=== PATIENT | female | born 1940 | race Caucasian/White ===

== ENCOUNTER 2016-06-22 10:02 | Emergency (ER) | payer OTHER ==
[~2016-06-22] VITALS: Ht 152.4 cm; Wt 51.0 kg
[~2016-06-22 10:02] MED LIST: ASPI81TA28 PO; ISOS-11 PO; LEVO75TA PO; LISI-729 PO; LOVA40TA3 PO; LSX20 PO; METO1TAB66 PO; POTA-331 PO; PRED10TA PO; WARF5TAB7 PO
[2016-06-22 10:19] VITALS: TEMP 37.7; Ht 152.4 cm; Wt 51.0 kg
[2016-06-22] MEDS ORDERED: WARF2.5T8 PO (10:30)
[2016-06-22 10:49] LABS: BASO % 0.6 %; BASO ABS # 0.06 K/uL (0-0.2); COMPLETE YES; HEMATOCRIT 40.7 % (37-47); IG% 0.2 %; LYMPH % 10.4 %; LYMPH ABS # 1.05 K/uL (1.2-3.4); MEAN CELL VOLUME 88.3 fL (80-100); MEAN CORPUSCULAR HEMOGLOBIN 30.6 pg (25-34); MEAN CORPUSCULAR HGB CONC 34.6 g/dl (32-36); MONO % 6.3 %; NEUT % 81.5 %; PLATELET COUNT 256 K/uL (130-400); RED BLOOD COUNT 4.61 M/uL (4.2-5.4); WHITE BLOOD COUNT 10.12 K/uL (4.8-10.8)
[2016-06-22 11:05] LABS: BUN/CREATININE RATIO 11.8 (10-20); CALCIUM 9.4 mg/dl (8.5-10.1); CREATININE 0.79 mg/dl (0.60-1.20); POTASSIUM 4.2 mmol/L (3.5-5.1)
[2016-06-22 11:13] LABS: INR 2.8 (0.9-1.1); PROTHROMBIN TIME (PATIENT) 31.3 SECONDS (9.0-12.0)
[2016-06-22 11:17] LABS: MANUAL MICROSCOPIC REQUIRED? YES; URINE APPEARANCE CLOUDY (CLEAR); URINE BILIRUBIN NEG (NEG); URINE COLOR BROWN; URINE NITRITE POS (NEG); URINE SPECIFIC GRAVITY 1.015 (1.000-1.030); UROBILINOGEN NEG (NEG)
[2016-06-22 11:20] LABS: REVIEW REQ? NO
[2016-06-22 11:24] LABS: URINE RBC >30 /hpf (0-4); URINE WBC >30 /hpf (0-5)
[2016-06-22 11:26] LABS: URINE BACTERIA 3+ (NEG)
[2016-06-22 11:27] LABS: ZZUR CULT IF INDIC CLEAN CATCH YES
--- NOTE | 2016-06-22 12:04 | DIAGNOSTIC IMAGING REPORT ---
ULTRASOUND KIDNEYS AND BLADDER CLINICAL HISTORY: Hematuria. COMPARISON STUDY: No priors. TECHNIQUE: Real-time, grayscale, and color flow sonography of the kidneys and bladder is performed. Images are reviewed in the transverse and longitudinal planes. FINDINGS: Kidneys: The kidneys demonstrate mild cortical atrophy and are normal in echotexture. The right kidney measures 9.8 x 3.9 x 3.7 cm and the left kidney measures 8.9 x 4.7 x 4.5 cm. There is no hydronephrosis. No shadowing renal calculi are identified. There is no sonographic evidence of contour deforming renal mass lesion. No perinephric fluid is identified. Bladder: The bladder is normal in morphology. Intraluminal debris is suspected. Ureteral jets were not seen. IMPRESSION: 1. The kidneys demonstrate minimal cortical atrophy and are without hydronephrosis. 2. The bladder is normal in morphology. Intraluminal debris is suspected. Correlation with urinalysis will be required. Electronically signed by: Anthony Bolanos M.D. 06/22/2016 12:02 PM Dictated Date/Time: 06/22/2016 12:00 PM
[2016-06-22] MEDS ORDERED: CEPHALEXIN MONOHYDRATE 250 MG CAP PO ONE (12:30)
[2016-06-22] MEDS ORDERED: CEPH500C PO (12:56)
[2016-06-22 13:37] VITALS: BP 171/67; PULSE 78; O2SAT 95
--- NOTE | 2016-06-22 16:46 | EMERGENCY ROOM VISIT NOTE ---
History Report prepared by Ab: Yvette Catherine Under the Supervision of: Dr. Markos Hernandez D.O. First contact with patient: 10:12 Chief Complaint: HEMATURIA Stated Complaint: URINATING BLOOD Nursing Triage Summary: PT PRESENTS WITH DAUGHTER PT STATES SHE HAS HAD AN INCREASED URINARY FREQUENCY LAST NIGHT STATES SHE HAS BLOOD IN HER URINE WITH EVERY URINATION PT IS ON COUMADIN FOR A PREVIOUS BLOT CLOT WITH STENT AND A IED History of Present Illness The patient is a 75 year old female who presents to the Emergency Room with complaints of persistent hematuria that started last night. The patient is not passing any clots and she feels like she is able to get all of her urine out. She has never experienced hematuria in the past. The patient denies fever, dizziness, lightheadedness, abdominal pain, and pain or burning with urination along with recent trauma or falls. She is also experiencing rhinorrhea but denies any recent cough. The patient has been on Coumadin for several years as a result of a DVT. The patient has a history of an TX and has a defibrillator in place. Patient is no other complaints at this time. Source of History: patient Onset: last night Quality: other (hematuria) Timing: other (persistent) Associated Symptoms: No abdominal pain, No cough, No fevers, No urinary symptoms (pain or burning with urination) Note: rhinorrhea, no dizziness, no lightheadedness Review of Systems See HPI for pertinent positives & negatives. A total of 10 systems reviewed and were otherwise negative. Past Medical & Surgical Medical Problems: (1) ACUTE CHF, CAD (2) Acute pulmonary edema (3) CHF exacerbation (4) DVT (deep venous thrombosis) (5) Hypoxia (6) Hypoxia Family History FH: heart disease Hypertension Social History Smoking Status: Former Smoker Alcohol Use: none Drug Use: none Housing Status: lives with family Current/Historical Medications Scheduled Aspirin (Aspirin Ec), 81 MG PO DAILY Cephalexin Monohydrate (Keflex), 500 MG PO QID Furosemide (Furosemide), 20 MG PO QAM Isosorbide Mononitrate (Isosorbide Mononitrate ER), 30 MG PO QAM Levothyroxine Sodium (Synthroid), 75 MCG PO DAILY Lisinopril (Zestril), 5 MG PO DAILY Lovastatin (Mevacor), 40 MG PO BID Metoprolol Succinate (Toprol Xl), 50 MG PO DAILY Warfarin Sod (Juntoven), 5 MG PO 5XWK Warfarin Sod (Jantoven), 2.5 MG PO 2XWK Allergies Coded Allergies: Simvastatin (Verified Allergy, Unknown, ., 03/29/15) Physical Exam Vital Signs Date Time Temp Pulse Resp B/P Pulse Ox O2 Delivery O2 Flow Rate FiO2 06/22/16 13:37 78 20 171/67 95 06/22/16 11:37 72 20 137/76 99 Room Air 06/22/16 10:19 37.7 71 16 127/98 97 Room Air Physical Exam GENERAL: alert, sitting up in bed, well appearing, well nourished, no distress, non-toxic EYE EXAM: normal conjunctiva OROPHARYNX: no exudate, no erythema, lips, buccal mucosa, and tongue normal and mucous membranes are moist NECK: supple, no nuchal rigidity, no adenopathy, non-tender LUNGS: Clear to auscultation. Normal chest wall mechanics HEART: no murmurs, S1 normal and S2 normal ABDOMEN: abdomen soft, non-tender, normo-active bowel sounds, no masses, no rebound or guarding. BACK: Back is symmetrical on inspection and there is no deformity, no midline tenderness, no CVA tenderness. SKIN: no rashes and no bruising UPPER EXTREMITIES: upper extremities are grossly normal. LOWER EXTREMITIES: No pitting edema. NEURO EXAM: Normal sensorium, cranial nerves II-XII grossly intact, normal speech, no gross weakness of arms, no gross weakness of legs. Medical Decision & Procedures ER Provider Diagnostic Interpretation: US results have been interpreted by the radiologist and reviewed by me. ULTRASOUND KIDNEYS AND BLADDER IMPRESSION: 1. The kidneys demonstrate minimal cortical atrophy and are without hydronephrosis. 2. The bladder is normal in morphology. Intraluminal debris is suspected. Correlation with urinalysis will be required. Electronically signed by: Anthony Bolanos M.D. 06/22/2016 12:02 PM Dictated Date/Time: 06/22/2016 12:00 PM Laboratory Results 06/22/16 10:44 Red Blood Count 4.61, Mean Corpuscular Volume 88.3, Mean Corpuscular Hemoglobin 30.6, Mean Corpuscular Hemoglobin Concent 34.6, Mean Platelet Volume 10.0, Neutrophils (%) (Auto) 81.5, Lymphocytes (%) (Auto) 10.4, Monocytes (%) (Auto) 6.3, Eosinophils (%) (Auto) 1.0, Basophils (%) (Auto) 0.6, Neutrophils # (Auto) 8.25, Lymphocytes # (Auto) 1.05, Monocytes # (Auto) 0.64, Eosinophils # (Auto) 0.10, Basophils # (Auto) 0.06 06/22/16 10:44 Test 06/22/16 10:20 06/22/16 10:44 Urine Color BROWN Urine Appearance CLOUDY (CLEAR) Urine pH 7.0 (4.5-7.5) Urine Specific [place] 1.015 (1.000-1.030) Urine Protein 2+ (NEG) Urine Glucose (UA) NEG (NEG) Urine Ketones TRACE (NEG) Urine Occult Blood 2+ (NEG) Urine Nitrite POS (NEG) Urine Bilirubin NEG (NEG) Urine Urobilinogen NEG (NEG) Urine Leukocyte Esterase SMALL (NEG) Urine RBC >30 /hpf (0-4) Urine WBC >30 /hpf (0-5) Urine Epithelial Cells 5-10 /lpf (0-5) Urine Bacteria 3+ (NEG) White Blood Count 10.12 K/uL (4.8-10.8) Red Blood Count 4.61 M/uL (4.2-5.4) Hemoglobin 14.1 g/dL (12.0-16.0) Hematocrit 40.7 % (37-47) Mean Corpuscular Volume 88.3 fL (80-100) Mean Corpuscular Hemoglobin 30.6 pg (25-34) Mean Corpuscular Hemoglobin Concent 34.6 g/dl (32-36) Platelet Count 256 K/uL (130-400) Mean Platelet Volume 10.0 fL (7.4-10.4) Neutrophils (%) (Auto) 81.5 % Lymphocytes (%) (Auto) 10.4 % Monocytes (%) (Auto) 6.3 % Eosinophils (%) (Auto) 1.0 % Basophils (%) (Auto) 0.6 % Neutrophils # (Auto) 8.25 K/uL (1.4-6.5) Lymphocytes # (Auto) 1.05 K/uL (1.2-3.4) Monocytes # (Auto) 0.64 K/uL (0.11-0.59) Eosinophils # (Auto) 0.10 K/uL (0-0.5) Basophils # (Auto) 0.06 K/uL (0-0.2) RDW Standard Deviation 41.4 fL (36.4-46.3) RDW Coefficient of Variation 12.8 % (11.5-14.5) Immature Granulocyte % (Auto) 0.2 % Immature Granulocyte # (Auto) 0.02 K/uL (0.00-0.02) Prothrombin Time 31.3 SECONDS (9.0-12.0) Prothromb Time International Ratio 2.8 (0.9-1.1) Anion Gap 10.0 mmol/L (3-11) Est Creatinine Clear Calc Drug Dose 44.2 ml/min Estimated GFR () 84.9 Estimated GFR (Non- 73.2 BUN/Creatinine Ratio 11.8 (10-20) Calcium Level 9.4 mg/dl (8.5-10.1) Total Bilirubin 0.4 mg/dl (0.2-1) Direct Bilirubin 0.1 mg/dl (0-0.2) Aspartate Amino Transf (AST/SGOT) 15 U/L (15-37) Alanine Aminotransferase (ALT/SGPT) 18 U/L (12-78) Alkaline Phosphatase 50 U/L (45-117) Total Protein 7.3 gm/dl (6.4-8.2) Albumin 4.0 gm/dl (3.4-5.0) Lipase 141 U/L (73-393) Laboratory results per my review. Medications Administered Medications (Trade) Dose Ordered Sig/Meme Route Start Time Stop Time Status Last Admin Dose Admin Cephalexin Monohydrate (Keflex Cap) 500 mg NOW ONCE PO 06/22/16 12:30 06/22/16 12:32 DC 06/22/16 12:39 500 MG ED Course ED COURSE: Vital signs were reviewed and showed normal. The patients medical record was reviewed The above diagnostic studies were performed and reviewed. ED treatments and interventions as stated above. 1019: The patient was evaluated in room B6. A complete history and physical examination was performed. 1230: Ordered Keflex Cap 500 mg PO 1231: Upon reevaluation, the patient is doing well. I discussed my findings with the patient and she understands and agrees with the treatment plan. Based on the patients age, coexisting illnesses, exam and lab findings the decision to treat as an outpatient was made. The patient remained stable while under my care. The patient appeared well at the time of discharge. Medical Decision Differential diagnoses includes but is not limited to gastritis, peptic ulcer disease, GERD, gallbladder disease, pancreatitis, small bowel obstruction, acute coronary syndrome, pericarditis, ischemic bowel, irritable bowel disease, irritable bowel syndrome, appendicitis, diverticulitis, malignancy, hernia, urinary tract infection, torsion, /ectopic , perforation, trauma, infectious. Patient is a 75-year-old female who presents the ER for hematuria. This started last night and has been persistent. She does take Coumadin for previous PEs. Labs show no significant leukocytosis or anemia. BMP along with LFTs, bilirubin and lipase were unremarkable. She has no abdominal pain. Vitals are stable. Afebrile. UA has blood along with nitrates, leuks, weights and +3 bacteria. There is only 5-10 epithelial cells. Based on this I did elect to treat her for UTI with Keflex. She has no symptoms to suggest urinary retention. Renal ultrasound was were unremarkable. Patient was updated at bedside. I instructed her not take her Coumadin tonight. Discharged her on Keflex and instructed her to contact her PCP later today to establish further follow-up. She was also given a urologist to follow up with who she will need CT within the week. Discussed with Pt concerning signs and symptoms to watch out for. Pt was instructed to follow up with their PCP and discussed with the patient their option to return to the ED at anytime for persistent or worsening symptoms. The appropriate anticipatory guidance and out-patient management, including indications for return to the emergency department, were explained at length to the patient and understood. Impression Primary Impression: Hematuria Additional Impression: UTI (urinary tract infection) Scribe Attestation The scribe's documentation has been prepared under my direction and personally reviewed by me in its entirety. I confirm that the note above accurately reflects all work, treatment, procedures, and medical decision making performed by me. Departure Information Dispostion Home / Self-Care Prescriptions Cephalexin Monohydrate (Keflex) 500 Mg Cap 500 MG PO QID, #40 CAP Prov: Markos Hernandez, DO 06/22/16 Referrals Brice Swanson M.D. (PCP) Forms HOME CARE DOCUMENTATION FORM, IMPORTANT VISIT INFORMATION, WORK / SCHOOL INSTRUCTIONS Patient Instructions ED Hematuria, My [facility] Additional Instructions Please follow up with your primary care doctor with in the next 24 hours. Any worsening of your symptoms, please return to the ED immediately. This includes fevers greater than 100.4, persistent nausea vomiting, unable to urinate, belly pain, or any other concerning signs or symptoms from your standpoint. Please do not take your Coumadin tonight. Please take antibiotic as prescribed. Please follow up with urology within the week. Problem Qualifiers Additional Impression: UTI (urinary tract infection) Urinary tract infection type: acute cystitis Hematuria presence: with hematuria Qualified Codes: N30.01 - Acute cystitis with hematuria
--- NOTE | 2016-06-24 14:03 | Pharmacy Progress Note ---
ED Pharmacist Culture FollowUp Date of Service: Jun 24, 2016. Patient's urine cx from 06/22 is growing Klebsiella oxytoca resistant to cefazolin. Patient was discharged on Keflex, which will not adequately treat this organism. I contacted the patient to determine what pharmacy she would like a new antibiotic called to, however during this discussion she stated Dr Lowe had placed her on a new antibiotic today. I contacted his office and they state she was placed on Levofloxacin. Levofloxacin should adequately cover the organism in the urine cx. No action required at this time.
== END 2016-06-22 13:38 | disposition home or self-care (01) ==
LOC: C.EDB 10:04
DX: R31.9 Hematuria, unspecified (principal); N39.0 Urinary tract infection, site not specified; I25.10 Atherosclerotic heart disease of native coronary artery without angina pectoris; I50.9 Heart failure, unspecified; Z86.718 Personal history of other venous thrombosis and embolism; Z87.891 Personal history of nicotine dependence; Z79.01 Long term (current) use of anticoagulants; Z79.82 Long term (current) use of aspirin; Z79.899 Other long term (current) drug therapy; Z88.8 Allergy status to other drugs, medicaments and biological substances; Z82.49 Family history of ischemic heart disease and other diseases of the circulatory system

== ENCOUNTER → 2016-08-30 | Outpatient (CLI) | payer OTHER ==
[~2016-08-30] MED LIST changes: +CEPH500C PO; +METO-452 PO; -METO1TAB66 PO; -POTA-331 PO; -PRED10TA PO; +WARF2.5T8 PO
== END | disposition home or self-care (01) ==
LOC: C.LABSPEC 14:35
PROVIDERS: ATTEND Internal Medicine
DX: Z12.11 Encounter for screening for malignant neoplasm of colon (principal)

== ENCOUNTER → 2016-09-09 | Outpatient (CLI) | payer OTHER ==
--- NOTE | 2016-09-09 16:25 | MAMMOGRAPHY REPORT ---
BILATERAL DIGITAL SCREENING MAMMOGRAM WITH CAD: 09/09/2016 CLINICAL HISTORY: Routine screening examination. Patient would not allow compression of her pacemak er on the left MLO view. TECHNIQUE: Bilateral CC and MLO views were obtained. Current study was also evaluated with a Comput er Aided Detection (CAD) system. COMPARISON: Comparison is made to exams dated: 09/07/2015 mammogram, 09/06/2014 mammogram, 04/02/2013 ma mmogram, 03/13/2012 mammogram, 03/05/2011 mammogram, and 10/26/2009 mammogram - [facility]. BREAST COMPOSITION: There are scattered areas of fibroglandular density in both breasts. FINDINGS: The parenchymal pattern is unchanged. There are mild vascular calcifications in the adi sts. No developing mass, architectural distortion or cluster of suspicious microcalcifications is s een. IMPRESSION: ACR BI-RADS CATEGORY 2: BENIGN There is no mammographic evidence of malignancy. A 1 year screening mammogram is recommended. The p atient will receive written notification of the results. Approximately 10% of breast cancers are not detected with mammography. A negative mammographic repor t should not delay biopsy if a clinically suggestive mass is present. Olinda Cid M.D. ay/:09/09/2016 15:12:57 Cloud Engagement Partner: Aubree TADEO)(Lisbeth), [facility] letter sent: Normal 1/2 BI-RADS Code: ACR BI-RADS Category 2: Benign
== END | disposition home or self-care (01) ==
LOC: C.MAMM 14:40
PROVIDERS: ATTEND Internal Medicine
DX: Z12.31 Encounter for screening mammogram for malignant neoplasm of breast (principal)

== ENCOUNTER → 2016-12-30 | Outpatient (CLI) | payer OTHER ==
[~2016-12-30] MED LIST changes: -CEPH500C PO; -METO-452 PO; +METO1TAB66 PO
--- NOTE | 2016-12-30 12:23 | DIAGNOSTIC IMAGING REPORT ---
ART DOP LOWER EXT BILAT CLINICAL HISTORY: 76 years-old Female presenting with BILAT PERIPHERAL ARTERY DISEASE. TECHNIQUE: Real-time grayscale and color and spectral Doppler ultrasound imaging of the bilateral lower extremity arteries was performed. Measurements calculated based on NASCET criteria. COMPARISON: 03/04/2013. FINDINGS: Right: Common femoral artery: Patent. Peak systolic velocity 203 cm/s. Normal waveforms. Superficial femoral artery: Stent in place. Peak systolic velocity 165 cm/s. Normal waveforms Profunda femoris: Patent. Peak systolic velocity 78 cm/s. Normal waveforms. Popliteal artery: Patent. Peak systolic velocity 95 cm/s. Normal waveforms Posterior tibial artery: Patent. Peak systolic velocity 68 cm/s. Normal waveforms Peroneal artery: Patent. Peak systolic velocity 34 cm/s. Normal waveforms Anterior tibial artery: Patent. Peak systolic velocity 83 cm/s. Normal waveforms Dorsalis pedis: Patent. Peak systolic velocity 80 cm/s. Normal waveforms Left: Common femoral artery: Patent. Peak systolic velocity 207 cm/s. Normal waveforms. Superficial femoral artery: Patent along its proximal and mid course. Peak systolic velocity 55 cm/s. Normal waveforms. However, in the distal SFA, focal narrowing with elevated peak systolic velocity of 400 cm/s. Profunda femoris: Patent. Peak systolic velocity 94 cm/s. Normal waveforms. Popliteal artery: Patent. Peak systolic velocity 66 cm/s. Normal waveforms Posterior tibial artery: Patent. Peak systolic velocity 53 cm/s. Normal waveforms Peroneal artery: Patent. Peak systolic velocity 31 cm/s. Normal waveforms Anterior tibial artery: Patent. Peak systolic velocity 40 cm/s. Normal waveforms Dorsalis pedis: Patent. Peak systolic velocity 43 cm/s. Normal waveforms IMPRESSION: 1. 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 Vessels of the lower extremities remain patent. Electronically signed by: Raymond eLrma M.D. 12/30/2016 12:21 PM Dictated Date/Time: 12/30/2016 12:13 PM
== END | disposition home or self-care (01) ==
LOC: C.ULTR 10:32
PROVIDERS: ATTEND Internal Medicine
DX: I73.9 Peripheral vascular disease, unspecified (principal)

== ENCOUNTER → 2017-04-28 | Outpatient (CLI) | payer OTHER ==
[~2017-04-28] MED LIST changes: +METO-452 PO; -METO1TAB66 PO
[2017-04-28 13:08] LABS: BASO % 1.7 %; COMPLETE YES; EOS % 2.1 %; IG% 0.2 %; LYMPH % 19.2 %; LYMPH ABS # 1.12 K/uL (1.2-3.4); MEAN CELL VOLUME 89.9 fL (80-100); MEAN CORPUSCULAR HEMOGLOBIN 30.6 pg (25-34); MEAN CORPUSCULAR HGB CONC 34.1 g/dl (32-36); MEAN PLATELET VOLUME 10.8 fL (7.4-10.4); NEUT % 64.8 %; PLATELET COUNT 268 K/uL (130-400); RED BLOOD COUNT 4.34 M/uL (4.2-5.4); WHITE BLOOD COUNT 5.82 K/uL (4.8-10.8)
[2017-04-28 14:10] LABS: ALT/SGPT 54 U/L (12-78); BLOOD UREA NITROGEN 11 mg/dl (7-18); BUN/CREATININE RATIO 13.8 (10-20); CALCIUM 9.4 mg/dl (8.5-10.1); CARBON DIOXIDE 26 mmol/L (21-32); CHLORIDE 96 mmol/L (98-107); CHOLESTEROL 134 mg/dl (0-200); CREATININE 0.76 mg/dl (0.60-1.20); GLUCOSE 102 mg/dl (70-99); POTASSIUM 4.4 mmol/L (3.5-5.1); SODIUM 128 mmol/L (136-145); TRIGLYCERIDES 108 mg/dl (0-150); VERY LOW DENSITY LIPOPROT CALC 22 mg/dl
[2017-04-28 14:19] LABS: ALB/GLOB RATIO 1.1 (0.9-2); ALKALINE PHOSPHATASE 58 U/L (45-117); AST/SGOT 63 U/L (15-37); CHOLESTEROL/HDL RATIO 2.5; HDL CHOLESTEROL 53 mg/dl; THYROID STIMULATING HORMONE 0.753 uIu/ml (0.300-4.500)
== END | disposition home or self-care (01) ==
LOC: C.LABSPEC 12:30
PROVIDERS: ATTEND Internal Medicine
DX: I25.10 Atherosclerotic heart disease of native coronary artery without angina pectoris (principal); E78.5 Hyperlipidemia, unspecified; E03.9 Hypothyroidism, unspecified; I10 Essential (primary) hypertension

== ENCOUNTER 2017-06-18 19:00 | Emergency (ER) | payer OTHER ==
[~2017-06-18] VITALS: Ht 154.9 cm; Wt 50.0 kg
[2017-06-18 19:03] VITALS: TEMP 36.5; Ht 154.9 cm; Wt 50.0 kg
[2017-06-18] MEDS ORDERED: GELATIN SPONGE 12-7MM EXT STA (19:22)
--- NOTE | 2017-06-18 19:44 | EMERGENCY ROOM VISIT NOTE ---
History First contact with patient: 19:09 Chief Complaint: BLEEDING Stated Complaint: CUT UNI-BPSXPERF-EL BLOOD THINNERS Nursing Triage Summary: Pt reports 1 hour ago she cut her left ankle while shaving. Pt states she "held pressure for awhile" and cannot get it to stop. On Coumadin. History of Present Illness The patient is a 76 year old female who presents to the Emergency Room with complaints of a laceration to her leg. The patient reports that she cut her left ankle while shaving her legs and has had persistent bleeding. She states that she takes Coumadin. Laceration occurred one hour ago. She denies any pain in the area. She denies any numbness or weakness. Review of Systems A complete 10 point review of systems was reviewed with the patient with pertinent positives and negatives as per history of present illness. All else were negative. Past Medical/Surgical History Medical Problems: (1) ACUTE CHF, CAD (2) Acute pulmonary edema (3) CHF exacerbation (4) DVT (deep venous thrombosis) (5) Hypoxia (6) Hypoxia Family History FH: heart disease Hypertension Social History Smoking Status: Former Smoker Alcohol Use: none Drug Use: none Housing Status: lives with family Current/Historical Medications Scheduled Aspirin (Aspirin Ec), 81 MG PO QAM Furosemide (Furosemide), 20 MG PO QAM Isosorbide Mononitrate (Isosorbide Mononitrate ER), 30 MG PO QAM Levothyroxine Sodium (Synthroid), 75 MCG PO QAM Lisinopril (Zestril), 5 MG PO QAM Lovastatin (Mevacor), 80 MG PO 1600 Metoprolol Succinate (Toprol Xl), 50 MG PO QAM Warfarin Sod (Jantoven), 5 MG PO 5XWK Warfarin Sod (Jantoven), 2.5 MG PO 2XWK Physical Exam Vital Signs Date Time Temp Pulse Resp B/P (MAP) Pulse Ox O2 Delivery O2 Flow Rate FiO2 18 19:03 36.5 59 16 135/74 95 Room Air Physical Exam VITALS: Vitals are noted on the nurse's note and reviewed by myself. Vital signs stable. GENERAL: This is a 76-year-old female, in no acute distress, nondiaphoretic, well-developed well-nourished. SKIN: There is a punctate laceration to the anterior left ankle with constant oozing bleeding. MUSCULOSKELETAL: Full range of motion left lower extremity. NEURO: Patient was alert and oriented to person place and time. Medical Decision & Procedures Medical Decision The patient was evaluated as above. Gelfoam and dressing were applied to the wound. Hemostasis was achieved. Patient tolerated the procedure well. Wound care instructions were discussed with the patient. She verbalized understanding and was discharged home in good condition. The patient was independently evaluated by Dr. Felder, ED attending physician, who agreed with my assessment and treatment plan. Medication Reconcilliation Current Medication List: was personally reviewed by me Blood Pressure Screening Patient's blood pressure: Normal blood pressure Impression Primary Impression: Laceration of lower extremity Departure Information Dispostion Home / Self-Care Condition GOOD Referrals Brice Swanson M.D. (PCP) Patient Instructions My [facility] Additional Instructions Leave the GELFOAM and dressing in place for the next 48 hours. Keep the dressing clean and dry until time for removal. To remove the GELFOAM dressing, remove the overlying tape and then soak the wound in warm water until the piece of GELFOAM can be easily removed. Proper wound care is essential for adequate wound healing and infection prevention. You can shower and clean the wound with soap and water. Do not scour over the wound, pat dry with a towel. You can use an antibiotic ointment with a dressing/bandage over the wound for the next 3-4 days. After this time you may leave the wound dry and open to the air. Look for signs of infection of the wound including: increased pain, swelling, foul discharge, streaking, or increased temperature. If any of these are noticed you should return to the Emergency Department for further assessment and treatment. As with any laceration you may have received nerve damage to the surrounding tissues. This damage could be permanent. For pain control, you can use the following [id number] medicines (if >12 yo): - Regular strength (325mg/tab) Tylenol (acetaminophen) 2 tabs every 4-6 hours as needed. Do not exceed 12 tablets in a 24 hour period. Avoid taking more than 4 grams (4000 mg) of Tylenol per day. This includes any other sources of acetaminophen you may take on a regular basis. - Regular strength (200 mg/tab) Advil (ibuprofen) 1-2 tabs every 4-6 hours as needed. Do not exceed a dose of 3200 mg per day. Return to the emergency department if your symptoms worsen despite treatment course outlined above. Problem Qualifiers Primary Impression: Laceration of lower extremity Encounter type: initial encounter Laterality: left Qualified Codes: S81.812A - Laceration without foreign body, left lower leg, initial encounter
--- NOTE | 2017-06-18 19:59 | EMERGENCY ROOM VISIT NOTE ---
ED Visit Note First contact with patient: 19:09 The patient was seen and examined with Carolyne Lisa PA-C. I agree with the history, physical and findings. Please see the note for disposition and details.
[2017-06-18 20:00] VITALS: BP 150/79; PULSE 66; O2SAT 97
== END 2017-06-18 20:02 | disposition home or self-care (01) ==
LOC: C.EDB 19:01 → C.EDD 20:02
DX: S81.812A Laceration without foreign body, left lower leg, initial encounter (principal); W26.8XXA Contact with other sharp object(s), not elsewhere classified, initial encounter; Y92.89 Other specified places as the place of occurrence of the external cause; Z79.01 Long term (current) use of anticoagulants; Z87.891 Personal history of nicotine dependence; I50.9 Heart failure, unspecified; I25.10 Atherosclerotic heart disease of native coronary artery without angina pectoris; Z79.899 Other long term (current) drug therapy; Z86.718 Personal history of other venous thrombosis and embolism

== ENCOUNTER → 2017-06-20 | Day surgery (SDC) | payer OTHER ==
[2017-05-27 15:38] VITALS: BMI 21.0
[~2017-06-20] VITALS: Ht 154.9 cm; Wt 50.0 kg
[2017-06-20] VITALS (7 sets, daily range): BP systolic 104–175; BP diastolic 6–77; PULSE 59–61; TEMP 36.7; O2SAT 92–99; Ht 154.9 cm; Wt 50.0 kg
[~2017-06-20] MED LIST changes: +ATROPINE SULFATE 0.1 MG/ML 5ML SYR IV PRN; +CEFAZOLIN 1000MG IV PUSH 5 ML IV SCH; +EpHEDrine SULFATE INJ 50 MG/ML AMP IV PRN; +FENTANYL CITRATE INJ 50 MCG/1 ML 2 ML VIAL IV PRN; +FENTANYL CITRATE INJ 50 MCG/1 ML 2 ML VIAL ONE; +HEPARIN SOD (PORCINE) 1000 UNIT/ML 10 ML VIAL ONE; +HYDROmorphone INJ 1 MG/ML SYR IV PRN; +IODIXANOL (VISIPAQUE) 270 MG/ML 150ML XX ONE; +LACTATED RINGER'S 1000ML 1,000 ML IV SCH; +LIDOCAINE HCL 1% 20 ML VIAL INJ ONE; +MIDAZOLAM HCL 1 MG/ML 2ML VIAL ONE; +ONDANSETRON INJ 2 MG/ML 2 ML VIAL IV PRN; +OXYCODONE/ACETAMINOPHEN 5-325 TAB PO PRN; +PHENYLEPHRINE 100MCG/ML 5ML SYR IV PRN; +SODIUM CHLORIDE 0.9% 1000ML IV SCH
--- NOTE | 2017-06-20 05:55 | History and Physical ---
History & Physical Date of Service Jun 20, 2017. History & Physical CC: Severe left leg pain with walking HPI: Ms. Solis is a pleasant 76-year-old female who was originally seen by us in 2012 when she had right lower extremity acute limb ischemia. This required a transfer to [place] where she underwent left common iliac angioplasty , right lower extremity angiogram, right SFA balloon angioplasty and stent placement with a 6 x 80 mm stent, and completion angiogram and injection of tPA. She was subsequently found to have a left common femoral artery pseudoaneurysm which was repaired opened here in [place] by Dr. Burch. Since that time, she has lost to followup and comes back today complaining of left lower extremity claudication. She states she can walk approximately 2 blocks before she starts having cramping pain. She denies any rest pain or ulceration. She denies any chest pain, shortness of breath, nausea, vomiting, fever or chills. She denies any new abdominal or back pain. She denies any stroke or TIA-like symptoms including amaurosis, unilateral weakness, slurred facial droop, or slurred speech. REVIEW OF SYSTEMS: Her review of systems is negative except for what is stated above. PAST MEDICAL HISTORY: Her past medical history includes hypertension, atrial fibrillation, hypercholesterolemia, hypothyroidism, hypokalemia and coronary artery disease. PAST SURGICAL HISTORY: Includes the right SFA angioplasty and stenting, left common iliac artery stenting, tonsillectomy 1951, appendectomy in 1975, and defibrillator placement. SOCIAL HISTORY: Previous smoker, quit 25 years ago, nondrinker. No illicit substances. FAMILY HISTORY: Family history is noncontributory. ALLERGIES: ZOCOR. HOME MEDICATIONS: Include Mevacor 80 mg daily, Prinivil 5 mg daily, Imdur 30 mg daily, Synthroid 75 mcg daily, Lasix 20 mg daily, Toprol-XL 50 mg daily, Coumadin 5 mg daily, aspirin 81 mg daily, and potassium 10 mg daily. PHYSICAL EXAMINATION: On physical exam, her heart rate is 60; her blood pressure is 110/68. She is satting 97% on room air. Her weight is 52.3 kilograms. This is a 76-year-old female in no acute distress. Head is normocephalic, atraumatic. Extraocular movements are intact. Neck is supple; trachea is midline. Heart is regular rate and rhythm. She has a defibrillator palpable in the left chest. The incision is well-healed. Her lungs are clear. Her abdomen is soft, nontender, nondistended. She has palpable bilateral radial and she has palpable bilateral femoral pulses. She does have 1+ PT pulses bilaterally. Her feet have good cap refill. Imp: Left superficial femoral artery occlusion Plan: Patient is admitted for arteriography with possible intervention. I have discussed the risks options and benefits of the procedure with the patient. The patient understands the risks options and benefits and agrees to the procedure.
[2017-06-20 06:13] LABS: INR 1.5 (0.9-1.1); PTT PATIENT 29.3 SECONDS (21.0-31.0)
[2017-06-20 06:22] LABS: CREATININE 0.74 mg/dl (0.60-1.20)
--- NOTE | 2017-06-20 09:03 | [facility] Post Operative Brief Note ---
Immediate Operative Summary Operative Date Jun 20, 2017. Pre-Operative Diagnosis Left superficial femoral artery occlusion Post-Operative Diagnosis Left superficial femoral artery stenosis - pre occlusive, bilateral iliac stenosis, and left external iliac stenosis Procedure(s) Performed Left Lower Extremity Angiogram Ultasound Localization of Right Femoral Artery Percutaneous Transluminal Angioplasty Bilateral Common Iliac Percutaneous Transluminal Angioplasty Left External Iliac Percutaneous Transluminal Angioplast/Stent Distal Superficial Femoral Artery and Proximal Popliteal Surgeon Kiersten Public Safety Director Surgeon(s) None Estimated Blood Loss 20 Findings Consistent with Post-Op Diagnosis Specimens None Drains None Anesthesia Type MAC Complication(s) none
--- NOTE | 2017-06-20 09:07 | Discharge Instructions ---
Discharge Instructions Date of Service Jun 20, 2017. Visit Reason for Visit: Left Lower Extremity Claudication Discharge Discharge Diagnosis / Problem: Left superficial femoral arery stenosis with claudication Discharge Goals Goal(s): Therapeutic intervention Activity Recommendations Activity Limitations: per Instructions/Follow-up section Anesthesia . Post Anesthesia Instructions: If you have had General Anesthesia or IV Sedation: * Do not drive today. * Resume driving when surgeon permits. * Do not make important decisions or sign legal documents today. * Call surgeon for: 1. Temperature elevations greater than 101 degrees F. 2. Uncontrollable pain. 3. Excessive bleeding. 4. Persistent nausea and vomiting. 5. Medication intolerance (nausea, vomiting or rash). * For nausea and vomiting use only clear liquids such as: tea, soda, bouillon until nausea subsides, then gradually increase diet as tolerated. * If you have any concerns or questions, call your surgeon's office. If physician is unavailable and it is an emergency, call 911 or go to the nearest emergency room. . Instructions / Follow-Up Instructions / Follow-Up Call [phone] to schedule a follow up appointment if one not already scheduled. SPECIAL CARE INSTRUCTIONS: Medications: * Continue to take your medications as directed. If you have been given a prescription for Plavix, please fill it immediately and take as directed. Incision Care: * Your puncture site may have some bruising and minor swelling for about one week. * You will have a small dressing covering your puncture site. You may remove the dressing after 24 hours and shower. You may let the warm soapy water run over it, but be sure to dry the puncture site well and keep it dry. * DO NOT IMMERSE THE INCISION IN A TUB/POOL/etc. UNTIL HEALED. * Puncture sites should be kept covered with a band-aid until it begins to heal. Restrictions: * Depending on whether you leg or arm was punctured to access the arteries, you will be required to lay flat, hold your arm still, or both, for about 4 hours after the procedure to prevent bleeding. * Limit your activity for the first 48 hours. You may walk and go up and down steps. Avoid excessive bending or movement at the puncture site. Possible Complications: * Excessive Swelling - after blood flow is improved you may notice increased swelling in the lower legs. This is a normal response. This usually depends on the amount of blockages in the leg, how long they have been there prior to your procedure and how much blood flow was restored. Elevating your legs will help to improve this. Please notify our office ([phone] ) if the swelling does not go away after lying in bed overnight. * Infection/Drainage/Bleeding - Drainage or bleeding from the puncture site should be minimal. If you have excessive bleeding or drainage, call our office ([phone]) right away. * Pain - You may experience some mild pain or soreness at your puncture site. If your pain does not improve, please contact our office ([phone]). Call your doctor and seek emergent treatment if you develop: * Temperature above 101 degrees * Any fever or chills * Any redness or purulent drainage from the puncture site * Any new dusky/blue colored toes or feet with coolness or sharp or aching pain. SKIN IRRITATION: * You may experience some redness and/or swelling in the area where radiation was administered. If any skin irritation occurs, please contact your family physician. FOLLOW UP VISIT: Keep any scheduled doctor appointments. Diet Recommendations Recommended Home Diet: resume previous diet Procedures Procedures Performed: Left Lower Extremity Angiogram Ultasound Localization of Right Femoral Artery Percutaneous Transluminal Angioplasty Bilateral Common Iliac Percutaneous Transluminal Angioplasty Left External Iliac Percutaneous Transluminal Angioplast/Stent Distal Superficial Femoral Artery and Proximal Popliteal Pending Studies Studies pending at discharge: no Medical Emergencies . Who to Call and When: Medical Emergencies: If at any time you feel your situation is an emergency, please call 911 immediately. . Non-Emergent Contact Non-Emergency issues call your: Surgeon . . "Provider Documentation" section prepared by Rudy Burch. .
--- NOTE | 2017-06-20 09:32 | [facility] Operative Report ---
Operative Report Operative Date Jun 20, 2017. Pre-Operative Diagnosis Left superficial femoral artery occlusion Post-Operative Diagnosis Left superficial femoral artery stenosis - pre occlusive, bilateral iliac stenosis, and left external iliac stenosis Procedure(s) Performed Left Lower Extremity Angiogram Ultasound Localization of Right Femoral Artery Percutaneous Transluminal Angioplasty Bilateral Common Iliac Percutaneous Transluminal Angioplasty Left External Iliac Percutaneous Transluminal Angioplast/Stent Distal Superficial Femoral Artery and Proximal Popliteal Surgeon Kiersten Hydraulic Press In Operator Surgeon(s) None Estimated Blood Loss 20 Findings Left superficial femoral artery stenosis - pre occlusive, bilateral iliac stenosis, and left external iliac stenosis Specimens None Anesthesia MAC Complication(s) None Disposition Indications This is a 76-year-old female who has severe claudication of her left lower extremity. Ultrasound showed a short occlusion of the distal superficial femoral artery. Arteriography with intervention was recommended. I have discussed the risks options and benefits of the procedure with the patient. The patient understands the risks options and benefits and agrees to the procedure. Description of Procedure The patient was taken to the angiogram suite and placed in the supine position. After the right groin was prepped and draped in a sterile manner local anesthetic was administered. A percutaneous puncture was made of the right common femoral artery using ultrasound guidance. The common femoral artery on ultrasound was patent with fairly good flow. There was a moderate amount of plaque present. Once the common femoral artery was punctured an 035 wire was inserted and a 5 Angolan sheath was inserted over the wire. A rim catheter and an 035 wire was then passed up into the aorta. Hand injection showed moderate stenosis of both common iliac arteries worse on the left side at the origin. There was a tight stenosis at the origin at the origin of the external iliac artery on the left side. Arteriography of the left lower extremity showed the common femoral, profunda femoral, and superficial femoral arteries to be patent down to the distal superficial femoral artery and proximal popliteal where a severe preocclusive stenosis was noted. The mid popliteal distally was widely patent with three-vessel runoff to the foot. We then passed the 035 stiffened wire through the rim catheter. This was passed down through the stenosis of left superficial femoral artery. The 5 Angolan sheath was exchanged to a 7 Angolan destination. The destination could not make it across the bifurcation of the aorta due to the plaque present. At that point the sheath was pulled back down into the external iliac artery on the right side. Using a 7 x 100 balloon the common iliac arteries were dilated on both sides. Good results were noted. The dilator was placed back into the 7 Angolan destination the destination passed easily over to the left side. A quick cross catheter was inserted over the wire. This was used with the 035 wire to pass through the stenotic lesion. Once the quick cross was in the mid popliteal, the wire was removed and injection showed the quick cross to be true lumen in the popliteal artery. The 035 stiffened Glidewire was reinserted and the quick cross was removed. Using a 5 x 100 balloon the stenotic area was balloon. This was done to allow a stent to be placed. The stenotic area did look somewhat improved. Next the a 6 x 100 Viabahn stent was inserted. This was done after the wire was exchanged with the quick cross to an V18 wire. The stent was inserted and was positioned in the distal superficial femoral artery and proximal popliteal. It was deployed without difficulty. The device was removed. A 6 x 100 Purling balloon was inserted and the Viabahn stent was expanded in its entirety. Good results were seen. There is no residual stenosis present. We pulled the 7 Angolan sheath back into the left common iliac artery. The 6 x 100 balloon was then used to dilate the stenosis in the external iliac at its origin. No residual stenosis was noted after this area was dilated. The balloon was then removed. Another injection was done after the 7 Angolan sheath was pulled back into the right external iliac artery. This showed both common iliacs to be patent with moderate plaque but no significant stenosis. Good flow was noted into the femoral arteries on both sides. The sheath and the wire were then pulled. Pressure was applied. Adequate hemostasis was obtained. A pressure dressing was applied. The patient left the angiogram suite in good condition and tolerated the procedure well. I attest to the content of the Intraoperative Record and any orders documented therein. Any exceptions are noted below.
--- NOTE | 2017-06-20 10:11 | Anesthesiology Progress Note ---
Anesthesia Post Op Note Date & Time Jun 20, 2017 at 10:11 Vital Signs Pain Intensity: 0 Vital Signs Past 12 Hours Date Time Temp Pulse Resp B/P (MAP) Pulse Ox O2 Delivery O2 Flow Rate FiO2 06/20/17 09:44 36.7 60 16 142/65 97 Room Air 06/20/17 06:10 36.7 59 18 175/77 (109) 95 Room Air Notes Mental Status: alert / awake / arousable, participated in evaluation Pt Amnestic to Procedure: Yes Nausea / Vomiting: adequately controlled Pain: adequately controlled Airway Patency, RR, SpO2: stable & adequate BP & HR: stable & adequate Hydration State: stable & adequate Anesthetic Complications: no major complications apparent
== END | disposition home or self-care (01) ==
LOC: C.ACU 05:27
PROVIDERS: ATTEND Surgery Vascular Surgery
DX: I70.212 Atherosclerosis of native arteries of extremities with intermittent claudication, left leg (principal); I25.2 Old myocardial infarction; E03.9 Hypothyroidism, unspecified; I48.91 Unspecified atrial fibrillation; E78.00 Pure hypercholesterolemia, unspecified; Z87.891 Personal history of nicotine dependence; I25.10 Atherosclerotic heart disease of native coronary artery without angina pectoris; Z90.89 Acquired absence of other organs; Z79.01 Long term (current) use of anticoagulants; Z79.82 Long term (current) use of aspirin; Z79.899 Other long term (current) drug therapy

== ENCOUNTER → 2017-08-27 | Outpatient (CLI) | payer OTHER ==
[~2017-08-27] MED LIST changes: -ATROPINE SULFATE 0.1 MG/ML 5ML SYR IV PRN; -CEFAZOLIN 1000MG IV PUSH 5 ML IV SCH; -EpHEDrine SULFATE INJ 50 MG/ML AMP IV PRN; -FENTANYL CITRATE INJ 50 MCG/1 ML 2 ML VIAL IV PRN; -FENTANYL CITRATE INJ 50 MCG/1 ML 2 ML VIAL ONE; -HEPARIN SOD (PORCINE) 1000 UNIT/ML 10 ML VIAL ONE; -HYDROmorphone INJ 1 MG/ML SYR IV PRN; -IODIXANOL (VISIPAQUE) 270 MG/ML 150ML XX ONE; -LACTATED RINGER'S 1000ML 1,000 ML IV SCH; -LIDOCAINE HCL 1% 20 ML VIAL INJ ONE; -MIDAZOLAM HCL 1 MG/ML 2ML VIAL ONE; -ONDANSETRON INJ 2 MG/ML 2 ML VIAL IV PRN; -OXYCODONE/ACETAMINOPHEN 5-325 TAB PO PRN; -PHENYLEPHRINE 100MCG/ML 5ML SYR IV PRN; -SODIUM CHLORIDE 0.9% 1000ML IV SCH
[2017-08-27 19:46] LABS: BLOOD UREA NITROGEN 10 mg/dl (7-18); CALCIUM 9.5 mg/dl (8.5-10.1); CARBON DIOXIDE 28 mmol/L (21-32); CREATININE 0.84 mg/dl (0.60-1.20); GLUCOSE 82 mg/dl (70-99); POTASSIUM 3.9 mmol/L (3.5-5.1); SODIUM 130 mmol/L (136-145)
[2017-08-27 19:58] LABS: CHOLESTEROL 156 mg/dl (0-200); LDL CHOLESTEROL (DIRECT) 81 mg/dl
== END | disposition home or self-care (01) ==
LOC: C.LABSPEC 17:41
PROVIDERS: ATTEND Internal Medicine
DX: R73.9 Hyperglycemia, unspecified (principal); E78.5 Hyperlipidemia, unspecified; I25.10 Atherosclerotic heart disease of native coronary artery without angina pectoris; E03.9 Hypothyroidism, unspecified

== ENCOUNTER → 2017-08-29 | Outpatient (CLI) | payer OTHER ==
[2017-09-02 15:47] LABS: FECAL OCCULT BLOOD #1 NEGATIVE (NEGATIVE); FECAL OCCULT BLOOD #2 NEGATIVE (NEGATIVE); FECAL OCCULT BLOOD #3 NEGATIVE (NEGATIVE)
== END | disposition home or self-care (01) ==
LOC: C.LABSPEC 15:01
PROVIDERS: ATTEND Internal Medicine
DX: Z12.11 Encounter for screening for malignant neoplasm of colon (principal)

== ENCOUNTER → 2017-09-18 | Outpatient (CLI) | payer OTHER ==
--- NOTE | 2017-09-18 14:55 | MAMMOGRAPHY REPORT ---
BILATERAL DIGITAL SCREENING MAMMOGRAM TOMOSYNTHESIS WITH CAD: 09/18/2017 CLINICAL HISTORY: Routine screening. Patient has no complaints. TECHNIQUE: Breast tomosynthesis in addition to standard 2D mammography was performed. Current study was also evaluated with a Computer Aided Detection (CAD) system. COMPARISON: Comparison is made to exams dated: 09/09/2016 mammogram, 09/07/2015 mammogram, 09/06/2014 lb mogram, 04/02/2013 mammogram, 03/13/2012 mammogram, and 03/05/2011 mammogram - [facility] nter. BREAST COMPOSITION: There are scattered areas of fibroglandular density in both breasts. FINDINGS: No suspicious masses, calcifications, or areas of architectural distortion are noted in ei ther breast. There has been no significant interval change compared to prior exams. Note that the le ft MLO view is suboptimal due to difficulties with patient positioning due to a defibrillator; note t hat some of the posterior tissues and the pectoralis muscle are excluded on the image. IMPRESSION: ACR BI-RADS CATEGORY 2: BENIGN There is no mammographic evidence of malignancy. A 1 year screening mammogram is recommended. The pa tient will receive written notification of the results. Approximately 10% of breast cancers are not detected with mammography. A negative mammographic report should not delay biopsy if a clinically suggestive mass is present. Abby Renteria M.D. /:09/18/2017 11:56:04 Real Estate Processor: Lauren HAROR, M, [facility] letter sent: Normal 1/2 BI-RADS Code: ACR BI-RADS Category 2: Benign
== END | disposition home or self-care (01) ==
LOC: C.MAMM 11:07
PROVIDERS: ATTEND Internal Medicine
DX: Z12.31 Encounter for screening mammogram for malignant neoplasm of breast (principal)

== ENCOUNTER 2017-10-17 14:53 | Emergency (ER) | payer OTHER ==
[~2017-10-17] VITALS: Ht 154.9 cm; Wt 53.0 kg
[~2017-10-17 14:53] MED LIST changes: -WARF5TAB7 PO
[2017-10-17 14:56] VITALS: Ht 154.9 cm; Wt 53.0 kg
--- NOTE | 2017-10-17 15:14 | EMERGENCY ROOM VISIT NOTE ---
History First contact with patient: 15:00 Chief Complaint: TOE PAIN, INJURY Stated Complaint: CUT ON TOE; ON BLOOD THINNER History of Present Illness The patient is a 76 year old female who presents to the Emergency Room with complaints of a laceration to her left great toe. The patient reports that she was trimming Her toenails when she slipped and accidentally cut part of her skin. This occurred approximately 1 hour ago. She is concerned because she is on Coumadin and typically has difficulty getting bleeding to stop. She states that her most recent INR was 2.5. She denies any pain. Tetanus is up-to-date. Review of Systems A complete 6 point review of systems was reviewed with the patient with pertinent positives and negatives as per history of present illness. All else were negative. Past Medical/Surgical History Medical Problems: (1) ACUTE CHF, CAD (2) Acute pulmonary edema (3) CHF exacerbation (4) DVT (deep venous thrombosis) (5) Hypoxia (6) Hypoxia Family History FH: heart disease Hypertension Social History Smoking Status: Never Smoker Alcohol Use: none Drug Use: none Housing Status: lives with family Current/Historical Medications Scheduled Aspirin (Aspirin Ec), 81 MG PO QAM Furosemide (Lasix), 20 MG PO DAILY Isosorbide Mononitrate Ext Rel (Imdur Ext Rel), 30 MG PO DAILY Levothyroxine Sodium (Synthroid), 75 MCG PO QAM Lisinopril (Zestril), 5 MG PO QAM Lovastatin (Mevacor), 80 MG PO 1600 Metoprolol Succinate (Toprol Xl), 50 MG PO QAM Warfarin Sod (Jantoven), 5 MG PO DAILY Physical Exam Vital Signs Date Time Temp Pulse Resp B/P (MAP) Pulse Ox O2 Delivery O2 Flow Rate FiO2 10/17/17 15:22 36.8 63 16 122/71 93 10/17/17 14:56 36.8 63 16 122/71 93 Room Air Physical Exam VITALS: Vitals are noted on the nurse's note and reviewed by myself. Vital signs stable. GENERAL: This is a 76-year-old female, in no acute distress, nondiaphoretic, well-developed well-nourished. SKIN: There is a 4 mm superficial nonbleeding laceration to the distal aspect of the left great toe, along the medial aspect of the nail. MUSCULOSKELETAL: Full range of motion of the toes. NEURO: Patient was alert and oriented. Distal sensation intact. Medical Decision & Procedures Procedure The laceration was cleansed with sterile saline. 3 layers of Dermabond were applied to the laceration. Hemostasis was achieved. The patient tolerated the procedure well. Medical Decision The patient was evaluated as above. Dermabond was applied to the wound as noted in the procedure section. The patient tolerated the procedure well. Conservative measures were discussed. She verbalized understanding of my assessment and treatment plan and was discharged home in good condition. The patient was independently evaluated by Dr. Hernandez, ED attending physician, who agreed with my assessment and treatment plan. Medication Reconcilliation Current Medication List: was personally reviewed by or Blood Pressure Screening Patient's blood pressure: Normal blood pressure Impression Primary Impression: Superficial laceration of foot Departure Information Dispostion Home / Self-Care Condition GOOD Referrals Brice Swanson M.D. (PCP) Patient Instructions My [facility] Additional Instructions Allow the skin glue to fall off on its own in the next 3-4 days. Do not pick at the glue. Do not apply any ointments or lotions to the glue. You may shower normally. Return for any signs of infection such as redness, swelling, drainage or any other new/concerning symptoms. Problem Qualifiers Primary Impression: Superficial laceration of foot Encounter type: initial encounter Laterality: left Qualified Codes: S91.312A - Laceration without foreign body, left foot, initial encounter
--- NOTE | 2017-10-17 15:16 | EMERGENCY ROOM VISIT NOTE ---
ED Visit Note First contact with patient: 15:00 Staff note: I have reviewed the Patients chart and have discussed this case with my PA. I generally agree with the ED note and findings.
[2017-10-17 15:22] VITALS: BP 122/71; PULSE 63; TEMP 36.8; O2SAT 93
[2017-10-17] MEDS ORDERED: FURO-85 PO (15:28)
[2017-10-17] MEDS ORDERED: ISOS30TA35 PO (15:28)
[2017-10-17] MEDS ORDERED: WARF5TAB7 PO (22:57)
== END 2017-10-17 15:23 | disposition home or self-care (01) ==
LOC: C.EDB 14:54 → C.EDD 15:23
DX: S91.212A Laceration without foreign body of left great toe with damage to nail, initial encounter (principal); W45.8XXA Other foreign body or object entering through skin, initial encounter; Y93.89 Activity, other specified; Z79.01 Long term (current) use of anticoagulants; I25.10 Atherosclerotic heart disease of native coronary artery without angina pectoris; I50.9 Heart failure, unspecified; Z86.718 Personal history of other venous thrombosis and embolism; Z82.49 Family history of ischemic heart disease and other diseases of the circulatory system; Z79.82 Long term (current) use of aspirin; Z79.899 Other long term (current) drug therapy

== ENCOUNTER → 2017-12-26 | Outpatient (CLI) | payer OTHER ==
[~2017-12-26] MED LIST changes: +FURO-85 PO; -ISOS-11 PO; +ISOS30TA35 PO; -LSX20 PO; -WARF2.5T8 PO; +WARF5TAB7 PO
[2017-12-26 18:44] LABS: ALBUMIN 4.3 gm/dl (3.4-5.0); ALKALINE PHOSPHATASE 53 U/L (45-117); ALT/SGPT 21 U/L (12-78); AST/SGOT 24 U/L (15-37); BLOOD UREA NITROGEN 12 mg/dl (7-18); CALCIUM 9.3 mg/dl (8.5-10.1); CARBON DIOXIDE 28 mmol/L (21-32); CHOLESTEROL 160 mg/dl (0-200); GLUCOSE 93 mg/dl (70-99); LDL CHOLESTEROL (DIRECT) 94 mg/dl; POTASSIUM 4.2 mmol/L (3.5-5.1); SODIUM 132 mmol/L (136-145); TOTAL PROTEIN 7.9 gm/dl (6.4-8.2)
[2017-12-27 08:03] LABS: HEMOGLOBIN A1C 6.1 % (4.5-5.6)
== END | disposition home or self-care (01) ==
LOC: C.LABSPEC 17:26
PROVIDERS: ATTEND Internal Medicine
DX: R73.9 Hyperglycemia, unspecified (principal); I25.10 Atherosclerotic heart disease of native coronary artery without angina pectoris; E78.5 Hyperlipidemia, unspecified; E03.9 Hypothyroidism, unspecified; I10 Essential (primary) hypertension

== ENCOUNTER 2020-02-16 21:40 | Inpatient (IN) ==
[2020-02-16 22:14] LABS: Basophils # (auto) 0.06 K/uL (0-0.2); Basophils % (auto) 0.8 %; Eosinophils # (auto) 0.05 K/uL (0-0.5); Eosinophils % (auto) 0.7 %; Hematocrit (blood only) 33.8 % (37-47); Hemoglobin 10.7 g/dL (12.0-16.0); Immature Granulocytes # (auto) 0.02 K/uL (0.00-0.02); Immature Granulocytes % (auto) 0.3 %; Lymphocytes # (auto) 1.18 K/uL (1.2-3.4); Lymphocytes % (auto) 15.6 %; Mean Corpuscular Hemoglobin 25.9 pg (25-34); Mean Corpuscular Hgb Conc 31.7 g/dL (32-36); Mean Corpuscular Volume 81.8 fL (80-100); Mean Platelet Volume 9.2 fL (7.4-10.4); Monocytes # (auto) 0.73 K/uL (0.11-0.59); Monocytes % (auto) 9.6 %; Neutrophils # (auto) 5.53 K/uL (1.4-6.5); Platelet Count 316 K/uL (130-400); RDW Coefficient of Variation 14.9 % (11.5-14.5); RDW Standard Deviation 44.4 fL (36.4-46.3); Red Blood Count 4.13 M/uL (4.2-5.4); White Blood Count 7.57 K/uL (4.8-10.8)
[2020-02-16] MEDS ORDERED: NITROGLYCERIN SL 0.4 MG/TAB TAB SL STA (22:14)
[2020-02-16 22:28] LABS: INR 1.2 (0.9-1.1); Partial Thromboplastin Time 29.1 Seconds (21.0-31.0); Prothrombin Time 12.4 Seconds (9.0-12.0)
[2020-02-16 22:43] LABS: Albumin Level 4.2 gm/dl (3.4-5.0); BUN Creatinine Ratio 11.8 (10-20); Calcium 9.5 mg/dl (8.5-10.1); Creatinine Clr Calc Pharmacy 31.5 ml/min; Est GFR (African American) 59.2; Est GFR (Non-African American) 51.1; Potassium 4.3 mmol/L (3.5-5.1)
[2020-02-16] MEDS ORDERED: NITROGLYCERIN 2% OINTMENT 30GM TUBE EXT ONE (22:49)
[2020-02-16 22:58] LABS: Albumin Globulin Ratio 1.1 (0.9-2); Bilirubin,Total 0.5 mg/dl (0.2-1); Globulin 3.7 gm/dl (2.5-4.0); Total Protein 7.9 gm/dl (6.4-8.2); Troponin I 0.34 ng/ml (0-0.045)
[2020-02-17] MEDS ORDERED: HEPARIN SODIUM/DEXTROSE 25,000 UNITS/500 ML BAG IV SCH (00:15)
[2020-02-17 00:50] LABS: Magnesium 2.5 mg/dl (1.8-2.4); Thyroid Stimulating Hormone 23.1 uIu/ml (0.300-4.500)
--- NOTE | 2020-02-17 00:53 | History & Physical Report ---
Date of Service February 17, 2020 Assessment & Plan (1) Non-STEMI (non-ST elevated myocardial infarction): Non-STEMI/CAD/hypertension/CHF- The patient will be admitted to telemetry for serial cardiac enzymes, serial EKG's, cardiac rhythm monitoring and a 2-D echocardiogram with Dopplers. Troponin is 0.340 upon admission Continue aspirin 81 mg daily, isosorbide mononitrate 30 mg daily, lisinopril 5 mg daily, metoprolol succinate 50 mg daily. Add Nitropaste 1 inch anterior chest wall every 6 hours. Consults interventional cardiology Dr. Ramos Present on Admission?: Yes (2) CHF (congestive heart failure): See above Present on Admission?: Yes (3) [facility] (current) use of anticoagulants: Long-term anticoagulation for DVT- Patient took her last apixaban dosing at 7 PM this evening. Hold apixaban, and start on heparin drip standard dose without bolus at 7:00 AM tomorrow Present on Admission?: Yes (4) DVT (deep venous thrombosis): See above Present on Admission?: Yes (5) CAD (coronary artery disease), [place] coronary artery: See above Present on Admission?: Yes (6) Hyperlipidemia LDL goal <70: Continue lovastatin 80 mg daily Check a fasting lipid panel Present on Admission?: Yes (7) Hypertension: See above Present on Admission?: Yes (8) Hypothyroidism (acquired): Continue levothyroxine sodium 75 mcg daily Present on Admission?: Yes (9) Hyponatremia: Sodium 127 upon admission, with range 127-132. Serum and urine osmolality is pending Follow serially Present on Admission?: Yes History of Present Illness Chief Complaint: The patient presents to the emergency department with acute onset chest pain and nausea that occurred while she was walking across the floor in her apartment. Primary Care Provider: Brice Lowe MD The patient is a 79-year-old female with a past medical history including DVT, CHF, urinary tract infection, hypothyroidism, CAD, hyperlipidemia, and hypertension. She reports that earlier in the day she was walking across the floor in her apartment, and developed acute onset of chest discomfort. Her daughter who is with her, reports that the patient did have 3 to 4 days of fatigue prior to today's discomfort. In emergency department, patient underwent work-up including EKGs which showed atrial pacing, with nonspecific ST-T changes, and an elevated troponin of 0.340. Allergies Allergy/AdvReac Type Severity Reaction Status Date / Time simvastatin Allergy Severe RASH Verified 02/16/20 23:06 Home Medications Home Medications Medication Instructions Recorded Confirmed Type furosemide 20 mg tablet 20 mg PO DAILY tab 01/05/19 02/16/20 History isosorbide mononitrate 30 mg 30 mg PO DAILY #90 tab 01/05/19 02/16/20 History tablet,extended release 24 hr levothyroxine 75 mcg tablet 75 mcg PO DAILY tab 01/05/19 02/16/20 History lovastatin 40 mg tablet 80 mg PO DAILY tab 01/05/19 02/16/20 History nitroglycerin 0.4 mg sublingual 0.4 mg SL Q5M PRN #25 tab 01/05/19 02/16/20 History tablet potassium chloride 10 mEq 10 meq PO DAILY tab 01/05/19 02/16/20 History tablet,extended release apixaban 5 mg tablet 5 mg PO BID #60 tab 09/09/19 02/16/20 Rx aspirin [Aspir-81] 81 mg PO DAILY 02/16/20 02/16/20 History lisinopril 5 mg PO DAILY 02/16/20 02/16/20 History metoprolol succinate 50 mg PO DAILY 02/16/20 02/16/20 History Past Med/Surg History Medical History (Updated 02/17/20 @ 01:05 by Camilo Santacruz MD) CAD (coronary artery disease), [place] coronary artery CHF (congestive heart failure) DVT (deep venous thrombosis) Hyperlipidemia LDL goal <70 Hypertension Hypothyroidism (acquired) Social History Smoking Status: Former smoker Tobacco Type: Cigarettes Preferred Language: Khmer Feels Safe at Home: Yes Review of Systems Review of Systems: The patient currently denies chest pain, palpitations, shortness of breath, dyspnea on exertion, cough, lower extremity swelling, sore throat, fevers, chills, sweats, vomiting, diarrhea , constipation, abdominal pain, pelvic pain, blood in urine or stool, dysuria, urinary frequency or urgency, lightheadedness, dizziness, headache, memory loss, loss of consciousness, rash, abnormal bruising or bleeding, imbalance, focal or generalized weakness, numbness or tingling in arms or legs, generalized arthralgias or myalgias, back or neck pain, or night sweats. The review of systems is otherwise negative other than for that already noted above, and at least 10 systems have been reviewed. Physical Exam Physical Exam: The patient is awake, alert and oriented 3, well developed and well nourished, normocephalic and atraumatic, lying in bed and in no acute distress. HEENT--PERRL, EOMI, mucous membranes and oropharynx normal. Neck--supple. No JVD. No bruits. Thyroid normal, trachea midline, no adenopathy. Heart--normal S1 and S2. No murmurs, rubs or gallops. Lungs--clear bilaterally, no respiratory distress, no accessory muscle use. Abdomen--normal bowel sounds and soft. Nontender. Nondistended. Extremities--no cyanosis or clubbing. No edema. Dermatologic--normal skin turgor, normal color, no abnormal lymph nodes, no ra sh. Neurologic--cranial nerves II through XII grossly intact. Rheumatologic--normal range of motion. Psychiatric--normal affect. Results & Data Results & Data ([facility]) Vital Signs (Past 12 Hours) Vital Signs Temp Pulse Pulse Resp BP BP Pulse Ox 02/16/20 23:41 60 16 170/74 H 95 02/16/20 22:11 95 02/16/20 22:06 60 183/81 H 97 02/16/20 22:02 60 02/16/20 21:49 98.4 F 60 16 170/79 H 99 Laboratory Results Laboratory Results WBC 7.57 K/uL (4.8-10.8) 02/16/20 22:05 RBC 4.13 M/uL (4.2-5.4) L 02/16/20 22:05 Hgb 10.7 g/dL (12.0-16.0) L 02/16/20 22:05 Hct 33.8 % (37-47) L 02/16/20 22:05 MCV 81.8 fL (80-100) 02/16/20 22:05 MCH 25.9 pg (25-34) 02/16/20 22:05 MCHC 31.7 g/dL (32-36) L 02/16/20 22:05 RDW Std Deviation 44.4 fL (36.4-46.3) 02/16/20 22:05 RDW Coeff of Carlos 14.9 % (11.5-14.5) H 02/16/20 22:05 Plt Count 316 K/uL (130-400) 02/16/20 22:05 MPV 9.2 fL (7.4-10.4) 02/16/20 22:05 Immature Gran % (Auto) 0.3 % 02/16/20 22:05 Neut % (Auto) 73.0 % 02/16/20 22:05 Lymph % (Auto) 15.6 % 02/16/20 22:05 [place] % (Auto) 9.6 % 02/16/20 22:05 Eos % (Auto) 0.7 % 02/16/20 22:05 Baso % (Auto) 0.8 % 02/16/20 22:05 Neut # (Auto) 5.53 K/uL (1.4-6.5) 02/16/20 22:05 Lymph # (Auto) 1.18 K/uL (1.2-3.4) L 02/16/20 22:05 [place] # (Auto) 0.73 K/uL (0.11-0.59) H 02/16/20 22:05 Eos # (Auto) 0.05 K/uL (0-0.5) 02/16/20 22:05 Baso # (Auto) 0.06 K/uL (0-0.2) 02/16/20 22:05 Immature Gran # (Auto) 0.02 K/uL (0.00-0.02) 02/16/20 22:05 PT 12.4 Seconds (9.0-12.0) H 02/16/20 22:05 INR 1.2 (0.9-1.1) H 02/16/20 22:05 APTT 29.1 Seconds (21.0-31.0) 02/16/20 22:05 PTT Ratio 1.0 02/16/20 22:05 Sodium 127 mmol/L (136-145) L 02/16/20 22:05 Potassium 4.3 mmol/L (3.5-5.1) 02/16/20 22:05 Chloride 93 mmol/L (98-107) L 02/16/20 22:05 Carbon Dioxide 25 mmol/L (21-32) 02/16/20 22:05 Anion Gap 8.0 (3-11) 02/16/20 22:05 BUN 12 mg/dl (7-18) 02/16/20 22:05 Creatinine 1.04 mg/dl (0.6-1.2) 02/16/20 22:05 Est Cr Clr Drug Dosing 31.5 ml/min 02/16/20 22:05 Est GFR ( Amer) 59.2 02/16/20 22:05 Est GFR (Non-Af Amer) 51.1 02/16/20 22:05 BUN/Creatinine Ratio 11.8 (10-20) 02/16/20 22:05 Glucose 116 mg/dl (70-99) H 02/16/20 22:05 Osmolality 267 mOsm/kg (280-300) L 02/16/20 22:05 Calcium 9.5 mg/dl (8.5-10.1) 02/16/20 22:05 Magnesium 2.5 mg/dl (1.8-2.4) H 02/16/20 22:05 Total Bilirubin 0.5 mg/dl (0.2-1) 02/16/20 22:05 AST 26 U/L (15-37) 02/16/20 22:05 ALT 21 U/L (12-78) 02/16/20 22:05 Alkaline Phosphatase 46 U/L (45-117) 02/16/20 22:05 Troponin I 0.340 ng/ml (0-0.045) H* 02/16/20 22:05 Total Protein 7.9 gm/dl (6.4-8.2) 02/16/20 22:05 Albumin 4.2 gm/dl (3.4-5.0) 02/16/20 22:05 Globulin 3.7 gm/dl (2.5-4.0) 02/16/20 22:05 Albumin/Globulin Ratio 1.1 (0.9-2) 02/16/20 22:05 Lipase 150 U/L (73-393) 02/16/20 22:05 TSH 23.100 uIu/ml (0.300-4.500) H 02/16/20 22:05 Code Status & VTE Plan Code Status Full code VTE Prophylaxis Plan VTE Prophylaxis will be ordered: Yes PG Care Time/CCT Total # of Minutes Spent Total Time Spent with Patient: Total time spent is greater than 50% in coordination of care (as documented) at patient's floor/unit and/or counseling patient: Coding Level of Care Code 54397 Initial Inpt Care Lvl 3 Diagnoses Non-STEMI (non-ST elevated myocardial infarction) I21.4 CHF (congestive heart failure) I50.9 [facility] (current) use of anticoagulants Z79.01 DVT (deep venous thrombosis) I82.409 CAD (coronary artery disease), [place] coronary artery I25.10 Hyperlipidemia LDL goal <70 E78.5 Hypertension I10 Hypothyroidism (acquired) E03.9 Hyponatremia E87.1
[2020-02-17 01:06] LABS: T4 Free Thyroxine 1.19 ng/dl (0.8-1.6)
--- NOTE | 2020-02-17 01:46 | Emergency Department Note ---
ED Visit Note I have personally seen and evaluated the patient with the PA. I agree with the diagnosis and management decisions and have been personally involved in the case. I did review the sequential EKGs with the lateral ST segment changes, although they did remain relatively stable. Patient's troponin is 0.3 and she did take her Eliquis this evening. Upon my evaluation, the patient remained pain-free after transdermal nitroglycerin. I did explain the findings and plan to the patient and her daughter at the bedside. They expressed an understanding and agree. Please see Lucia Ley PA-C's notes for further details of the history, physical and visit. .
--- NOTE | 2020-02-17 01:56 | Emergency Department Note ---
History of Present Illness General Chief Complaint: Chest Pain Stated Complaint: CHEST PAIN, INDIGESTION, Time Seen by Provider: 02/16/20 22:01 History of Present Illness Maximum Pain Intensity: 5 This 79-year-old presents to the ER complaining of chest pain with nausea and vomiting Location: Mid chest Quality: Pressure Severity: Moderate Duration: Today Timing: Started at 6 PM Context: Patient was concerned and came in Modifying factors: better with rest; worse with activity Patient had a heart attack in 2002. Patient denies dyspnea, fevers, diaphoresis, abdominal pain, radiating pain, leg pain or swelling. Home Medications Home Medications Medication Instructions Recorded Confirmed Type furosemide 20 mg tablet 20 mg PO DAILY tab 01/05/19 02/16/20 History isosorbide mononitrate 30 mg 30 mg PO DAILY #90 tab 01/05/19 02/16/20 History tablet,extended release 24 hr levothyroxine 75 mcg tablet 75 mcg PO DAILY tab 01/05/19 02/16/20 History lovastatin 40 mg tablet 80 mg PO DAILY tab 01/05/19 02/16/20 History nitroglycerin 0.4 mg sublingual 0.4 mg SL Q5M PRN #25 tab 01/05/19 02/16/20 History tablet potassium chloride 10 mEq 10 meq PO DAILY tab 01/05/19 02/16/20 History tablet,extended release apixaban 5 mg tablet 5 mg PO BID #60 tab 09/09/19 02/16/20 Rx aspirin [Aspir-81] 81 mg PO DAILY 02/16/20 02/16/20 History lisinopril 5 mg PO DAILY 02/16/20 02/16/20 History metoprolol succinate 50 mg PO DAILY 02/16/20 02/16/20 History Allergies Allergy/AdvReac Type Severity Reaction Status Date / Time simvastatin Allergy Severe RASH Verified 02/16/20 23:06 Past Med/Surg History Medical History CAD (coronary artery disease), [place] coronary artery CHF (congestive heart failure) DVT (deep venous thrombosis) Hyperlipidemia LDL goal <70 Hypertension Hypothyroidism (acquired) Surgical History Stented coronary artery Social History Smoking Status: Former smoker Tobacco Type: Cigarettes Preferred Language: Slovenian Feels Safe at Home: Yes Review of Systems A total of 10 systems reviewed and were otherwise negative Physical Exam Vital Signs Vital Signs - 24 hr 02/16/20 21:49 02/16/20 22:02 02/16/20 22:06 Temperature 36.9 C Temperature Source Oral Pulse Rate 60 60 60 Pulse Rate [Apical] Pulse Rate from SpO2 Sensor 60 Pulse Rhythm Regular Pulse Rhythm [Apical] Pulse Strength Normal Pulse Strength [Apical] Respiratory Rate 16 Respiratory Effort / Characteristics Non-Labored Spontaneous Respiratory Depth Normal Respiratory Pattern Regular Blood Pressure 170/79 H 183/81 H Blood Pressure [Right Arm] Blood Pressure Mean 109 97 Blood Pressure Mean [Right Arm] Blood Pressure Position Lying Pulse Oximetry 99 97 Oxygen Delivery Method Room Air Sepsis Recent Fever Within 48 Hours No Sepsis New/Unexplained Change in Mental Status N/A Sepsis Action Taken by Nursing No Action Required 02/16/20 22:11 02/16/20 23:41 Temperature Temperature Source Pulse Rate Pulse Rate [Apical] 60 Pulse Rate from SpO2 Sensor Pulse Rhythm Pulse Rhythm [Apical] Regular Pulse Strength Pulse Strength [Apical] Normal Respiratory Rate 16 Respiratory Effort / Characteristics Non-Labored Spontaneous Respiratory Depth Normal Respiratory Pattern Regular Blood Pressure Blood Pressure [Right Arm] 170/74 H Blood Pressure Mean Blood Pressure Mean [Right Arm] 106 Blood Pressure Position Pulse Oximetry 95 95 Oxygen Delivery Method Room Air Room Air Sepsis Recent Fever Within 48 Hours Sepsis New/Unexplained Change in Mental Status Sepsis Action Taken by Nursing VITALS: Vitals are noted on the nurse's note and reviewed by myself. Vital sign s stable. GENERAL: Pleasant elderly female, in no acute distress, nondiaphoretic, well- developed well-nourished. SKIN: Capillary reflex less than 2 seconds. HEENT: Normocephalic. PERRLA. EOMI. Nares patent. Mucous membranes moist. Neck is supple without nuchal rigidity. HEART: Regular rate and rhythm LUNGS: Clear to auscultation bilaterally without wheezes, rales or rhonchi. No retractions or accessory muscle use. ABDOMEN: Positive bowel sounds x 4. Normal tympanic percussion. Soft, non tender, without masses or organomegaly. [place] sign negative. No guarding or rebound tenderness. MUSCULOSKELETAL: No gross musculoskeletal defects. NEURO: Patient was alert and oriented to person place and time. No focal neurological deficits. Course Administered Medications Heparin Sodium/Dextrose (Heparin Iv Standard *No* Bolus) 1 ea N/A ONE ONE; Protocol Stop: 02/17/20 06:01 Last Admin: 02/17/20 01:19 Dose: Not Given Documented by: [id number] Heparin Sodium/Dextrose (Heparin Sodium/Dextrose) 25,000 units in 500 mls @ 0.02 mls/hr IV .Q24H ALFONZO; Protocol Stop: 03/18/20 00:14 Last Admin: 02/17/20 01:18 Dose: Not Given Documented by: [id number] Discontinued Medications Nitroglycerin (Nitroglycerin Sl 0.4 Mg/Tab Tab) 0.4 mg SL NOW STA Stop: 02/16/20 22:15 Last Admin: 02/16/20 22:19 Dose: 0.4 mg Documented by: [id number] Nitroglycerin (Nitroglycerin 2% Ointment 30gm Tube) 0.5 inch EXT NOW ONE Stop: 02/16/20 22:50 Last Admin: 02/16/20 23:45 Dose: 0.5 inch Documented by: [id number] Medical Decision Making Medical Records Attestation: I reviewed the patient's medical records. Home Medications Current Medication List: was personally reviewed by me Laboratory Data Attestation: I reviewed the patient's lab results. Result diagrams: 02/16/20 22:05 02/16/20 22:05 Labs: Lab Results 02/16/20 02/16/20 02/16/20 Range/Units 22:05 22:05 22:05 WBC 7.57 (4.8-10.8) K/uL RBC 4.13 L (4.2-5.4) M/uL Hgb 10.7 L (12.0-16.0) g/dL Hct 33.8 L (37-47) % MCV 81.8 (80-100) fL MCH 25.9 (25-34) pg MCHC 31.7 L (32-36) g/dL RDW Std Deviation 44.4 (36.4-46.3) fL RDW Coeff of Carlos 14.9 H (11.5-14.5) % Plt Count 316 (130-400) K/uL MPV 9.2 (7.4-10.4) fL Immature Gran % (Auto) 0.3 % Neut % (Auto) 73.0 % Lymph % (Auto) 15.6 % [place] % (Auto) 9.6 % Eos % (Auto) 0.7 % Baso % (Auto) 0.8 % Neut # (Auto) 5.53 (1.4-6.5) K/uL Lymph # (Auto) 1.18 L (1.2-3.4) K/uL [place] # (Auto) 0.73 H (0.11-0.59) K/uL Eos # (Auto) 0.05 (0-0.5) K/uL Baso # (Auto) 0.06 (0-0.2) K/uL Immature Gran # (Auto) 0.02 (0.00-0.02) K/uL PT 12.4 H (9.0-12.0) Seconds INR 1.2 H (0.9-1.1) APTT 29.1 (21.0-31.0) Seconds PTT Ratio 1.0 Sodium 127 L (136-145) mmol/L Potassium 4.3 (3.5-5.1) mmol/L Chloride 93 L (98-107) mmol/L Carbon Dioxide 25 (21-32) mmol/L Anion Gap 8.0 (3-11) BUN 12 (7-18) mg/dl Creatinine 1.04 (0.6-1.2) mg/dl Est Cr Clr Drug Dosing 31.5 ml/min Est GFR ( Amer) 59.2 Est GFR (Non-Af Amer) 51.1 BUN/Creatinine Ratio 11.8 (10-20) Glucose 116 H (70-99) mg/dl Osmolality (280-300) mOsm/kg Calcium 9.5 (8.5-10.1) mg/dl Magnesium 2.5 H (1.8-2.4) mg/dl Total Bilirubin 0.5 (0.2-1) mg/dl AST 26 (15-37) U/L ALT 21 (12-78) U/L Alkaline Phosphatase 46 (45-117) U/L Troponin I 0.340 H* (0-0.045) ng/ml Total Protein 7.9 (6.4-8.2) gm/dl Albumin 4.2 (3.4-5.0) gm/dl Globulin 3.7 (2.5-4.0) gm/dl Albumin/Globulin Ratio 1.1 (0.9-2) Lipase 150 (73-393) U/L TSH 23.100 H (0.300-4.500) uIu/ml Free T4 1.19 (0.8-1.6) ng/dl 02/16/20 Range/Units 22:05 WBC (4.8-10.8) K/uL RBC (4.2-5.4) M/uL Hgb (12.0-16.0) g/dL Hct (37-47) % MCV (80-100) fL MCH (25-34) pg MCHC (32-36) g/dL RDW Std Deviation (36.4-46.3) fL RDW Coeff of Carlos (11.5-14.5) % Plt Count (130-400) K/uL MPV (7.4-10.4) fL Immature Gran % (Auto) % Neut % (Auto) % Lymph % (Auto) % [place] % (Auto) % Eos % (Auto) % Baso % (Auto) % Neut # (Auto) (1.4-6.5) K/uL Lymph # (Auto) (1.2-3.4) K/uL [place] # (Auto) (0.11-0.59) K/uL Eos # (Auto) (0-0.5) K/uL Baso # (Auto) (0-0.2) K/uL Immature Gran # (Auto) (0.00-0.02) K/uL PT (9.0-12.0) Seconds INR (0.9-1.1) APTT (21.0-31.0) Seconds PTT Ratio Sodium (136-145) mmol/L Potassium (3.5-5.1) mmol/L Chloride (98-107) mmol/L Carbon Dioxide (21-32) mmol/L Anion Gap (3-11) BUN (7-18) mg/dl Creatinine (0.6-1.2) mg/dl Est Cr Clr Drug Dosing ml/min Est GFR ( Amer) Est GFR (Non-Af Amer) BUN/Creatinine Ratio (10-20) Glucose (70-99) mg/dl Osmolality 267 L (280-300) mOsm/kg Calcium (8.5-10.1) mg/dl Magnesium (1.8-2.4) mg/dl Total Bilirubin (0.2-1) mg/dl AST (15-37) U/L ALT (12-78) U/L Alkaline Phosphatase (45-117) U/L Troponin I (0-0.045) ng/ml Total Protein (6.4-8.2) gm/dl Albumin (3.4-5.0) gm/dl Globulin (2.5-4.0) gm/dl Albumin/Globulin Ratio (0.9-2) Lipase (73-393) U/L TSH (0.300-4.500) uIu/ml Free T4 (0.8-1.6) ng/dl Blood Pressure Blood Pressure Findings: Elevated blood pressure Blood Pressure Disposition: Referred to patients primary care provider MDM Narrative Prior records/ancillary studies reviewed. Triage Nursing notes reviewed. Additional history obtained from family. The patient's history was concerning for chest pain. Differential diagnosis: Etiologies such as cardiac ischemia, aortic dissection, pulmonary embolism, pneumonia, pneumothorax, musculoskeletal, infections, pericarditis, myocarditis, esophageal rupture, gastrointestinal, as well as others were entertained. Physical examination: As above. ER treatment provided: An order was placed for continuous cardiac monitoring. The monitor shows a rate of 60-100 with a sinus rhythm. Nitroglycerin and Nitropaste On reassessment the patient felt better. Diagnostic interpretation by me: #1: The electrocardiogram was normal sinus, T wave inversions in lead I, aVL and lead V6, minimal ST elevation in V1 V2, atrial paced, left axis deviation. Rate of 60. EKG compared to prior EKG from last year with slight changes that are new. Impression normal sinus rhythm with a left axis deviation with minimal ST- T wave changes interpreted by myself. EKG ordered for chest pain I think arrhythmia is unlikely. EKG shows normal sinus rhythm with no interval abnormalities such as WPW. There are no findings to suggest Brugada syndrome. Cardiac monitoring in the emergency department reveals no tachycardic or bradycardic dysrhythmia. Hypertrophic cardiomyopathy was considered but there are no clear historical elements pointing toward this. EKG is not suggestive. EKG #2: Ordered for chest pain: Normal sinus, atrial paced, left axis deviation,T wave inversions in lead I, aVL and lead V6, minimal ST elevation in V1 V2, atrial paced, EKG compared to prior EKG from last year with slight changes that are new. Impression normal sinus rhythm with a left axis deviation with minimal ST-T wave changes interpreted by myself. EKG ordered for chest pain I think arrhythmia is unlikely. EKG shows normal sinus rhythm with no interval abnormalities such as WPW. There are no findings to suggest Brugada syndrome. Cardiac monitoring in the emergency department reveals no tachycardic or bradycardic dysrhythmia. Hypertrophic cardiomyopathy was considered but there are no clear historical elements pointing toward this. EKG is not suggestive. EKG #3: Ordered for chest pain Normal sinus, left axis deviation,T wave inversions in lead I, aVL and lead V6, minimal ST elevation in V1 V2, atrial paced, left axis deviation. Rate of 60. EKG compared to prior EKG from last year with slight changes that are new. Impression normal sinus rhythm with a left axis deviation with minimal ST-T wave changes interpreted by myself. EKG ordered for chest pain I think arrhythmia is unlikely. EKG shows normal sinus rhythm with no interval abnormalities such as WPW. There are no findings to suggest Brugada syndrome. Cardiac monitoring in the emergency department reveals no tachycardic or ida ycardic dysrhythmia. Hypertrophic cardiomyopathy was considered but there are no clear historical elements pointing toward this. EKG is not suggestive. The labs revealed elevated troponin. No leukocytosis, hyponatremia Imaging studies: Chest x-ray with emphysematous change with no acute consolidation, pneumothorax or free of my interpretation HEART SCORE: Hx: high/mod/low suspicion: 2 ECG: ST depression/nonspecific changes/normal: 1 Age: Greater than 65/45-64/less than 45: 2 Risk factors: (Hypertension, hyperlipidemia, diabetes, coronary disease, tobacco use, cocaine use): 2 Troponin: Greater than 2 times normal limits/1-2 times normal limits/normal: 1 Total: 8 Consultation: A consultation was placed with the hospitalist, Dr. Duncan. The case was discussed and diagnostics were reviewed. The patient was evaluated in the ER for further treatment. Exam and history seem consistent with NSTEMI. Patient took her Eliquis tonight. I did consult pharmacy and recommends giving heparin 12 hours after her last dose of Eliquis. This will be at 6 AM. Order was placed. Patient was pain- free after nitroglycerin and paste was placed. She was reassessed multiple times. Serial EKGs were ordered. No acute ST elevation was seen. Family and patient agreeable treatment plan of admission. Medicine will evaluate the patient. By the evaluation outlined above emergent etiologies such as aortic dissection, pulmonary embolism, pneumonia, pneumothorax, infections, pericar ditis, myocarditis, gastrointestinal, as well as others were deemed relatively unlikely. The pt informed about the findings as listed above. All questions were answered and pleased with the treatment. The chart was completed utilizing [employer] voice recognition software. Grammatical errors, random word insertions, pronoun errors, and incomplete sentences are an occassional consequence of this system due to software limitations, ambient noise, and hardware issues. Any formal questions or concerns about the content, text, or information contained within the body of this dictation should be directly addressed to the physician habilitation assistant for clarification. Impression & Plan Non-ST elevation SD (NSTEMI) Discharge Plan Visit Data Chief Complaint: Chest Pain Stated Complaint: CHEST PAIN, INDIGESTION, ED Provider: Lou Hale ED Midlevel Provider: Solange Ley Discharge Problem: Non-ST elevation SD (NSTEMI) Patient Disposition: Admitted As Inpatient Condition: Fair Forms Stand Alone Forms: [employer] Prescriptions Prescriptions: No Action Eliquis 5 mg tablet 5 mg PO BID Qty: 60 RF: 11 nitroglycerin 0.4 mg tablet, sublingual 0.4 mg SL Q5M PRN (Reason: chest pain) Qty: 25 RF: 0 isosorbide mononitrate 30 mg tablet extended release 24 hr 30 mg PO DAILY Qty: 90 RF: 0 furosemide 20 mg tablet 20 mg PO DAILY RF: 0 lovastatin 40 mg tablet 80 mg PO DAILY RF: 0 potassium chloride 10 mEq tablet extended release 10 meq PO DAILY RF: 0 levothyroxine 75 mcg tablet 75 mcg PO DAILY RF: 0 aspirin [Aspir-81] 81 mg Tablet,Delayed Release (Dr/Ec) 81 mg PO DAILY RF: 0 metoprolol succinate 50 mg tablet extended release 24 hr 50 mg PO DAILY RF: 0 lisinopril 5 mg tablet 5 mg PO DAILY RF: 0 Referrals Referrals: Brice Lowe MD [Primary Care Provider] -
[2020-02-17] MEDS ORDERED: ACETAMINOPHEN 325 MG TAB PO PRN (02:34)
[2020-02-17] MEDS ORDERED: ONDANSETRON INJ 2 MG/ML 2 ML VIAL IV PRN (02:34)
[2020-02-17] MEDS ORDERED: NITROGLYCERIN SL 0.4 MG/TAB TAB SL PRN ×2 (02:34)
[2020-02-17] MEDS ORDERED: MAGNESIUM HYDROXIDE SUSP 30 ML UDC PO PRN (02:34)
[2020-02-17] MEDS ORDERED: ALUMINUM/MAGNESIUM SUSP 30 ML UDC PO PRN (02:34)
[2020-02-17] MEDS ORDERED: NITROGLYCERIN 2% OINTMENT 30GM TUBE EXT SCH (06:00)
[2020-02-17] MEDS ORDERED: Heparin IV Standard *NO* Bolus ONE (06:00)
[2020-02-17] MEDS: LEVOTHYROXINE SODIUM 75 MCG TABLET PO SCH (06:08)
[2020-02-17] MEDS: HEPARIN SODIUM/DEXTROSE 25,000 UNITS/500 ML BAG IV SCH (06:41)
[2020-02-17] MEDS ORDERED: HEPARIN IV BOLUS 4,000 UNITS in SYRINGE 0 ML IV ONE (07:00)
[2020-02-17 07:24] LABS: Basophils # (auto) 0.05 K/uL (0-0.2); Basophils % (auto) 0.8 %; Eosinophils # (auto) 0.09 K/uL (0-0.5); Eosinophils % (auto) 1.4 %; Hematocrit (blood only) 29.1 % (37-47); Hemoglobin 9.2 g/dL (12.0-16.0); Immature Granulocytes # (auto) 0.03 K/uL (0.00-0.02); Immature Granulocytes % (auto) 0.5 %; Lymphocytes # (auto) 1.49 K/uL (1.2-3.4); Lymphocytes % (auto) 23.5 %; Mean Corpuscular Hemoglobin 25.8 pg (25-34); Mean Corpuscular Hgb Conc 31.6 g/dL (32-36); Mean Corpuscular Volume 81.7 fL (80-100); Mean Platelet Volume 9.3 fL (7.4-10.4); Monocytes # (auto) 0.71 K/uL (0.11-0.59); Monocytes % (auto) 11.2 %; Neutrophils # (auto) 3.97 K/uL (1.4-6.5); Neutrophils % (auto) 62.6 %; Platelet Count 275 K/uL (130-400); RDW Coefficient of Variation 14.8 % (11.5-14.5); RDW Standard Deviation 44.3 fL (36.4-46.3); Red Blood Count 3.56 M/uL (4.2-5.4); White Blood Count 6.34 K/uL (4.8-10.8)
[2020-02-17 07:31] LABS: INR 1.3 (0.9-1.1); Prothrombin Time 13.8 Seconds (9.0-12.0)
--- NOTE | 2020-02-17 07:46 | XRay Report ---
XR chest 1V portable CLINICAL HISTORY: Atypical chest pain COMPARISON STUDY: 03/30/2015 FINDINGS: The heart is enlarged. There is a left subclavian pacer/defibrillator present. There is cy dence for mild interstitial pulmonary edema. Small subpulmonic pleural effusions are suspected. There is no lobar consolidation.[There is an old right clavicular fracture IMPRESSION: Cardiomegaly and interstitial pulmonary edema ACT 112: Negative or not required by law. Electronically signed by: Jesus Talley M.D. 02/17/2020 7:44 AM
[2020-02-17 07:56] LABS: Albumin Level 3.4 gm/dl (3.4-5.0); BUN Creatinine Ratio 13.7 (10-20); Calcium 8.4 mg/dl (8.5-10.1); Est GFR (African American) 81.3; Est GFR (Non-African American) 70.1; Potassium 3.9 mmol/L (3.5-5.1)
[2020-02-17 08:11] LABS: Albumin Globulin Ratio 1.1 (0.9-2); Bilirubin,Total 0.7 mg/dl (0.2-1); Total Protein 6.4 gm/dl (6.4-8.2); Troponin I 0.301 ng/ml (0-0.045)
[2020-02-17] MEDS ORDERED: METOPROLOL SUCC 50MG EXT REL TAB PO SCH (09:00)
[2020-02-17] MEDS ORDERED: lisinopriL 5 MG TAB PO SCH (09:00)
[2020-02-17] MEDS: ISOSORBIDE MONO EXTENDED REL 30 MG TABCR PO SCH (09:12)
[2020-02-17] MEDS: FUROSEMIDE 20 MG TAB PO SCH (09:12)
[2020-02-17] MEDS: ASPIRIN 81 MG ECTAB PO SCH (09:12)
[2020-02-17] MEDS: POTASSIUM CHLORIDE 10 MEQ TABCR PO SCH (09:57)
[2020-02-17] MEDS: LOVASTATIN 20 MG TAB PO SCH (09:57)
--- NOTE | 2020-02-17 10:25 | XCELERA ---
[id number]
[2020-02-17] MEDS ORDERED: METOPROLOL SUCC 50MG EXT REL TAB PO STA (11:27)
[2020-02-17] MEDS ORDERED: lisinopriL 5 MG TAB PO ONE (11:30)
[2020-02-17] MEDS ORDERED: METOPROLOL SUCC 50MG EXT REL TAB PO ONE (11:45)
--- NOTE | 2020-02-17 11:54 | History & Physical Bridge Note ---
Date of Service February 17, 2020 History & Physical Bridge Note I have examined the patient, reviewed the History & Physical and in the interval since the performance of the History & Physical I have noted the following changes of clinical significance: patient doing well, no further chest pain, repeat troponin down slightly to 0.3 appreciate cardiology consult, will manage medically check echo, continue heparin drip, increase Toprol to 100mg updated patient and daughter at bedside, allow her to eat
--- NOTE | 2020-02-17 12:50 | Cardiology Consultation ---
Date of Consultation February 17, 2020 Assessment & Plan (1) Unstable angina: (2) CAD (coronary artery disease), [place] coronary artery: (3) Hyperlipidemia LDL goal <70: (4) Ischemic cardiomyopathy: (5) Prolonged QT syndrome: (6) S/P ICD (internal cardiac defibrillator) procedure: (7) Hypertension: (8) Chronic systolic CHF (congestive heart failure): (9) Elevated troponin: ASSESSMENT/PLAN: 1. Unstable angina/elevated troponin: She did not rule in for myocardial infarction however her symptoms are concerning for ischemic heart disease, especially given her history. Can continue heparin drip for 48 hours and then transition back to her usual anticoagulant. Increase metoprolol to 100 mg daily. Improved blood pressure control. Continue nitrate therapy in the form of isosorbide mononitrate. We discussed conservative therapy with medications versus more aggressive management with cardiac catheterization. She is known to have significant multivessel CAD 24 years ago. With a normal hemoglobin 3 years ago and then worsening anemia now, would have some reservation with PCI until have a better understanding of her anemia trend. There is no urgent indication for cardiac catheterization as she is pain free. After discussion, she prefers medical therapy and her daughter, Alejandra, agrees. 2. CAD: Severe multivessel CAD reported in 1995. Continue aspirin 81 mg daily. Continue beta-ryan. Continue statin therapy. Continue nitrate therapy. She prefers medical therapy at this time. 3. Ischemic cardiomyopathy: ICD in place. She appears euvolemic. Titrate beta-ryan and LENO-inhibitor. 4. Chronic systolic CHF: She appears euvolemic. Continue home dose of diuretic. Low-sodium diet. 5. ICD: Approaching end of life. Follow-up in early March with Dr. Peng as recommended. 6. Hypertension: Blood pressure has been poorly controlled. Titrate LENO- inhibitor and beta-ryan especially in light of documented ischemic heart disease and presenting with angina. 7. Dyslipidemia: She apparently did not tolerate other statins in the past. Continue current statin. 8. Disposition: Cardiology will continue to follow. Plan of care discussed with Dr. Mcnair of the primary hospitalist service. She should have close follow-up with Dr. Peng on discharge. Highly complex medical issues. Thank you for allowing me to participate in the care of your patient. Please call for any other questions or concerns. Sincerely, Benson Bergman M.D. History of Present Illness Reason for Consultation: elevated trop Requesting Physician: Dr. Santacruz Attending Physician: Octavio Mcnair DO History of Present Illness Mr. Solis is a very pleasant 79-year-old female with history significant for multivessel CAD, anterior WA treated with tPA in 1995, ischemic cardiomyopathy, long QT syndrome s/p ICD, systolic CHF, DVT on chronic anticoagulation, hypothyroidism, dyslipidemia, and hypertension. She has significant peripheral arterial disease s/p bilateral SFA stents and follows closely with vascular surgery, Dr. Burch. Her primary broker assistant is Dr. Peng. In 1995, she had anterior STEMI treated with tPA and transferred [facility]. Cardiac catheterization at that time reportedly revealed mid LAD 90%, circumflex 50%, and ostial non dominant RCA 90%. Medical management was recommended according to records. Seen by Dr. Peng on 02/04/2020 and was doing well at that time however her ICD battery was approaching end of life and she is scheduled to be re-evaluated in early March. She denied any angina at the time of her WA in 1995. Yesterday at approximately 6:00 p.m. while walking, she developed chest discomfort described as a substernal chest pressure. It was not radiate. There is no associated diaphoresis but she did note associated nausea and shortness of breath. Pain persisted for 3 hours and despite the pain, she continued to perform her chores. Symptoms worsened with exertion. She came to the emergency department and was given nitroglycerin paste in her symptoms completely resolved. She has remained chest pain free. She was placed on heparin drip as it was noted by the hospitalist service that her initial troponin was elevated at 0.34 which happened to be the peak. She has remained chest pain free. She denies shortness of breath, syncope, near-syncope, palpitations, edema, or bleeding. She has a very active person and does a lot of walking according to her and her family. She does have bilateral lower extremity claudication right worse than left and is followed by Dr. Burch. 3-4 days prior to presentation, she did have more fatigued than usual and dyspnea with exertion. She denies orthopnea, PND, or shortness of breath at rest. Review of systems: As above. Review of systems otherwise negative/unremarkable. Family history: Mother with WA. Father with WA. Daughter, son, and granddaughter all have prolonged QT. Social history: Smoked briefly many years ago. No significant alcohol or drug abuse. She lives alone in [place]. She is a x2. Six children. Her daughter, Alejandra, was present for the conversation via speaker phone. Her niece was present in the hospital room. Allergies Allergy/AdvReac Type Severity Reaction Status Date / Time simvastatin Allergy Severe RASH Verified 02/16/20 23:06 Home Medications Home Medications Medication Instructions Recorded Confirmed Type furosemide 20 mg tablet 20 mg PO DAILY tab 01/05/19 02/16/20 History isosorbide mononitrate 30 mg 30 mg PO DAILY #90 tab 01/05/19 02/16/20 History tablet,extended release 24 hr levothyroxine 75 mcg tablet 75 mcg PO DAILY tab 01/05/19 02/16/20 History lovastatin 40 mg tablet 80 mg PO DAILY tab 01/05/19 02/16/20 History nitroglycerin 0.4 mg sublingual 0.4 mg SL Q5M PRN #25 tab 01/05/19 02/16/20 History tablet potassium chloride 10 mEq 10 meq PO DAILY tab 01/05/19 02/16/20 History tablet,extended release apixaban 5 mg tablet 5 mg PO BID #60 tab 09/09/19 02/16/20 Rx aspirin [Aspir-81] 81 mg PO DAILY 02/16/20 02/16/20 History lisinopril 5 mg PO DAILY 02/16/20 02/16/20 History metoprolol succinate 50 mg PO DAILY 02/16/20 02/16/20 History Patient History Medical History CAD (coronary artery disease), [place] coronary artery Chronic systolic CHF (congestive heart failure) DVT (deep venous thrombosis) Hyperlipidemia LDL goal <70 Hypertension Hypothyroidism (acquired) Ischemic cardiomyopathy Peripheral arterial occlusive disease Prolonged QT syndrome Surgical History S/P ICD (internal cardiac defibrillator) procedure Social History Smoking Status: Former smoker Tobacco Type: Cigarettes Second Hand Exposure: No; Hx Alcohol Use: No Hx Substance Use: No Preferred Language: German Communication Ability: Effective Web Worker Required: No Beliefs That Will Affect Care: None marital status: / Current Living Situation: Alone Current Living Situation Comment: Apartment How many Children do You have: 6 Feels Safe at Home: Yes Physical Exam Physical Exam: Gen.: No acute distress. Alert and oriented. HEENT: Anicteric sclera. Neck: No JVD. Bilateral carotid bruit. Normal carotid upstrokes bilaterally. Cardiac: PMI was nondisplaced. No ventricular heave. Regular. Normal S1-S2. 2/6 systolic murmur. No rubs, or gallops. Pulmonary: Clear to auscultation bilaterally without wheezes, rales, or rhonchi. Abdomen: Soft, nontender, nondistended, with normoactive bowel sounds. Abdominal bruit noted. Extremities: 2+ radial pulses bilaterally. 2+ bilateral femoral pulses. Son ateral femoral bruit, right louder than left. 1+ posterior tibialis pulses bilaterally. No edema or cyanosis. Psychiatric: Affect appears appropriate. Results & Data ([facility]) Vital Signs (Past 12 Hours) Vital Signs Temp Pulse Pulse Resp BP BP BP 02/17/20 11:36 36.6 C 60 16 159/65 H 02/17/20 08:14 36.9 C 60 18 171/66 H 02/17/20 08:00 60 02/17/20 04:27 36.9 C 60 20 144/71 H 02/17/20 02:35 36.6 C 60 18 179/79 H 02/17/20 02:10 65 18 165/88 H Pulse Ox 02/17/20 11:36 92 02/17/20 08:14 93 02/17/20 08:00 02/17/20 04:27 93 02/17/20 02:35 95 02/17/20 02:10 95 Laboratory Results Laboratory Results - last 24 hr 02/16/20 02/16/20 02/16/20 22:05 22:05 22:05 WBC 7.57 RBC 4.13 L Hgb 10.7 L Hct 33.8 L MCV 81.8 MCH 25.9 MCHC 31.7 L RDW Std Deviation 44.4 RDW Coeff of Carlos 14.9 H Plt Count 316 MPV 9.2 Immature Gran % (Auto) 0.3 Neut % (Auto) 73.0 Lymph % (Auto) 15.6 [place] % (Auto) 9.6 Eos % (Auto) 0.7 Baso % (Auto) 0.8 Neut # (Auto) 5.53 Lymph # (Auto) 1.18 L [place] # (Auto) 0.73 H Eos # (Auto) 0.05 Baso # (Auto) 0.06 Immature Gran # (Auto) 0.02 PT 12.4 H INR 1.2 H APTT 29.1 PTT Ratio 1.0 Sodium 127 L Potassium 4.3 Chloride 93 L Carbon Dioxide 25 Anion Gap 8.0 BUN 12 Creatinine 1.04 Est Cr Clr Drug Dosing 31.5 Est GFR ( Amer) 59.2 Est GFR (Non-Af Amer) 51.1 BUN/Creatinine Ratio 11.8 Glucose 116 H Osmolality Calcium 9.5 Magnesium 2.5 H Total Bilirubin 0.5 AST 26 ALT 21 Alkaline Phosphatase 46 Troponin I 0.340 H* Total Protein 7.9 Albumin 4.2 Globulin 3.7 Albumin/Globulin Ratio 1.1 Lipase 150 TSH 23.100 H Free T4 1.19 Urine Osmolality 02/16/20 02/17/20 02/17/20 22:05 07:12 07:12 WBC 6.34 RBC 3.56 L Hgb 9.2 L Hct 29.1 L MCV 81.7 MCH 25.8 MCHC 31.6 L RDW Std Deviation 44.3 RDW Coeff of Carlos 14.8 H Plt Count 275 MPV 9.3 Immature Gran % (Auto) 0.5 Neut % (Auto) 62.6 Lymph % (Auto) 23.5 [place] % (Auto) 11.2 Eos % (Auto) 1.4 Baso % (Auto) 0.8 Neut # (Auto) 3.97 Lymph # (Auto) 1.49 [place] # (Auto) 0.71 H Eos # (Auto) 0.09 Baso # (Auto) 0.05 Immature Gran # (Auto) 0.03 H PT 13.8 H INR 1.3 H APTT PTT Ratio Sodium Potassium Chloride Carbon Dioxide Anion Gap BUN Creatinine Est Cr Clr Drug Dosing Est GFR ( Amer) Est GFR (Non-Af Amer) BUN/Creatinine Ratio Glucose Osmolality 267 L Calcium Magnesium Total Bilirubin AST ALT Alkaline Phosphatase Troponin I Total Protein Albumin Globulin Albumin/Globulin Ratio Lipase TSH Free T4 Urine Osmolality 02/17/20 02/17/20 07:12 07:30 WBC RBC Hgb Hct MCV MCH MCHC RDW Std Deviation RDW Coeff of [place] Plt Count MPV Immature Gran % (Auto) Neut % (Auto) Lymph % (Auto) [place] % (Auto) Eos % (Auto) Baso % (Auto) Neut # (Auto) Lymph # (Auto) [place] # (Auto) Eos # (Auto) Baso # (Auto) Immature Gran # (Auto) PT INR APTT PTT Ratio Sodium 128 L Potassium 3.9 Chloride 96 L Carbon Dioxide 25 Anion Gap 7.0 BUN 11 Creatinine 0.80 Est Cr Clr Drug Dosing 44.0 Est GFR ( Amer) 81.3 Est GFR (Non-Af Amer) 70.1 BUN/Creatinine Ratio 13.7 Glucose 95 Osmolality Calcium 8.4 L Magnesium Total Bilirubin 0.7 AST 20 ALT 17 Alkaline Phosphatase 36 L Troponin I 0.301 H* Total Protein 6.4 Albumin 3.4 Globulin 3.0 Albumin/Globulin Ratio 1.1 Lipase TSH Free T4 Urine Osmolality 431 L Diagnostic Findings Telemetry personally reviewed: Atrial paced. One episode of nonsustained atrial tachycardia. No ventricular arrhythmia. ECGs personally reviewed: ECG 02/16/2020 at 9:51 p.m.: Atrial paced at 60 beats per minute. Left axis deviation. LVH with repolarization abnormality. Prolonged QT. ECG 02/16/2020 at 10:08 p.m.: Atrial paced at 60 beats per minute. Left axis deviation. LVH with repolarization abnormality. Prolonged QT. Echo 02/17/2020: Normal LV size with moderately to severely reduced systolic function. EF 30-35%. Akinesis to dyskinesis of the distal inferoseptum, mid to distal inferior, mid anteroseptum, and apical segments. Moderate LVH. Mildly dilated RV with normal systolic function. Severe biatrial dilation. Mild MR. Moderate to severe TR. RVSP 64. Chest x-ray 02/17/2020: Reviewed: No infiltrate noted on personal review. Prominent vascular markings. Medications Administered Current Inpatient Medications Acetaminophen (Acetaminophen 325 Mg Tab) 650 mg PO Q4H PRN PRN Reason: Pain or Fever Stop: 03/18/20 02:33 Al Hydrox/Mg Hydrox/Simethicone (Aluminum/Magnesium Susp 30 Ml Udc) 15 ml PO Q4H PRN PRN Reason: Dyspepsia Stop: 10/17/20 02:33 Aspirin (Aspirin 81 Mg Ectab) 81 mg PO DAILY ALFONZO Stop: 03/18/20 08:59 Last Admin: 02/17/20 09:12 Dose: 81 mg Documented by: Furosemide (Furosemide 20 Mg Tab) 20 mg PO DAILY ALFONZO Stop: 03/18/20 08:59 Last Admin: 02/17/20 09:12 Dose: 20 mg Documented by: Heparin Sodium/Dextrose (Heparin Sodium/Dextrose) 25,000 units in 500 mls @ 18 mls/hr IV .Q24H [facility]; Protocol Stop: 03/18/20 06:59 Last Titration: 02/17/20 07:22 Dose: 900 units/hr, 18 mls/hr Documented by: Isosorbide Mononitrate (Isosorbide [place] Extended Rel 30 Mg Tabcr) 30 mg PO DAILY [facility] Stop: 03/18/20 08:59 Last Admin: 02/17/20 09:12 Dose: 30 mg Documented by: Levothyroxine Sodium (Levothyroxine Sodium 75 Mcg Tablet) 75 mcg PO DAILYBB [facility] Stop: 03/18/20 06:29 Last Admin: 02/17/20 06:08 Dose: 75 mcg Documented by: Lisinopril (Lisinopril 10 Mg Tab) 10 mg PO QAM [facility] Stop: 03/19/20 08:59 Lovastatin (Lovastatin 20 Mg Tab) 80 mg PO DAILY [facility] Stop: 03/18/20 08:59 Last Admin: 02/17/20 09:57 Dose: 80 mg Documented by: Magnesium Hydroxide (Magnesium Hydroxide Susp 30 Ml Udc) 30 ml PO Q12H PRN PRN Reason: Constipation Stop: 03/18/20 02:33 Metoprolol Succinate (Metoprolol Succ 50mg Ext Rel Tab) 100 mg PO QAM [facility] Stop: 03/19/20 08:59 Ondansetron HCl (Ondansetron Inj 2 Mg/Ml 2 Ml Vial) 4 mg IV Q6H PRN PRN Reason: Nausea Stop: 03/18/20 02:33 Potassium Chloride (Potassium Chloride 10 Meq Tabcr) 10 meq PO DAILY [facility] Stop: 03/18/20 08:59 Last Admin: 02/17/20 09:57 Dose: 10 meq Documented by: PG Care Time/CCT Total # of Minutes Spent Total Time Spent with Patient: Total time spent is greater than 50% in coordination of care (as documented) at patient's floor/unit and/or counseling patient: Coding Level of Care Code 86036 Initial Inpt Care Lvl 3 Diagnoses Unstable angina I20.0 CAD (coronary artery disease), [place] coronary artery I25.10 Hyperlipidemia LDL goal <70 E78.5 Ischemic cardiomyopathy I25.5 Prolonged QT syndrome I45.81 S/P ICD (internal cardiac defibrillator) procedure Z95.810 Hypertension I10 Chronic systolic CHF (congestive heart failure) I50.22 Elevated troponin R79.89
[2020-02-17 13:39] LABS: Partial Thromboplastin Ratio 3.7
[2020-02-17 13:42] LABS: Partial Thromboplastin Time 102.8 Seconds (21.0-31.0)
--- NOTE | 2020-02-17 19:57 | Electrocardiogram Report ---
Test Reason : Blood Pressure : / mmHG Vent. Rate : 060 BPM Atrial Rate : 060 BPM P-R Int : 188 ms QRS Dur : 104 ms QT Int : 508 ms P-R-T Axes : 014 -41 146 degrees QTc Int : 508 ms Atrial-paced rhythm Left axis deviation Left ventricular hypertrophy with repolarization abnormality Prolonged QT Abnormal ECG When compared with ECG of 20-JUN-2017 06:03, T wave inversion no longer evident in Inferior leads Confirmed by Landon Bergman ([id number]) on 02/17/2020 7:57:30 PM Referred By: REFERRED SELF Confirmed By:Landon Bergman
--- NOTE | 2020-02-17 19:58 | Electrocardiogram Report ---
Test Reason : Blood Pressure : / mmHG Vent. Rate : 060 BPM Atrial Rate : 060 BPM P-R Int : 194 ms QRS Dur : 104 ms QT Int : 508 ms P-R-T Axes : -24 -39 143 degrees QTc Int : 508 ms Atrial-paced rhythm Left axis deviation Left ventricular hypertrophy with repolarization abnormality Prolonged QT Abnormal ECG When compared with ECG of 16-FEB-2020 21:51, No significant change was found Confirmed by Landon Bergman ([id number]) on 02/17/2020 7:57:39 PM Referred By: REFERRED SELF Confirmed By:Landon Bergman
[2020-02-17 20:27] LABS: Partial Thromboplastin Ratio 1.9
[2020-02-17 20:33] LABS: Partial Thromboplastin Time 53.2 Seconds (21.0-31.0)
[2020-02-18] MEDS: LEVOTHYROXINE SODIUM 75 MCG TABLET PO SCH (06:08)
[2020-02-18 06:39] LABS: Basophils # (auto) 0.06 K/uL (0-0.2); Basophils % (auto) 1.1 %; Eosinophils # (auto) 0.13 K/uL (0-0.5); Eosinophils % (auto) 2.4 %; Hematocrit (blood only) 31.8 % (37-47); Hemoglobin 10.1 g/dL (12.0-16.0); Immature Granulocytes # (auto) 0.01 K/uL (0.00-0.02); Immature Granulocytes % (auto) 0.2 %; Lymphocytes # (auto) 1.53 K/uL (1.2-3.4); Lymphocytes % (auto) 27.7 %; Mean Corpuscular Hemoglobin 25.8 pg (25-34); Mean Corpuscular Hgb Conc 31.8 g/dL (32-36); Mean Corpuscular Volume 81.1 fL (80-100); Mean Platelet Volume 10.1 fL (7.4-10.4); Monocytes # (auto) 0.75 K/uL (0.11-0.59); Monocytes % (auto) 13.6 %; Neutrophils # (auto) 3.04 K/uL (1.4-6.5); Platelet Count 303 K/uL (130-400); Red Blood Count 3.92 M/uL (4.2-5.4); White Blood Count 5.52 K/uL (4.8-10.8)
[2020-02-18 06:59] LABS: INR 1.1 (0.9-1.1); Prothrombin Time 11.6 Seconds (9.0-12.0)
[2020-02-18 07:03] LABS: Partial Thromboplastin Time 56.1 Seconds (21.0-31.0)
[2020-02-18 07:07] LABS: Albumin Level 3.3 gm/dl (3.4-5.0); BUN Creatinine Ratio 15.6 (10-20); Calcium 8.7 mg/dl (8.5-10.1); Creatinine Clr Calc Pharmacy 34.3 ml/min; Est GFR (African American) 60.6; Est GFR (Non-African American) 52.3; Magnesium 2.2 mg/dl (1.8-2.4); Potassium 3.9 mmol/L (3.5-5.1)
[2020-02-18] MEDS: HEPARIN SODIUM/DEXTROSE 25,000 UNITS/500 ML BAG IV SCH (07:08)
[2020-02-18 07:10] LABS: Albumin Globulin Ratio 1.1 (0.9-2); Bilirubin,Total 0.6 mg/dl (0.2-1); Globulin 3.1 gm/dl (2.5-4.0); Total Protein 6.4 gm/dl (6.4-8.2)
[2020-02-18] MEDS: ASPIRIN 81 MG ECTAB PO SCH (08:25)
[2020-02-18] MEDS: METOPROLOL SUCC 50MG EXT REL TAB PO SCH (08:25)
[2020-02-18] MEDS: ISOSORBIDE MONO EXTENDED REL 30 MG TABCR PO SCH (08:25)
[2020-02-18] MEDS: FUROSEMIDE 20 MG TAB PO SCH (08:25)
[2020-02-18] MEDS: LOVASTATIN 20 MG TAB PO SCH (08:26)
[2020-02-18] MEDS: lisinopriL 10 MG TAB PO SCH (08:26)
[2020-02-18] MEDS: POTASSIUM CHLORIDE 10 MEQ TABCR PO SCH (08:39)
--- NOTE | 2020-02-18 08:44 | Electrocardiogram Report ---
Test Reason : Blood Pressure : / mmHG Vent. Rate : 060 BPM Atrial Rate : 060 BPM P-R Int : 194 ms QRS Dur : 110 ms QT Int : 510 ms P-R-T Axes : 000 -42 169 degrees QTc Int : 510 ms Atrial-paced rhythm Left axis deviation Left ventricular hypertrophy with repolarization abnormality Prolonged QT Abnormal ECG When compared with ECG of 16-FEB-2020 22:08, No significant change was found Confirmed by Pepe Mabry ([id number]) on 02/18/2020 8:44:05 AM Referred By: REFERRED SELF Confirmed By:Pepe Mabry
--- NOTE | 2020-02-18 12:36 | Cardiology Progress Note ---
Date of Service February 18, 2020 Assessment & Plan (1) Unstable angina: Clinically stable with no recurrent angina. Continue medical management with intravenous heparin for 48 hours while optimizing hemodynamics. BP improved with increased metoprolol and increased lisinopril, given stabl e/blunted heart rate response would not titrate metoprolol further but could further increase lisinopril if BP remains elevated. On long-acting nitrates, these could be titrated upward as well if necessary. Continue aspirin/statin long-term. (2) Elevated troponin: (3) Ischemic cardiomyopathy: As above, titrate beta-ryan and LNEO inhibitor to optimize hemodynamics. (4) S/P ICD (internal cardiac defibrillator) procedure: Functioning appropriately. Nonsustained ventricular tachycardia does not need to be specifically addressed, since her beta-blockers are being titrated upward and she has an ICD. (5) Hypertension: As above. Admission and Anticipated Discharge Date Admission Date: February 17, 2020 Subjective 79-year-old woman with known severe multivessel coronary artery disease admitted 02/17/2020 with unstable angina/elevated troponin which is being medically managed (intravenous heparin, optimization of hemodynamics). She had an uneventful night with no further chest discomfort. Blood pressure still mildly hypertensive but improving over earlier values. Pulse consistently in the 60s. Rhythm sinus with 1 nonsustained (7 beat) run of ventricular tachycardia on telemetry overnight. She felt well and had no complaints at the time of my evaluation. Physical Exam Physical Exam: No distress. Sitting comfortably. Afebrile. BP mildly hypertensive. Pulse 68 and regular. Skin: no ecchymoses or generalized lesions. HEENT: unremarkable. Neck: no JVD, carotids with bilateral bruits versus transmitted murmur. Lungs clear. Cardiac: regular rhythm with 2/6 basal systolic ejection murmur rating to the carotids and left sternal border, no diastolic murmur or gallop. Abdomen benign. Extremities: no edema. Neurologic: normal affect and conversation, nonfocal. Results & Data ([facility]) Vital Signs (Past 12 Hours) Vital Signs Temp Pulse Resp BP Pulse Ox 02/18/20 08:34 98.2 F 68 18 141/51 H 98 02/18/20 04:57 98.6 F 60 16 144/73 H 98 Diagnostic Findings ECG today showed electronic atrial pacing, left ventricular hypertrophy with repolarization abnormality, prolonged QT. Compared with ECG from 02/16/2020, no significant change. PG Care Time/CCT Total # of Minutes Spent Total Time Spent with Patient: Total time spent is greater than 50% in coordination of care (as documented) at patient's floor/unit and/or counseling patient: Coding Level of Care Code 55480 Subseq Hosp Care Lvl 3 Diagnoses Unstable angina I20.0 Elevated troponin R79.89 Ischemic cardiomyopathy I25.5 S/P ICD (internal cardiac defibrillator) procedure Z95.810 Hypertension I10
--- NOTE | 2020-02-18 16:08 | Hospitalist Progress Note ---
Date of Service February 18, 2020 Assessment & Plan (1) Unstable angina: Troponin is 0.340 upon admission, down slightly to 0.3 no further chest pain per Dr. 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 sodium up to 130 chronic issue within typical range for her (11) S/P ICD (internal cardiac defibrillator) procedure: (12) Peripheral arterial occlusive disease: aspirin, statin therapy Admission and Anticipated Discharge Date Admission Date: February 17, 2020 Subjective patient feeling well today, no chest pain or pressure at all no fever/chills, no dyspnea, no cough eating well discussed with Dr. Mabry, appreciate his input, plan for d/c tomorrow patient anxious to go home, heparin will be at 48 hours this evening labs today show sodium up to 130, CBC normal, Cr normal Review of Systems Review of Systems: All systems reviewed & are unremarkable except as noted in Subjective Physical Exam Constitutional: WD/WN, vitals as above Eyes: PERRL, conjunctivae normal, anicteric sclerae ENMT: external ear and nose normal, oropharynx normal Neck: trachea midline, no thyromegaly Respiratory: normal respiratory effort, lungs clear to auscultation Cardiovascular: RRR, no murmur, no edema Gastrointestinal (Abdomen): normal bowel sounds, soft, nontender, no hepatosplenomegaly Musculoskeletal: no cyanosis or clubbing, extremities motor strength 5/5 Skin: no rashes, warm and dry Neurologic: patellar DTR's 2+ bilat, sensation intact and PERRL, EOMI, accommodation nl, no face palsy, no dysarthria Psychiatric: A+Ox3, euthymic affect Lymphatic: no cervical or axillary lymphadenopathy Results & Data Results & Data ([facility]) Vital Signs (Past 12 Hours) Vital Signs Temp Pulse Resp BP BP Pulse Ox 02/18/20 15:33 36.8 C 60 18 148/51 H 100 02/18/20 12:27 36.6 C 60 19 119/43 L 93 02/18/20 08:34 36.8 C 68 18 141/51 H 98 02/18/20 04:57 37.0 C 60 16 144/73 H 98 Laboratory Results Laboratory Results - last 24 hr 02/17/20 02/18/20 02/18/20 19:44 06:02 06:02 WBC 5.52 RBC 3.92 L Hgb 10.1 L Hct 31.8 L MCV 81.1 MCH 25.8 MCHC 31.8 L RDW Std Deviation 44.0 RDW Coeff of Carlos 15.0 H Plt Count 303 MPV 10.1 Immature Gran % (Auto) 0.2 Neut % (Auto) 55.0 Lymph % (Auto) 27.7 [place] % (Auto) 13.6 Eos % (Auto) 2.4 Baso % (Auto) 1.1 Neut # (Auto) 3.04 Lymph # (Auto) 1.53 [place] # (Auto) 0.75 H Eos # (Auto) 0.13 Baso # (Auto) 0.06 Immature Gran # (Auto) 0.01 PT 11.6 INR 1.1 APTT 53.2 H* 56.1 H* PTT Ratio 1.9 2.0 Sodium Potassium Chloride Carbon Dioxide Anion Gap BUN Creatinine Est Cr Clr Drug Dosing Est GFR ( Amer) Est GFR (Non-Af Amer) BUN/Creatinine Ratio Glucose Calcium Magnesium Total Bilirubin AST ALT Alkaline Phosphatase Total Protein Albumin Globulin Albumin/Globulin Ratio 02/18/20 06:02 WBC RBC Hgb Hct MCV MCH MCHC RDW Std Deviation RDW Coeff of [place] Plt Count MPV Immature Gran % (Auto) Neut % (Auto) Lymph % (Auto) [place] % (Auto) Eos % (Auto) Baso % (Auto) Neut # (Auto) Lymph # (Auto) [place] # (Auto) Eos # (Auto) Baso # (Auto) Immature Gran # (Auto) PT INR APTT PTT Ratio Sodium 130 L Potassium 3.9 Chloride 98 Carbon Dioxide 26 Anion Gap 6.0 BUN 16 Creatinine 1.02 Est Cr Clr Drug Dosing 34.3 Est GFR ( Amer) 60.6 Est GFR (Non-Af Amer) 52.3 BUN/Creatinine Ratio 15.6 Glucose 108 H Calcium 8.7 Magnesium 2.2 Total Bilirubin 0.6 AST 16 ALT 16 Alkaline Phosphatase 38 L Total Protein 6.4 Albumin 3.3 L Globulin 3.1 Albumin/Globulin Ratio 1.1 Medications Administered Current Inpatient Medications Acetaminophen (Acetaminophen 325 Mg Tab) 650 mg PO Q4H PRN PRN Reason: Pain or Fever Stop: 03/18/20 02:33 Al Hydrox/Mg Hydrox/Simethicone (Aluminum/Magnesium Susp 30 Ml Udc) 15 ml PO Q4H PRN PRN Reason: Dyspepsia Stop: 03/18/20 02:33 Aspirin (Aspirin 81 Mg Ectab) 81 mg PO DAILY [facility] Stop: 03/18/20 08:59 Last Admin: 02/18/20 08:25 Dose: 81 mg Documented by: Furosemide (Furosemide 20 Mg Tab) 20 mg PO DAILY [facility] Stop: 03/18/20 08:59 Last Admin: 02/18/20 08:25 Dose: 20 mg Documented by: Heparin Sodium/Dextrose (Heparin Sodium/Dextrose) 25,000 units in 500 mls @ 16 mls/hr IV .Q24H ALFONZO; Protocol Stop: 03/18/20 06:59 Last Titration: 02/18/20 15:04 Dose: 800 units/hr, 16 mls/hr Documented by: Isosorbide Mononitrate (Isosorbide [place] Extended Rel 30 Mg Tabcr) 30 mg PO DAILY [facility] Stop: 03/18/20 08:59 Last Admin: 02/18/20 08:25 Dose: 30 mg Documented by: Levothyroxine Sodium (Levothyroxine Sodium 75 Mcg Tablet) 75 mcg PO DAILYBB [facility] Stop: 03/18/20 06:29 Last Admin: 02/18/20 06:08 Dose: 75 mcg Documented by: Lisinopril (Lisinopril 10 Mg Tab) 10 mg PO QAM [facility] Stop: 03/19/20 08:59 Last Admin: 02/18/20 08:26 Dose: 10 mg Documented by: Lovastatin (Lovastatin 20 Mg Tab) 80 mg PO DAILY [facility] Stop: 03/18/20 08:59 Last Admin: 02/18/20 08:26 Dose: 80 mg Documented by: Magnesium Hydroxide (Magnesium Hydroxide Susp 30 Ml Udc) 30 ml PO Q12H PRN PRN Reason: Constipation Stop: 03/18/20 02:33 Metoprolol Succinate (Metoprolol Succ 50mg Ext Rel Tab) 100 mg PO QAM [facility] Stop: 03/19/20 08:59 Last Admin: 02/18/20 08:25 Dose: 100 mg Documented by: Ondansetron HCl (Ondansetron Inj 2 Mg/Ml 2 Ml Vial) 4 mg IV Q6H PRN PRN Reason: Nausea Stop: 03/18/20 02:33 Potassium Chloride (Potassium Chloride 10 Meq Tabcr) 10 meq PO DAILY [facility] Stop: 03/18/20 08:59 Last Admin: 02/18/20 08:39 Dose: 10 meq Documented by: PG Care Time/CCT Total # of Minutes Spent Total Time Spent with Patient: Total time spent is greater than 50% in coordination of care (as documented) at patient's floor/unit and/or counseling patient: Coding Level of Care Code 68612 Subseq Hosp Care Lvl 2 Diagnoses Unstable angina I20.0 Ischemic cardiomyopathy I25.5 CHF (congestive heart failure) I50.9 [facility] (current) use of anticoagulants Z79.01 DVT (deep venous thrombosis) I82.409 CAD (coronary artery disease), [place] coronary artery I25.10 Hyperlipidemia LDL goal <70 E78.5 Hypertension I10 Hypothyroidism (acquired) E03.9 Hyponatremia E87.1 S/P ICD (internal cardiac defibrillator) procedure Z95.810 Peripheral arterial occlusive disease I77.9
[2020-02-19] MEDS: LEVOTHYROXINE SODIUM 75 MCG TABLET PO SCH (06:16)
[2020-02-19 06:40] LABS: Basophils # (auto) 0.06 K/uL (0-0.2); Eosinophils # (auto) 0.16 K/uL (0-0.5); Eosinophils % (auto) 2.6 %; Hematocrit (blood only) 28.4 % (37-47); Hemoglobin 9.1 g/dL (12.0-16.0); Immature Granulocytes # (auto) 0.01 K/uL (0.00-0.02); Immature Granulocytes % (auto) 0.2 %; Lymphocytes # (auto) 1.32 K/uL (1.2-3.4); Lymphocytes % (auto) 21.9 %; Mean Corpuscular Volume 81.1 fL (80-100); Mean Platelet Volume 9.8 fL (7.4-10.4); Monocytes # (auto) 0.76 K/uL (0.11-0.59); Monocytes % (auto) 12.6 %; Neutrophils # (auto) 3.73 K/uL (1.4-6.5); Neutrophils % (auto) 61.7 %; Platelet Count 278 K/uL (130-400); RDW Standard Deviation 44.3 fL (36.4-46.3); White Blood Count 6.04 K/uL (4.8-10.8)
[2020-02-19 07:06] LABS: INR 1.1 (0.9-1.1); Partial Thromboplastin Ratio 1.8; Prothrombin Time 11.2 Seconds (9.0-12.0)
[2020-02-19 07:11] LABS: Partial Thromboplastin Time 49.3 Seconds (21.0-31.0)
[2020-02-19 07:16] LABS: Albumin Level 3.1 gm/dl (3.4-5.0); BUN Creatinine Ratio 17.5 (10-20); Calcium 8.5 mg/dl (8.5-10.1); Creatinine Clr Calc Pharmacy 36.8 ml/min; Potassium 4.2 mmol/L (3.5-5.1)
[2020-02-19 07:18] LABS: Albumin Globulin Ratio 0.9 (0.9-2); Bilirubin,Total 0.5 mg/dl (0.2-1); Globulin 3.3 gm/dl (2.5-4.0); Total Protein 6.4 gm/dl (6.4-8.2)
[2020-02-19] MEDS: METOPROLOL SUCC 50MG EXT REL TAB PO SCH (08:22)
[2020-02-19] MEDS: ASPIRIN 81 MG ECTAB PO SCH (08:23)
[2020-02-19] MEDS: ISOSORBIDE MONO EXTENDED REL 30 MG TABCR PO SCH (08:23)
[2020-02-19] MEDS: FUROSEMIDE 20 MG TAB PO SCH (08:23)
[2020-02-19] MEDS: POTASSIUM CHLORIDE 10 MEQ TABCR PO SCH (08:24)
[2020-02-19] MEDS: LOVASTATIN 20 MG TAB PO SCH (08:24)
[2020-02-19] MEDS: lisinopriL 10 MG TAB PO SCH (08:25)
[2020-02-19] MEDS ORDERED: APIXABAN 5 MG TABLET PO SCH (09:00)
[2020-02-19] MEDS: HEPARIN SODIUM/DEXTROSE 25,000 UNITS/500 ML BAG IV SCH (09:43)
[2020-02-19] MEDS ORDERED: POLYETHYLENE (MIRALAX) 17 GM PACK PO ONE (11:25)
--- NOTE | 2020-02-19 13:48 | Discharge Summary ---
Date of Service February 19, 2020 Admission HPI Per Admitting Provider The patient is a 79-year-old female with a past medical history including DVT, CHF, urinary tract infection, hypothyroidism, CAD, hyperlipidemia, and hypertension. She reports that earlier in the day she was walking across the floor in her apartment, and developed acute onset of chest discomfort. Her daughter who is with her, reports that the patient did have 3 to 4 days of fatigue prior to today's discomfort. In emergency department, patient underwent work-up including EKGs which showed atrial pacing, with nonspecific ST-T changes, and an elevated troponin of 0.340. Principal Diagnosis unstable angina Discharge Exam Constitutional WD/WN, vitals as above Respiratory normal respiratory effort, lungs clear to auscultation Cardiovascular RRR, no murmur, no edema Gastrointestinal (Abdomen) normal bowel sounds, soft, nontender, no hepatosplenomegaly Musculoskeletal no cyanosis or clubbing, extremities motor strength 5/5 Skin no rashes, warm and dry Neurologic moves all extremities and awake Psychiatric A+Ox3, euthymic affect Discharge Data Allergies Allergy/AdvReac Type Severity Reaction Status Date / Time simvastatin Allergy Severe RASH Verified 02/16/20 23:06 Consultations 02/17/20 00:09 ED Decision to Admit Stat 02/17/20 02:34 Consult Cardiology Routine Consult Case Management - Discharge Planning Routine Hospital Course (1) Unstable angina: Troponin is 0.340 upon admission, down slightly to 0.3 no further chest pain per Dr. 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 sodium up to 130 and stable chronic issue within typical range for her (11) S/P ICD (internal cardiac defibrillator) procedure: (12) Peripheral arterial occlusive disease: aspirin, statin therapy Total Time Total Time Spent Total Time Spent (In Minutes): greater than 30 minutes Discharge Plan Discharge Items Patient Disposition: Home - Self-Care Reason For Visit: UNSTABLE ANGINA Discharge Diagnosis: Unstable angina, chest pain CAD HTN Ischemic cardiomyopathy Condition on Discharge: Good Activity: Per Instructions section Bathing: No limitations Exercise/Sports: Gradually increase as tolerated Driving/Machine Use: Resume 3 days after discharge Weightbearing: Full weightbearing Non-emergency contact: Primary Care Provider and Life Sciences Director Call non-emergency contact if: you have any medication questions and your symptoms worsen Follow-up/Referrals: Landon Bergman MD [Physician] - (4 weeks) Brice Lowe MD [Primary Care Provider] - (one week) Diet: Heart Healthy Addtl Attending Provider Instructions: Medications: - TOPROL: dose increased to 100mg daily - LISINOPRIL: dose increased to 10mg daily Unstable angina chest pain and pressure prior to admission, troponin hipolito to 0.34 evaluated by cardiology, treated conservatively with heparin drip for 48 hours increased to Toprol 100mg daily, lisinopril 10mg daily, continued on Imdur 30mg daily, Lovastatin 80mg daily, aspirin 81mg daily follow up with PCP in one week and Dr. Bergman in one month Pending Studies at Discharge: No Stand-Alone Forms: [employer] Smoking Cessation Medications and DC Order Prescriptions: New lisinopril 10 mg Tablet 10 mg PO QAM 30 Days Qty: 30 RF: 2 metoprolol succinate 100 mg tablet extended release 24 hr 100 mg PO QAM 30 Days Qty: 30 RF: 3 Continued Eliquis 5 mg tablet 5 mg PO BID Qty: 60 RF: 11 nitroglycerin 0.4 mg tablet, sublingual 0.4 mg SL Q5M PRN (Reason: chest pain) Qty: 25 RF: 0 isosorbide mononitrate 30 mg tablet extended release 24 hr 30 mg PO DAILY Qty: 90 RF: 0 furosemide 20 mg tablet 20 mg PO DAILY RF: 0 lovastatin 40 mg tablet 80 mg PO DAILY RF: 0 potassium chloride 10 mEq tablet extended release 10 meq PO DAILY RF: 0 levothyroxine 75 mcg tablet 75 mcg PO DAILY RF: 0 aspirin [Aspir-81] 81 mg Tablet,Delayed Release (Dr/Ec) 81 mg PO DAILY RF: 0 Discontinued metoprolol succinate 50 mg tablet extended release 24 hr 50 mg PO DAILY RF: 0 lisinopril 5 mg tablet 5 mg PO DAILY RF: 0 Discharge Orders: Discharge Order (Routine); Ordered 02/19/20 Ordered By: Rossana Wilder Admission Data Admit Date/Time: 02/17/20 00:51 Attending Provider: Octavio Mcnair Admit Provider: Camilo Santacruz Primary Care Provider: Brice Lowe Other Providers: Camilo Santacruz ; Jacob Ramos Other Interventions: Discharge Summary Assessment (RN) Last Done: 02/19/20 12:13 Supervising Physician Co-Signing Physician Notes Patient seen within 24 hours of discharge. I agree with the discharge summary by Rossana MARK. I have reviewed the chart including labs, imaging and plans for discharge. Unstable angina: treated with heparin drip for 48 hours continue antiplatelet therapy, Toprol, lisinopril, Imdur, Lasix Cardiomyopathy: euvolemic, continue Lasix and Toprol and lisinopril follow up with PCP and cardiology Coding Level of Care Code D/C Day Management >30 mins Diagnoses Unstable angina I20.0 Ischemic cardiomyopathy I25.5 CHF (congestive heart failure) I50.9 [facility] (current) use of anticoagulants Z79.01 DVT (deep venous thrombosis) I82.409 CAD (coronary artery disease), [place] coronary artery I25.10 Hyperlipidemia LDL goal <70 E78.5 Hypertension I10 Hypothyroidism (acquired) E03.9 Hyponatremia E87.1 S/P ICD (internal cardiac defibrillator) procedure Z95.810 Peripheral arterial occlusive disease I77.9
--- NOTE | 2020-02-19 16:54 | Electrocardiogram Report ---
Test Reason : Blood Pressure : / mmHG Vent. Rate : 060 BPM Atrial Rate : 060 BPM P-R Int : 208 ms QRS Dur : 106 ms QT Int : 516 ms P-R-T Axes : -14 -47 160 degrees QTc Int : 516 ms Atrial-paced rhythm Left anterior fascicular block Left ventricular hypertrophy with repolarization abnormality Prolonged QT Abnormal ECG Confirmed by Romario Gross ([id number]) on 02/19/2020 4:53:48 PM Referred By: REFERRED SELF Confirmed By:Jorge Gross
== END 2020-02-19 15:10 | disposition home or self-care (01) | DRG 303 ==
LOC: ED 21:40 → 2E 02-17 00:51 → SUATTDRO 02-17 00:51 → 2E 02-17 02:10
DX: I25.5 Ischemic cardiomyopathy; Z79.01 Long term (current) use of anticoagulants; I11.0 Hypertensive heart disease with heart failure; E78.5 Hyperlipidemia, unspecified; Z95.810 Presence of automatic (implantable) cardiac defibrillator; I25.110 Atherosclerotic heart disease of native coronary artery with unstable angina pectoris; Z87.891 Personal history of nicotine dependence; E03.9 Hypothyroidism, unspecified; Z79.82 Long term (current) use of aspirin; I47.2 Ventricular tachycardia; I50.22 Chronic systolic (congestive) heart failure; Z79.899 Other long term (current) drug therapy; E87.1 Hypo-osmolality and hyponatremia

== ENCOUNTER 2020-12-12 07:49 | Inpatient (IN) ==
--- NOTE | 2020-12-04 08:29 | PAT Medication Instructions ---
Medication Instructions Date of Service December 04, 2020 Home Medications Medication Instructions Recorded metoprolol succinate 100 mg PO QAM 30 Days #30 tab 02/18/20 apixaban [Eliquis] 2.5 mg PO BID #30 tab 09/02/20 furosemide 20 mg tablet 20 mg PO QAM isosorbide mononitrate 30 mg tablet,extended release 24 hr 30 mg PO QAM levothyroxine 75 mcg tablet 75 mcg PO QAM lovastatin 40 mg tablet 80 mg PO BID nitroglycerin 0.4 mg sublingual tablet 0.4 mg SL Q5M PRN potassium chloride 10 mEq tablet,extended release 10 meq PO QDL metoprolol succinate 100 mg PO QAM apixaban [Eliquis] 2.5 mg PO BID aspirin [Aspir-81] 81 mg PO QAM ferrous gluconate 324 mg PO BID lisinopril [Zestril] 5 mg PO QAM Continue as directed nitroglycerin 0.4 mg sublingual tablet 0.4 mg SL Q5M PRN (if needed) ASK your prescriber and surgeon apixaban [Eliquis] 2.5 mg PO BID aspirin [Aspir-81] 81 mg PO QAM DO NOT take the morning of surgery furosemide 20 mg tablet 20 mg PO QAM potassium chloride 10 mEq tablet,extended release 10 meq PO QDL ferrous gluconate 324 mg PO BID lisinopril [Zestril] 5 mg PO QAM Take morning of surgery With a small sip of water, OTHERWISE NOTHING TO EAT OR DRINK AFTER MIDNIGHT: isosorbide mononitrate 30 mg tablet,extended release 24 hr 30 mg PO QAM levothyroxine 75 mcg tablet 75 mcg PO QAM lovastatin 40 mg tablet 80 mg PO BID metoprolol succinate 100 mg PO QAM Take evening before surgery lovastatin 40 mg tablet 80 mg PO BID ferrous gluconate 324 mg PO BID Other Notes If you have any questions please call us at [phone] or [phone] or [phone] or [phone]
--- NOTE | 2020-12-08 09:55 | Anesthesiology Consultation ---
Date of Service December 08, 2020 Assessment & Plan (1) Encounter for pre-operative examination: - COVID screening: Per assessment on 12/08: Travel screen negative, no known COVID-19 positive contacts or current COVID-19 related symptoms. Patient vaccinated. Surgeon arranging preop COVID testing (being done at 12/08). Awaiting results. - Cardiology office visit (10/27/20): "The patient is stable from cardiovascular standpoint. She demonstrates excellent control of her blood pressure. She has been managing her volume status well. The rate response function on her device was made more sensitive hoping to more aggressively increase pacemaking when she is physically active. This may improve her complaints of exertional dyspnea. Highly complex medical issues were managed and discussed today." - Med instructions: Patient reports that surgeon advised her to hold Eliquis 48 hours prior to surgery and continue ASA perioperatively. - Complex PMHX: Case reviewed with Dr. Harvey and Dr. Miranda. Okay to proceed with given procedure pending evaluation AM DOS. Chart Review Chart Review: Acceptable Risk for Surgery (pending evaluation AM DOS) and Patient seen in Pre Admission Testing Teaching & Discussion Pre-Anesthesia Teaching/Discussion Notes: Instructed NPO after midnight before surgery,except medications with 15 cc of water. Medication instructions prov ided according to the PAT guidelines. History Surgery Operation Date: 12/12/20 09:30 Proposed Procedures p Possible Stent Placement - Rudy Burch MD s Repair of Right Femoral Artery - Rudy Burch MD Height/Weight Height: 5 ft 1 in Weight: 51.2 kg Allergies Allergy/AdvReac Type Severity Reaction Status Date / Time simvastatin Allergy Severe Rash Verified 12/12/20 08:31 Medications Home Medications Medication Instructions Recorded Confirmed Last Taken furosemide 20 mg tablet 20 mg PO QAM tab 01/05/19 12/01/20 12/11/20 isosorbide mononitrate 30 mg 30 mg PO QAM #90 tab 01/05/19 12/01/20 12/11/20 tablet,extended release 24 hr levothyroxine 75 mcg tablet 75 mcg PO QAM tab 01/05/19 12/01/20 12/11/20 lovastatin 40 mg tablet 80 mg PO BID tab 01/05/19 12/01/20 12/11/20 nitroglycerin 0.4 mg sublingual 0.4 mg SL Q5M PRN #25 tab 01/05/19 12/01/20 Un known tablet potassium chloride 10 mEq 10 meq PO QDL tab 01/05/19 12/01/20 12/11/20 tablet,extended release metoprolol succinate 100 mg PO QAM 30 Days #30 tab 02/18/20 12/01/20 12/12/20 08:00 apixaban [Eliquis] 2.5 mg PO BID #30 tab 09/02/20 12/01/20 12/09/20 aspirin [Aspir-81] 81 mg PO QAM 09/02/20 12/01/20 12/11/20 ferrous gluconate 324 mg PO BID 10/31/20 12/01/20 12/11/20 lisinopril [Zestril] 5 mg PO QAM 12/01/20 12/01/20 12/12/20 08:00 Active Medications Generic Name Dose Route Start Last Admin Trade Name Freq PRN Reason Stop Dose Admin Lactated Ringer's 1,000 mls @ 50 mls/hr 12/12/20 06:00 12/12/20 08:30 Lr IV 12/13/20 01:59 50 mls/hr .Q20H ALFONZO Administration Past Medical History Medical History CAD (coronary artery disease), [place] coronary artery Non-obstructive Chronic systolic CHF (congestive heart failure) DVT (deep venous thrombosis) Several years ago (groin region) > then needed stents History of myocardial infarction Several years ago Hyperlipidemia LDL goal <70 Hypertension Hypothyroidism (acquired) ICD (implantable cardioverter-defibrillator) battery depletion Implanted 2012 (ICD generator change 03/2020), [employer], last check 10/27/20 (per [facility] [place] cardiology note) Ischemic cardiomyopathy Peripheral arterial occlusive disease Prolonged QT syndrome Pulmonary hypertension Severe pulmonary hypertension. Estimated RVSP 64 mmHg. Tricuspid regurgitation Moderate to severe TR Exercise / Class Metabolic Activity III < 4 Walking/Shop/Light housework (No CP but occasional SOB with activity) Past Surgical History Surgical History History of tonsillectomy and adenoidectomy Hx of bilateral oophorectomy Hx of left inguinal hernia repair S/P ICD (internal cardiac defibrillator) procedure 2012, ICD generator change 03/2020 Past Anesthesia History No Hx of Anesthesia Complications and No Family Hx of Anesthesia Complications History of PONV No Hx of PONV and No Hx of Motion Sickness Social History Smoking Status: Former smoker Do You Dip or Chew Tobacco: No Smoking End Date: Quit 20 years ago Hx Alcohol Use: No Hx Substance Use: No substance use type: does not use Review of Systems Patient denies chest pain, shortness of breath, fever, chills, cough, wheezing, palpitations. Physical Exam Vital Signs Last Vital Signs Temp 36.7 C 12/12/20 08:00 Pulse 64 12/12/20 08:00 Resp 18 12/12/20 08:00 BP 162/81 H 12/12/20 08:00 Pulse Ox 95 12/12/20 08:00 VITALS BP 153/81 P 63 TEMP 97.9 SP02 94%RA RESP 16 PHYSICAL Full cervical extension range of motion. Full TMJ range of motion. TMD 3.5 finger breaths Mallampati Score 3 Dentition: upper/lower full dentures Lungs: clear throughout to auscultation Cardiac: regular rate and rhythm, III/ systolic murmur with faint carotid radiation vs. bruit Spine: normal Extremities: no edema Lab Results Anesthesia Preop Results Results Anesthesia Widget: WBC 5.07 K/uL (4.8-10.8) 12/08/20 Hgb 12.9 g/dL (12.0-16.0) 12/08/20 Hct 39.5 % (37-47) 12/08/20 Plt 244 K/uL (130-400) 12/08/20 Na 132 mmol/L (136-145) L 12/12/20 K 4.0 mmol/L (3.5-5.1) 12/12/20 Cl 100 mmol/L (98-107) 12/12/20 CO2 25 mmol/L (21-32) 12/12/20 BUN 13 mg/dl (7-18) 12/12/20 Creat 0.92 mg/dl (0.6-1.2) 12/12/20 Glucose Level 92 mg/dl (70-99) 12/08/20 Fasting Glucose 118 mg/dl (70-99) H 12/12/20 PT 11.2 Seconds (9.0-12.0) 12/08/20 PTT 26.1 Seconds (21.0-31.0) 12/08/20 INR 1.1 (0.9-1.1) 12/08/20 SARS-CoV-2, RNA, NAAT NEGATIVE (NEGATIVE) 12/12/20 Blood Type B Positive 12/12/20 Antibody Screen NEGATIVE 12/12/20 Testing Laboratory Results 12/12/20 08:19 Blood Type B Positive 12/12/20 08:19 Antibody Screen NEGATIVE 12/12/20 08:19 Electrocardiogram Date: 02/19/20 Paced rhythm at 60 bpm. LAFB. LVH with repolarization abnormality. Prolonged QT. Chest X-Ray Date: 12/08/20 FINDINGS: PA and lateral chest radiographs are compared to study dated 02/16/2020. A 2-lead cardiac AICD is unchanged in position and partially obscures left mid chest. The heart is enlarged noting atherosclerotic calcification of the thoracic aorta. The pulmonary vasculature is noncongested. Advanced emphyse ma and chronic interstitial thickening is similar to previous. Scarring/atelectasis is noted at the lung bases. There is a small right pleural effusion a nodular opacities suggested in the right midlung. There is no pneumothorax. The skeletal structures are osteopenic. There is chronic posttraumatic deformity of the right clavicle. A compression deformity is noted in the thoracic spine. Degenerative change is noted in the thoracolumbar spine. IMPRESSION: Advanced emphysema. Cardiomegaly and AICD. There is no radiographic evidence of congestive failure. Small right pleural effusion. A nodular density is suggested in the right midlung. This is pathologically indeterminant and correlation with a chest CT is recommended to exclude underlying pulmonary lesion. No infectious process suspected but does note nodular density-pathologically indeterminant. Abnormal CXR findings called into surgeon's office per radiology. Per [place] at surgeon's office, patient's PCP (Dr. Lowe) was made aware of CXR findings and report faxed to them to followup at their discretion. Echocardiogram Date: 02/17/20 EF 30 to 35%. Normal LV size with moderately to severely reduced systolic function. Akinesis to dyskinesis of distal inferior septum, mild to distal inferior, mid anterior septum, and apical segments.Moderate concentric LVH. Mild RVD. Severe biatrial dilation. Mild MR. Severe pulmonary hypertension. Estimated RVSP 64 mmHg. Other Testing ICD check (10/27/20- results in cardiology office visit note from same day): Device Evaluation Procedure performed by: Isaias Peng Device Battery: 3.02 Longevity: 8.8 years A% paced: 97.2 V% paced: 0.2 Impedence(omhs) A: 399 Impedence(omhs) RV: 627 Sensing(mV) A: 2.4 Sensing(mV) RV: 16.3 Threshold(V/mSec) A: 0.50/ 0.4 Threshold(V/mSec) RV: 2.50/ 0.40 Threshold Testing Performed: Yes Setting(V/mSec) A: 1.50/ 0.40 Setting(V/mSec) RV: 4.50/ 0.40 Changes/Comments: No changes CT angio abd/pelvix (10/31/20): Right superior common femoral/inferior external iliac AV fistula. Critical stenosis of the left renal artery with diminished left renal enhancement and decreased left renal size. 90% stenosis of the superior mesenteric artery origin. No evidence of bowel obstruction. No evidence of free air. No acute inflammatory changes. Cardiomegaly, small bilateral pleural effusions, and pulmonary septal edema Carotid artery ultrasound (04/03/10): Diffuse scattered plaque but no evidence of any significant stenoticlesion. 2. Elevated peak systolic velocity of the right external carotid suggestingstenosis.3. Retrograde flow is suggested within the right vertebral. > Done for elevation of carotid bruits
[~2020-12-12 07:49] MED LIST changes: -ASPI81TA28 PO; +CEFAZOLIN 1,000 MG/7.5 ML SYR IV SCH; -FURO-85 PO; -ISOS30TA35 PO; +LACTATED RINGER'S 1,000 ML IV SCH; -LEVO75TA PO; -LISI-729 PO; -LOVA40TA3 PO; -METO-452 PO; -WARF5TAB7 PO
--- NOTE | 2020-12-12 07:50 | History & Physical Report ---
Date of Service December 12, 2020 Assessment & Plan (1) Arteriovenous fistula of femoral vessels: Patient admitted for repair of right femoral artery to femoral vein fistula. I have discussed the risks options and benefits of the procedure with the patient. The patient understands the risks options and benefits and agrees to the procedure. History of Present Illness Chief Complaint: Right groin av fistula Primary Care Provider: Brice Lowe MD Ms. Lafleur is an elderly female who has a history of renal artery stenosis, aortoiliac stenosis, and peripheral arterial disease. She had previously undergone right lower extremity angiography with stenting and thrombolysis with TPA back in 2012. She then underwent aortography with bilateral common iliac artery stenting and RETAIL LEASING AGENT of her left external iliac as well as RETAIL LEASING AGENT of her left SFA in 2018i. 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 She returns today after bilateral lower extremity arterial ultrasounds for her annual follow-up. She denies any symptoms of claudication, rest pain, discoloration of the feet or toes, nonhealing wounds or ulcers of the feet. She states she is able to ambulate as much as she wishes. Additionally she denies any significant changes in her hypertensive medications and states that she is generally under good hypertensive control at home. She follows with her family physician regularly. Her lower extremity arterial ultrasound did indicate a possible right external iliac to the vein AV fistula. She had a CT angio which does reveal an arteriovenous fistula between her right distal iliac and common femoral artery to the external iliac vein. She is asymptomatic from this lesion. The vein appears to be nearly twice is normal size. At this point I recommended repair of the AV fistula. Objective Allergies Allergy/AdvReac Type Severity Reaction Status Date / Time simvastatin Allergy Severe Rash Verified 12/08/20 10:00 Home Medications Medication Instructions Recorded Confirmed Type furosemide 20 mg tablet 20 mg PO QAM tab 01/05/19 12/01/20 History isosorbide mononitrate 30 mg 30 mg PO QAM #90 tab 01/05/19 12/01/20 History tablet,extended release 24 hr levothyroxine 75 mcg tablet 75 mcg PO QAM tab 01/05/19 12/01/20 History lovastatin 40 mg tablet 80 mg PO BID tab 01/05/19 12/01/20 History nitroglycerin 0.4 mg sublingual 0.4 mg SL Q5M PRN #25 tab 01/05/19 12/01/20 History tablet potassium chloride 10 mEq 10 meq PO QDL tab 01/05/19 12/01/20 History tablet,extended release metoprolol succinate 100 mg PO QAM 30 Days #30 tab 02/18/20 12/01/20 Rx apixaban [Eliquis] 2.5 mg PO BID #30 tab 09/02/20 12/01/20 Rx aspirin [Aspir-81] 81 mg PO QAM 09/02/20 12/01/20 History ferrous gluconate 324 mg PO BID 10/31/20 12/01/20 History lisinopril [Zestril] 5 mg PO QAM 12/01/20 12/01/20 History Past Med/Surg History Medical History CAD (coronary artery disease), [place] coronary artery Non-obstructive Chronic systolic CHF (congestive heart failure) DVT (deep venous thrombosis) Several years ago (groin region) > then needed stents History of myocardial infarction Several years ago Hyperlipidemia LDL goal <70 Hypertension Hypothyroidism (acquired) ICD (implantable cardioverter-defibrillator) battery depletion Implanted 2012 (ICD generator change 03/2020), [employer], last check 10/27/20 [place] [facility] [place] Ischemic cardiomyopathy Peripheral arterial occlusive disease Prolonged QT syndrome Pulmonary hypertension Severe pulmonary hypertension. Estimated RVSP 64 mmHg. Tricuspid regurgitation Moderate to severe TR Surgical History History of tonsillectomy and adenoidectomy Hx of bilateral oophorectomy Hx of left inguinal hernia repair S/P ICD (internal cardiac defibrillator) procedure 2012, ICD generator change 03/2020 Social History Smoking Status: Former smoker Tobacco Type: Cigarettes Second Hand Exposure: No; Hx Alcohol Use: No Hx Substance Use: No Preferred Language: Georgian Communication Ability: Effective Portfolio Assistant Required: No Beliefs That Will Affect Care: None marital status: / Current Living Situation: Alone Current Living Situation Comment: Apartment How many Children do You have: 6 Feels Safe at Home: Yes Assistive Devices: Denture - Upper, Denture - Lower and Glasses Review of Systems All systems reviewed & are unremarkable except as noted in HPI & below Physical Exam Physical Exam: Constitutional: In general patient is a healthy-appearing well- nourished well-developed elderly female no distress. She is alert and oriented without any deficits. Her heart is regular, her lungs are clear throughout. Her abdomen is soft and nontender. She does demonstrate abdominal bruits. Her femoral pulses are +2. Lower extremity distal pulses are +2 in the left foot and +2 DP and +1 PT in the right. She has brisk capillary refill and no sign of distal ischemia.
[2020-12-12] MEDS ORDERED: PROPOFOL IV EMULSION 10 MG/ML 20 ML VIAL IV ONE (08:48)
[2020-12-12] MEDS ORDERED: LIDOCAINE 2% 2 ML VIAL/AMP(20MG/ML) INFIL ONE (08:48)
[2020-12-12] MEDS ORDERED: fentaNYL citrate 100 MCG/2 ML VIAL ONE (08:49)
[2020-12-12 08:55] LABS: Creatinine Clr Calc Pharmacy 37.4 ml/min; Est GFR (African American) 68.6 ml/min; Est GFR (Non-African American) 59.2 ml/min
[2020-12-12] MEDS ORDERED: BUPIVACAINE/EPINEPHRINE 0.5% MPF 1:200,000 30 ML VIAL ONE (09:50)
[2020-12-12] MEDS ORDERED: HEPARIN (PORCINE) 1000 UNIT/ML 10 ML (CATH LAB USE ONLY) ONE (09:51)
[2020-12-12] MEDS ORDERED: PAPAVERINE HCL INJ 30 MG/ML 2 ML VIAL ONE (09:51)
[2020-12-12] MEDS ORDERED: THROMBIN 5000 UNITS KIT ONE (09:51)
[2020-12-12] MEDS ORDERED: LIDOCAINE 1% LOCAL 20 ML VIAL ONE (09:51)
[2020-12-12] MEDS ORDERED: GELATIN SPONGE SZ 100 ONE (09:52)
--- NOTE | 2020-12-12 09:55 | XRay Report ---
KUB HISTORY: Acute generalized abdominal pain with nausea and constipation preoperative assessment - con stipation with nausea COMPARISON: CT abdomen and pelvis 10/31/2020 FINDINGS: The bowel gas pattern is nonobstructive. Cardiomegaly with pacer/AICD. Hepatosplenomegaly. Vascular calcifications. Diminutive left renal shadow compatible with renal atrophy. 3 mm calculus of the superior pole right kidney. No ureteral calculi identified. No pneumoperitoneum or pneumatosis. Degenerative changes of the spine, pelvis and hips. Mid lumbar dextroscoliosis. No fracture. IMPRESSION: 1. Right nephrolithiasis. No ureteral calculi identified. 2. Nonobstructive bowel gas pattern. 3. Hepatomegaly and cardiomegaly. ACT 112: Negative or not required by law. The above report was generated using voice recognition software. It may contain grammatical, syntax o r spelling errors. Electronically signed by: Caio Rosenbaum M.D. 12/12/2020 9:53 AM
--- NOTE | 2020-12-12 10:00 | History & Physical Bridge Note ---
Date of Service December 12, 2020 History & Physical Bridge Note I have examined the patient, reviewed the History & Physical and in the interval since the performance of the History & Physical I have noted the following changes of clinical significance: no changes noted
--- NOTE | 2020-12-12 11:16 | Procedure Note ---
Procedure Note Date of Service December 12, 2020 Radial arterial line placed after induction in preparation for AV fistula repair with Dr. Burch. Left wrist prepped with chlorhexidine and draped with sterile towels. 20 G angiocath placed under sterile technique utilizing sterile gloves, surgical hats and masks. Catheter threaded using seldinger technique with return of pulsatile, bright red blood. Site covered with occlusive dressing and taped in place. Waveform consistent with correct arterial placement. After placement, fingers of procedural hand had normal perfusion. Patient tolerated procedure well without complications. Janice Lopez MD, PhD Anesthesiologist Coding
[2020-12-12] MEDS ORDERED: HEPARIN SOD (PORCINE) 1000 UNIT/ML ONE (11:53)
[2020-12-12] MEDS ORDERED: VISIPAQUE IV ONE (11:54)
[2020-12-12] MEDS ORDERED: SURGICEL ABSORB HEMOSTAT 2IN X 14IN TOP ONE (12:02)
--- NOTE | 2020-12-12 12:11 | Post Operative Brief Note ---
Immediate Post Op Note v1 Date of Surgery December 12, 2020 Pre & Post Diagnosis Operation Date: 12/12/20 09:30 Pre-Op Diagnosis: Right Groin AV Fistula external iliac artery Post-Op Diagnosis: Right Groin AV Fistula external iliac artery I identified the patient and participated in the time-out.: Yes Procedure Operation Date: 12/12/20 09:30 Actual Procedures p Repair of av fistula right external iliac artery, stent placement right external iliac artery, right lower extremilty angiogram(Right) - Rudy Burch MD Surgeon Rudy Burch MD Green Hide Inspector MD Clint Zamoraarchalvarado,PAC Estimated Blood Loss 75 Findings Consistent with Post-Op Diagnosis Drains Srinivasan Catheter (16FR) Anesthesia Type General Complications none Disposition Accompanied Patient To Recovery: No Disposition: Recovery Room
--- NOTE | 2020-12-12 12:27 | Operative Report ---
Post Operative Report Pre & Post Diagnosis Operation Date: 12/12/20 09:30 Pre-Op Diagnosis: Right Groin AV Fistula external iliac artery Post-Op Diagnosis: Right Groin AV Fistula external iliac artery I identified the patient and participated in the time-out.: Yes Procedure Operation Date: 12/12/20 09:30 Actual Procedures p Repair of av fistula right external iliac artery, stent placement right external iliac artery, right lower extremilty angiogram(Right) - Rudy Burch MD Surgeon Rudy Burch MD Patient Access MD Jennifer Zamora,PAC Estimated Blood Loss 75 Findings Consistent with Post-Op Diagnosis Specimens None Description of Procedure Patient was taken to the operating room suite and placed in the supine position on the operating room table. General anesthesia was induced without incident. The bilateral groins were prepped and draped in the usual sterile fashion. The patient was identified and a timeout performed. Our initial approach was through a 6 cm right groin cutdown incision, which was carried down to the level of the femoral artery and vein using a combination of sharp dissection and Bovie electrocautery. Once we reached the level of the femoral artery, we exposed it both proximally and distally, in an effort to locate the fistula site. On initial inspection, there was no clearly obvious fistula between the femoral artery and vein. At this point we decided to access the femoral artery using a 7 [place] sheath. Under fluoroscopic guidance, we performed an on table angiogram in order to locate the fistula. A small connection was visualized under fluoroscopy and we deployed a 7 mm x 5 mm Viabahn stent over 0.18 wire. Another image was taken, which revealed that there was still a fistula opening more distal to the stent. This was close the the level of the inguinal ligament. Afterward, we directly visualized the vein overlying the distal external iliac artery, this was dissected out using a right angle clamp, and tied off using a 3-0 silk. During the dissection of the medial aspect, there was a venotomy which resulted from the fistula which required 6-0 Prolene for repair. After we were satisfied with the repair of the venotomy, another angiogram was taken that showed that the fistula had successfully been ligated. A 5-0 Prolene sutures in a U stitch fashion were used to close the puncture site created during our sheath placement, and our sheath was successfully withdrawn with excellent hemostasis. The surgical site was then closed, using a combinat ion of 3-0 Vicryl as well as skin [place]ver. All instrument, sponge, needle counts were correct x2. Dr. Rudy Burch was present and scrubbed for the entirety of the procedure. I attest to the content of the Intraoperative Record and any orders documented therein. Any exceptions are noted below.
[2020-12-12] MEDS ORDERED: ONDANSETRON INJ 2 MG/ML 2 ML VIAL IV PRN (12:59)
[2020-12-12] MEDS ORDERED: fentaNYL citrate 100 MCG/2 ML VIAL IV PRN (12:59)
[2020-12-12] MEDS ORDERED: ATROPINE SULFATE 0.1 MG/ML 10ML SYR IV PRN (12:59)
[2020-12-12] MEDS ORDERED: ePHEDrine sulfate 50 MG/ML AMP IV PRN (12:59)
--- NOTE | 2020-12-12 13:14 | Anesthesiology Progress Note ---
Date of Service December 12, 2020 Anesthesia Post Procedure Vital Signs Vital Signs: Temp Pulse Pulse Resp BP Pulse Ox 12/12/20 13:00 60 14 152/83 H 96 12/12/20 12:50 60 14 157/88 H 96 12/12/20 12:40 60 14 161/86 H 99 12/12/20 12:30 36.4 C L 60 16 163/81 H 98 12/12/20 08:00 36.7 C 64 18 162/81 H 95 Transfer of Care Handoff Completed per policy Notes Mental Status: alert / awake / arousable and participated in evaluation Patient Amnestic to Procedure: Yes Nausea / Vomiting: adequately controlled Pain: adequately controlled Airway Patency, RR, SpO2: stable & adequate BP & HR: stable & adequate Hydration State: stable & adequate Anesthetic Complications: no major complications apparent and Pt Satisfied with anesthetic care
[2020-12-12] MEDS ORDERED: NITROGLYCERIN SL 0.4 MG/TAB TAB SL PRN (14:06)
[2020-12-12] MEDS: LACTATED RINGER'S 1,000 ML IV SCH ×2 (15:23→23:41)
[2020-12-12] MEDS: FERROUS GLUCONATE 324 MG TAB PO SCH (17:43)
[2020-12-12] MEDS: ceFAZolin 1000MG 1,000 MG/7.5 ML SYR IV SCH (17:47)
[2020-12-12] MEDS: APIXABAN 2.5 MG TAB PO SCH (20:48)
[2020-12-13] MEDS: ONDANSETRON INJ 2 MG/ML 2 ML VIAL IV PRN ×2 (01:07→09:26)
[2020-12-13] MEDS: ceFAZolin 1000MG 1,000 MG/7.5 ML SYR IV SCH (01:07)
[2020-12-13] MEDS ORDERED: LEVOTHYROXINE SODIUM 75 MCG TABLET PO SCH (06:30)
[2020-12-13 06:39] LABS: Basophils # (auto) 0.01 K/uL (0-0.2); Basophils % (auto) 0.1 %; Hematocrit (blood only) 40.5 % (37-47); Hemoglobin 12.8 g/dL (12.0-16.0); Immature Granulocytes # (auto) 0.02 K/uL (0.00-0.02); Immature Granulocytes % (auto) 0.2 %; Lymphocytes # (auto) 0.94 K/uL (1.2-3.4); Lymphocytes % (auto) 9.9 %; Mean Corpuscular Hemoglobin 30.2 pg (25-34); Mean Corpuscular Hgb Conc 31.6 g/dL (32-36); Mean Corpuscular Volume 95.5 fL (80-100); Mean Platelet Volume 9.7 fL (7.4-10.4); Monocytes # (auto) 0.85 K/uL (0.11-0.59); Neutrophils # (auto) 7.67 K/uL (1.4-6.5); Neutrophils % (auto) 80.8 %; Platelet Count 257 K/uL (130-400); RDW Coefficient of Variation 14.3 % (11.5-14.5); RDW Standard Deviation 49.8 fL (36.4-46.3); Red Blood Count 4.24 M/uL (4.2-5.4); White Blood Count 9.49 K/uL (4.8-10.8)
[2020-12-13] MEDS: LACTATED RINGER'S 1,000 ML IV SCH (08:38)
[2020-12-13] MEDS ORDERED: METOPROLOL SUCC 50MG EXT REL TAB PO SCH (09:00)
[2020-12-13] MEDS ORDERED: LOVASTATIN 20 MG TAB PO SCH (09:00)
[2020-12-13] MEDS ORDERED: ISOSORBIDE MONO EXTENDED REL 30 MG TABCR PO SCH (09:00)
[2020-12-13] MEDS ORDERED: ASPIRIN 81 MG ECTAB PO SCH (09:00)
[2020-12-13] MEDS ORDERED: lisinopril 5 MG TAB PO SCH (09:00)
[2020-12-13] MEDS ORDERED: FUROSEMIDE 20 MG TAB PO SCH (09:00)
[2020-12-13] MEDS: APIXABAN 2.5 MG TAB PO SCH (09:21)
[2020-12-13] MEDS: FERROUS GLUCONATE 324 MG TAB PO SCH (09:21)
[2020-12-13] MEDS: oxyCODONE/ACETAMINOPHEN 5mg/325mg TAB PO PRN ×2 (09:25→15:31)
[2020-12-13] MEDS ORDERED: POTASSIUM CHLORIDE 10 MEQ TABCR PO SCH (11:30)
[2020-12-13] MEDS ORDERED: POLYETHYLENE (MIRALAX) 17 GM PACK PO PRN (13:28)
[2020-12-13] MEDS ORDERED: DOCUSATE SODIUM 100 MG CAP PO ONE (13:28)
--- NOTE | 2020-12-13 13:45 | Surgery Progress Note ---
Date of Service December 13, 2020 Assessment & Plan (1) Arteriovenous fistula of femoral vessels: Plan: Pt doing well post op from open repair of R femoral AV fistula. D/C home today. Admission and Anticipated Discharge Date Admission Date: December 12, 2020 Subjective 79 yo f POD #1 after undergoing repair of R femoral AV fistula and R external iliac art stenting, seen in f/u today. Pt states overall feeling well, but does c/o some discomfort in R groin when she moves around. States pain medication working well. C/o constipation, last BM at least 3 days prior to procedure yesterday. No abd pain or other complaits. Review of Systems Review of Systems: as per subjective,otherwise negative Physical Exam Physical Exam: Constitutional: In general patient is a healthy-appearing well- nourished well-developed elderly female no distress. She is alert and oriented without any deficits. Her heart is regular, her lungs are clear throughout. Her abdomen is soft and nontender. She does demonstrate abdominal bruits. Her femoral pulses are +2. Lower extremity distal pulses are +2 in the left foot and +2 DP and +1 PT in the right. She has brisk capillary refill and no sign of distal ischemia. R groin incision C/D/I with [place]ver. Moderate local ecchymosis and tenderness. No erythema Results & Data ([facility]) Vital Signs (Past 12 Hours) Vital Signs Temp Pulse Resp BP BP Pulse Ox 12/13/20 13:26 90 12/13/20 11:29 126/71 92 12/13/20 11:27 60 15 86/56 L 78 L 12/13/20 06:51 36.5 C 59 L 16 188/84 H 94 12/13/20 02:30 36.4 C L 60 18 161/81 H 94
--- NOTE | 2020-12-13 13:49 | Discharge Summary ---
Date of Service December 13, 2020 Admission HPI Per Admitting Provider Ms. Lafleur is an elderly female who has a history of renal artery stenosis, aortoiliac stenosis, and peripheral arterial disease. She had previously undergone right lower extremity angiography with stenting and thrombolysis with TPA back in 2012. She then underwent aortography with bilateral common iliac artery stenting and SLOTTER OPERATOR of her left external iliac as well as SLOTTER OPERATOR of her left SFA in 2018i. 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 She returns today after bilateral lower extremity arterial ultrasounds for her annual follow-up. She denies any symptoms of claudication, rest pain, discoloration of the feet or toes, nonhealing wounds or ulcers of the feet. She states she is able to ambulate as much as she wishes. Additionally she denies any significant changes in her hypertensive medications and states that she is generally under good hypertensive control at home. She follows with her family physician regularly. Her lower extremity arterial ultrasound did indicate a possible right external iliac to the vein AV fistula. She had a CT angio which does reveal an arteriovenous fistula between her right distal iliac and common femoral artery to the external iliac vein. She is asymptomatic from this lesion. The vein appears to be nearly twice is normal size. At this point I recommended repair of the AV fistula. Objective Admission Exam Per Admitting Provider Constitutional: In general patient is a healthy-appearing well-nourished well- developed elderly female no distress. She is alert and oriented without any deficits. Her heart is regular, her lungs are clear throughout. Her abdomen is soft and nontender. She does demonstrate abdominal bruits. Her femoral pulses are +2. Lower extremity distal pulses are +2 in the left foot and +2 DP and +1 PT in the right. She has brisk capillary refill and no sign of distal ischemia. Principal Diagnosis 1. s/p open repair of R femoral AV fistula and stenting of R external iliac artery 2. R femoral AV fistula Discharge Exam Constitutional: In general patient is a healthy-appearing well-nourished well- developed elderly female no distress. She is alert and oriented without any deficits. Her heart is regular, her lungs are clear throughout. Her abdomen is soft and nontender. She does demonstrate abdominal bruits. Her femoral pulses are +2. Lower extremity distal pulses are +2 in the left foot and +2 DP and +1 PT in the right. She has brisk capillary refill and no sign of distal ischemia. R groin incision C/D/I with [place]. Moderate local ecchymosis and tenderness. Discharge Data Allergies Allergy/AdvReac Type Severity Reaction Status Date / Time simvastatin Allergy Severe Rash Verified 12/12/20 08:31 Procedures Performed Operation Date: 12/12/20 09:30 Actual Procedures p Repair of av fistula right external iliac artery, stent placement right external iliac artery, right lower extremilty angiogram(Right) - Rudy Burch MD Hospital Course (1) Arteriovenous fistula of femoral vessels: Pt doing well post op day #1. D/C home today. Total Time Total Time Spent Total Time Spent (In Minutes): 0 Discharge Plan Discharge Items Patient Disposition: Home - Self-Care Reason For Visit: Right Groin AV Fistula Discharge Diagnosis: 1. Open repair R femoral AV fistula and stenting of external iliac artery 2. R femoral AV fistula Activity: Per Instructions section Non-emergency contact: Primary Care Provider and Surgeon Call non-emergency contact if: you have any medication questions, your pain is concerning for you, you have a fever, your wound has increased redness and your wound has increased drainage Follow-up/Referrals: Brice Lowe MD [Primary Care Provider] - (Follow up with your PCP within 2 weeks) Rudy Burch MD [Physician] - (Follow up with Dr Burch or Hazel Trotter PA-C, in 2 weeks for staple removal) Diet: Heart Healthy Addtl Attending Provider Instructions: ACTIVITY RECOMMENDATIONS: See Above SPECIAL CARE INSTRUCTIONS: Call your doctor if: * Temperature above 101 degrees * Pain not relieved by pain medicine ordered * There is increased drainage or redness from any incision * You have any unanswered questions or concerns. Pending Studies at Discharge: No Stand-Alone Forms: My [employer], Smoking Cessation Medications and DC Order Prescriptions: New oxycodone-acetaminophen [Percocet] 5-325 mg Tablet 1 - 2 tab PO Q4H PRN (Reason: pain) Qty: 20 RF: 0 docusate sodium [Colace] 100 mg capsule 100 mg PO BID PRN (Reason: constipation) Qty: 60 RF: 0 Continued nitroglycerin 0.4 mg tablet, sublingual 0.4 mg SL Q5M PRN (Reason: chest pain) Qty: 25 RF: 0 isosorbide mononitrate 30 mg tablet extended release 24 hr 30 mg PO QAM Qty: 90 RF: 0 furosemide 20 mg tablet 20 mg PO QAM RF: 0 lovastatin 40 mg tablet 80 mg PO DAILY RF: 0 potassium chloride 10 mEq tablet extended release 10 meq PO QDL RF: 0 levothyroxine 75 mcg tablet 75 mcg PO QAM RF: 0 metoprolol succinate 100 mg tablet extended release 24 hr 100 mg PO QAM 30 Days Qty: 30 RF: 3 aspirin [Aspir-81] 81 mg Tablet,Delayed Release (Dr/Ec) 81 mg PO QAM RF: 0 Eliquis 2.5 mg tablet 2.5 mg PO BID Qty: 30 RF: 0 ferrous gluconate 324 mg (36 mg iron) Tablet 324 mg PO BID RF: 0 lisinopril [Zestril] 5 mg Tablet 5 mg PO QAM RF: 0 Discharge Orders: Discharge Order (Routine); Ordered 12/13/20 Ordered By: Hazel Trotter Admission Data Admit Date/Time: 12/12/20 10:00 Attending Provider: Rudy Burch Admit Provider: Rudy Burch Primary Care Provider: Brice Lowe
== END 2020-12-13 15:58 | disposition home or self-care (01) | DRG 254 ==
LOC: ASU 07:49 → 3N 10:00

== ENCOUNTER 2022-01-21 23:21 | Observation (INO) ==
--- NOTE | 2022-01-21 23:54 | Emergency Department Note ---
History of Present Illness General Chief complaint: Abnormal Labs/Diagnostic Testing Stated complaint: ABNORMAL BLOODWORK Time Seen by Provider: 01/21/22 23:49 History of Present Illness Maximum Pain Intensity: 1 This 81-year-old presents to the ER complaining of left lower leg pain and swelling was sent in by the GP for abnormal labs Location: Left lower leg Quality: Painful and swollen Severity: Moderate Duration: Past few days Timing: Past 2 days Context: Patient was concerned and came in Modifying factors: better with nothing; worse with nothing Patient denies chest pain, dyspnea, fever, chills, numbness, tingling. Patient states she is currently being treated for iron deficiency anemia. She is supposed to get set up for transfusions. This has not occurred yet. Patient denies prior blood transfusions, chest pain, fever, chills, flulike illness. Patient states with exertion she feels short of breath. Home Medications Medication Instructions Recorded Confirmed Type furosemide 20 mg tablet 20 mg PO QAM 01/05/19 01/03/22 History isosorbide mononitrate 30 mg 30 mg PO QAM #90 tabs 01/05/19 01/03/22 History tablet,extended release 24 hr levothyroxine 75 mcg tablet 75 mcg PO QAM 01/05/19 01/03/22 History lovastatin 40 mg tablet 80 mg PO DAILY 01/05/19 01/03/22 History potassium chloride 10 mEq 10 meq PO QDL 01/05/19 01/03/22 History tablet,extended release metoprolol succinate 100 mg 100 mg PO QAM 30 days #30 tabs 02/18/20 01/03/22 Rx tablet,extended release 24 hr aspirin 81 mg tablet,delayed 81 mg PO QAM 09/02/20 01/03/22 History release ferrous gluconate 324 mg (36 mg 324 mg PO BID 10/31/20 01/03/22 History iron) tablet lisinopril 5 mg tablet (Zestril) 5 mg PO QAM 12/01/20 01/03/22 History docusate sodium 100 mg capsule 100 mg PO BID PRN constipation #60 12/13/20 01/03/22 Rx (Colace) caps apixaban 2.5 mg tablet (Eliquis) 2.5 mg PO BID #180 tabs 01/23/21 01/03/22 Rx nitroglycerin 0.4 mg sublingual 0.4 mg sublingual Q5M PRN chest 09/14/21 01/03/22 Rx tablet pain #25 tabs Allergies Allergy/AdvReac Type Severity Reaction Status Date / Time simvastatin Allergy Severe Rash Verified 01/03/22 11:49 Past Med/Surg History Medical History CAD (coronary artery disease), [place] coronary artery Non-obstructive Chronic systolic CHF (congestive heart failure) DVT (deep venous thrombosis) Several years ago (groin region) > then needed stents History of myocardial infarction Several years ago Hyperlipidemia LDL goal <70 Hypertension Hypothyroidism (acquired) ICD (implantable cardioverter-defibrillator) battery depletion Implanted 2012 (ICD generator change 03/2020), [employer], last check 10/27/20 (per [facility] [place]ology note) Ischemic cardiomyopathy Peripheral arterial occlusive disease Prolonged QT syndrome Pulmonary hypertension Severe pulmonary hypertension. Estimated RVSP 64 mmHg. Tricuspid regurgitation Moderate to severe TR Surgical History History of tonsillectomy and adenoidectomy Hx of bilateral oophorectomy Hx of left inguinal hernia repair S/P ICD (internal cardiac defibrillator) procedure 2012, ICD generator change 03/2020 Social History Smoking Status: Former smoker Tobacco Type: Cigarettes Second Hand Exposure: No; Hx Alcohol Use: No Hx Substance Use: No Preferred Language: Lebanese Communication Ability: Effective Insurance Appraiser Required: No Beliefs That Will Affect Care: None marital status: / Current Living Situation: Alone Current Living Situation Comment: Apartment How many Children do You have: 6 Feels Safe at Home: Yes Assistive Devices: Glasses Review of Systems A total of 10 systems reviewed and were otherwise negative Physical Exam Vital Signs Vital Signs - 24 hr 01/21/22 23:27 01/22/22 01:15 Temperature 36.4 C L Temperature Source Temporal Artery Scan Pulse Rate 68 Pulse Rate [Finger] 62 Respiratory Rate 18 20 Respiratory Depth Normal Blood Pressure 114/65 Blood Pressure [Right Arm] 174/81 H Blood Pressure Mean 81 Blood Pressure Mean [Right Arm] 112 Pulse Oximetry 99 99 Oxygen Delivery Method Room Air Room Air Sepsis Recent Fever Within 48 Hours No Sepsis New/Unexplained Change in Mental Status N/A Sepsis Action Taken by Nursing No Action Required VITALS: Vitals are noted on the nurse's note and reviewed by myself. Vital signs stable. GENERAL: Pleasant female, in no acute distress, nondiaphoretic, well-developed well-nourished. SKIN: The skin was without rashes, erythema, edema, or bruising. There is no tenting of the skin. Capillary reflex less than 2 seconds. HEAD: Normocephalic atraumatic. EARS: External auditory canals clear, EYES: Pupils equal round and reactive to light and accommodation. Conjunctivae without injection, sclerae without icterus. Extraocular movements intact. NOSE: Patent, turbinates without inflammation or discharge. MOUTH: Mucous membranes moist. Pharynx without erythema or exudate. Uvula midline. Airway patent. Tongue does not deviate. NECK: Supple without nuchal rigidity. No lymphadenopathy. No thyromegaly. Cervical spine is nontender. No JVD. HEART: Regular rate and rhythm LUNGS: Clear to auscultation bilaterally without wheezes, rales or rhonchi. No retractions or accessory muscle use. ABDOMEN: Positive bowel sounds x 4. Normal tympanic percussion. Soft, nontender, without masses or organomegaly. Templeton sign negative. No guarding or rebound tenderness. No CVA tenderness MUSCULOSKELETAL: No muscle atrophy, erythema, noted. Trace pedal edema to the left ankle. No calf tenderness bilateral. NEURO: Patient was alert and oriented to person place and time. Normal sensation to light and sharp touch. No focal neurological deficits. Course Administered Medications Discontinued Medications Pantoprazole Sodium 80 mg/ (Dextrose) 100 mls @ 400 mls/hr IV ONE STA Stop: 01/22/22 00:34 Last Infusion: 01/22/22 01:51 Dose: 0 mls/hr Documented By: Admin: 01/22/22 01:09 Dose: 400 mls/hr Documented By: HARDY Famotidine (Pepcid 20mg Iv Push) 20 mg in 5 mls @ 2.5 mls/min IV NOW STA Stop: 01/22/22 00:21 Last Admin: 01/22/22 01:09 Dose: 2.5 mls/min Documented By: HARDY Ondansetron HCl (Ondansetron Inj 2 Mg/Ml 2 Ml Vial) 4 mg IV NOW STA Stop: 01/22/22 00:21 Last Admin: 01/22/22 01:02 Dose: Not Given Documented By: HARDY Ondansetron HCl (Ondansetron Inj 2 Mg/Ml 2 Ml Vial) 4 mg IV NOW STA Stop: 01/22/22 01:43 Last Admin: 01/22/22 02:07 Dose: 4 mg Documented By: HARDY Medical Decision Making Medical Records Attestation: I reviewed the patient's medical records. Home Medications Current Medication List: was personally reviewed by me Laboratory Data Attestation: I reviewed the patient's lab results. Result diagrams: 01/21/22 23:45 01/21/22 23:45 Lab Results 01/21/22 01/21/22 01/21/22 Range/Units 23:45 23:45 23:45 WBC 5.96 (4.8-10.8) K/ul RBC 3.79 L (3.93-5.22) M/uL Hgb 7.4 L (12.0-16.0) g/dl Hct 25.4 L (34.1-44.9) % MCV 67.0 L (80.0-100.0) fL MCH 19.5 L (25.0-34.0) pg MCHC 29.1 L (32.0-36.0) g/dL RDW Std Deviation 45.4 (36.4-46.3) fL RDW Coeff of Carlos 19.2 H (11.5-14.5) % Plt Count 341 (130-400) K/uL MPV 9.7 (9.4-12.3) fL Immature Gran % (Auto) 0.5 % Neut % (Auto) 68.8 % Lymph % (Auto) 16.8 % [place] % (Auto) 11.1 % Eos % (Auto) 1.0 % Baso % (Auto) 1.8 % Neut # (Auto) 4.10 (1.4-6.5) K/uL Lymph # (Auto) 1.00 L (1.2-3.4) K/uL [place] # (Auto) 0.66 (0.24-0.82) K/uL Eos # (Auto) 0.06 (0-0.50) K/uL Baso # (Auto) 0.11 (0-0.2) K/uL Immature Gran # (Auto) 0.03 H (0.00-0.02) K/uL Absolute Nucleated RBC 0.02 H (0-0) K/uL Nucleated RBC % (auto) 0.3 % Polychromasia 1+ Hypochromasia Present Microcytosis Present Tear Drop Cells 1+ Acanthocytes (Spur) 1+ Schistocytes 1+ PT 13.4 H (9.0-12.0) Seconds INR 1.3 H (0.9-1.1) APTT 20.5 L (21.0-31.0) Seconds PTT Ratio 0.7 Sodium 130 L (136-145) mmol/L Potassium 4.0 (3.5-5.1) mmol/L Chloride 97 L (98-107) mmol/L Carbon Dioxide 27 (21-32) mmol/L Anion Gap 6 (3-11) BUN 15 (6-23) mg/dl Creatinine 1.04 (0.6-1.2) mg/dl Est Cr Clr Drug Dosing 32.0 ml/min Est GFR ( Amer) 58.4 ml/min Est GFR (Non-Af Amer) 50.3 ml/min BUN/Creatinine Ratio 14.4 (10-20) Glucose 114 H (70-99(Fasting)) mg/dl Calcium 9.4 (8.5-10.1) mg/dl Magnesium 2.0 (1.7-2.4) mg/dl Total Bilirubin 0.7 (0.2-1.0) mg/dl AST 24 (13-39) U/L ALT 9 (7-52) U/L Alkaline Phosphatase 33 L (34-104) U/L Total Protein 7.0 (6.0-8.3) gm/dl Albumin 4.3 (3.4-5.0) gm/dl Globulin 2.7 (2.5-4.0) gm/dl Albumin/Globulin Ratio 1.6 (0.9-2) SARS-CoV-2, RNA, NAAT (NEGATIVE) Blood Type Antibody Screen 01/22/22 01/22/22 Range/Units 00:57 01:48 WBC (4.8-10.8) K/ul RBC (3.93-5.22) M/uL Hgb (12.0-16.0) g/dl Hct (34.1-44.9) % MCV (80.0-100.0) fL MCH (25.0-34.0) pg MCHC (32.0-36.0) g/dL RDW Std Deviation (36.4-46.3) fL RDW Coeff of Carlos (11.5-14.5) % Plt Count (130-400) K/uL MPV (9.4-12.3) fL Immature Gran % (Auto) % Neut % (Auto) % Lymph % (Auto) % [place] % (Auto) % Eos % (Auto) % Baso % (Auto) % Neut # (Auto) (1.4-6.5) K/uL Lymph # (Auto) (1.2-3.4) K/uL [place] # (Auto) (0.24-0.82) K/uL Eos # (Auto) (0-0.50) K/uL Baso # (Auto) (0-0.2) K/uL Immature Gran # (Auto) (0.00-0.02) K/uL Absolute Nucleated RBC (0-0) K/uL Nucleated RBC % (auto) % Polychromasia Hypochromasia Microcytosis Tear Drop Cells Acanthocytes (Spur) Schistocytes PT (9.0-12.0) Seconds INR (0.9-1.1) APTT (21.0-31.0) Seconds PTT Ratio Sodium (136-145) mmol/L Potassium (3.5-5.1) mmol/L Chloride (98-107) mmol/L Carbon Dioxide (21-32) mmol/L Anion Gap (3-11) BUN (6-23) mg/dl Creatinine (0.6-1.2) mg/dl Est Cr Clr Drug Dosing ml/min Est GFR ( Amer) ml/min Est GFR (Non-Af Amer) ml/min BUN/Creatinine Ratio (10-20) Glucose (70-99(Fasting)) mg/dl Calcium (8.5-10.1) mg/dl Magnesium (1.7-2.4) mg/dl Total Bilirubin (0.2-1.0) mg/dl AST (13-39) U/L ALT (7-52) U/L Alkaline Phosphatase (34-104) U/L Total Protein (6.0-8.3) gm/dl Albumin (3.4-5.0) gm/dl Globulin (2.5-4.0) gm/dl Albumin/Globulin Ratio (0.9-2) SARS-CoV-2, RNA, NAAT NEGATIVE (NEGATIVE) Blood Type B Positive Antibody Screen NEGATIVE Prescription Drug Monitoring [place] Drug Monitoring Program reviewed and no issues identified MDM Narrative Prior records/ancillary studies reviewed and summarized above. Nursing notes reviewed. Additional history obtained from family. The patient's history was concerning for fatigue and left lower ankle swelling with positive D-dimer and worsening anemia. Differential diagnosis: Etiologies such as metabolic, infection, hypo/hyperglycemia, electrolyte abnormalities, cardiac sources, intracerebral event, toxicologic, neurologic, as well as others were entertained. Physical examination: As above. ER treatment provided: IV Lock An order was placed for continuous cardiac monitoring. The monitor shows a rate of 60-100 with a sinus rhythm. Patient was consented to blood if needed On reassessment the patient felt better. Diagnostics interpretation by me: ECG: ordered for fatigue EKG: Normal sinus, left axis, incomplete left bundle, rate of 62. EKG compared to prior EKG with no acute changes noted. Impression normal sinus rhythm with a left axis deviation incomplete left bundle interpreted by myself The labs revealed symptomatic anemia -type and screen ordered and sent B+ blood type Imaging studies: Preliminary Findings Only See Final Report For Complete Findings US VENOUS LEFT LOWER EXTREMITY: No evidence of DVT in the left lower extremity. 3.2 x 1.5 x 2.6 cm Roach cyst in the left popliteal fossa. Radiologist: Edward Roque MD Consultation: A consultation was placed with the hospitalist. The case was discussed and diagnostics were reviewed. The patient was evaluated in the ER for further treatment. Exam and history seem consistent with symptomatic anemia. Medicine was consulted. She will be evaluated for admission. By the evaluation outlined above emergent etiologies such as infection, arina ctrolyte abnormalities, cardiac sources, intracerebral event, toxologic, neurologic, abnormalities blood glucose, metabolic, as well as others were deemed relatively unlikely. The pt informed about the findings as listed above. All questions were answered and pleased with the treatment. The chart was completed utilizing [employer] voice recognition software. Grammatical errors, random word insertions, pronoun errors, and incomplete sentences are an occassional consequence of this system due to software limitations, ambient noise, and hardware issues. Any formal questions or conc erns about the content, text, or information contained within the body of this dictation should be directly addressed to the physician butcher assistant for clarification. Impression & Plan Symptomatic anemia Discharge Plan Visit Data Chief Complaint: Abnormal Labs/Diagnostic Testing Stated Complaint: ABNORMAL BLOODWORK ED Provider: William Vaughn ED Midlevel Provider: Solange Ley Discharge Problem: Symptomatic anemia Patient Disposition: Admitted As Inpatient Condition: Fair Forms Stand Alone Forms: [facility] Prescriptions Prescriptions: No Action Eliquis 2.5 mg tablet 2.5 mg PO BID Qty: 180 3RF isosorbide mononitrate 30 mg tablet extended release 24 hr 30 mg PO QAM Qty: 90 furosemide 20 mg tablet 20 mg PO QAM lovastatin 40 mg tablet 80 mg PO DAILY potassium chloride 10 mEq tablet extended release 10 meq PO QDL levothyroxine 75 mcg tablet 75 mcg PO QAM nitroglycerin 0.4 mg tablet, sublingual 0.4 mg SL Q5M PRN (Reason: chest pain) Qty: 25 0RF metoprolol succinate 100 mg tablet extended release 24 hr 100 mg PO QAM 30 Days Qty: 30 3RF aspirin 81 mg Tablet,Delayed Release (Dr/Ec) 81 mg PO QAM ferrous gluconate 324 mg (36 mg iron) Tablet 324 mg PO BID lisinopril [Zestril] 5 mg Tablet 5 mg PO QAM docusate sodium [Colace] 100 mg capsule 100 mg PO BID PRN (Reason: constipation) Qty: 60 0RF Referrals Referrals: Brice Lowe MD [Staff Physician] -
[2022-01-21 23:55] LABS: Basophils # (auto) 0.11 K/uL (0-0.2); Basophils % (auto) 1.8 %; Eosinophils # (auto) 0.06 K/uL (0-0.50); Hematocrit (blood only) 25.4 % (34.1-44.9); Hemoglobin 7.4 g/dl (12.0-16.0); Immature Granulocytes # (auto) 0.03 K/uL (0.00-0.02); Immature Granulocytes % (auto) 0.5 %; Lymphocytes % (auto) 16.8 %; Mean Corpuscular Hemoglobin 19.5 pg (25.0-34.0); Mean Corpuscular Hgb Conc 29.1 g/dL (32.0-36.0); Monocytes # (auto) 0.66 K/uL (0.24-0.82); Monocytes % (auto) 11.1 %; Neutrophils % (auto) 68.8 %; Nucleated RBC # (auto) 0.02 K/uL (0-0); Nucleated RBC % (auto) 0.3 %; RDW Coefficient of Variation 19.2 % (11.5-14.5); RDW Standard Deviation 45.4 fL (36.4-46.3); Red Blood Count 3.79 M/uL (3.93-5.22); White Blood Count 5.96 K/ul (4.8-10.8)
[2022-01-22 00:15] LABS: Albumin Globulin Ratio 1.6 (0.9-2); Albumin Level 4.3 gm/dl (3.4-5.0); BUN Creatinine Ratio 14.4 (10-20); Bilirubin,Total 0.7 mg/dl (0.2-1.0); Calcium 9.4 mg/dl (8.5-10.1); Est GFR (African American) 58.4 ml/min; Est GFR (Non-African American) 50.3 ml/min; Globulin 2.7 gm/dl (2.5-4.0)
[2022-01-22 00:18] LABS: INR 1.3 (0.9-1.1); Partial Thromboplastin Ratio 0.7; Partial Thromboplastin Time 20.5 Seconds (21.0-31.0); Prothrombin Time 13.4 Seconds (9.0-12.0)
[2022-01-22] MEDS ORDERED: ONDANSETRON INJ 2 MG/ML 2 ML VIAL IV STA ×2 (00:20→01:42)
[2022-01-22] MEDS ORDERED: FAMOTIDINE 20MG IV PUSH 20 MG/5 ML SYR IV STA (00:20)
[2022-01-22] MEDS ORDERED: PANTOprazole 80 MG in DEXTROSE 5% 100 ML IV STA (00:20)
[2022-01-22 00:38] LABS: Acanthocytes 1+; Hypochromasia Present; Mean Platelet Volume 9.7 fL (9.4-12.3); Microcytosis Present; Platelet Count 341 K/uL (130-400); Polychromasia 1+; Schistocytes 1+; Tear Drop Cells 1+
--- NOTE | 2022-01-22 01:28 | History & Physical Report ---
Date of Service January 22, 2022 Assessment & Plan (1) Symptomatic anemia: Plan: 81yo female with a history of HFrEF, CAD (s/p ICD placement, ?stent placement), HTN, HLD, iron-deficiency anemia, and hypothyroidism presents with a three-week history of LLE swelling and pain, worsening over the past few days. Anemia, JENKINS, weakness Patient with microcytic anemia on admission labs (Hgb 7.4, MCV 67) suspected secondary to iron deficiency Of note, donald says she is in the process of arranging venofer transfusions for iron-deficiency anemia No signs of active bleeding FOBT ordered, will make patient NPO pending FOBT results given she may need an EGD/colonoscopy if FOBT is positive Given Hgb<8 and recently-worsened JENKINS, will transfuse 1u pRBC Transfusion consent complete, transfusion ordered Ordered lasix 10mg IV (x1) to be administered with pRBC transfusion Trend CBC PT/OT ordered for weakness Recommend outpatient follow-up for consideration of colonoscopy +/- EGD LLE swelling, pain D-dimer on outpatient labs 1570 LE duplex showing a left Roach's cyst without evidence of clot; low suspicion for DVT based on these results PT/OT, warm compresses ordered Chronic hyponatremia Sodium on admission 130 which appears to be around patient's baseline based on prior labs No treatment indicated at this time Trend electrolytes daily HFrEF No sign of fluid overload on exam - no crackles, only trace LE swelling SpO2 adequate on room air Lasix 10mg IV (x1) administered with pRBC transfusion Continue to monitor Prolonged QTc Patient noted with history of QTc prolongation QTc only minimally elevated on admission EKG Continue telemetry monitoring, no additional intervention indicated HTN BP elevated on admissino (170s/80s) without symptoms of hypertensive emergency Home meds on hold pending FOBT results Continue to monitor, can use spot doses of IV antihypertensives if indicated (SBP persistently over 180, DBP>110) Elevated INR: suspected secondary to home eliquis use; trend daily PT/INR HLD: home regimen held while NPO, resume when appropriate Hypothyroidism: home regimen held while NPO, resume when appropriate FEN: NPO pending FOBT results, IVF held as patient is about to receive 1u pRBC Code status: full code DVT ppx: SCDs Held home meds: all while NPO PT/OT: ordered Case management: consulted Dispo: med/telemetry (2) Lower extremity pain, left: (3) Roach's cyst: (4) CAD (coronary artery disease), [place] coronary artery: (5) CHF (congestive heart failure): (6) Hypertension: (7) Hyperlipidemia LDL goal <70: (8) Hypothyroidism (acquired): (9) correction (current) use of anticoagulants: (10) Peripheral arterial occlusive disease: (11) Prolonged QT syndrome: (12) S/P ICD (internal cardiac defibrillator) procedure: History of Present Illness Primary Care Provider: Isaias Jolly MD 81yo female with a history of HFrEF, CAD (s/p ICD placement, ?stent placement), HTN, HLD, iron-deficiency anemia, and hypothyroidism presents after being referred by her PCP. Patient was seen earlier today for a three-week history of history of lower left leg pain and swelling, with a two-day history of worsening. Outpatient labs showed a d-dimer of 1570. Patient also notes a one- year history of dyspnea with exertion, which has been slightly worsening over the past month. Of note, patient says she is in the process of arranging transfusions for her iron-deficiency anemia. Patient denies fever, headache, vision changes, CP, palpitations, abdominal pain, vomiting, dysuria, hematochezia, melena, back pain, lightheadedness, dizziness, numbness, tingling, or other symptoms. Denies recent illness and recent travel. Patient denies a history of DVT (this is noted on patient's chart - will hold off on removing it from her problem list until this can be confirmed). Upon arrival, vitals were notable for elevated BP (170s/80s). No tachycardia or tachypnea, patient afebrile, spO2 adequate on room air. Initial labs were notable for microcytic anemia (7.4, MCV 67), hyponatremia (130), and elevated INR (1.3). No leukocytosis or leukopenia, platelets wnl, creatinine not elevated, LFTs wnl. In the ED, patient received pantoprazole 80mg IV (x1), famotidine 20mg IV (x1), and zofran. Type/screen performed and pending. Blood transfusion consent completed. Surrogate decision-maker in case of an emergency: daughter Alejandra Sigala (cell: [phone]) Allergies Allergy/AdvReac Type Severity Reaction Status Date / Time simvastatin Allergy Severe Rash Verified 01/03/22 11:49 Home Medications Medication Instructions Recorded Confirmed Type isosorbide mononitrate 30 mg 30 mg PO QAM #90 tabs 01/05/19 01/22/22 History tablet,extended release 24 hr levothyroxine 75 mcg tablet 75 mcg PO QAM 01/05/19 01/22/22 History lovastatin 40 mg tablet 80 mg PO DAILY 01/05/19 01/22/22 History potassium chloride 10 mEq 10 meq PO QDL 01/05/19 01/22/22 History tablet,extended release metoprolol succinate 100 mg 100 mg PO QAM 30 days #30 tabs 02/18/20 01/03/22 Rx tablet,extended release 24 hr apixaban 2.5 mg tablet (Eliquis) 2.5 mg PO BID #180 tabs 01/23/21 01/22/22 Rx nitroglycerin 0.4 mg sublingual 0.4 mg sublingual Q5M PRN chest 09/14/21 01/22/22 Rx tablet pain #25 tabs furosemide 40 mg tablet (Lasix) 40 mg PO DAILY #30 tabs 01/22/22 Rx lisinopril 10 mg tablet 10 mg PO DAILY 01/22/22 01/22/22 History pantoprazole 40 mg tablet,delayed 40 mg PO DAILY #30 tabs 01/22/22 01/22/22 Rx release sodium sul 1.479 gram-potas ch See Rx Instructions PO .COMPLEX 01/23/22 Rx 0.188 gram-magnes sul 0.225 gram #24 tabs tablet (Sutab) Past Med/Surg History Medical History CAD (coronary artery disease), [place] coronary artery Non-obstructive Chronic systolic CHF (congestive heart failure) DVT (deep venous thrombosis) Several years ago (groin region) > then needed stents History of myocardial infarction Several years ago Hyperlipidemia LDL goal <70 Hypertension Hypothyroidism (acquired) ICD (implantable cardioverter-defibrillator) battery depletion Implanted 2012 (ICD generator change 03/2020), [employer], last check 10/27/20 (per [facility] [place]) Ischemic cardiomyopathy Peripheral arterial occlusive disease Prolonged QT syndrome Pulmonary hypertension Severe pulmonary hypertension. Estimated RVSP 64 mmHg. Tricuspid regurgitation Moderate to severe TR Surgical History History of tonsillectomy and adenoidectomy Hx of bilateral oophorectomy Hx of left inguinal hernia repair S/P ICD (internal cardiac defibrillator) procedure 2012, ICD generator change 03/2020 Social History Smoking Status: Former smoker Tobacco Type: Cigarettes Second Hand Exposure: Yes; Hx Alcohol Use: No Hx Substance Use: No Preferred Language: Nepali Communication Ability: Effective Ticket Broker Required: No Beliefs That Will Affect Care: None marital status: / Current Living Situation: Alone Current Living Situation Comment: Apartment How many Children do You have: 6 Feels Safe at Home: Yes Assistive Devices: Denture - Upper, Denture - Lower and Glasses Physical Exam Physical Exam: Constitutional: well-appearing, no acute distress HEENT: NCAT, mild conjunctival pallor CV: heart sounds distant, extremities well-perfused, trace LE edema Resp: CTABL, no wheezes/rales/rhonchi appreciated, no increased work of breathin g GI: soft, nondistended, nontender, BS normoactive MSK: no gross deformities appreciated Skin: warm, dry, no rash appreciated Neuro: alert, oriented, no focal neurologic deficit appreciated, strength 5/5 in upper and lower extremities bilaterally Results & Data Results & Data ([facility]) Vital Signs (Past 12 Hours) Vital Signs Temp Pulse Pulse Resp BP BP Pulse Ox 01/22/22 01:15 62 20 174/81 H 99 01/21/22 23:27 36.4 C L 68 18 114/65 99 O2 Del Method 01/22/22 01:15 Room Air 01/21/22 23:27 Room Air Supervising Physician Co-Signing Physician Notes Patient seen and examined, chart reviewed, case discussed with Dr. Feliciano and I agree with the assessment and plan as above. Resident Activity Tracking Resident Involvement: Resident Care Provided and Nurse Transplant Coverage Note Care Provided: Adult Hospital Medicine
[2022-01-22] MEDS ORDERED: SODIUM CHLORIDE 0.9% 250 ML IV PRN (03:18)
[2022-01-22] MEDS ORDERED: FUROSEMIDE 40 MG/4 ML VIAL IV ONE ×2 (03:18→09:39)
[2022-01-22] MEDS ORDERED: MELATONIN 3 MG TAB PO PRN (03:18)
[2022-01-22 05:47] LABS: Basophils % (auto) 1.7 %; Eosinophils # (auto) 0.05 K/uL (0-0.50); Eosinophils % (auto) 0.9 %; Immature Granulocytes # (auto) 0.02 K/uL (0.00-0.02); Immature Granulocytes % (auto) 0.3 %; Lymphocytes # (auto) 1.07 K/uL (1.2-3.4); Lymphocytes % (auto) 18.5 %; Mean Corpuscular Hemoglobin 19.7 pg (25.0-34.0); Mean Corpuscular Hgb Conc 29.2 g/dL (32.0-36.0); Mean Corpuscular Volume 67.4 fL (80.0-100.0); Monocytes # (auto) 0.61 K/uL (0.24-0.82); Monocytes % (auto) 10.6 %; Neutrophils # (auto) 3.92 K/uL (1.4-6.5); RDW Standard Deviation 45.9 fL (36.4-46.3); Red Blood Count 3.56 M/uL (3.93-5.22); White Blood Count 5.77 K/ul (4.8-10.8)
[2022-01-22 05:58] LABS: INR 1.3 (0.9-1.1)
[2022-01-22 06:09] LABS: Acanthocytes 2+; Hypochromasia Present; Mean Platelet Volume 10.1 fL (9.4-12.3); Platelet Count 281 K/uL (130-400); Polychromasia 2+; Schistocytes 1+; Tear Drop Cells 1+
[2022-01-22 06:18] LABS: Chol HDL Ratio 3.2 (0-5); Magnesium 1.9 mg/dl (1.7-2.4); Phosphorus 3.2 mg/dl (2.5-4.9)
[2022-01-22 06:57] LABS: Estimated Average Glucose 137 mg/dl; Hemoglobin A1C 6.4 % (4.5-5.6)
--- NOTE | 2022-01-22 07:06 | Ultrasound Report ---
ULTRASOUND LEFT LOWER EXTREMITY VENOUS CLINICAL HISTORY: Left leg swelling. COMPARISON STUDY: No priors. TECHNIQUE: Real-time, grayscale, and color Doppler sonography of the deep veins of the left lower ext remity was performed from the inguinal crease to the calf. Compression and augmentation were utilized . FINDINGS: There is no sonographic evidence of deep venous thrombosis identified in the left lower ext remity. The common femoral, superficial femoral, and popliteal veins are patent and normally compress ible. The greater saphenous vein and the profunda femoris vein at the junction with the common femora l vein are clear. The visualized calf veins are patent. A popliteal cyst measures 3.2 x 1.5 x 2.6 cm IMPRESSION: 1. There is no sonographic evidence of deep venous thrombosis identified in the left lower extremity. 2. Popliteal cyst. ACT 112: Negative or not required by law. Electronically signed by: Anthony Bolanos M.D. 01/22/2022 7:05 AM
[2022-01-22] MEDS ORDERED: ISOSORBIDE MONO EXTENDED REL 30 MG TABCR PO SCH (09:00)
[2022-01-22] MEDS ORDERED: PANTOprazole 40 MG in SYRINGE 0 ML IV SCH (09:00)
[2022-01-22] MEDS ORDERED: METOPROLOL SUCC 50MG EXT REL TAB PO SCH (09:00)
[2022-01-22 09:03] LABS: Iron 14 mcg/dl (35-150); Total Iron Binding Cap Calc 492 mcg/dl (250-450); Transferrin (FE) Percent Satur 3 % (15-50); Unsaturated Iron Binding Cap 478 mcg/dl (155-355)
--- NOTE | 2022-01-22 09:35 | Electrocardiogram Report ---
Test Reason : Blood Pressure : / mmHG Vent. Rate : 062 BPM Atrial Rate : 062 BPM P-R Int : 208 ms QRS Dur : 110 ms QT Int : 532 ms P-R-T Axes : 000 -42 154 degrees QTc Int : 539 ms Poor data quality, interpretation may be adversely affected Atrial-paced rhythm Left axis deviation Voltage criteria for left ventricular hypertrophy with QRS widening and repolarization abnormality Abnormal ECG When compared with ECG of 19-FEB-2020 06:42, No significant change was found Confirmed by Pepe Mabry ([id number]) on 01/22/2022 9:35:07 AM Referred By: Isaias Jolly Confirmed By:Pepe Mabry
[2022-01-22 12:20] LABS: Hematocrit (blood only) 28.2 % (34.1-44.9); Hemoglobin 8.3 g/dl (12.0-16.0)
--- NOTE | 2022-01-22 13:34 | Hospitalist Progress Note ---
Date of Service January 22, 2022 Assessment & Plan Admission and Anticipated Discharge Date Admission Date: January 22, 2022 Subjective December 25, Hgb 8.1. Results & Data Results & Data ([facility]) Vital Signs (Past 12 Hours) Vital Signs Temp Pulse Pulse Resp BP BP Pulse Ox 01/22/22 11:17 63 16 152/74 H 95 01/22/22 09:02 37.0 C 60 18 172/92 H 94 01/22/22 08:02 36.8 C 61 16 136/46 L 94 01/22/22 07:02 36.6 C 62 16 137/56 L 94 01/22/22 06:02 37.1 C 60 18 131/60 92 01/22/22 05:32 37.1 C 60 18 131/60 91 01/22/22 05:32 61 18 97/75 L 94 01/22/22 05:17 37.2 C 60 18 125/51 L 96 01/22/22 05:01 37.2 C 60 18 146/62 H 98 01/22/22 04:36 01/22/22 04:25 70 16 129/30 L 96 01/22/22 03:32 72 16 145/87 H 99 O2 Del Method 01/22/22 11:17 Room Air 01/22/22 09:02 01/22/22 08:02 01/22/22 07:02 01/22/22 06:02 01/22/22 05:32 01/22/22 05:32 01/22/22 05:17 01/22/22 05:01 01/22/22 04:36 Room Air 01/22/22 04:25 Room Air 01/22/22 03:32 PG Care Time/CCT Total # of Minutes Spent Total Time Spent with Patient: Total time spent is greater than 50% in coordination of care (as documented) at patient's floor/unit and/or counseling patient: Coding
[2022-01-22] MEDS ORDERED: IRON SUCROSE 300 MG in SODIUM CHLORIDE 0.9% 250 ML IV ONE (13:42)
[2022-01-22] MEDS ORDERED: OPTIRAY 300 500mL IV ONE (15:20)
--- NOTE | 2022-01-22 15:40 | CT Scan Report ---
CT OF THE ABDOMEN AND PELVIS WITH CONTRAST CLINICAL HISTORY: right abdominal pain, iron def. anemia COMPARISON STUDY: CTA of the abdomen and pelvis October 31, 2020. KUB December 12, 2020. TECHNIQUE: Following IV administration of 93 mL of Optiray, axial images of the abdomen and pelvis we re obtained from the lung bases to the proximal femurs. Images were reviewed in the axial, sagittal, and coronal planes. IV contrast was administered without complication. Automated exposure control wa s utilized for the study. A dose lowering technique was utilized adhering to the principles of ALARA . CT DOSE: 266.46 mGy.cm FINDINGS: Pacer leads are partially imaged. There is extensive coronary artery calcification. Old lef t ventricular apical infarct with outpouching of the apex is similar to prior exam. Small right and t race left pleural effusions are noted. Interlobular septal thickening is noted within the lower lungs . IVC and hepatic veins are distended. No pneumatosis, free air or portal venous gas is present. Small amount of abdominal and pelvic ascite s is noted. Moderate gallbladder wall thickening with pericholecystic fluid is noted. Gallbladder is not distended. Marked left renal atrophy is unchanged. Right kidney is unremarkable. Spleen, adrenal glands and pancreas are unremarkable. No biliary or pancreatic ductal dilatation is present. Liver is enlarged. There is mild nodularity of the liver surface. No evidence for a bowel obstruction. Coloni c diverticulosis is noted without evidence for acute diverticulitis. The appendix is not visualized. There is no lymphadenopathy. No fluid collection to suggest an abscess. Extensive aortoiliac atherosc lerotic plaque is noted. Severe left renal artery stenosis is unchanged. 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 Right external iliac artery stent is patent. No acu te fracture or suspicious lesion within the visualized skeletal structures. IMPRESSION: 1. Gallbladder wall thickening with pericholecystic fluid. These findings may be related to right hea rt dysfunction. Acute cholecystitis is within the differential but considered less likely. If right u pper quadrant pain, ultrasound could be obtained. 2. Hepatomegaly. Nodularity of the liver surface raises the possibility of cirrhosis. Small amount of abdominal and pelvic ascites. Overall, findings likely related to right heart dysfunction. 3. Small right and trace left pleural effusions with mild interstitial edema. 4. No bowel obstruction. No bowel wall thickening. Colonic diverticulosis without evidence for acute diverticulitis. ACT 112: Negative or not required by law. Electronically signed by: Sukhwinder Navarrete M.D. 01/22/2022 3:39 PM
--- NOTE | 2022-01-22 17:25 | XRay Report ---
XR chest 1V portable CLINICAL HISTORY: Pulmonary edema. COMPARISON STUDY: Chest radiograph December 08, 2020. FINDINGS: There is no pneumothorax. Trace bilateral pleural effusions are present. Cardiomegaly is no jasper. Dual lead left subclavian pacer/AICD is in place. No consolidation to suggest pneumonia. There i s mild interstitial thickening. IMPRESSION: Cardiomegaly with mild interstitial pulmonary edema and trace bilateral pleural effusion s. ACT 112: Negative or not required by law. Electronically signed by: Sukhwinder Navarrete M.D. 01/22/2022 5:24 PM
--- NOTE | 2022-01-22 17:33 | Discharge Summary ---
Date of Service January 22, 2022 Admission HPI Per Admitting Provider 81yo female with a history of HFrEF, CAD (s/p ICD placement, ?stent placement), HTN, HLD, iron-deficiency anemia, and hypothyroidism presents after being referred by her PCP. Patient was seen earlier today for a three-week history of history of lower left leg pain and swelling, with a two-day history of worsening. Outpatient labs showed a d-dimer of 1570. Patient also notes a one- year history of dyspnea with exertion, which has been slightly worsening over the past month. Of note, patient says she is in the process of arranging transfusions for her iron-deficiency anemia. Patient denies fever, headache, vision changes, CP, palpitations, abdominal pain, vomiting, dysuria, hematochezia, melena, back pain, lightheadedness, dizziness, numbness, tingling, or other symptoms. Denies recent illness and recent travel. Patient denies a history of DVT (this is noted on patient's chart - will hold off on removing it from her problem list until this can be confirmed). Upon arrival, vitals were notable for elevated BP (170s/80s). No tachycardia or tachypnea, patient afebrile, spO2 adequate on room air. Initial labs were notable for microcytic anemia (7.4, MCV 67), hyponatremia (130), and elevated INR (1.3). No leukocytosis or leukopenia, platelets wnl, creatinine not elevated, LFTs wnl. In the ED, patient received pantoprazole 80mg IV (x1), famotidine 20mg IV (x1), and zofran. Type/screen performed and pending. Blood transfusion consent completed. Surrogate decision-maker in case of an emergency: daughter Alejandra Sigala (cell: [phone]) Principal Diagnosis Anemia Left leg swelling secondary to spider bite and right heart failure Discharge Exam Constitutional + frail appearing Eyes + anicteric sclerae; normal pupil size ENMT external ear and nose normal, oropharynx normal Neck trachea midline, no thyromegaly Respiratory normal respiratory effort; no respiratory distress Auscultation: + crackles (bibasal); no diminished lung sounds and no wheezes Cardiovascular Rate/Rhythm: regular rate and regular rhythm Extremities: normal capillary refill and + pedal edema (Left 2+ > right 1+ lower extremity pitting edema); no calf tenderness Gastrointestinal (Abdomen) normal bowel sounds, soft, nontender, no hepatosplenomegaly Musculoskeletal no cyanosis or clubbing, extremities motor strength 5/5 Skin no rashes, warm and dry Psychiatric A+Ox3, euthymic affect Discharge Data Allergies Allergy/AdvReac Type Severity Reaction Status Date / Time simvastatin Allergy Severe Rash Verified 01/03/22 11:49 Consultations 01/22/22 00:12 ED Decision to Admit Stat 01/22/22 16:57 [facility] [place], [place] CHF Program Referral Routine Ordered Studies 01/21/22 23:36 US venous doppler LE LT Urgent IMPRESSION: 1. There is no sonographic evidence of deep venous thrombosis identified in the left lower extremity. 2. Popliteal cyst. 01/22/22 14:37 CT Abd and Pelvis [CT abd pelvis IV con only] Urgent IMPRESSION: 1. Gallbladder wall thickening with pericholecystic fluid. These findings may be related to right heart dysfunction. Acute cholecystitis is within the differential but considered less likely. If right upper quadrant pain, ultrasound could be obtained. 2. Hepatomegaly. Nodularity of the liver surface raises the possibility of cirrhosis. Small amount of abdominal and pelvic ascites. Overall, findings likely related to right heart dysfunction. 3. Small right and trace left pleural effusions with mild interstitial edema. 4. No bowel obstruction. No bowel wall thickening. Colonic diverticulosis without evidence for acute diverticulitis. Hospital Course (1) Acute pulmonary edema: Julia Solis is an 81 year old female observed at [facility] on January 22, 2022 with initial complaint of left leg swelling but incidentally noted to be anemic with hemoglobin 7.8. Her hemoglobin dropped to 7.0 and she was transfused 1 unit of packed red blood cells. She was asymptomatic from this. Hemoglobin 8.3 after blood transfusion. Transferrin saturation 3% consistent with iron deficiency anemia (taken prior to blood transfusion). She received 300mg Venofer to help with the iron deficiency. On review of previous notes and discussion with her daughter this anemia does not appear to be new and her hemoglobin was 8.1 in November on outside labs. Therefore do not suspect she is having a fast bleed and recommend further work-up is done as an outpatient with colonoscopy +/- EGD. Recommend follow-up with her primary care physician to arrange repeat hemoglobin in approximately 2 to 3 days and to arrange further outpatient work-up. Okay to continue your Eliquis but would recommend holding aspirin in case of a possible gastric ulcer. She should start on pantoprazole 40 mg p.o. daily given that a gastric ulcer has not been ruled out. Reassuringly her CT and CEA blood test are negative for malignancy. She acutely does not require further iron transfusions as she had 1 unit of blood which contains approximately 200 mg of iron and 300 mg in her iron transfusion. Recommended discontinuing her iron tablets as this is likely ca using her constipation and arrange ongoing iron transfusions with her PCP in the future. Due to right abdominal pain and iron deficiency anemia she underwent a CT scan of your abdomen pelvis. Reassuringly this did not show a malignancy and her CEA blood test was also normal. However it did show concerns for right heart failure and liver cirrhosis. CXR showed mild interstitial pulmonary edema suggesting some left sided failure too. Recommended increasing her Lasix to 40 mg daily and following up with the heart failure clinic (Nidhi Tavera, details above). CT was concerning for possible liver cirrhosis and recommend discussion with her PCP on possible further workup of this. No DVT was seen on left leg evaluation and suspect this is secondary to your recent spider bite in the setting of right sided heart failure. The spider bite does not appear infected. Her overall hypervolemia is also making this worse and should respond to increased dose of Lasix as above. (2) CHF (congestive heart failure): (3) Acute blood loss anemia: (4) Iron deficiency anemia: Total Time Total Time Spent Total Time Spent (In Minutes): 55 Discharge Plan Discharge Items Patient Disposition: Home - Self-Care Reason For Visit: SYMPTOMATIC ANEMIA, LLE PAIN / SWELLING Discharge Diagnosis: Anemia Left leg swelling secondary to spider bite and right heart failure Condition on Discharge: Fair Activity: Resume your previous activity Non-emergency contact: Primary Care Provider Call non-emergency contact if: you have any medication questions and your symptoms worsen Follow-up/Referrals: Rox Tavera PA-C [Physician Associate Web Developer] - (Within 1 week of discharge) Isaias Jolly MD [Primary Care Provider] - Diet: Low Sodium (2gm) Addtl Attending Provider Instructions: You were observed in [facility] on January 22, 2022 with initial complaint of left leg swelling but incidentally noted to be anemic with hemoglobin 7.8. Her hemoglobin dropped to 7.0 and you were transfused 1 unit of packed red blood cells. Hemoglobin 8.3 after blood transfusion. Transferrin saturation 3% consistent with iron deficiency anemia. On review of previous notes and discussion with your daughter the anemia does not appear to be new and your hemoglobin was 8.1 in November. Therefore do not suspect you are having a fast bleed and recommend further work-up is done as an outpatient with colonoscopy +/- EGD. Please follow-up with your primary care physician to arrange repeat hemoglobin in approximately 2 to 3 days and to arrange further outpatient work- up. Okay to continue your Eliquis but would recommend holding aspirin to avoid worsening of anemia. We have started you on pantoprazole 40 mg p.o. daily in case this is caused by a stomach ulcer. You acutely do not need further iron transfusions as you have 1 unit of blood which contains approximately 200 mg of iron and 300 mg in your iron transfusion. Recommend discontinuing iron tablets as this is likely causing your constipation and arrange ongoing iron transfusions with your PCP in the future. Due to right abdominal pain and iron deficiency anemia you underwent a CT scan of your abdomen pelvis. This did not show a cause of your iron deficiency anemia however did show concerning changes for right heart failure. Recommend increasing your Lasix to 40 mg daily and following up with the heart failure clinic (Nidhi Tavera, details above). No DVT was seen on left leg evaluation and suspect this is secondary to your recent spider bite. This does not appear to be infected. Your overall increased fluid status is also making this worse and should respond to increased dose of Lasix as above. Pending Studies at Discharge: No Stand-Alone Forms: My [facility], Smoking Cessation Medications and DC Order Prescriptions: New furosemide [Lasix] 40 mg tablet 40 mg PO DAILY Qty: 30 0RF pantoprazole 40 mg tablet,delayed release (DR/EC) 40 mg PO DAILY Qty: 30 0RF Continued Eliquis 2.5 mg tablet 2.5 mg PO BID Qty: 180 3RF isosorbide mononitrate 30 mg tablet extended release 24 hr 30 mg PO QAM Qty: 90 lovastatin 40 mg tablet 80 mg PO DAILY potassium chloride 10 mEq tablet extended release 10 meq PO QDL levothyroxine 75 mcg tablet 75 mcg PO QAM nitroglycerin 0.4 mg tablet, sublingual 0.4 mg SL Q5M PRN (Reason: chest pain) Qty: 25 0RF metoprolol succinate 100 mg tablet extended release 24 hr 100 mg PO QAM 30 Days Qty: 30 3RF lisinopril 10 mg tablet 10 mg PO DAILY Discontinued furosemide 20 mg tablet 20 mg PO QAM aspirin 81 mg Tablet,Delayed Release (Dr/Ec) 81 mg PO QAM ferrous gluconate 324 mg (36 mg iron) Tablet 324 mg PO BID No Action Sutab 1.479-0.188- 0.225 gram tablet See Rx Instructions PO .COMPLEX Qty: 24 0RF Rx Instructions: TAKE DIRECTED PER SPLIT DOSE INSTRUCTIONS BIN: [id number] PCN: [id number] GROUP: [id number] Discharge Orders: Discharge Order (Routine); Ordered 01/22/22 Ordered By: Dwight Hackett Admission Data Admit Date/Time: 01/22/22 02:25 Attending Provider: Dwight Hackett Admit Provider: Bi Feliciano Primary Care Provider: Isaias Jolly Other Providers: Bita Roque ; Rox Tavera Other Interventions: Discharge Summary Assessment (RN) Last Done: 01/22/22 19:03 Coding Level of Care Code OBSERV/HOSP SAME DATE LVL 3 Diagnoses Acute pulmonary edema J81.0 CHF (congestive heart failure) I50.9 Acute blood loss anemia D62 Iron deficiency anemia D50.9
--- NOTE | 2022-01-24 02:08 | Billing Data ---
Date of Service January 22, 2022 Coding Level of Care Code INT OBSERVATION CARE 70M LVL 3
== END 2022-01-22 19:30 | disposition home or self-care (01) ==
LOC: ED 23:21 → EDINP 23:21 → SUATTDRO 01-22 02:25 → EDINP 01-22 03:41

== ENCOUNTER 2022-07-05 12:51 | Inpatient (IN) ==
--- NOTE | 2022-07-05 13:06 | Emergency Department Note ---
Impression & Plan Acute hyponatremia, UTI (urinary tract infection), Anemia, Weakness, Volume overload ED Provider Note NAME: NEIL BEAR AGE: 81 SEX: F : 1940 ARRIVES VIA: Ambulance INFORMANT: Patient, ED PROVIDER(S): Bi Felder MD CHIEF COMPLAINT: Weakness, lethargy, hyponatremia MEDICAL DECISION MAKING: Patient presented due to concern for weakness and fatigue and concern for low sodium. The patient did have blood work completed. The patient also did complain of abdominal pains CT of the head was ordered given her prior history of ICH. The patient's blood work did show hyponatremia with a potassium of 122. Urine and serum electrolytes as well as awesome's were ordered. The patient has normal white count. Hemoglobin is 7.8 which has been this low in this past. Patient did have rectal exam performed which was heme-negative no bright red blood per rectum or dark tarry stool. The patient does have mild elevation in troponin at 90. The patient never complained of any chest pains or shortness of breath. Procalcitonin is not elevated. The patient's VBG does not show any acidosis. Patient did receive empiric antibiotics as a precaution. Patient did receive an IV dose of cefepime. Flu COVID and RSV negative. Chest x-ray does show pleural effusions. CT of the abdomen and pelvis shows moderate right and small left pleural effusions with body wall edema and small amount of ascites. G-tube appears in good position bladder wall thickening is noted. CT of the head shows no significant change or acute intracranial abnormality. Given the patient's medical comorbidities weight gain and volume overload and hyponatremia I did speak with the on-call hospitalist Dr. Washburn and the patient was a dmitted to the medicine service. Prior /Outside records reviewed: Did review the patient's hospital progress note from July 01 which showed the patient was having hyponatremia. Patient did have Citrobacter was started on 2 g of IV Rocephin. Patient does have illness myopathy spent time at [facility] 54 days at [facility] with trach. 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 Patient does have chronic heart failure with reduced ejection fraction EF 35%. Differential diagnosis: Infection, dehydration, metabolic abnormality, hypo/hyperglycemia, electrolyte disturbance, anemia, hypoxia, cardiac sources, intracerebral event, toxicologic, neurologic, as well as other pathologies. Diagnostics, as interpreted by me: ECG: A paced rhythm, rate of 60 normal FL and QRS, left axis deviation nonspecific ST and T wave abnormality. Pacemaker has replaced sinus rhythm from comparison EKG March 30, 2022. Cardiac monitoring: An order was placed for continuous cardiac monitoring. The monitor shows a rate of 78 with Regular rhythm. Patient was placed on pulse oximetry Medical decision rules: none Imaging studies: See below HPI: 81 yo female patient who was sent here from [facility] due to abnormal labs which EMS reported was a low sodium of 122. The patient was also sent in for increasing lethargy. The patient responded to verbal stimuli and complained of pain all over. She is oriented to place and person. It was difficult to have a conversation with the patient due to increased lethargy. Per EMS report, the patient wears 1.5 liters of O2 at home. She just finished a course of Rocephin for UTI. The patients complains of urinary problems but was unable to specify what they are. Per EMS the [facility] staff said she had a 12 lb weight gain over the last several weeks. PAST MEDICAL HISTORY: See Below PAST SURGICAL HISTORY: See Below SOCIAL HISTORY: See Below HOME MEDICATIONS: See Below ALLERGIES: See Below VITALS: See Below PHYSICAL EXAMINATION: GENERAL: NAD, wearing a mask, non-toxic.Wearing glasses, nasal cannula in place. EYE EXAM: Normal conjunctiva. PERRL, no anisocoria and EOM's grossly intact w/o pain. NECK: Supple, no nuchal rigidity, no adenopathy, non-tender. No signs of meningismus. FROM of the neck with good chin to chest and neck extension. No stridor. Incision/wound noted to the anterior neck without any obvious drainage, appears as though there may be a stitch in place. LUNGS: Decreased breath sounds bilateral bases.Normal chest wall mechanics. HEART: NSR, no MRG. ABDOMEN: Abdomen soft, Mild diffuse abdominal discomfort with G-tube in left abdomen without any surrounding erythema fluctuance or drainage. normo-active bowel sounds, no masses, no rebound or guarding. BACK: No CVA TTP. SKIN: No rashes and no bruising. UPPER EXTREMITIES: Upper extremities are grossly normal. LOWER EXTREMITIES: Grossly normal, no edema. NEURO EXAM: A&O x3, cranial nerves II-XII grossly intact, normal speech, moves all 4 extremities. Past Med/Surg History Medical History CAD (coronary artery disease), soboba coronary artery Non-obstructive Chronic systolic CHF (congestive heart failure) DVT (deep venous thrombosis) Several years ago (groin region) > then needed stents History of myocardial infarction Several years ago Hyperlipidemia LDL goal <70 Hypertension Hypothyroidism (acquired) ICD (implantable cardioverter-defibrillator) battery depletion Implanted 2012 (ICD generator change 03/2020), [id number], last check 10/27/20 (per [facility] cardiology note) Ischemic cardiomyopathy Peripheral arterial occlusive disease Prolonged QT syndrome Pulmonary hypertension Severe pulmonary hypertension. Estimated RVSP 64 mmHg. Tricuspid regurgitation Moderate to severe TR Surgical History History of tonsillectomy and adenoidectomy Hx of bilateral oophorectomy Hx of left inguinal hernia repair S/P ICD (internal cardiac defibrillator) procedure 2012, ICD generator change 03/2020 Social History Smoking Status: Unknown if ever smoked Tobacco Type: Cigarettes Second Hand Exposure: Yes; Hx Alcohol Use: No Hx Substance Use: No Preferred Language: Turkmen Communication Ability: Effective Health Services Information Specialist Required: No Beliefs That Will Affect Care: None marital status: / Current Living Situation: Rehab Current Living Situation Comment: Apartment How many Children do You have: 6 Feels Safe at Home: Yes Safety Concerns: Feels Safe At This Time Assistive Devices: Denture - Upper, Denture - Lower and Glasses Allergies Allergies Allergy/AdvReac Type Severity Reaction Status Date / Time simvastatin Allergy Severe Rash Verified 07/05/22 14:57 [id number]-[id number] Reductase Allergy Severe Rash Verified 07/05/22 14:57 Inhibitor Home Meds Home Medications Medication Instructions Recorded Confirmed acetaminophen 325 mg tablet 650 mg PO Q4H PRN FEVER/PAIN 07/05/22 07/05/22 (Tylenol) bisacodyl 10 mg rectal suppository 10 mg FL DAILY PRN Constipation 07/05/22 07/05/22 ceftriaxone 2 gram intravenous 2 g IV Q24H 07/05/22 07/05/22 solution docusate sodium 100 mg capsule 100 mg PO DAILY 07/05/22 07/05/22 levothyroxine 88 mcg tablet 88 mcg PO DAILYBB 07/05/22 07/05/22 lidocaine 5 % topical patch 1 patch topical DAILY 07/05/22 07/05/22 loratadine 10 mg tablet (Claritin) 10 mg PO DAILY 07/05/22 07/05/22 magnesium hydroxide 400 mg/5 mL 30 ml PO DAILY PRN Constipation 07/05/22 07/05/22 oral suspension (Milk of Magnesia) omeprazole 20 mg capsule,delayed 20 mg PO DAILY 07/05/22 07/05/22 release polyethylene glycol 3350 17 17 g PO DAILY 07/05/22 07/05/22 gram/dose oral powder (Miralax) polyethylene glycol 3350 17 17 g PO QDL PRN Constipation 07/05/22 07/05/22 gram/dose oral powder (Miralax) sennosides 8.6 mg tablet (senna) 8.6 mg PO DAILY 07/05/22 07/05/22 sennosides 8.6 mg-docusate sodium 1 tab-cap PO QDL PRN Constipation 07/05/22 07/05/22 50 mg tablet (Senokot-S) sodium chloride 0.9 % (flush) 5 ml IV Q8H 07/05/22 07/05/22 trospium 20 mg tablet 20 mg PO Q48H 07/05/22 07/05/22 Previous Rx's Medication Instructions Recorded apixaban 2.5 mg tablet (Eliquis) 2.5 mg PO BID #180 tabs 01/23/21 Results & Data (ED) Vital Signs Vital Signs - 24 hr 07/05/22 13:04 07/05/22 13:04 07/05/22 14:05 Temperature 37.6 C H Temperature Source Oral Pulse Rate 105 H Respiratory Rate 18 Blood Pressure 162/86 H Blood Pressure Mean 111 Pulse Oximetry 91 91 Oxygen Delivery Method Nasal Cannula Nasal Cannula Room Air Oxygen Flow Rate 1.5 1.5 Sepsis Recent Fever Within 48 Hours No Sepsis New/Unexplained Change in Mental Status No Sepsis Action Taken by Nursing No Action Required Home Medications Current Medication List: was personally reviewed by me Laboratory Data Attestation: I reviewed the patient's lab results. 07/05/22 13:32 07/05/22 13:32 Lab Results 07/05/22 07/05/22 07/05/22 Range/Units 13:32 13:32 13:32 WBC 9.98 (4.8-10.8) K/ul RBC 3.33 L (4.20-5.40) M/uL Hgb 7.8 L (12.0-16.0) g/dl Hct 25.2 L (37.0-47.0) % MCV 75.7 L (80.0-100.0) fL MCH 23.4 L (25.0-34.0) pg MCHC 31.0 L (32.0-36.0) g/dL RDW Std Deviation 48.7 H (36.4-46.3) fL RDW Coeff of Carlos 17.8 H (11.5-14.5) % Plt Count 418 H (130-400) K/uL MPV 10.0 (9.4-12.4) fL Immature Gran % (Auto) 1.2 % Neut % (Auto) 80.8 % Lymph % (Auto) 8.2 % Houghton % (Auto) 9.4 % Eos % (Auto) 0.1 % Baso % (Auto) 0.3 % Neut # (Auto) 8.06 H (1.40-6.50) K/uL Lymph # (Auto) 0.82 L (1.2-3.4) K/uL Houghton # (Auto) 0.94 H (0.11-0.59) K/uL Eos # (Auto) 0.01 (0-0.50) K/uL Baso # (Auto) 0.03 (0-0.2) K/uL Immature Gran # (Auto) 0.12 (0.01-0.20) K/uL Absolute Nucleated RBC 0.24 H (0-0.12) K/uL Nucleated RBC % (auto) 2.4 % Polychromasia 1+ Hypochromasia Present Anisocytosis Present Microcytosis Present VBG pH (7.36-7.41) VBG pCO2 (38-50) mmHg VBG pO2 mmHg VBG HCO3 mmol/L VBG O2 Saturation % VBG Base Excess mEq/L Sodium 122 L (136-145) mmol/L Potassium 5.0 (3.5-5.1) mmol/L Chloride 88 L (98-107) mmol/L Carbon Dioxide 29 (21-32) mmol/L Anion Gap 5 (3-11) BUN 26 H (6-23) mg/dl Creatinine 0.62 (0.6-1.2) mg/dl Est Cr Clr Drug Dosing 60.1 ml/min Est GFR ( Amer) 98.0 ml/min Est GFR (Non-Af Amer) 84.6 ml/min BUN/Creatinine Ratio 41.9 H (10-20) Glucose 111 H (70-99(Fasting)) mg/dl Osmolality (280-300) mOsm/kg Lactate 1.7 (0.4-2.0) mmol/L Calcium 9.4 (8.5-10.1) mg/dl Magnesium 2.2 (1.7-2.4) mg/dl Total Bilirubin 0.7 (0.2-1.0) mg/dl Direct Bilirubin 0.3 H (0-0.2) mg/dl AST 84 H (13-39) U/L ALT 104 H (7-52) U/L Alkaline Phosphatase 93 (34-104) U/L Troponin I High Sens 90.7 H* (0-14) pg/ml Total Protein 6.6 (6.0-8.3) gm/dl Albumin 3.7 (3.4-5.0) gm/dl Procalcitonin (0-0.5) ng/ml Nasal Screen MRSA (PCR) (Negative) SARS-CoV-2 (PCR) (Negative) Influenza Type A (PCR) (Neg) Influenza Type B (PCR) (Neg) RSV (RT-PCR) (Neg) 07/05/22 07/05/22 07/05/22 Range/Units 13:32 13:32 14:26 WBC (4.8-10.8) K/ul RBC (4.20-5.40) M/uL Hgb (12.0-16.0) g/dl Hct (37.0-47.0) % MCV (80.0-100.0) fL MCH (25.0-34.0) pg MCHC (32.0-36.0) g/dL RDW Std Deviation (36.4-46.3) fL RDW Coeff of Carlos (11.5-14.5) % Plt Count (130-400) K/uL MPV (9.4-12.4) fL Immature Gran % (Auto) % Neut % (Auto) % Lymph % (Auto) % Houghton % (Auto) % Eos % (Auto) % Baso % (Auto) % Neut # (Auto) (1.40-6.50) K/uL Lymph # (Auto) (1.2-3.4) K/uL Houghton # (Auto) (0.11-0.59) K/uL Eos # (Auto) (0-0.50) K/uL Baso # (Auto) (0-0.2) K/uL Immature Gran # (Auto) (0.01-0.20) K/uL Absolute Nucleated RBC (0-0.12) K/uL Nucleated RBC % (auto) % Polychromasia Hypochromasia Anisocytosis Microcytosis VBG pH (7.36-7.41) VBG pCO2 (38-50) mmHg VBG pO2 mmHg VBG HCO3 mmol/L VBG O2 Saturation % VBG Base Excess mEq/L Sodium (136-145) mmol/L Potassium (3.5-5.1) mmol/L Chloride (98-107) mmol/L Carbon Dioxide (21-32) mmol/L Anion Gap (3-11) BUN (6-23) mg/dl Creatinine (0.6-1.2) mg/dl Est Cr Clr Drug Dosing ml/min Est GFR ( Amer) ml/min Est GFR (Non-Af Amer) ml/min BUN/Creatinine Ratio (10-20) Glucose (70-99(Fasting)) mg/dl Osmolality 260 L (280-300) mOsm/kg Lactate (0.4-2.0) mmol/L Calcium (8.5-10.1) mg/dl Magnesium (1.7-2.4) mg/dl Total Bilirubin (0.2-1.0) mg/dl Direct Bilirubin (0-0.2) mg/dl AST (13-39) U/L ALT (7-52) U/L Alkaline Phosphatase (34-104) U/L Troponin I High Sens (0-14) pg/ml Total Protein (6.0-8.3) gm/dl Albumin (3.4-5.0) gm/dl Procalcitonin 0.05 (0-0.5) ng/ml Nasal Screen MRSA (PCR) (Negative) SARS-CoV-2 (PCR) NEGATIVE (Negative) Influenza Type A (PCR) Negative (Neg) Influenza Type B (PCR) Negative (Neg) RSV (RT-PCR) Negative (Neg) 07/05/22 07/05/22 Range/Units 14:26 14:33 WBC (4.8-10.8) K/ul RBC (4.20-5.40) M/uL Hgb (12.0-16.0) g/dl Hct (37.0-47.0) % MCV (80.0-100.0) fL MCH (25.0-34.0) pg MCHC (32.0-36.0) g/dL RDW Std Deviation (36.4-46.3) fL RDW Coeff of Carlos (11.5-14.5) % Plt Count (130-400) K/uL MPV (9.4-12.4) fL Immature Gran % (Auto) % Neut % (Auto) % Lymph % (Auto) % Houghton % (Auto) % Eos % (Auto) % Baso % (Auto) % Neut # (Auto) (1.40-6.50) K/uL Lymph # (Auto) (1.2-3.4) K/uL Houghton # (Auto) (0.11-0.59) K/uL Eos # (Auto) (0-0.50) K/uL Baso # (Auto) (0-0.2) K/uL Immature Gran # (Auto) (0.01-0.20) K/uL Absolute Nucleated RBC (0-0.12) K/uL Nucleated RBC % (auto) % Polychromasia Hypochromasia Anisocytosis Microcytosis VBG pH 7.38 (7.36-7.41) VBG pCO2 45 (38-50) mmHg VBG pO2 25 mmHg VBG HCO3 27 mmol/L VBG O2 Saturation < 60.0 % VBG Base Excess 1.0 mEq/L Sodium (136-145) mmol/L Potassium (3.5-5.1) mmol/L Chloride (98-107) mmol/L Carbon Dioxide (21-32) mmol/L Anion Gap (3-11) BUN (6-23) mg/dl Creatinine (0.6-1.2) mg/dl Est Cr Clr Drug Dosing ml/min Est GFR ( Amer) ml/min Est GFR (Non-Af Amer) ml/min BUN/Creatinine Ratio (10-20) Glucose (70-99(Fasting)) mg/dl Osmolality (280-300) mOsm/kg Lactate (0.4-2.0) mmol/L Calcium (8.5-10.1) mg/dl Magnesium (1.7-2.4) mg/dl Total Bilirubin (0.2-1.0) mg/dl Direct Bilirubin (0-0.2) mg/dl AST (13-39) U/L ALT (7-52) U/L Alkaline Phosphatase (34-104) U/L Troponin I High Sens (0-14) pg/ml Total Protein (6.0-8.3) gm/dl Albumin (3.4-5.0) gm/dl Procalcitonin (0-0.5) ng/ml Nasal Screen MRSA (PCR) Negative (Negative) SARS-CoV-2 (PCR) (Negative) Influenza Type A (PCR) (Neg) Influenza Type B (PCR) (Neg) RSV (RT-PCR) (Neg) Administered Medications Apixaban (Apixaban 2.5 Mg Tab) 2.5 mg PO BID [facility] Stop: 08/04/22 20:59 Last Admin: 07/05/22 21:12 Dose: 2.5 mg Documented By: JONATHAN Cefepime HCl 2,000 mg/ Syringe 20 mls @ 5 mls/min IV Q8H [facility]; Protocol Stop: 07/07/22 22:59 Last Admin: 07/06/22 05:57 Dose: 5 mls/min Documented By: Admin: 07/06/22 01:03 Dose: 5 mls/min Documented By: JONATHAN Levothyroxine Sodium (Levothyroxine Sodium 88 Mcg Tablet) 88 mcg PO DAILYBB [facility] Stop: 08/05/22 06:29 Last Admin: 07/06/22 05:45 Dose: 88 mcg Documented By: JONATHAN Discontinued Medications Furosemide (Furosemide 40 Mg/4 Ml Vial) 40 mg IV ONE ONE Stop: 07/05/22 14:46 Last Admin: 07/05/22 16:48 Dose: 40 mg Documented By: MARKELL Cefepime HCl (Maxipime) 2,000 mg in 20 mls @ 5 mls/min IV NOW STA; Protocol Stop: 07/05/22 13:25 Last Admin: 07/05/22 14:43 Dose: 5 mls/min Documented By: ANDREA Acetaminophen (Ofirmev) 1,000 mg in 100 mls @ 400 mls/hr IV NOW STA Stop: 07/05/22 13:50 Last Infusion: 07/05/22 17:19 Dose: 0 mls/hr Documented By: Admin: 07/05/22 14:24 Dose: 400 mls/hr Documented By: JPG Imaging Data Radiologist's Impression: Chest X-Ray 07/05/22 13:23 XR chest 1V portable HISTORY: Sepsis COMPARISON: Chest 03/30/2022. FINDINGS: No pneumothorax. The cardiac silhouette remains enlarged. Is left- sided pacemaker/defibrillator. The small to moderate right and small left pleural effusions persist. There is mild asymmetric pulmonary edema which has slightly improved. Patchy bibasilar densities persist. IMPRESSION: 1. Cardiomegaly with improvement in the mild asymmetric pulmonary edema. 2. Bilateral pleural effusions and bibasilar densities persist. ACT 112: Negative or not required by law. Electronically signed by: Prasanth Kemp M.D. 07/05/2022 2:[address] 07/05/22 13:[address] DOSE: HISTORY: lethargy; h/o ICH s/p coiling L vert aneurysm TECHNIQUE: Multiaxial CT images of the head were performed without the use of intravenous contrast. Automated exposure control was utilized for this study. A dose lowering technique was utilized adhering to the principles of ALARA. Comparison: Head CT 07/04/2022. Findings: The paranasal sinuses are clear. Trace mastoid effusions remain unchanged. Metallic artifact from the embolization coils anterior to the medulla. The calvarium and skull base are intact. There is motion artifact. Atrophy and microvascular ischemic changes are again noted. There is no mass, hematoma, midline shift, acute infarct. Impression: No significant change compared to the prior study. No acute intracranial abnormality. ACT 112: Negative or not required by law. Electronically signed by: Prasanth Kemp M.D. 07/05/2022 2:04 PM Chest X-Ray 07/05/22 13:23 XR chest 1V portable HISTORY: Sepsis COMPARISON: Chest 03/30/2022. FINDINGS: No pneumothorax. The cardiac silhouette remains enlarged. Is left- sided pacemaker/defibrillator. The small to moderate right and small left pleural effusions persist. There is mild asymmetric pulmonary edema which has slightly improved. Patchy bibasilar densities persist. IMPRESSION: 1. Cardiomegaly with improvement in the mild asymmetric pulmonary edema. 2. Bilateral pleural effusions and bibasilar densities persist. ACT 112: Negative or not required by law. Electronically signed by: Prasanth Kemp M.D. 07/05/2022 2:07 PM Abdomen/Pelvis CT 07/05/22 13:[address] WITHOUT CONTRAST CT DOSE: 2304.53 mGy.cm HISTORY: Generalized abdominal pain., G tube in place TECHNIQUE: Multiaxial CT images of the abdomen and pelvis were performed without contrast. A dose lowering technique was utilized adhering to the principles of ALARA. COMPARISON STUDY: Abdomen and pelvis CT 01/22/2022. FINDINGS: Moderate right and small left pleural effusions have progressed in the interval. There is consolidation within the left lower lobe posteriorly and near complete consolidation of the right lower lobe. This favors compressive atelectasis from the pleural effusions. A pneumonia could also have a similar appearance. The heart remains enlarged. Pacemaker wires are noted. Stable small density within the right posterior basal pleural space. No pneumoperitoneum. No pneumatosis. No acute fractures identified. Moderate body wall edema has progressed. The gastrostomy tube appears in good position. Mild motion artifact. Small amount of ascites persists. Gallbladder wall thickening has improved/resolved. Stable partially calcified hypodensity within the left hepatic lobe adjacent to the falciform ligament. The liver remains mildly enlarged. Normal spleen. Mild thickening of the adrenal glands, unchanged. This is likely chronic. The unenhanced pancreas is unremarkable. There is a punctate stone within the right kidney. Left renal atrophy again noted. No hydronephrosis. Mild bladder wall thickening, unchanged. Prior hysterectomy. Suboptimal evaluation for bowel pathology due to the lack of intravenous and oral contrast. However, there is no definite bowel wall thickening or obstruction. Moderate fecal retention. Colonic diverticulosis. No evidence for acute diverticulitis. Suspect mild periportal edema. Calcified normal caliber abdominal aorta. No retroperitoneal lymphadenopathy. A right external iliac artery stent is again noted. IMPRESSION: 1. Increase in size in the moderate right and small left pleural effusions with associated lower lobe consolidation. This favors compressive atelectasis from the pleural effusions. A pneumonia could also have a similar appearance. 2. Interval progression of the moderate body wall edema. 3. Small amount of ascites, unchanged. 4. No definite bowel wall thickening or obstruction. 5. Moderate fecal retention. 6. The gastrostomy tube appears in good position. 7. Bladder wall thickening which may be chronic. Recommend correlation with urinalysis. 8. Interval improvement/resolution of the gallbladder wall thickening. 9. Additional findings as described above. ACT 112: Negative or not required by law. Electronically signed by: Prasanth Kemp M.D. 07/05/2022 2:[address] 07/05/22 13:[address] DOSE: HISTORY: lethargy; h/o ICH s/p coiling L vert aneurysm TECHNIQUE: Multiaxial CT images of the head were performed without the use of intravenous contrast. Automated exposure control was utilized for this study. A dose lowering technique was utilized adhering to the principles of ALARA. Comparison: Head CT 07/04/2022. Findings: The paranasal sinuses are clear. Trace mastoid effusions remain unchanged. Metallic artifact from the embolization coils anterior to the medulla. The calvarium and skull base are intact. There is motion artifact. Atrophy and microvascular ischemic changes are again noted. There is no mass, hematoma, midline shift, acute infarct. Impression: No significant change compared to the prior study. No acute intracranial abnormality. ACT 112: Negative or not required by law. Electronically signed by: Prasanth Kemp M.D. 07/05/2022 2:04 PM Discharge Plan Visit Data Chief Complaint: Abnormal Labs/Diagnostic Testing ED Provider: Bi Felder Discharge Problem: Acute hyponatremia, UTI (urinary tract infection), Anemia, Weakness, Volume overload Patient Disposition: Admitted As Inpatient Discharge Instructions Interventions: ED Discharge Assessment Last Done: 07/05/22 16:41
[2022-07-05] MEDS ORDERED: CEFEPIME 2,000 MG/20 ML VIAL IV STA (13:22)
[2022-07-05] MEDS ORDERED: ACETAMINOPHEN 1,000 MG/100 ML VIAL IV STA (13:36)
[2022-07-05 13:52] LABS: Basophils # (auto) 0.03 K/uL (0-0.2); Basophils % (auto) 0.3 %; Eosinophils # (auto) 0.01 K/uL (0-0.50); Eosinophils % (auto) 0.1 %; Hematocrit (blood only) 25.2 % (37.0-47.0); Hemoglobin 7.8 g/dl (12.0-16.0); Immature Granulocytes # (auto) 0.12 K/uL (0.01-0.20); Immature Granulocytes % (auto) 1.2 %; Lymphocytes # (auto) 0.82 K/uL (1.2-3.4); Lymphocytes % (auto) 8.2 %; Mean Corpuscular Hemoglobin 23.4 pg (25.0-34.0); Mean Corpuscular Volume 75.7 fL (80.0-100.0); Monocytes # (auto) 0.94 K/uL (0.11-0.59); Monocytes % (auto) 9.4 %; Neutrophils # (auto) 8.06 K/uL (1.40-6.50); Neutrophils % (auto) 80.8 %; Nucleated RBC # (auto) 0.24 K/uL (0-0.12); Nucleated RBC % (auto) 2.4 %; Platelet Count 418 K/uL (130-400); RDW Coefficient of Variation 17.8 % (11.5-14.5); RDW Standard Deviation 48.7 fL (36.4-46.3); Red Blood Count 3.33 M/uL (4.20-5.40); White Blood Count 9.98 K/ul (4.8-10.8)
--- NOTE | 2022-07-05 14:06 | CT Scan Report ---
HEAD CT NONCONTRAST CT DOSE: HISTORY: lethargy; h/o ICH s/p coiling L vert aneurysm TECHNIQUE: Multiaxial CT images of the head were performed without the use of intravenous contrast. A utomated exposure control was utilized for this study. A dose lowering technique was utilized adheri ng to the principles of ALARA. Comparison: Head CT 07/04/2022. Findings: The paranasal sinuses are clear. Trace mastoid effusions remain unchanged. Metallic artifac t from the embolization coils anterior to the medulla. The calvarium and skull base are intact. There is motion artifact. Atrophy and microvascular ischemic changes are again noted. There is no mass, he matoma, midline shift, acute infarct. Impression: No significant change compared to the prior study. No acute intracranial abnormality. ACT 112: Negative or not required by law. Electronically signed by: Prasanth Kemp M.D. 07/05/2022 2:04 PM
--- NOTE | 2022-07-05 14:08 | XRay Report ---
XR chest 1V portable HISTORY: Sepsis COMPARISON: Chest 03/30/2022. FINDINGS: No pneumothorax. The cardiac silhouette remains enlarged. Is left-sided pacemaker/defibrill ator. The small to moderate right and small left pleural effusions persist. There is mild asymmetric pulmonary edema which has slightly improved. Patchy bibasilar densities persist. IMPRESSION: 1. Cardiomegaly with improvement in the mild asymmetric pulmonary edema. 2. Bilateral pleural effusions and bibasilar densities persist. ACT 112: Negative or not required by law. Electronically signed by: Prasanth Kemp M.D. 07/05/2022 2:07 PM
[2022-07-05 14:19] LABS: Albumin Level 3.7 gm/dl (3.4-5.0); BUN Creatinine Ratio 41.9 (10-20); Bilirubin Direct 0.3 mg/dl (0-0.2); Bilirubin,Total 0.7 mg/dl (0.2-1.0); Calcium 9.4 mg/dl (8.5-10.1); Creatinine Clr Calc Pharmacy 60.1 ml/min; Est GFR (Non-African American) 84.6 ml/min; Magnesium 2.2 mg/dl (1.7-2.4); Total Protein 6.6 gm/dl (6.0-8.3)
[2022-07-05 14:20] LABS: Anisocytosis Present; Hypochromasia Present; Microcytosis Present; Polychromasia 1+
[2022-07-05 14:26] LABS: Troponin I High Sensitivity 90.7 pg/ml (0-14)
--- NOTE | 2022-07-05 14:31 | CT Scan Report ---
ABDOMEN AND PELVIS CT WITHOUT CONTRAST CT DOSE: 2304.53 mGy.cm HISTORY: Generalized abdominal pain., G tube in place TECHNIQUE: Multiaxial CT images of the abdomen and pelvis were performed without contrast. A dose lo wering technique was utilized adhering to the principles of ALARA. COMPARISON STUDY: Abdomen and pelvis CT 01/22/2022. FINDINGS: Moderate right and small left pleural effusions have progressed in the interval. There is c onsolidation within the left lower lobe posteriorly and near complete consolidation of the right lowe r lobe. This favors compressive atelectasis from the pleural effusions. A pneumonia could also have a similar appearance. The heart remains enlarged. Pacemaker wires are noted. Stable small density with in the right posterior basal pleural space. No pneumoperitoneum. No pneumatosis. No acute fractures i dentified. Moderate body wall edema has progressed. The gastrostomy tube appears in good position. Mi ld motion artifact. Small amount of ascites persists. Gallbladder wall thickening has improved/resolv ed. Stable partially calcified hypodensity within the left hepatic lobe adjacent to the falciform lig ament. The liver remains mildly enlarged. Normal spleen. Mild thickening of the adrenal glands, uncha nged. This is likely chronic. The unenhanced pancreas is unremarkable. There is a punctate stone with in the right kidney. Left renal atrophy again noted. No hydronephrosis. Mild bladder wall thickening, unchanged. Prior hysterectomy. Suboptimal evaluation for bowel pathology due to the lack of intraven ous and oral contrast. However, there is no definite bowel wall thickening or obstruction. Moderate f ecal retention. Colonic diverticulosis. No evidence for acute diverticulitis. Suspect mild periportal edema. Calcified normal caliber abdominal aorta. No retroperitoneal lymphadenopathy. A right externa l iliac artery stent is again noted. IMPRESSION: 1. Increase in size in the moderate right and small left pleural effusions with associated lower lobe consolidation. This favors compressive atelectasis from the pleural effusions. A pneumonia could als o have a similar appearance. 2. Interval progression of the moderate body wall edema. 3. Small amount of ascites, unchanged. 4. No definite bowel wall thickening or obstruction. 5. Moderate fecal retention. 6. The gastrostomy tube appears in good position. 7. Bladder wall thickening which may be chronic. Recommend correlation with urinalysis. 8. Interval improvement/resolution of the gallbladder wall thickening. 9. Additional findings as described above. ACT 112: Negative or not required by law. Electronically signed by: Prasanth Kemp M.D. 07/05/2022 2:30 PM
[2022-07-05 14:45] LABS: HCO3 VBG 27 mmol/L; Oxygen Saturation VBG < 60.0 %; PCO2 VBG 45 mmHg (38-50); PO2 VBG 25 mmHg; pH VBG 7.38 (7.36-7.41)
[2022-07-05] MEDS ORDERED: FUROSEMIDE 40 MG/4 ML VIAL IV ONE (14:45)
--- NOTE | 2022-07-05 15:06 | History & Physical Report ---
Date of Service July 05, 2022 Assessment & Plan (1) CHF (congestive heart failure): Plan: Hyponatremia Chronic, now 122 on admission. Previously 124 07/01/2022 Suspect delusional with 14 pound weight gain, acute CHF exacerbation. DDx includes renal failure with history of atrophic left kidney and ALFA, although had not had preceding malignant hypertension and creatinine is normal. Also includes SIADH, urine studies pending We will treat with diuresis, BMP every 4 hours, goal 8M EQ change per 24 hours. Somnolent but easily arousable, and a greater than 120, will defer hypertonic saline at time of admission - CT-H: No significant change compared to the prior study. No acute intracranial abnormality. The paranasal sinuses are clear. Trace mastoid effusions remain unchanged. Metallic artifact from the embolization coils anterior to the medulla. The calvarium and skull base are intact. There is motion artifact. Atrophy and microvascular ischemic changes are again noted. There is no mass, hematoma, midline shift, acute infarct. Serum osmolality low, urine sodium/osmolality pending Acute congestive heart failure Patient with 14 pounds of weight gain EF 35% 04/02/2022. Patient at that time on metoprolol 12.5 mg twice daily, lisinopril daily, Lasix 40 mg twice daily with follow the heart failure program Given past extreme fluid sensitivity, concern for ST changes on EKG, mildly elevated troponin, and possibility for worsening 2/2 continued worsening EF stat echo was obtained. This was reviewed at bedside with cardiology, her EF appears around 30% similar to slightly worse than prior but not suggestive of a new TX as a cause of her symptoms. We will continue treatment as fluid overload, vena cava has not collapsible and RA is dilated consistent with volume overload On ER assessment patient is clinically volume overloaded with small right and left pleural effusions, mild asymmetric pulmonary edema slightly improved from prior and patchy bibasilar densities Acute hyponatremia? Dilutional with CHF versus SIADH - CT-A/P: 1. Increase in size in the moderate right and small left pleural effusions with associated lower lobe consolidation. This favors compressive atelectasis from the pleural effusions. A pneumonia could also have a similar appearance. 2. Interval progression of the moderate body wall edema. 3. Small amount of ascites, unchanged. 4. No definite bowel wall thickening or obstruction. 5. Moderate fecal retention.6. The gastrostomy tube appears in good position.7. Bladder wall thickening which may be chronic. Recommend correlation with urinalysis.8. Interval improvement/resolution of the gallbladder wall thickening. CXR: 1. Cardiomegaly with improvement in the mild asymmetric pulmonary edema. 2. Bilateral pleural effusions and bibasilar densities persist. Acute on chronic anemia ? Dilutional in the setting of CHF overload Patient does have atrophic kidney and ALFA of 50% at last check of right kidney, although creatinine is normal and no CKD We will continue apixaban for DVT prophylaxis this time, trend hemoglobin with diuresis, and follow clinically for signs of bleeding. If hemoglobin downtrends or pain develops, hold apixaban. Patient denies epigastric pain, GI bleed, melena Acute hypoxic respiratory failure Suspect 2/2 acute on chronic CHF, patient borderline febrile prior to admission with bibasilar densities and CT showing lower lobe consolidation suspicious for compressive atelectasis and pleural effusions differential includes pneumonia. Will order Pro-David, continue antibiotics x24 hours and discontinue if improving with treatment for CHF and infectious work-up negative History of ICD placement Patient with history of long QT syndrome, sudden cardiac arrest, and a prior EF of 35% Patient has had an ICD in place which she is followed by [facility] as an outpatient Stray of subarachnoid hemorrhage, hypoxic respiratory failure requiring tracheostomy Patient with subarachnoid hemorrhage 2/2 aneurysm rupture and coil embolization of left vertebral aneurysm completed 03/31/2022. Complicated course including hydrocephalus which improved with EVD. Patient completed a course of Keppra, nimodidine x21 days, and was cared for at an LTAC before being transferred to [facility] for strengthening after she clinically improved and was able to be decannulated 06/15/2022. 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 Patient subsequently has again declined over the last week History of unprovoked DVT Continued on apixaban 2.5 mg twice daily Hypothyroidism: Synthroid DVT prophylaxis: On apixaban Diet: Fluid restrict, low-salt CODE STATUS: DNR/DNI. Goals of care were discussed with patient and family at bedside, patient was somnolent and participated intermittently with conversation. Patient has reported that she felt very tired and has not wanted further aggressive interventions should they be needed. Family expresses concern that her recent course at LTAC involving tracheostomy, prolonged recovery, and significant weakness with PEG tube required was more than the patient wanted even at that point in hindsight, patient assents to this. Discussed that her current presentation is likely from acute on chronic fluid overload and additional confusion/weakness can be worsened with hyponatremia. There is and that this is generally reversible/treatable, although her long-term prognosis is poor given her severely reduced EF. Failure stenosis, and would like to continue medical treatments, but no if she were to significantly worsen or invasive procedures were to be required again for her care then they would want to have a family discussion at that time and would potentially consider more comfort oriented goals. They are interested in meeting with palliative services in the future, case management consulted to help facilitate this. (2) Iron deficiency anemia: (3) CAD (coronary artery disease), [place] coronary artery: (4) Hypertension: (5) Chronic systolic CHF (congestive heart failure): (6) S/P ICD (internal cardiac defibrillator) procedure: (7) Symptomatic anemia: History of Present Illness Primary Care Provider: Isaias Jolly MD Per Family: IMproving up until ~ week ago Tx 3 days UTI last week Sleeping, tired, nausea, poor PO intake. No nausea No bleeding No chest pain, no chest pressure, no SoB Had not had oxygen until yesterday Was treated for high K with 1.5L NSS fluid +cough, no production. Reports was very thirsty and was drinking water last week. ~5 months ago was with iron deficiency. Hx anemia, no active bleeding during hospitalization from GI, did have bleeding from aneurysm as noted. No melena. Has not had GI followup/scope. No leg swelling TX at age 55. ICD placed at [facility]. Per family was placed due to low qt. Not sure about EF, was low during 03/2022-05/2022 events. "heart has never been normal". Massive TX at age 55, 2x stents. Taken off aspirin, switched to apixaban. Medical History: Reviewed Medications: Reviewed Surgical History: Reviewed Allergies: Reviewed Social History: Past hx tobacco use, quit age 55. Code Status: DNR/DNi, confirmed w pt and family Per Independent Records Review: Recently seen at [facility] after being transferred from [facility] on 03/30/22 for subarachnoid hemorrhage. Initially presented with nausea/vomiting/seizure. At [facility] was treated 03/31/2022 with coil embolization of 14 x 10 x 11 mm aneurysm which had ruptured at the basilar junction During her [facility] admission she clinically declined lethargy and right-sided weakness with left-sided involuntary flexion, CT showed increased hydrocephalus which was subsequently drained. Patient was treated with nimodipine for vasospasm. Waxing waning delirium subsequently. Patient underwent tracheostomy 04/15/2022, she was transferred to [facility] on 04/18/2022. EF 04/02/2022 35% with large LAD infarct grade 2 diastolic dysfunction. She remained at [place] for 54 days and had a PEG tube placed 05/03/2022. She was gradually weaned from oxygen, tracheostomy was decannulated 06/05/2022. Repeat CThead 05/13/2022 stable. Keppra was discontinued. Demoted pain was continued for 21 days then discontinued. Patient had blood cultures which were positive for Pseudomonas, completed a course of cefepime on 04/24/2022. On [facility] evaluation patient is diet was level 5 minced and moist, mildly thick liquids, and able to take pills. Receiving tube feeds at night On encompass intake creatinine 0.7, sodium 131, potassium 4.3, WBC stable, hemoglobin 10.2. Oriented to person and year only on intake assessment. Presented to [facility] with a sodium of 122, increasing lethargy, diffuse pain, and concerns of confusion. Per EMS report patient has had 12 pounds of weight gain in the preceding few weeks. Was recently treated for UTI with Rocephin. WBC: normal Hgb: 7.8 on admit, last 11.4 03/30/22 CT-H: No significant change compared to the prior study. No acute intracranial abnormality. The paranasal sinuses are clear. Trace mastoid effusions remain unchanged. Metallic artifact from the embolization coils anterior to the medulla. The calvarium and skull base are intact. There is motion artifact. Atrophy and microvascular ischemic changes are again noted. There is no mass, hematoma, midline shift, acute infarct. CT-A/P: 1. Increase in size in the moderate right and small left pleural effusions with associated lower lobe consolidation. This favors compressive atelectasis from the pleural effusions. A pneumonia could also have a similar appearance. 2. Interval progression of the moderate body wall edema. 3. Small amount of ascites, unchanged. 4. No definite bowel wall thickening or obs truction. 5. Moderate fecal retention.6. The gastrostomy tube appears in good position.7. Bladder wall thickening which may be chronic. Recommend correlation with urinalysis.8. Interval improvement/resolution of the gallbladder wall thickening. CXR: 1. Cardiomegaly with improvement in the mild asymmetric pulmonary edema. 2. Bilateral pleural effusions and bibasilar densities persist. Allergies Allergy/AdvReac Type Severity Reaction Status Date / Time simvastatin Allergy Severe Rash Verified 07/05/22 14:57 Ohsdleg-RRE-AfT Reductase Allergy Severe Rash Verified 07/05/22 14:57 Inhibitor Home Medications Medication Instructions Recorded Confirmed Type apixaban 2.5 mg tablet (Eliquis) 2.5 mg PO BID #180 tabs 01/23/21 03/30/22 Rx acetaminophen 325 mg tablet 650 mg PO Q4H PRN FEVER/PAIN 07/05/22 07/05/22 History (Tylenol) bisacodyl 10 mg rectal suppository 10 mg FL DAILY PRN Constipation 07/05/22 07/05/22 History ceftriaxone 2 gram intravenous 2 g IV Q24H 07/05/22 07/05/22 History solution docusate sodium 100 mg capsule 100 mg PO DAILY 07/05/22 07/05/22 History levothyroxine 88 mcg tablet 88 mcg PO DAILYBB 07/05/22 07/05/22 History lidocaine 5 % topical patch 1 patch topical DAILY 07/05/22 07/05/22 History loratadine 10 mg tablet (Claritin) 10 mg PO DAILY 07/05/22 07/05/22 History magnesium hydroxide 400 mg/5 mL 30 ml PO DAILY PRN Constipation 07/05/22 07/05/22 History oral suspension (Milk of Magnesia) omeprazole 20 mg capsule,delayed 20 mg PO DAILY 07/05/22 07/05/22 History release polyethylene glycol 3350 17 17 g PO DAILY 07/05/22 07/05/22 History gram/dose oral powder (Miralax) polyethylene glycol 3350 17 17 g PO QDL PRN Constipation 07/05/22 07/05/22 History gram/dose oral powder (Miralax) sennosides 8.6 mg tablet (senna) 8.6 mg PO DAILY 07/05/22 07/05/22 History sennosides 8.6 mg-docusate sodium 1 tab-cap PO QDL PRN Constipation 07/05/22 07/05/22 History 50 mg tablet (Senokot-S) sodium chloride 0.9 % (flush) 5 ml IV Q8H 07/05/22 07/05/22 History trospium 20 mg tablet 20 mg PO Q48H 07/05/22 07/05/22 History Past Med/Surg History Medical History CAD (coronary artery disease), [place] coronary artery Non-obstructive Chronic systolic CHF (congestive heart failure) DVT (deep venous thrombosis) Several years ago (groin region) > then needed stents History of myocardial infarction Several years ago Hyperlipidemia LDL goal <70 Hypertension Hypothyroidism (acquired) ICD (implantable cardioverter-defibrillator) battery depletion Implanted 2012 (ICD generator change 03/2020), [employer], last check 10/27/20 (per [facility] cardiology note) Ischemic cardiomyopathy Peripheral arterial occlusive disease Prolonged QT syndrome Pulmonary hypertension Severe pulmonary hypertension. Estimated RVSP 64 mmHg. 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 Oriented to name/year but not to place. HEENT: Atraumatic, normocephalic. Pulm: Bibasilar crackles, diminished in the bases. No wheezing. Cardiac: RRR, JVD about 2 cm above the clavicle with HJR is present Abdominal: Nontender, nondistended, soft. BS present. Extremities: Warm, dry. No lower extremity pitting edema is present. Strength testing limited by patient engagement, does endorse that she can feel soft touch in the hands and feet bilaterally. Results & Data Results & Data ([facility]) Vital Signs (Past 12 Hours) Vital Signs Temp Pulse Resp BP Pulse Ox O2 Del Method O2 Flow Rate 07/05/22 14:05 Room Air 07/05/22 13:04 91 Nasal Cannula 1.5 07/05/22 13:04 37.6 C H 105 H 18 162/86 H 91 Nasal Cannula 1.5 PG Care Time/CCT Total # of Minutes Spent Total Time Spent with Patient: Total time spent is greater than 50% in coordination of care (as documented) at patient's floor/unit and/or counseling patient: Coding Level of Care Code 61430 INT INP/OBS CARE 3/75MIN Diagnoses CHF (congestive heart failure) I50.9 Iron deficiency anemia D50.9 CAD (coronary artery disease), [place] coronary artery I25.10 Hypertension I10 Chronic systolic CHF (congestive heart failure) I50.22 S/P ICD (internal cardiac defibrillator) procedure Z95.810 Symptomatic anemia D64.9
[2022-07-05 15:26] LABS: Influenza A virus by PCR Negative (Neg); Influenza B virus by PCR Negative (Neg); RSV by PCR Negative (Neg); SARS CoV2 RNA(COVID-19) Ceph NEGATIVE (Negative)
--- NOTE | 2022-07-05 16:16 | XCELERA ---
[id number]
--- NOTE | 2022-07-05 16:21 | Electrocardiogram Report ---
Test Reason : Blood Pressure : / mmHG Vent. Rate : 060 BPM Atrial Rate : 060 BPM P-R Int : 186 ms QRS Dur : 096 ms QT Int : 488 ms P-R-T Axes : 000 -40 262 degrees QTc Int : 488 ms Poor data quality, interpretation may be adversely affected Atrial-paced rhythm Left axis deviation Moderate voltage criteria for LVH, may be normal variant Nonspecific ST and T wave abnormality Prolonged QT Abnormal ECG When compared with ECG of 30-MAR-2022 14:06, Electronic atrial pacemaker has replaced Sinus rhythm Vent. rate has decreased BY [address] now depressed in Inferior leads T wave inversion now evident in Inferior leads Confirmed by Isaias Peng ([id number]) on 07/05/2022 4:20:55 PM Referred By: [facility] Confirmed By:Isaias Peng
[2022-07-05 20:08] LABS: Appearance Urine Clear (Clear); Bilirubin Urine Negative (Negative); Blood Urine Negative (Negative); Color Urine Yellow; Glucose Urine UA Negative (Negative); Ketones Urine Negative (Negative); Leukocyte Esterase Urine Negative (Negative); Nitrite Urine Negative (Negative); Protein Urine Negative (Negative); Specific Gravity Urine 1.011 (1.000-1.030); Urobilinogen Urine Negative (Negative); pH Urine 6.5 (4.5-7.5)
[2022-07-05 20:18] LABS: BUN Creatinine Ratio 40.7 (10-20); Calcium 8.9 mg/dl (8.5-10.1); Creatinine Clr Calc Pharmacy 56.4 ml/min; Est GFR (African American) 99.6 ml/min; Potassium 4.1 mmol/L (3.5-5.1)
[2022-07-05 20:30] LABS: Troponin I High Sensitivity 105.4 pg/ml (0-14)
[2022-07-05 20:48] LABS: Urine Potassium 40.5 mmol/L
[2022-07-05] MEDS: APIXABAN 2.5 MG TAB PO SCH (21:12)
[2022-07-06 00:37] LABS: BUN Creatinine Ratio 37.5 (10-20); Calcium 9.1 mg/dl (8.5-10.1); Est GFR (Non-African American) 83.7 ml/min; Potassium 4.1 mmol/L (3.5-5.1)
[2022-07-06] MEDS: CEFEPIME 2,000 MG in SYRINGE 0 ML IV SCH ×3 (01:03→14:49)
[2022-07-06 02:04] LABS: BUN Creatinine Ratio 35.8 (10-20); Calcium 8.7 mg/dl (8.5-10.1); Creatinine Clr Calc Pharmacy 49.7 ml/min; Est GFR (African American) 95.5 ml/min; Est GFR (Non-African American) 82.4 ml/min; Potassium 3.9 mmol/L (3.5-5.1)
[2022-07-06] MEDS: LEVOTHYROXINE SODIUM 88 MCG TABLET PO SCH (05:45)
[2022-07-06 07:07] LABS: Troponin I High Sensitivity 96.8 pg/ml (0-14)
[2022-07-06 07:17] LABS: Calcium 9.3 mg/dl (8.5-10.1)
[2022-07-06 07:22] LABS: BUN Creatinine Ratio 35.3 (10-20); Est GFR (African American) 95.1 ml/min
--- NOTE | 2022-07-06 08:09 | Hospitalist Progress Note ---
Date of Service July 06, 2022 Assessment & Plan (1) CHF (congestive heart failure): Plan: Hyponatremia, acute on cohronic uncontrolled severe risk -hypervolemic hyponatremia increased risk complicated by history of atrophic left kidney and ALFA more likely SIADH, with reduced osmolalities given diuretics in ER ordered hypertonic saline x 100ml and repeat Acute congestive heart failure, HFrEF worrisome with hyponatremia and volume overload Outpatient meds include metoprolol 12.5 mg twice daily, lisinopril daily, Lasix 40 mg twice daily with follow the heart failure program stat echo was obtained. admitting physicain reviewed at bedside with cardionusrat rivas, her EF appears around 30% similar to slightly worse than prior but not suggestive of a new LA given persistent hyponatremia and appearing euvolemic will hold lasix at this time as we are fluid restricting Acute on chronic anemia dilutional vs anemia or chronic disease We will continue apixaban for DVT prophylaxis this time check iron tibc b12 folate Acute hypoxic respiratory failure acute with significant risk secondary to acute HFrEf and pleural effusions, improved now down to 2 L nc History of ICD placement chronic Patient with history of long QT syndrome, sudden cardiac arrest, and a prior EF of 35% Patient has had an ICD in place which she is [facility] by [facility] as an outpatient chronic history of subarachnoid hemorrhage, hypoxic respiratory failure requiring tracheostomy Patient with subarachnoid hemorrhage 2/2 aneurysm rupture and coil embolization of left vertebral aneurysm completed 03/31/2022. Complicated course including hydrocephalus which improved with EVD. Patient completed a course of Keppra, nimodidine x21 days, and was cared for at an LTAC before being transferred to [facility] for strengthening after she clinically improved and was able to have tracheostomy decannulated 06/15/2022. 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 Patient subsequently has again declined over the last week History of unprovoked DVT Continued on apixaban 2.5 mg twice daily Hypothyroidism: Synthroid DVT prophylaxis: On apixaban Diet: Fluid restrict, low-salt CODE STATUS: DNR/DNI. Goals of care were discussed with patient and family at bedside, patient was somnolent and participated intermittently with conversation. Patient has reported that she felt very tired and has not wanted further aggressive interventions should they be needed. Family expresses concern that her recent course at LTAC involving tracheostomy, prolonged recovery, and significant weakness with PEG tube required was more than the patient wanted even at that point in hindsight, patient assents to this. Discussed that her current presentation is likely from acute on chronic fluid overload and additional confusion/weakness can be worsened with hyponatremia. Although the patient has potentially reversible conditions at this time the patient's recent medical journey has been more strenuous than than anticipated and if the patient were decline the family requested a family discussion at that time and would potentially consider more comfort oriented goals. They are interested in meeting with palliative services in the future, case management consulted to help facilitate this. (2) Iron deficiency anemia: (3) CAD (coronary artery disease), [place] coronary artery: (4) Hypertension: (5) Chronic systolic CHF (congestive heart failure): (6) S/P ICD (internal cardiac defibrillator) procedure: (7) Symptomatic anemia: Admission and Anticipated Discharge Date Admission Date: July 05, 2022 Subjective pt is responds to voice but does not open eyes easily falls asleep Physical Exam Physical Exam: pt is in no distress but is not responding very well, she has clear lungs but limited, cardiac is regular with no murmurs Results & Data Results & Data ([facility]) Vital Signs (Past 12 Hours) Vital Signs Temp Pulse Pulse Resp BP Pulse Ox O2 Del Method 07/06/22 07:12 97.5 F L 66 17 133/79 97 Nasal Cannula 07/06/22 03:00 97.5 F L 58 L 18 132/84 98 Nasal Cannula 07/05/22 23:00 97.7 F 60 16 132/72 92 Nasal Cannula 07/05/22 22:57 61 O2 Flow Rate 07/06/22 07:12 2.5 07/06/22 03:00 2 07/05/22 23:00 1.5 07/05/22 22:57 Diagnostic Findings reviewed cbc reviewed chemistry reviewed troponin ordered urine culture PG Care Time/CCT Total # of Minutes Spent Total Time Spent with Patient: Total time spent is greater than 50% in coordination of care (as documented) at patient's floor/unit and/or counseling patient: Coding Level of Care Code 20196 SUB INP/OBS CARE 3/50MIN Diagnoses CHF (congestive heart failure) I50.9 Iron deficiency anemia D50.9 CAD (coronary artery disease), [place] coronary artery I25.10 Hypertension I10 Chronic systolic CHF (congestive heart failure) I50.22 S/P ICD (internal cardiac defibrillator) procedure Z95.810 Symptomatic anemia D64.9
[2022-07-06] MEDS: APIXABAN 2.5 MG TAB PO SCH ×2 (08:42→21:45)
[2022-07-06] MEDS ORDERED: FUROSEMIDE 40 MG/4 ML VIAL IV SCH (09:00)
[2022-07-06 09:17] LABS: Albumin Globulin Ratio 1.2 (0.9-2); Albumin Level 3.3 gm/dl (3.4-5.0); BUN Creatinine Ratio 36.8 (10-20); Bilirubin,Total 0.7 mg/dl (0.2-1.0); Calcium 9.2 mg/dl (8.5-10.1); Est GFR (African American) 95.1 ml/min; Globulin 2.7 gm/dl (2.5-4.0); Potassium 3.7 mmol/L (3.5-5.1)
[2022-07-06] MEDS: PANTOprazole 40 MG in SYRINGE 0 ML IV SCH (10:20)
[2022-07-06] MEDS ORDERED: STAT IV STA (15:41)
[2022-07-06] MEDS ORDERED: SODIUM CHLORIDE 3 % 100 ML IV ONE (15:41)
[2022-07-06 22:36] LABS: BUN Creatinine Ratio 32.8 (10-20); Creatinine Clr Calc Pharmacy 57.4 ml/min; Est GFR (African American) 100.2 ml/min; Est GFR (Non-African American) 86.4 ml/min; Potassium 3.9 mmol/L (3.5-5.1)
[2022-07-06] MEDS ORDERED: MELATONIN 3 MG TAB PO ONE (22:58)
[2022-07-06] MEDS: MELATONIN 3 MG TAB PO PRN (22:59)
[2022-07-07] MEDS: CEFEPIME 2,000 MG in SYRINGE 0 ML IV SCH ×2 (02:04→15:46)
[2022-07-07] MEDS: LEVOTHYROXINE SODIUM 88 MCG TABLET PO SCH (05:37)
[2022-07-07] MEDS ORDERED: ACETAMINOPHEN 325 MG TAB ONE (05:59)
[2022-07-07] MEDS: ACETAMINOPHEN 325 MG TAB PO PRN ×2 (06:01→12:28)
[2022-07-07 06:51] LABS: BUN Creatinine Ratio 32.8 (10-20); Calcium 9.3 mg/dl (8.5-10.1); Est GFR (Non-African American) 83.7 ml/min; Potassium 3.9 mmol/L (3.5-5.1)
[2022-07-07] MEDS: APIXABAN 2.5 MG TAB PO SCH ×2 (08:09→19:34)
[2022-07-07] MEDS: PANTOprazole 40 MG in SYRINGE 0 ML IV SCH (10:33)
[2022-07-07] MEDS ORDERED: STAT IV STA (12:12)
--- NOTE | 2022-07-07 12:24 | Hospitalist Progress Note ---
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, with reduced osmolalities additional hypertonic saline ordered 07/07/22 Acute congestive heart failure, HFrEF worrisome with hyponatremia and volume overload, initially treated with lasix, now volume overload is resolved Outpatient meds include metoprolol 12.5 mg twice daily, lisinopril daily hold lasix at this time as we are fluid restricting Acute on chronic anemia, moderate risk but stable iron deficiency anemia plus anemia or chronic disease We will continue apixaban for DVT prophylaxis this time no concern for blood loss anemia low iron tibc will give doses of venofer 07/07/22 Acute hypoxic respiratory failure acute now resolved secondary to acute HFrEf and pleural effusions, improved now down to 2 L nc History of ICD placement chronic Patient with history of long QT syndrome, sudden cardiac arrest, and a prior EF of 35% Patient has had an ICD in place which she is followed by [facility] as an outpatient chronic history of subarachnoid hemorrhage, hypoxic respiratory failure requiring tracheostomy, stable Patient with subarachnoid hemorrhage 2/2 aneurysm rupture and coil embolization of left vertebral aneurysm completed 03/31/2022. Complicated course including hydrocephalus which improved with EVD. Patient completed a course of Keppra, nimodidine x21 days, and was cared for at an LTAC before being transferred to [facility] for strengthening after she clinically improved and was able to have tracheostomy decannulated 06/15/2022. 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 Patient subsequently has again declined over the last week History of unprovoked DVT, chronic and stable Continued on apixaban 2.5 mg twice daily Hypothyroidism: Synthroid DVT prophylaxis: On apixaban Diet: Fluid restrict, low-salt CODE STATUS: DNR/DNI. Goals of care were discussed with patient and family at bedside, patient was somnolent and participated intermittently with conversation. Patient has reported that she felt very tired and has not wanted further aggressive interventions should they be needed. Family expresses concern that her recent course at LTAC involving tracheostomy, prolonged recovery, and significant weakness with PEG tube required was more than the patient wanted even at that point in hindsight, patient assents to this. Discussed that her current presentation is likely from acute on chronic fluid overload and additional confusion/weakness can be worsened with hyponatremia. Although the patient has potentially reversible conditions at this time the patient's recent medical journey has been more strenuous than than anticipated and if the patient were decline the family requested a family discussion at that time and would potentially consider more comfort oriented goals. They are interested in meeting with palliative services in the future, case management consulted to help facilitate this. (2) Iron deficiency anemia: (3) CAD (coronary artery disease), [place] coronary artery: (4) Hypertension: (5) Chronic systolic CHF (congestive heart failure): (6) S/P ICD (internal cardiac defibrillator) procedure: (7) Symptomatic anemia: Admission and Anticipated Discharge Date Admission Date: July 05, 2022 Subjective pt is awake and able to speak, not oriented, states she is in pain all over no other focal issues does not seem to be clinically in heart failure Physical Exam Physical Exam: Patient is awake she is oriented to person only she thinks she is in [place] she complains of pain all over mostly musculoskeletal in her back she denies being short of breath or having chest discomfort Results & Data Results & Data ([facility]) Vital Signs (Past 12 Hours) Vital Signs Temp Pulse Pulse Resp BP Pulse Ox O2 Del Method 07/07/22 11:49 98.1 F 62 16 163/74 H 94 Nasal Cannula 07/07/22 10:26 63 07/07/22 08:00 Nasal Cannula 07/07/22 07:21 97.5 F L 60 18 146/76 H 98 Room Air 07/07/22 03:28 98.2 F 60 18 127/74 92 Nasal Cannula O2 Flow Rate 07/07/22 11:49 2 07/07/22 10:26 07/07/22 08:00 1 07/07/22 07:21 2 07/07/22 03:28 Laboratory Results Reviewed chemistry Markedly iron deficient PG Care Time/CCT Total # of Minutes Spent Total Time Spent with Patient: Total time spent is greater than 50% in coordination of care (as documented) at patient's floor/unit and/or counseling patient: Coding Level of Care Code 08610 SUB INP/OBS CARE 50MIN Diagnoses CHF (congestive heart failure) I50.9 Iron deficiency anemia D50.9 CAD (coronary artery disease), [place] coronary artery I25.10 Hypertension I10 Chronic systolic CHF (congestive heart failure) I50.22 S/P ICD (internal cardiac defibrillator) procedure Z95.810 Symptomatic anemia D64.9
[2022-07-07] MEDS ORDERED: traMADol HCL 50 MG TABLET PO PRN (12:26)
[2022-07-07] MEDS ORDERED: SODIUM CHLORIDE 3 % 100 ML IV ONE (12:30)
[2022-07-07] MEDS: IRON SUCROSE 200 MG in 0.9 % SODIUM CHLORIDE 100 ML IV SCH (13:39)
[2022-07-07 16:40] LABS: C Reactive Protein 1.98 mg/dl (0-0.5); Prealbumin 9.2 mg/dl (20-40)
--- NOTE | 2022-07-07 20:12 | XRay Report ---
KUB CLINICAL HISTORY: Assess gastrostomy tube placement. FINDINGS: 2 AP portable portable, supine abdominal radiographs are correlated with abdominal CT dated 07/05/2022. A gastrostomy tube projects over the left midabdomen. No bowel obstruction is seen. No cy dence of intraperitoneal free air is seen on these supine images. Moderate fecal retention is noted t hroughout the colon. 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 Ph leboliths are seen in the pelvis. There is advanced atherosclerotic calcification of the abdominal ao rta. A stent is noted in the right iliac artery. The skeletal structures are osteopenic and appear in tact. There is moderate lumbosacral spondylosis. Cardiomegaly and AICD leads are seen in lower chest. There are bilateral pleural effusions with associated consolidation. IMPRESSION: 1. The gastrostomy tube projects over the left mid abdomen. 2. There is no radiographic evidence of bowel obstruction. 3. Layering pleural effusions and bibasilar consolidation. Electronically signed by: Anthony Bolanos M.D. 07/07/2022 8:09 PM
[2022-07-07] MEDS: FIBERSOURCE HN 1.2 CAL 1000 ML BAG GT SCH (23:38)
[2022-07-07] MEDS: MELATONIN 3 MG TAB PO PRN (23:45)
[2022-07-08] MEDS: LEVOTHYROXINE SODIUM 88 MCG TABLET PO SCH (05:50)
[2022-07-08] MEDS: [UNRECOGNIZED DRUG - REMARK] SCH (05:51)
[2022-07-08] MEDS: APIXABAN 2.5 MG TAB PO SCH ×2 (09:08→19:30)
[2022-07-08] MEDS: IRON SUCROSE 200 MG in 0.9 % SODIUM CHLORIDE 100 ML IV SCH (09:08)
[2022-07-08] MEDS: PANTOprazole 40 MG in SYRINGE 0 ML IV SCH (09:08)
[2022-07-08 10:03] LABS: BUN Creatinine Ratio 33.8 (10-20); Calcium 9.5 mg/dl (8.5-10.1); Creatinine Clr Calc Pharmacy 51.2 ml/min; Est GFR (African American) 96.5 ml/min; Est GFR (Non-African American) 83.3 ml/min; Potassium 4.1 mmol/L (3.5-5.1)
--- NOTE | 2022-07-08 10:52 | Nephrology Consultation ---
Date of Consultation July 08, 2022 Assessment & Plan (1) Hyponatremia: * Acute on chronic hyponatremia. Serum sodium has been 128 mmol/L dating back to 2017 in EMR * Current hospitalization reveals acute on chronic hypoosmolar hyponatremia * Clinical evidence of CHF w/ low LVEF, pulmonary HTN, tricuspid regurgitation, bilateral pleural effusions w/ compressive atelectasis and abdominal ascites on physical exam * Elevated Uosm suggestive of appropriate ADH effect related to impaired renal perfusion * Management should focus on volume unloading, afterload reduction and improving cardiac function * Will provide low dose Furosemide * Avoid LENO inhibitor due to solitary functioning kidney and underlying vascular disease * Will provide low dose Hydralazine for afterload reduction * Could consider Dobutamine therapy to improve LVEF, however this would only be a temporizing measure * Hyponatremia in the setting of CHF portends a poor prognosis. Consider consultation w/ Palliative Care * Monitor PRP, UO History of Present Illness Reason for Consultation: Hyponatremia Attending Physician: Xu Newell MD History of Present Illness Ms. Abdul is an 81 year old white female who is seen at the request of Dr. Newell for evaluation of hyponatremia. The patient is somnolent and unable to provide information for her history. Medical history is obtained from the EMR and is summarized as follows: Ms. Abdul has chronic hyponatremia w/ serum sodium 128 mmol/L dating back to at least 2016. Her medical history is significant for CHF and she has an AICD in place. Echocardiogram this hospitalization revealed LVEF 25 - 30%. Ms. Abdul's medical history is also significant for arterial HTN, severe pulmonary HTN, moderate to severe TR, ASCVD s/p stent x2, PAD and hypothyroidism. In 03/23 Ms. Abdul suffered a subarachnoid hemorrhage requiring transfer to [facility] for coil emboilzation of a cerebral aneurysm. Her hospitalization was prolonged and required tracheostomy and PEG tube placement. Ms. Abdul was transferred to [facility] 06/11/22 for physical therapy. Intake note indicates that patient was weak with waxing/waning mental status. Her serum sodium was 131 mmol/L. On 07/05/22 Ms. Abdul was transported to [facility] for evaluation of FTT and hyponatremia. Serum sodium was 122 at the time of admission and this has improved to 128 mmol/L following 3% NaCl therapy. Evaluation has revealed atrophic, nonfunctional L kidney, abdominal ascites, bilateral pleural effusions w/ compressive atalect asis of both lower lobes. Echocardiogram confirmed LVEF 25 - 30%. Uosm 351. Allergies Allergy/AdvReac Type Severity Reaction Status Date / Time simvastatin Allergy Severe Rash Verified 07/05/22 14:57 Docemoe-WEB-SvA Reductase Allergy Severe Rash Verified 07/05/22 14:57 Inhibitor Home Medications Medication Instructions Recorded Confirmed Type apixaban 2.5 mg tablet (Eliquis) 2.5 mg PO BID #180 tabs 01/23/21 07/05/22 Rx acetaminophen 325 mg tablet 650 mg PO Q4H PRN FEVER/PAIN 07/05/22 07/05/22 History (Tylenol) bisacodyl 10 mg rectal suppository 10 mg CA DAILY PRN Constipation 07/05/22 07/05/22 History ceftriaxone 2 gram intravenous 2 g IV Q24H 07/05/22 07/05/22 History solution docusate sodium 100 mg capsule 100 mg PO DAILY 07/05/22 07/05/22 History levothyroxine 88 mcg tablet 88 mcg PO DAILYBB 07/05/22 07/05/22 History lidocaine 5 % topical patch 1 patch topical DAILY 07/05/22 07/05/22 History loratadine 10 mg tablet (Claritin) 10 mg PO DAILY 07/05/22 07/05/22 History magnesium hydroxide 400 mg/5 mL 30 ml PO DAILY PRN Constipation 07/05/22 07/05/22 History oral suspension (Milk of Magnesia) omeprazole 20 mg capsule,delayed 20 mg PO DAILY 07/05/22 07/05/22 History release polyethylene glycol 3350 17 17 g PO DAILY 07/05/22 07/05/22 History gram/dose oral powder (Miralax) polyethylene glycol 3350 17 17 g PO QDL PRN Constipation 07/05/22 07/05/22 History gram/dose oral powder (Miralax) sennosides 8.6 mg tablet (senna) 8.6 mg PO DAILY 07/05/22 07/05/22 History sennosides 8.6 mg-docusate sodium 1 tab-cap PO QDL PRN Constipation 07/05/22 07/05/22 History 50 mg tablet (Senokot-S) sodium chloride 0.9 % (flush) 5 ml IV Q8H 07/05/22 07/05/22 History trospium 20 mg tablet 20 mg PO Q48H 07/05/22 07/05/22 History Patient History Medical History CAD (coronary artery disease), [place] coronary artery Non-obstructive Chronic systolic CHF (congestive heart failure) DVT (deep venous thrombosis) Several years ago (groin region) > then needed stents History of myocardial infarction Several years ago Hyperlipidemia LDL goal <70 Hypertension Hypothyroidism (acquired) ICD (implantable cardioverter-defibrillator) battery depletion Implanted 2012 (ICD generator change 03/2020), [employer], last check 10/27/20 (per [facility] cardiology note) Ischemic cardiomyopathy Peripheral arterial occlusive disease Prolonged QT syndrome Pulmonary hypertension Severe pulmonary hypertension. Estimated RVSP 64 mmHg. 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 Beliefs That Will Affect Care: None marital status: / Current Living Situation: Rehab Current Living Situation Comment: Apartment How many Children do You have: 6 Feels Safe at Home: Yes Safety Concerns: Feels Safe At This Time Assistive Devices: Walker and Wheelchair Review of Systems Review of Systems: Unobtainable due to reduced consciousness Physical Exam Constitutional: + frail appearing; not in distress Eyes: PERRL ENMT: external ear and nose normal, oropharynx normal Neck: trachea midline, no thyromegaly Respiratory: normal respiratory effort, lungs clear to auscultation Cardiovascular: Rate/Rhythm: + bradycardic Vessels: + JVD Extremities: no edema Gastrointestinal (Abdomen): Inspection/Auscultation: + hypoactive bowel sounds Skin: + turgor decreased Neurologic: + obtunded Results & Data ([facility]) Vital Signs (Past 12 Hours) Vital Signs Temp Pulse Resp BP Pulse Ox O2 Del Method O2 Flow Rate 07/08/22 08:00 Nasal Cannula 2 07/08/22 08:16 36.8 C 60 18 149/80 H 93 Nasal Cannula 2.0 07/08/22 04:00 36.8 C 61 16 162/80 H 98 Nasal Cannula 1.5 07/07/22 23:55 Nasal Cannula 3 07/07/22 23:10 37.1 C 60 16 138/75 92 Nasal Cannula 3 Laboratory Results Laboratory Tests 04/28/17 06/20/17 08/27/18 10:45 05:52 11:45 Sodium 128 L 127 L 131 L Potassium Chloride Carbon Dioxide BUN Creatinine Osmolality Urine Osmolality Urine Sodium 02/16/20 09/02/20 03/30/22 22:05 20:35 13:51 Sodium 127 L 128 L 129 L Potassium Chloride Carbon Dioxide BUN Creatinine Osmolality Urine Osmolality Urine Sodium 07/05/22 07/05/22 07/05/22 13:32 19:45 19:45 Sodium Potassium Chloride Carbon Dioxide BUN Creatinine Osmolality 260 L Urine Osmolality 351 L Urine Sodium 70 07/08/22 06:54 Sodium 127 L Potassium 4.1 Chloride 93 L Carbon Dioxide 26 BUN 22 Creatinine 0.65 Osmolality Urine Osmolality Urine Sodium PG Care Time/CCT Total # of Minutes Spent Total Time Spent with Patient: Total time spent is greater than 50% in coordination of care (as documented) at patient's floor/unit and/or counseling patient: Coding Level of Care Code OFFICE CONSULT LVL 5, 55 MIN Diagnoses Hyponatremia E87.1
[2022-07-08] MEDS: hydrALAZINE 10 MG TAB PO SCH ×2 (11:37→19:30)
[2022-07-08] MEDS: FUROSEMIDE INJ 20 MG/2 ML VIAL IV SCH ×2 (11:37→16:25)
--- NOTE | 2022-07-08 15:19 | Hospitalist Progress Note ---
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, with reduced osmolalities nephrology recommends against restarting ACEs or ARB's of this patient Acute congestive heart failure now stabilized, HFrEF worrisome with hyponatremia and volume overload, initially treated with lasix, now volume overload is resolved Outpatient meds include metoprolol 12.5 mg twice daily, hydralazine for afterload reduction reaching her dry weight Lasix restarted at low-dose 07/08/22 Acute on chronic anemia, moderate risk but stable iron deficiency anemia plus anemia or chronic disease We will continue apixaban for DVT prophylaxis this time no concern for blood loss anemia low iron tibc will give doses of venofer 07/07/22 Acute hypoxic respiratory failure acute now resolved secondary to acute HFrEf and pleural effusions, improved now down to 2 L nc History of ICD placement chronic Patient with history of long QT syndrome, sudden cardiac arrest, and a prior EF of 35% Patient has had an ICD in place which she is followed by [facility] as an outpatient chronic history of subarachnoid hemorrhage, hypoxic respiratory failure requiring tracheostomy, stable Patient with subarachnoid hemorrhage 2/2 aneurysm rupture and coil embolization of left vertebral aneurysm completed 03/31/2022. Complicated course including hydrocephalus which improved with EVD. Patient completed a course of Keppra, nimodidine x21 days, and was cared for at an LTAC before being transferred to [facility] for strengthening after she clinically improved and was able to have tracheostomy decannulated 06/15/2022. Dysphagia, required tube feels- chronic moderate risk with aspiration risk Nocturnal tube feeds, started on 07/07/2022. Minced and moist diet with thickened fluids [employer] on admission to [facility] By 07/01/2022 assessment patient had had significant advancement and swallowing ability, were discussing potential removal of PEG tube but this had not yet been done. Tube feeds augment oral intake as she has had waxing and waning alertness History of unprovoked DVT, chronic and stable Continued on apixaban 2.5 mg twice daily Hypothyroidism: Synthroid DVT prophylaxis: On apixaban Diet: Fluid restrict, low-salt CODE STATUS: DNR/DNI. Goals of care were discussed with the patient's daughter Alejandra. Once again they confirmed the fact that they were on expecting how serious and difficult her post stroke course would have been and if she continu es to decline they may wish to once again strongly consider palliative care. However at this point she has had some episodes of improvement there supportive of full care at this time to see how she does. (2) Iron deficiency anemia: (3) CAD (coronary artery disease), [place] coronary artery: (4) Hypertension: (5) Chronic systolic CHF (congestive heart failure): (6) S/P ICD (internal cardiac defibrillator) procedure: (7) Symptomatic anemia: Admission and Anticipated Discharge Date Admission Date: July 05, 2022 Subjective pt is awake and able to speak, not oriented, states she is in pain all over no other focal issues patient has reached her dry weight sodium is improving Physical Exam Physical Exam: Patient is awake she is oriented to person she waxes and wanes throughout the morning complaining of additional pain appears to be in no significant distress tolerated nocturnal feedings last evening 07/08/2022 Results & Data Results & Data ([facility]) Vital Signs (Past 12 Hours) Vital Signs Temp Pulse Resp BP Pulse Ox O2 Del Method O2 Flow Rate 07/08/22 12:22 98.4 F 61 17 155/76 H 100 Nasal Cannula 1.5 07/08/22 08:00 Nasal Cannula 2 07/08/22 08:16 98.2 F 60 18 149/80 H 93 Nasal Cannula 2.0 07/08/22 04:00 98.2 F 61 16 162/80 H 98 Nasal Cannula 1.5 Laboratory Results Reviewed chemistry profile sodium improving Check CBC on 07/09 to survey iron deficiency anemia PG Care Time/CCT Total # of Minutes Spent Total Time Spent with Patient: Total time spent is greater than 50% in coordination of care (as documented) at patient's floor/unit and/or counseling patient: Coding Level of Care Code 91266 SUB INP/OBS CARE 3/50MIN Diagnoses CHF (congestive heart failure) I50.9 Iron deficiency anemia D50.9 CAD (coronary artery disease), [place] coronary artery I25.10 Hypertension I10 Chronic systolic CHF (congestive heart failure) I50.22 S/P ICD (internal cardiac defibrillator) procedure Z95.810 Symptomatic anemia D64.9
[2022-07-08] MEDS: FIBERSOURCE HN 1.2 CAL 1000 ML BAG GT SCH (23:17)
[2022-07-09] MEDS: LEVOTHYROXINE SODIUM 88 MCG TABLET PO SCH (05:05)
[2022-07-09 07:01] LABS: Hematocrit (blood only) 24.4 % (37.0-47.0); Hemoglobin 7.5 g/dl (12.0-16.0); Mean Corpuscular Hemoglobin 23.2 pg (25.0-34.0); Mean Corpuscular Hgb Conc 30.7 g/dL (32.0-36.0); Mean Corpuscular Volume 75.5 fL (80.0-100.0); Mean Platelet Volume 9.5 fL (9.4-12.4); Nucleated RBC # (auto) 0.18 K/uL (0-0.12); Nucleated RBC % (auto) 2.4 %; Platelet Count 407 K/uL (130-400); RDW Coefficient of Variation 18.2 % (11.5-14.5); RDW Standard Deviation 48.8 fL (36.4-46.3); Red Blood Count 3.23 M/uL (4.20-5.40); White Blood Count 7.59 K/ul (4.8-10.8)
[2022-07-09] MEDS: [UNRECOGNIZED DRUG - REMARK] SCH (07:07)
[2022-07-09] MEDS: hydrALAZINE 10 MG TAB PO SCH ×2 (07:35→20:30)
[2022-07-09] MEDS: FUROSEMIDE INJ 20 MG/2 ML VIAL IV SCH ×2 (07:35→17:49)
[2022-07-09] MEDS: APIXABAN 2.5 MG TAB PO SCH ×2 (07:35→20:30)
[2022-07-09] MEDS: IRON SUCROSE 200 MG in 0.9 % SODIUM CHLORIDE 100 ML IV SCH (07:35)
[2022-07-09 08:23] LABS: BUN Creatinine Ratio 31.6 (10-20); Calcium 9.5 mg/dl (8.5-10.1); Creatinine Clr Calc Pharmacy 58.4 ml/min; Est GFR (African American) 100.8 ml/min; Est GFR (Non-African American) 86.9 ml/min
--- NOTE | 2022-07-09 08:52 | Nephrology Progress Note ---
Date of Service July 09, 2022 Assessment & Plan (1) Hyponatremia: Plan: * Serum sodium is mildly improved following loop diuretic and vasodilator therapy * Acute on chronic hyponatremia. Serum sodium has been 128 mmol/L dating back to 2017 in EMR * Current hospitalization reveals acute on chronic hypoosmolar hyponatremia * Clinical evidence of CHF w/ low LVEF, pulmonary HTN, tricuspid regurgitation, bilateral pleural effusions w/ compressive atelectasis and abdominal ascites on physical exam * Elevated Uosm suggestive of appropriate ADH effect related to impaired renal perfusion * Management should focus on volume unloading, afterload reduction and improving cardiac function * Continue Furosemide 20 mg IV BID * Avoid LENO inhibitor due to solitary functioning kidney and underlying vascular disease * Will provide low dose Hydralazine for afterload reduction * BP remains mildly elevated. Will add Spironolactone 25 mg po daily * Could consider Dobutamine therapy to improve LVEF, however this would only be a temporizing measure * Hyponatremia in the setting of CHF portends a poor prognosis. Consider consultation w/ Palliative Care * Monitor PRP, UO Admission and Anticipated Discharge Date Admission Date: July 05, 2022 Subjective Ms. Abdul was evaluated in her hospital room this morning. She was awake but moaning from discomfort. Review of Systems Review of Systems: Unobtainable due to reduced consciousness Physical Exam Constitutional: + frail appearing Eyes: PERRL ENMT: external ear and nose normal, oropharynx normal Neck: trachea midline, no thyromegaly Respiratory: normal respiratory effort, lungs clear to auscultation Cardiovascular: Rate/Rhythm: + bradycardic Vessels: + JVD Extremities: no edema Gastrointestinal (Abdomen): Inspection/Auscultation: + hypoactive bowel sounds Skin: + turgor decreased Neurologic: + obtunded Results & Data ([facility]) Vital Signs (Past 12 Hours) Vital Signs Temp Pulse Pulse Resp BP Pulse Ox O2 Del Method 07/09/22 07:00 36.6 C 71 16 158/66 H 97 Nasal Cannula 07/09/22 03:00 36.5 C 68 18 164/70 H 95 Nasal Cannula 07/08/22 23:45 69 07/08/22 23:00 36.4 C L 76 16 153/64 H 92 Nasal Cannula 07/08/22 21:08 Nasal Cannula O2 Flow Rate 07/09/22 07:00 2 02/07/23 03:00 2 07/08/22 23:45 07/08/22 23:00 1 07/08/22 21:08 3 Laboratory Results Laboratory Tests 07/07/22 07/09/22 07/09/22 06:02 06:31 06:31 WBC 7.59 Hgb 7.5 L Hct 24.4 L Plt Count 407 H Sodium 131 L Potassium 3.0 L D Chloride 92 L Carbon Dioxide 34 H BUN 18 Creatinine 0.57 L Glucose 126 H Transferrin % Sat 4 L Diagnostic Findings 07/05/22 CXR: No pneumothorax. The cardiac silhouette remains enlarged. Is left- sided pacemaker/defibrillator. The small to moderate right and small left pleural effusions persist. There is mild asymmetric pulmonary edema which has slightly improved. Patchy bibasilar densities persist. 07/05/22 Echocardiogram: LVEF 25 - 30%, moderate TR PG Care Time/CCT Total # of Minutes Spent Total Time Spent with Patient: Total time spent is greater than 50% in coordination of care (as documented) at patient's floor/unit and/or counseling patient: Coding Level of Care Code 83828 SUB INP/OBS CARE 3/50MIN Diagnoses Hyponatremia E87.1
[2022-07-09] MEDS: ACETAMINOPHEN 325 MG TAB PO PRN (08:59)
[2022-07-09] MEDS: SPIRONOLACTONE 25 MG TAB PO SCH (10:48)
[2022-07-09] MEDS: PANTOprazole 40 MG in SYRINGE 0 ML IV SCH (10:49)
[2022-07-09] MEDS: POTASSIUM CHLORIDE / WTR 10 MEQ/100 ML PLCT IV SCH ×5 (11:18→23:35)
--- NOTE | 2022-07-09 14:24 | Hospitalist Progress Note ---
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, with reduced osmolalities nephrology recommends against restarting ACEs or ARB's of this patient Acute congestive heart failure now stabilized, HFrEF worrisome with hyponatremia and volume overload, initially treated with lasix, now volume overload is resolved Outpatient meds include metoprolol 12.5 mg twice daily, hydralazine for afterload reduction reaching her dry weight Lasix restarted at low-dose continues good improvement of sodium Acute on chronic anemia, moderate risk but stable iron deficiency anemia plus anemia or chronic disease We will continue apixaban for DVT prophylaxis this time no concern for blood loss anemia low iron tibc will give doses of venofer 07/07/22 with low blood count may opt to transfuse but concerns for volume with EF of 20 to 25% Acute hypoxic respiratory failure acute now resolved secondary to acute HFrEf and pleural effusions, improved now down to 2 L nc History of ICD placement chronic Patient with history of long QT syndrome, sudden cardiac arrest, and a prior EF of 35% Patient has had an ICD in place which she is followed by [facility] as an outpatient chronic history of subarachnoid hemorrhage, hypoxic respiratory failure requiring tracheostomy, stable Patient with subarachnoid hemorrhage 2/2 aneurysm rupture and coil embolization of left vertebral aneurysm completed 03/31/2022. Complicated course including hydrocephalus which improved with EVD. Patient completed a course of Keppra, nimodidine x21 days, and was cared for at an LTAC before being transferred to [facility] for strengthening after she clinically improved and was able to have tracheostomy decannulated 06/15/2022. Dysphagia, required tube feels- chronic moderate risk with aspiration risk with low potassium concern for refeeding syndrome Nocturnal tube feeds, started on 07/07/2022. Augment potassium both parenterally orally with additional magnesium and surveillance of phosphorus Minced and moist diet with thickened fluids [employer] on admission to [facility] By 07/01/2022 assessment patient had had significant advancement and swallowing ability, were discussing potential removal of PEG tube but this had not yet been done. Tube feeds augment oral intake as she has had waxing and waning alertness History of unprovoked DVT, chronic and stable Continued on apixaban 2.5 mg twice daily Hypothyroidism: Synthroid DVT prophylaxis: On apixaban Diet: Fluid restrict, low-salt CODE STATUS: DNR/DNI. Goals of care were discussed with the patient's daughter Alejandra. Once again they confirmed the fact that they were on expecting how serious and difficult her post stroke course would have been and if she continues to decline they may wish to once again strongly consider palliative care. However at this point she has had some episodes of improvement there supportive of full care at this time to see how she does. (2) Iron deficiency anemia: (3) CAD (coronary artery disease), [place] coronary artery: (4) Hypertension: (5) Chronic systolic CHF (congestive heart failure): (6) S/P ICD (internal cardiac defibrillator) procedure: (7) Symptomatic anemia: Admission and Anticipated Discharge Date Admission Date: July 05, 2022 Subjective Patient was awake and oriented x2 she was being examined by physical therapy. Patient complains of some musculoskeletal discomfort. Physical Exam Physical Exam: Awake and alert oriented x2 Cardiac exam is regular with a systolic murmur lungs are clear Extremities are without edema Results & Data Results & Data ([facility]) Vital Signs (Past 12 Hours) Vital Signs Temp Pulse Resp BP Pulse Ox O2 Del Method O2 Flow Rate 07/09/22 11:00 98.1 F 83 18 159/65 H 98 Nasal Cannula 1 07/09/22 10:20 Nasal Cannula 3 07/09/22 07:00 97.9 F 71 16 158/66 H 97 Nasal Cannula 2 07/09/22 03:00 97.7 F 68 18 164/70 H 95 Nasal Cannula 2 Laboratory Results Reviewed CBC with anemia Reviewed PRP with hypokalemia Added phosphorus to evaluate for refeeding syndrome Magnesium to morning labs on 07/10 PG Care Time/CCT Total # of Minutes Spent Total Time Spent with Patient: Total time spent is greater than 50% in coordination of care (as documented) at patient's floor/unit and/or counseling patient: Coding Level of Care Code 28164 SUB INP/OBS CARE 3/50MIN Diagnoses CHF (congestive heart failure) I50.9 Iron deficiency anemia D50.9 CAD (coronary artery disease), [place] coronary artery I25.10 Hypertension I10 Chronic systolic CHF (congestive heart failure) I50.22 S/P ICD (internal cardiac defibrillator) procedure Z95.810 Symptomatic anemia D64.9
[2022-07-09 14:56] LABS: Phosphorus 1.9 mg/dl (2.5-4.9)
--- NOTE | 2022-07-09 14:57 | Hospitalist Progress Note ---
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, with reduced osmolalities nephrology recommends against restarting ACEs or ARB's of this patient Acute congestive heart failure now stabilized, HFrEF worrisome with hyponatremia and volume overload, initially treated with lasix, now volume overload is resolved Outpatient meds include metoprolol 12.5 mg twice daily, hydralazine for afterload reduction reaching her dry weight Lasix restarted at low-dose continues good improvement of sodium Acute on chronic anemia, moderate risk but stable iron deficiency anemia plus anemia or chronic disease We will continue apixaban for DVT prophylaxis this time no concern for blood loss anemia low iron tibc will give doses of venofer 07/07/22 with low blood count may opt to transfuse but concerns for volume with EF of 20 to 25% Acute hypoxic respiratory failure acute now resolved secondary to acute HFrEf and pleural effusions, improved now down to 2 L nc History of ICD placement chronic Patient with history of long QT syndrome, sudden cardiac arrest, and a prior EF of 35% Patient has had an ICD in place which she is followed by [facility] as an outpatient chronic history of subarachnoid hemorrhage, hypoxic respiratory failure req uiring tracheostomy, stable Patient with subarachnoid hemorrhage 2/2 aneurysm rupture and coil embolization of left vertebral aneurysm completed 03/31/2022. Complicated course including hydrocephalus which improved with EVD. Patient completed a course of Keppra, nimodidine x21 days, and was cared for at an LTAC before being transferred to [facility] for strengthening after she clinically improved and was able to have tracheostomy decannulated 06/15/2022. Dysphagia, required tube feels- chronic moderate risk with aspiration risk with low potassium concern for refeeding syndrome Nocturnal tube feeds, started on 07/07/2022. Augment potassium both parenterally orally with additional magnesium and surveillance of phosphorus Minced and moist diet with thickened fluids [employer] on admission to [facility] By 07/01/2022 assessment patient had had significant advancement and swallowing ability, were discussing potential removal of PEG tube but this had not yet been done. Tube feeds augment oral intake as she has had waxing and waning alertness History of unprovoked DVT, chronic and stable Continued on apixaban 2.5 mg twice daily Hypothyroidism: Synthroid DVT prophylaxis: On apixaban Diet: Fluid restrict, low-salt CODE STATUS: DNR/DNI. Goals of care were discussed with the patient's daughter Alejandra. Once again they confirmed the fact that they were on expecting how serious and difficult her post stroke course would have been and if she continues to decline they may wish to once again strongly consider palliative care. However at this point she has had some episodes of improvement there supportive of full care at this time to see how she does. (2) Iron deficiency anemia: (3) CAD (coronary artery disease), [place] coronary artery: (4) Hypertension: (5) Chronic systolic CHF (congestive heart failure): (6) S/P ICD (internal cardiac defibrillator) procedure: (7) Symptomatic anemia: Admission and Anticipated Discharge Date Admission Date: July 05, 2022 Results & Data Results & Data ([facility]) Vital Signs (Past 12 Hours) Vital Signs Temp Pulse Resp BP Pulse Ox O2 Del Method O2 Flow Rate 07/09/22 11:00 98.1 F 83 18 159/65 H 98 Nasal Cannula 1 07/09/22 10:20 Nasal Cannula 3 07/09/22 07:00 97.9 F 71 16 158/66 H 97 Nasal Cannula 2 07/09/22 03:00 97.7 F 68 18 164/70 H 95 Nasal Cannula 2 PG Care Time/CCT Total # of Minutes Spent Total Time Spent with Patient: Total time spent is greater than 50% in coordination of care (as documented) at patient's floor/unit and/or counseling patient: Coding Level of Care Code None Diagnoses CHF (congestive heart failure) I50.9 Iron deficiency anemia D50.9 CAD (coronary artery disease), [place] coronary artery I25.10 Hypertension I10 Chronic systolic CHF (congestive heart failure) I50.22 S/P ICD (internal cardiac defibrillator) procedure Z95.810 Symptomatic anemia D64.9
[2022-07-09] MEDS: FIBERSOURCE HN 1.2 CAL 1000 ML BAG GT SCH (18:49)
[2022-07-09] MEDS ORDERED: MAGNESIUM SULFATE / D5W 1 GM/100 ML BAG IV ONE (20:26)
[2022-07-09] MEDS ORDERED: cefTRIAXone SODIUM 2,000 MG in DEXTROSE 5% 50 ML IV SCH (20:26)
[2022-07-09] MEDS ORDERED: SODIUM CHLORIDE 0.9% 250 ML IV PRN (20:26)
[2022-07-09] MEDS: POTASSIUM CHLORIDE CRTAB 20 MEQ TABCR PO SCH (21:16)
[2022-07-10] MEDS: LEVOTHYROXINE SODIUM 88 MCG TABLET PO SCH (05:47)
[2022-07-10 06:44] LABS: Albumin Globulin Ratio 1.1 (0.9-2); Albumin Level 3.5 gm/dl (3.4-5.0); BUN Creatinine Ratio 34.8 (10-20); Bilirubin,Total 0.5 mg/dl (0.2-1.0); Calcium 9.3 mg/dl (8.5-10.1); Creatinine Clr Calc Pharmacy 72.4 ml/min; Est GFR (African American) 108.1 ml/min; Est GFR (Non-African American) 93.3 ml/min; Globulin 3.1 gm/dl (2.5-4.0); Magnesium 2.1 mg/dl (1.7-2.4); Potassium 3.7 mmol/L (3.5-5.1); Total Protein 6.6 gm/dl (6.0-8.3)
[2022-07-10] MEDS ORDERED: DAPTOmycin 200 MG in SYRINGE 0 ML IV SCH (07:30)
[2022-07-10] MEDS: [UNRECOGNIZED DRUG - REMARK] SCH (07:32)
[2022-07-10] MEDS: IRON SUCROSE 200 MG in 0.9 % SODIUM CHLORIDE 100 ML IV SCH (07:59)
[2022-07-10] MEDS: hydrALAZINE 10 MG TAB PO SCH ×2 (07:59→20:17)
[2022-07-10] MEDS: APIXABAN 2.5 MG TAB PO SCH ×2 (07:59→20:18)
[2022-07-10] MEDS: SPIRONOLACTONE 25 MG TAB PO SCH ×2 (07:59→20:17)
[2022-07-10] MEDS: POLYETHYLENE (MIRALAX) 17 GM PACK PO SCH (08:00)
[2022-07-10] MEDS: SENNA 8.6 MG TAB PO SCH (08:00)
[2022-07-10] MEDS: POTASSIUM CHLORIDE CRTAB 20 MEQ TABCR PO SCH (08:00)
--- NOTE | 2022-07-10 08:33 | Nephrology Progress Note ---
Date of Service July 10, 2022 Assessment & Plan (1) Hyponatremia: Plan: * Serum sodium is mildly improved following loop diuretic and vasodilator therapy * Acute on chronic hyponatremia. Serum sodium has been 128 mmol/L dating back to 2017 in EMR * Current hospitalization reveals acute on chronic hypoosmolar hyponatremia * Clinical evidence of CHF w/ low LVEF, pulmonary HTN, tricuspid regurgitation, bilateral pleural effusions w/ compressive atelectasis and abdominal ascites on physical exam * Elevated Uosm suggestive of appropriate ADH effect related to impaired renal perfusion * Management should focus on volume unloading, afterload reduction and improving cardiac function * Patient diuresed 1900 cc yesterday. Will change from IV Furosemide to Bumex 0.5 mg po/G-tube daily * Start NaCl 2 g po/G-tube daily * Increase Spironolactone to 25 mg po BID * Continue low dose Hydralazine for afterload reduction * Avoid LENO inhibitor due to solitary functioning kidney and underlying vascular disease * Could consider Dobutamine therapy to improve LVEF, however this would only be a temporizing measure * Hyponatremia in the setting of CHF portends a poor prognosis. Consider consultation w/ Palliative Care * Monitor PRP, UO Admission and Anticipated Discharge Date Admission Date: July 05, 2022 Subjective Ms. Abdul was evaluated in her hospital room this morning. She was awake and sitting up in bed. Ms. Abdul would speak her name but was not oriented to place or month. She would not follow commands Review of Systems Review of Systems: Unobtainable due to reduced consciousness Physical Exam Constitutional: + frail appearing; not in distress Eyes: PERRL ENMT: external ear and nose normal, oropharynx normal Neck: trachea midline, no thyromegaly Respiratory: normal respiratory effort, lungs clear to auscultation Cardiovascular: Rate/Rhythm: + bradycardic Vessels: + JVD Extremities: no edema Gastrointestinal (Abdomen): Inspection/Auscultation: + hypoactive bowel sounds Skin: + turgor decreased Neurologic: awake Results & Data ([facility]) Vital Signs (Past 12 Hours) Vital Signs Temp Pulse Resp BP Pulse Ox O2 Del Method O2 Flow Rate 07/10/22 07:43 36.4 C L 64 16 168/85 H 96 Nasal Cannula 2 07/09/22 22:42 36.3 C L 60 20 152/73 H 95 Room Air Laboratory Results Laboratory Tests 07/09/22 07/09/22 07/09/22 06:31 09:11 20:43 WBC 7.59 Hgb 8.0 L Hct 24.4 L Plt Count 407 H Sodium Potassium Chloride Carbon Dioxide BUN Creatinine Glucose Urine Osmolality 379 L 07/10/22 06:04 WBC Hgb Hct Plt Count Sodium 127 L Potassium 3.7 D Chloride 91 L Carbon Dioxide 32 BUN 16 Creatinine 0.46 L Glucose 134 H Urine Osmolality PG Care Time/CCT Total # of Minutes Spent Total Time Spent with Patient: Total time spent is greater than 50% in coordination of care (as documented) at patient's floor/unit and/or counseling patient: Coding Level of Care Code 35143 SUB INP/OBS CARE 3/50MIN Diagnoses Hyponatremia E87.1
[2022-07-10] MEDS ORDERED: FUROSEMIDE INJ 20 MG/2 ML VIAL IV SCH (09:00)
[2022-07-10] MEDS: SODIUM CHLORIDE 1 GM TABLET PO SCH (10:14)
[2022-07-10] MEDS: LANSOPRAZOLE 30 MG SOLTAB PO SCH (12:32)
--- NOTE | 2022-07-10 15:11 | Hospitalist Progress Note ---
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, with reduced osmolalities nephrology recommends against restarting ACEs or ARB's of this patient Acute congestive heart failure now stabilized, HFrEF worrisome with hyponatremia and volume overload, initially treated with lasix, now volume overload is resolved Outpatient meds include metoprolol 12.5 mg twice daily, hydralazine for afterload reduction reaching her dry weight Lasix restarted at low-dose Acute on chronic anemia, moderate risk but stable iron deficiency anemia plus anemia or chronic disease We will continue apixaban for DVT prophylaxis following anemia - Blood consent signed by daughter and myself 07/10/22 low iron tibc will give doses of venofer 07/07/22 with low blood count may opt to transfuse but concerns for volume with EF of 20 to 25% Acute hypoxic respiratory failure acute now resolved secondary to acute HFrEf and pleural effusions, improved now down to 2 L nc History of ICD placement chronic Patient with history of long QT syndrome, sudden cardiac arrest, and a prior EF of 35% Patient has had an ICD in place which she is followed by [facility] as an outpatient chronic history of subarachnoid hemorrhage, hypoxic respiratory failure requiring tracheostomy, stable Patient with subarachnoid hemorrhage 2/2 aneurysm rupture and coil embolization of left vertebral aneurysm completed 03/31/2022. Complicated course including hydrocephalus which improved with EVD. Patient completed a course of Keppra, nimodidine x21 days, and was cared for at an LTAC before being transferred to [facility] for strengthening after she clinically improved and was able to have tracheostomy decannulated 06/15/2022. Dysphagia, required tube feels- chronic moderate risk with aspiration risk Nocturnal tube feeds, started on 07/07/2022. 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 Tube feeds augment oral intake as she has had waxing and waning alertness History of unprovoked DVT, chronic and stable Continued on apixaban 2.5 mg twice daily Hypothyroidism: Synthroid DVT prophylaxis: On apixaban Diet: Fluid restrict, low-salt CODE STATUS: DNR/DNI. Goals of care were discussed with the patient's daughter Alejandra. Once again they confirmed the fact that they were not expecting how serious and difficult her post stroke course would have been and if she continues to decline they may wish to once again strongly consider palliative care. However at this point she has had some episodes of improvement there supportive of full care at this time to see how she does. (2) Iron deficiency anemia: (3) CAD (coronary artery disease), [place] coronary artery: (4) Hypertension: (5) Chronic systolic CHF (congestive heart failure): (6) S/P ICD (internal cardiac defibrillator) procedure: (7) Symptomatic anemia: Admission and Anticipated Discharge Date Admission Date: July 05, 2022 Subjective pt is more lethargic today, daughter is at the bedside and updated pt seems to wax and wain but did discover uti now with starting antibiotics Physical Exam Physical Exam: Awake and alert oriented x2, falls asleep easily Cardiac exam is regular with a systolic murmur lungs are clear Extremities are without edema Results & Data Results & Data ([facility]) Vital Signs (Past 12 Hours) Vital Signs Temp Pulse Resp BP Pulse Ox O2 Del Method O2 Flow Rate 07/10/22 11:05 97.9 F 62 18 160/71 H 97 Nasal Cannula 2 07/10/22 08:00 Nasal Cannula 2 07/10/22 07:43 97.5 F L 64 16 168/85 H 96 Nasal Cannula 2 PG Care Time/CCT Total # of Minutes Spent Total Time Spent with Patient: Total time spent is greater than 50% in coordination of care (as documented) at patient's floor/unit and/or counseling patient: Coding Level of Care Code 83156 SUB INP/OBS CARE 3/50MIN Diagnoses CHF (congestive heart failure) I50.9 Iron deficiency anemia D50.9 CAD (coronary artery disease), [place] coronary artery I25.10 Hypertension I10 Chronic systolic CHF (congestive heart failure) I50.22 S/P ICD (internal cardiac defibrillator) procedure Z95.810 Symptomatic anemia D64.9
[2022-07-10] MEDS: FIBERSOURCE HN 1.2 CAL 1000 ML BAG GT SCH (20:12)
[2022-07-11] MEDS: LEVOTHYROXINE SODIUM 88 MCG TABLET PO SCH (06:44)
[2022-07-11] MEDS: BUMETANIDE 1 MG TAB PO SCH ×2 (06:44→08:29)
[2022-07-11] MEDS: DAPTOmycin 300 MG in SYRINGE 0 ML IV SCH (07:30)
[2022-07-11] MEDS: [UNRECOGNIZED DRUG - REMARK] SCH (07:37)
[2022-07-11] MEDS: SENNA 8.6 MG TAB PO SCH (08:32)
[2022-07-11] MEDS: SPIRONOLACTONE 25 MG TAB PO SCH ×2 (08:33→21:22)
[2022-07-11] MEDS: APIXABAN 2.5 MG TAB PO SCH ×2 (08:34→21:21)
[2022-07-11] MEDS: hydrALAZINE 10 MG TAB PO SCH ×2 (08:34→21:21)
[2022-07-11] MEDS: POLYETHYLENE (MIRALAX) 17 GM PACK PO SCH (08:35)
[2022-07-11] MEDS: SODIUM CHLORIDE 1 GM TABLET PO SCH (08:35)
[2022-07-11] MEDS ORDERED: POTASSIUM CHLORIDE CRTAB 20 MEQ TABCR PO SCH (09:00)
--- NOTE | 2022-07-11 10:53 | Nephrology Progress Note ---
Date of Service July 11, 2022 Assessment & Plan (1) Hyponatremia: Plan: * Acute on chronic hyponatremia. Serum sodium has been 128 mmol/L dating back to 2017 in EMR * Current hospitalization reveals acute on chronic hypoosmolar hyponatremia * Clinical evidence of CHF w/ low LVEF, pulmonary HTN, tricuspid regurgitation, bilateral pleural effusions w/ compressive atelectasis and abdominal ascites on physical exam * Elevated Uosm suggestive of appropriate ADH effect related to impaired renal perfusion * Management should focus on volume unloading, afterload reduction and improving cardiac function * Continue Bumex 0.5 mg daily * Continue NaCl 2 g po/G-tube daily * Continue Spironolactone 25 mg po BID * Continue low dose Hydralazine for afterload reduction * Avoid LENO inhibitor due to solitary functioning kidney and underlying vascular disease * 5 am labs are not yet resulted. I have asked the community health nurse staff to call phlebotomy and have these drawn Admission and Anticipated Discharge Date Admission Date: July 05, 2022 Subjective Ms. Abdul was evaluated in her hospital room this morning. She was awake and sitting up in bed. She was oriented to self only. She voiced no medical concerns Review of Systems Review of Systems: Unobtainable due to cognitive status Physical Exam Constitutional: + frail appearing; not in distress Eyes: PERRL ENMT: external ear and nose normal, oropharynx normal Neck: trachea midline, no thyromegaly Respiratory: normal respiratory effort, lungs clear to auscultation Cardiovascular: Rate/Rhythm: + bradycardic Vessels: + JVD Extremities: no edema Gastrointestinal (Abdomen): Inspection/Auscultation: + hypoactive bowel sounds Skin: + turgor decreased Neurologic: awake Results & Data ([facility]) Vital Signs (Past 12 Hours) Vital Signs Temp Pulse Pulse Resp BP Pulse Ox O2 Del Method 07/11/22 07:22 36.3 C L 67 16 165/77 H 94 Nasal Cannula 07/10/22 22:58 36.7 C 67 18 158/80 H 96 Nasal Cannula O2 Flow Rate 07/11/22 07:22 2 07/10/22 22:58 2 Laboratory Results 4 am labs not yet resulted PG Care Time/CCT Total # of Minutes Spent Total Time Spent with Patient: Total time spent is greater than 50% in coordination of care (as documented) at patient's floor/unit and/or counseling patient: Coding Level of Care Code 11029 SUB INP/OBS CARE MIN Diagnoses Hyponatremia E87.1
[2022-07-11 11:17] LABS: Hematocrit (blood only) 28.6 % (37.0-47.0); Hemoglobin 8.4 g/dl (12.0-16.0); Mean Corpuscular Hemoglobin 23.1 pg (25.0-34.0); Mean Corpuscular Hgb Conc 29.4 g/dL (32.0-36.0); Mean Corpuscular Volume 78.8 fL (80.0-100.0); Mean Platelet Volume 9.9 fL (9.4-12.4); Nucleated RBC # (auto) 0.15 K/uL (0-0.12); Nucleated RBC % (auto) 1.6 %; Platelet Count 436 K/uL (130-400); RDW Coefficient of Variation 19.9 % (11.5-14.5); RDW Standard Deviation 52.7 fL (36.4-46.3); Red Blood Count 3.63 M/uL (4.20-5.40); White Blood Count 9.48 K/ul (4.8-10.8)
[2022-07-11 11:23] LABS: Calcium 9.4 mg/dl (8.5-10.1); Creatinine Clr Calc Pharmacy 72.4 ml/min; Est GFR (African American) 108.1 ml/min; Est GFR (Non-African American) 93.3 ml/min; Potassium 3.7 mmol/L (3.5-5.1)
[2022-07-11] MEDS: LANSOPRAZOLE 30 MG SOLTAB PO SCH (11:48)
--- NOTE | 2022-07-11 20:31 | Hospitalist Progress Note ---
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, with reduced osmolalities nephrology recommends against restarting ACEs or ARB's of this patient Acute congestive heart failure now stabilized, HFrEF worrisome with hyponatremia and volume overload, initially treated with lasix, now volume overload is resolved Outpatient meds include metoprolol 12.5 mg twice daily, hydralazine for afterload reduction reaching her dry weight Lasix restarted at low-dose Acute on chronic anemia, moderate risk but stable iron deficiency anemia plus anemia or chronic disease We will continue apixaban for DVT prophylaxis following anemia - Blood consent signed by daughter and myself 07/10/22 low iron tibc will give doses of venofer 07/07/22 with low blood count may opt to transfuse but concerns for volume with EF of 20 to 25% Acute hypoxic respiratory failure acute now resolved secondary to acute HFrEf and pleural effusions, improved now down to 2 L nc History of ICD placement chronic Patient with history of long QT syndrome, sudden cardiac arrest, and a prior EF of 35% Patient has had an ICD in place which she is followed by [facility] as an outpatient chronic history of subarachnoid hemorrhage, hypoxic respiratory failure requiring tracheostomy, stable Patient with subarachnoid hemorrhage 2/2 aneurysm rupture and coil embolization of left vertebral aneurysm completed 03/31/2022. Complicated course including hydrocephalus which improved with EVD. Patient completed a course of Keppra, nimodidine x21 days, and was cared for at an LTAC before being transferred to [facility] for strengthening after she clinically improved and was able to have tracheostomy decannulated 06/15/2022. Dysphagia, required tube feels- chronic moderate risk with aspiration risk Nocturnal tube feeds, started on 07/07/2022. 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 Tube feeds augment oral intake as she has had waxing and waning alertness History of unprovoked DVT, chronic and stable Continued on apixaban 2.5 mg twice daily Hypothyroidism: Synthroid DVT prophylaxis: On apixaban Diet: Fluid restrict, low-salt CODE STATUS: DNR/DNI. (2) Iron deficiency anemia: (3) CAD (coronary artery disease), [place] coronary artery: (4) Hypertension: (5) Chronic systolic CHF (congestive heart failure): (6) S/P ICD (internal cardiac defibrillator) procedure: (7) Symptomatic anemia: Admission and Anticipated Discharge Date Admission Date: July 05, 2022 Subjective Patient reports no new symptoms. Review of Systems Review of Systems: All systems reviewed & are unremarkable except as noted in HPI & below Physical Exam Physical Exam: Awake and alert oriented x2, falls asleep easily Cardiac exam is regular with a systolic murmur lungs are clear Extremities are without edema Results & Data Results & Data ([facility]) Vital Signs (Past 12 Hours) Vital Signs Temp Pulse Resp BP Pulse Ox Pulse Ox O2 Del Method 07/11/22 17:00 96 07/11/22 15:26 36.8 C 68 16 169/78 H 95 Room Air 07/11/22 14:00 95 07/11/22 12:56 Nasal Cannula O2 Del Method O2 Flow Rate O2 Flow Rate 07/11/22 17:00 Nasal Cannula 2 07/11/22 15:26 07/11/22 14:00 Nasal Cannula 2 07/11/22 12:56 2 PG Care Time/CCT Total # of Minutes Spent Total Time Spent with Patient: Total time spent is greater than 50% in coordination of care (as documented) at patient's floor/unit and/or counseling patient: Coding Level of Care Code 96485 SUB INP/OBS CARE 2/35MIN Diagnoses CHF (congestive heart failure) I50.9 Iron deficiency anemia D50.9 CAD (coronary artery disease), [place] coronary artery I25.10 Hypertension I10 Chronic systolic CHF (congestive heart failure) I50.22 S/P ICD (internal cardiac defibrillator) procedure Z95.810 Symptomatic anemia D64.9
[2022-07-11] MEDS: FIBERSOURCE HN 1.2 CAL 1000 ML BAG GT SCH (21:32)
[2022-07-11] MEDS: MELATONIN 3 MG TAB PO PRN (21:33)
[2022-07-11] MEDS: ACETAMINOPHEN 325 MG TAB PO PRN (21:33)
[2022-07-12] MEDS: LEVOTHYROXINE SODIUM 88 MCG TABLET PO SCH (06:13)
[2022-07-12] MEDS: DAPTOmycin 300 MG in SYRINGE 0 ML IV SCH (06:14)
[2022-07-12] MEDS: [UNRECOGNIZED DRUG - REMARK] SCH (06:56)
--- NOTE | 2022-07-12 09:20 | Nephrology Progress Note ---
Date of Service July 12, 2022 Assessment & Plan (1) Hyponatremia: Plan: * Acute on chronic hyponatremia. Serum sodium has been 128 mmol/L dating back to 2017 in EMR * Current hospitalization reveals acute on chronic hypoosmolar hyponatremia * Clinical evidence of CHF w/ low LVEF, pulmonary HTN, tricuspid regurgitation, bilateral pleural effusions w/ compressive atelectasis and abdominal ascites on physical exam * Elevated Uosm suggestive of appropriate ADH effect related to impaired renal perfusion * Management should focus on volume unloading, afterload reduction and improving cardiac function * 07/12/22 CXR shows interval worsening of CHF. Patient is net -1900 cc since admission * Increase Bumex to 0.5 mg po BID * Continue NaCl 2 g po/G-tube daily * Continue Spironolactone 25 mg po BID * Increase Hydralazine to 25 mg po BID for afterload reduction * Avoid LENO inhibitor due to solitary functioning kidney and underlying vascular disease * Monitor PRP, UO * Hyponatremia in the setting of CHF portends a poor prognosis. Could consider dobutamine therapy but this would only be a temporizing measure. Consider consultation w/ palliative care Admission and Anticipated Discharge Date Admission Date: July 05, 2022 Subjective Ms. Abdul was evaluated in her hospital room this morning. She was awake and sitting up in bed. She was oriented to self only. She voiced no medical concerns Review of Systems Review of Systems: Unobtainable due to cognitive status Physical Exam Constitutional: + frail appearing; not in distress Eyes: PERRL ENMT: external ear and nose normal, oropharynx normal Neck: trachea midline, no thyromegaly Respiratory: normal respiratory effort, lungs clear to auscultation Cardiovascular: Rate/Rhythm: + bradycardic Vessels: + JVD Extremities: no edema Gastrointestinal (Abdomen): Inspection/Auscultation: + hypoactive bowel sounds Skin: + turgor decreased Neurologic: awake and + obtunded Results & Data ([facility]) Vital Signs (Past 12 Hours) Vital Signs Temp Pulse Pulse Resp BP Pulse Ox O2 Del Method 07/12/22 07:28 35.6 C L 65 17 150/90 H 98 Nasal Cannula 07/12/22 07:03 36.4 C L 64 18 161/79 H 98 Nasal Cannula 07/11/22 21:41 72 96 Nasal Cannula 07/11/22 21:37 Nasal Cannula 07/11/22 21:37 36.6 C 75 16 174/72 H 84 L Room Air O2 Flow Rate 07/12/22 07:28 2 07/12/22 07:03 2 07/11/22 21:41 2 07/11/22 21:37 2 07/11/22 21:37 Laboratory Results Laboratory Tests 07/11/22 09:48 Sodium 129 L Potassium 3.7 Chloride 92 L Carbon Dioxide 32 BUN 17 Creatinine 0.46 L Glucose 148 H Diagnostic Findings 07/12/22 CXR: There are low lung volumes. No pneumothorax. The heart remains moderately enlarged. Interval progression of the pulmonary edema and moderate b ilateral pleural effusions. Bibasilar densities have also progressed. The left- sided dual-chamber pacemaker. Old right clavicle fracture again noted. PG Care Time/CCT Total # of Minutes Spent Total Time Spent with Patient: Total time spent is greater than 50% in coordination of care (as documented) at patient's floor/unit and/or counseling patient: Coding Level of Care Code 30175 SUB INP/OBS CARE 3/50MIN Diagnoses Hyponatremia E87.1
[2022-07-12 09:41] LABS: Hematocrit (blood only) 28.4 % (37.0-47.0); Hemoglobin 8.5 g/dl (12.0-16.0); Mean Corpuscular Hemoglobin 23.2 pg (25.0-34.0); Mean Corpuscular Hgb Conc 29.9 g/dL (32.0-36.0); Mean Corpuscular Volume 77.6 fL (80.0-100.0); Mean Platelet Volume 9.6 fL (9.4-12.4); Nucleated RBC # (auto) 0.07 K/uL (0-0.12); Nucleated RBC % (auto) 0.9 %; Platelet Count 410 K/uL (130-400); RDW Coefficient of Variation 20.7 % (11.5-14.5); RDW Standard Deviation 51.1 fL (36.4-46.3); Red Blood Count 3.66 M/uL (4.20-5.40); White Blood Count 7.46 K/ul (4.8-10.8)
[2022-07-12] MEDS: BUMETANIDE 1 MG TAB PO SCH ×2 (09:42→17:33)
[2022-07-12] MEDS: SPIRONOLACTONE 25 MG TAB PO SCH ×2 (09:42→20:03)
[2022-07-12] MEDS: SENNA 8.6 MG TAB PO SCH (09:42)
[2022-07-12] MEDS: APIXABAN 2.5 MG TAB PO SCH ×2 (09:42→20:03)
[2022-07-12] MEDS: SODIUM CHLORIDE 1 GM TABLET PO SCH (09:42)
[2022-07-12] MEDS: hydrALAZINE 10 MG TAB PO SCH (09:42)
--- NOTE | 2022-07-12 09:44 | XRay Report ---
XR chest 1V portable HISTORY: Congestive heart failure. Shortness of breath. COMPARISON: Chest 07/05/2022. FINDINGS: There are low lung volumes. No pneumothorax. The heart remains moderately enlarged. Interva l progression of the pulmonary edema and moderate bilateral pleural effusions. Bibasilar densities seymour ve also progressed. The left-sided dual-chamber pacemaker. Old right clavicle fracture again noted. IMPRESSION: Interval progression of the moderate pulmonary edema, bilateral pleural effusions, and bibasilar dens ities. ACT 112: Negative or not required by law. Electronically signed by: Prasanth Kemp M.D. 07/12/2022 9:43 AM
[2022-07-12] MEDS: POLYETHYLENE (MIRALAX) 17 GM PACK PO SCH (09:48)
[2022-07-12 09:50] LABS: BUN Creatinine Ratio 43.2 (10-20); Calcium 9.5 mg/dl (8.5-10.1); Creatinine Clr Calc Pharmacy 75.7 ml/min; Est GFR (African American) 109.7 ml/min; Est GFR (Non-African American) 94.7 ml/min; Magnesium 2.1 mg/dl (1.7-2.4); Phosphorus 2.9 mg/dl (2.5-4.9); Potassium 3.9 mmol/L (3.5-5.1)
[2022-07-12] MEDS: LANSOPRAZOLE 30 MG SOLTAB PO SCH (11:58)
[2022-07-12] MEDS: FIBERSOURCE HN 1.2 CAL 1000 ML BAG GT SCH (18:44)
[2022-07-12] MEDS: hydrALAZINE HCL 25 MG TAB PO SCH (20:03)
[2022-07-12] MEDS: MELATONIN 3 MG TAB PO PRN (21:30)
--- NOTE | 2022-07-12 21:52 | Hospitalist Progress Note ---
Date of Service July 12, 2022 Assessment & Plan (1) CHF (congestive heart failure): Plan: acute encephalopathy, seroius risk , secondary to low sodium and uti poa, inital culture with >100,000 gram positive cocci, starting VRE changed to daptomycin, contact isolation Given her lethargy, likely due to tramadol. will hold this medicine on 07/12 and monitor her mental status. 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, with reduced osmolalities nephrology recommends against restarting ACEs or ARB's of this patient Acute congestive heart failure now stabilized, HFrEF worrisome with hyponatremia and volume overload, initially treated with lasix, now volume overload is resolved Outpatient meds include metoprolol 12.5 mg twice daily, hydralazine for afterload reduction reaching her dry weight Lasix restarted at low-dose Acute on chronic anemia, moderate risk but stable iron deficiency anemia plus anemia or chronic disease We will continue apixaban for DVT prophylaxis following anemia - Blood consent signed by daughter and myself 07/10/22 low iron tibc will give doses of venofer 07/07/22 with low blood count may opt to transfuse but concerns for volume with EF of 20 to 25% Acute hypoxic respiratory failure acute now resolved secondary to acute HFrEf and pleural effusions, improved now down to 2 L nc History of ICD placement chronic Patient with history of long QT syndrome, sudden cardiac arrest, and a prior EF of 35% Patient has had an ICD in place which she is followed by [facility] as an outpatient chronic history of subarachnoid hemorrhage, hypoxic respiratory failure requiring tracheostomy, stable Patient with subarachnoid hemorrhage 2/2 aneurysm rupture and coil embolization of left vertebral aneurysm completed 03/31/2022. Complicated course including hydrocephalus which improved with EVD. Patient completed a course of Keppra, nimodidine x21 days, and was cared for at an LTAC before being transferred to [facility] for strengthening after she clinically improved and was able to have tracheostomy decannulated 06/15/2022. Dysphagia, required tube feels- chronic moderate risk with aspiration risk Nocturnal tube feeds, started on 07/07/2022. 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 Tube feeds augment oral intake as she has had waxing and waning alertness History of unprovoked DVT, chronic and stable Continued on apixaban 2.5 mg twice daily Hypothyroidism: Synthroid DVT prophylaxis: On apixaban Diet: Fluid restrict, low-salt CODE STATUS: DNR/DNI. (2) Iron deficiency anemia: (3) CAD (coronary artery disease), [place] coronary artery: (4) Hypertension: (5) Chronic systolic CHF (congestive heart failure): (6) S/P ICD (internal cardiac defibrillator) procedure: (7) Symptomatic anemia: Admission and Anticipated Discharge Date Admission Date: July 05, 2022 Subjective Patient is lethargic. She was a max assist as per nursing to sit ealier in the day. Review of Systems Review of Systems: All systems reviewed & are unremarkable except as noted in HPI & below Physical Exam Physical Exam: Awake and alert oriented x2, falls asleep easily Cardiac exam is regular with a systolic murmur lungs are clear Extremities are without edema Results & Data Results & Data ([facility]) Vital Signs (Past 12 Hours) Vital Signs Temp Pulse Pulse Resp BP Pulse Ox Pulse Ox 07/12/22 21:03 37.3 C 60 16 125/63 98 07/12/22 17:00 94 07/12/22 15:04 36.3 C L 62 18 160/76 H 98 07/12/22 14:00 93 07/12/22 11:42 35.8 C L 69 16 169/80 H 96 07/12/22 10:53 O2 Del Method O2 Del Method O2 Flow Rate O2 Flow Rate 07/12/22 21:03 Nasal Cannula 1.5 07/12/22 17:00 Nasal Cannula 2 07/12/22 15:04 Nasal Cannula 2 07/12/22 14:00 Nasal Cannula 2 07/12/22 11:42 Nasal Cannula 2 07/12/22 10:53 Nasal Cannula 2 PG Care Time/CCT Total # of Minutes Spent Total Time Spent with Patient: Total time spent is greater than 50% in coordination of care (as documented) at patient's floor/unit and/or counseling patient: Coding Level of Care Code 46062 SUB INP/OBS CARE 2MIN Diagnoses CHF (congestive heart failure) I50.9 Iron deficiency anemia D50.9 CAD (coronary artery disease), [place] coronary artery I25.10 Hypertension I10 Chronic systolic CHF (congestive heart failure) I50.22 S/P ICD (internal cardiac defibrillator) procedure Z95.810 Symptomatic anemia D64.9
[2022-07-13] MEDS: DAPTOmycin 300 MG in SYRINGE 0 ML IV SCH (06:00)
[2022-07-13] MEDS: POLYETHYLENE (MIRALAX) 17 GM PACK PO SCH ×2 (06:00→18:45)
[2022-07-13] MEDS: LEVOTHYROXINE SODIUM 88 MCG TABLET PO SCH (06:00)
[2022-07-13] MEDS: [UNRECOGNIZED DRUG - REMARK] SCH (06:25)
[2022-07-13] MEDS: hydrALAZINE HCL 25 MG TAB PO SCH ×2 (08:08→20:29)
[2022-07-13] MEDS: BUMETANIDE 1 MG TAB PO SCH ×2 (08:09→16:29)
[2022-07-13] MEDS: SPIRONOLACTONE 25 MG TAB PO SCH ×2 (08:09→20:29)
[2022-07-13] MEDS: SENNA 8.6 MG TAB PO SCH (08:09)
[2022-07-13] MEDS: APIXABAN 2.5 MG TAB PO SCH ×2 (08:10→20:29)
[2022-07-13] MEDS: SODIUM CHLORIDE 1 GM TABLET PO SCH (08:10)
[2022-07-13 09:35] LABS: Hematocrit (blood only) 30.8 % (37.0-47.0); Hemoglobin 9.1 g/dl (12.0-16.0); Mean Corpuscular Hemoglobin 23.5 pg (25.0-34.0); Mean Corpuscular Hgb Conc 29.5 g/dL (32.0-36.0); Mean Corpuscular Volume 79.4 fL (80.0-100.0); Mean Platelet Volume 9.5 fL (9.4-12.4); Nucleated RBC # (auto) 0.04 K/uL (0-0.12); Nucleated RBC % (auto) 0.4 %; Platelet Count 412 K/uL (130-400); RDW Coefficient of Variation 22.2 % (11.5-14.5); RDW Standard Deviation 54.2 fL (36.4-46.3); Red Blood Count 3.88 M/uL (4.20-5.40); White Blood Count 10.19 K/ul (4.8-10.8)
[2022-07-13 09:47] LABS: BUN Creatinine Ratio 37.7 (10-20); Calcium 9.9 mg/dl (8.5-10.1); Creatinine Clr Calc Pharmacy 62.8 ml/min; Est GFR (African American) 103.2 ml/min; Potassium 3.8 mmol/L (3.5-5.1)
--- NOTE | 2022-07-13 12:42 | Nephrology Progress Note ---
Date of Service July 13, 2022 Assessment & Plan (1) Acute hyponatremia: (2) Weakness: (3) Volume overload: (4) Hypertension: Plan 81 year old female admitted to hospital on 07/05/2022 with acute hyponatremia and failure to thrive. Serum sodium was 122 on admission with history of chronic hyponatremia w/ serum sodium 128 mmol/L dating back to at least 2016. has history of CHF, status post AICD, EF 25-30%, HTN, severe pulmonary HTN, moderate to severe TR, ASCVD s/p stent x2, PAD. h/o subarachnoid hemorrhage in March 2022 requiring transfer to [facility] for coil embolization of a cerebral aneurysm, hospitalization was prolonged and required tracheostomy and PEG tube placement and transferred to [facility] 06/11/22 for physical therapy.Imaging showed atrophic, nonfunctional L kidney, abdominal ascites, bilateral pleural effusions w/ compressive atelectasis of both lower lobes. On admission she received 3% NaCl improvement in serum sodium to 128. she has been on Bumex 0.5 mg twice a day and spironolactone 25 twice a day and sodium improved to 131 this morning. -- Continue on current dose of Bumex, monitor sodium while inpatient. Sodium currently at her baseline at least since 2016 Will sign off. Admission and Anticipated Discharge Date Admission Date: July 05, 2022 Subjective Julia was seen and evaluated this morning. She was complaining of pain in her right shoulder. sodium improved to 131, other electrolyte acceptable. Blood pressure, volume status acceptable. Review of Systems Review of Systems: Detailed review of system was otherwise unremarkable. Physical Exam Constitutional: WD/WN, vitals as above no acute distress Respiratory: no respiratory distress Auscultation: + diminished lung sounds; no wheezes Cardiovascular: RRR, no murmur, no edema Skin: no rashes Neurologic: no focal motor deficits Psychiatric: Orientation: alert and oriented x 3 Results & Data ([facility]) Vital Signs (Past 12 Hours) Vital Signs Temp Pulse Resp BP Pulse Ox O2 Del Method O2 Flow Rate 07/13/22 09:42 74 18 144/74 H 07/13/22 07:40 36.7 C 72 18 190/88 H 92 Nasal Cannula 2 07/13/22 02:06 96 Nasal Cannula 2 PG Care Time/CCT Total # of Minutes Spent Total Time Spent with Patient: Total time spent is greater than 50% in coordination of care (as documented) at patient's floor/unit and/or counseling patient: Coding Level of Care Code 22389 SUB INP/OBS CARE 235MIN Diagnoses Acute hyponatremia E87.1 Weakness R53.1 Volume overload E87.70 Hypertension I10
[2022-07-13] MEDS: LANSOPRAZOLE 30 MG SOLTAB PO SCH (12:46)
[2022-07-13] MEDS: ACETAMINOPHEN 325 MG TAB PO SCH (16:30)
[2022-07-13] MEDS: FIBERSOURCE HN 1.2 CAL 1000 ML BAG GT SCH (18:45)
--- NOTE | 2022-07-13 19:10 | XRay Report ---
KUB CLINICAL HISTORY: Abdominal distention. COMPARISON STUDY: CT of the abdomen and pelvis July 05, 2022 and KUB July 07, 2022. FINDINGS: Gastrostomy tube projects over the mid abdomen. Pacer leads are partially imaged. There is a right external iliac artery stent. Moderate amount stool within the colon and rectum is noted. Ther e is no convincing evidence for a bowel obstruction. The cecum is mildly distended. Cardiomegaly and bilateral pleural effusions are partially imaged. IMPRESSION: 1. No convincing evidence for a bowel obstruction. Mild distention of the cecum. 2. Moderate amount of stool within the colon and rectum. ACT 112: Negative or not required by law. Electronically signed by: Sukhwinder Navarrete M.D. 07/13/2022 7:08 PM
--- NOTE | 2022-07-13 22:38 | Hospitalist Progress Note ---
Date of Service July 13, 2022 Assessment & Plan (1) CHF (congestive heart failure): Plan: acute encephalopathy, seroius risk , secondary to low sodium and uti poa, inital culture with >100,000 gram positive cocci, starting VRE changed to daptomycin, contact isolation Given her lethargy, likely due to tramadol. held this medicine on 07/12 and monitor her mental status. more awake. 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, with reduced osmolalities nephrology recommends against restarting ACEs or ARB's of this patient Acute congestive heart failure now stabilized, HFrEF worrisome with hyponatremia and volume overload, initially treated with lasix, now volume overload is resolved Outpatient meds include metoprolol 12.5 mg twice daily, hydralazine for afterload reduction reaching her dry weight Lasix restarted at low-dose Acute on chronic anemia, moderate risk but stable iron deficiency anemia plus anemia or chronic disease We will continue apixaban for DVT prophylaxis following anemia - Blood consent signed by daughter and myself 07/10/22 low iron tibc will give doses of venofer 07/07/22 with low blood count may opt to transfuse but concerns for volume with EF of 20 to 25% Acute hypoxic respiratory failure acute now resolved secondary to acute HFrEf and pleural effusions, improved now down to 2 L nc History of ICD placement chronic Patient with history of long QT syndrome, sudden cardiac arrest, and a prior EF of 35% Patient has had an ICD in place which she is followed by [facility] as an outpatient chronic history of subarachnoid hemorrhage, hypoxic respiratory failure requiring tracheostomy, stable Patient with subarachnoid hemorrhage 2/2 aneurysm rupture and coil embolization of left vertebral aneurysm completed 03/31/2022. Complicated cours e including hydrocephalus which improved with EVD. Patient completed a course of Keppra, nimodidine x21 days, and was cared for at an LTAC before being transferred to [facility] for strengthening after she clinically improved and was able to have tracheostomy decannulated 06/15/2022. Dysphagia, required tube feels- chronic moderate risk with aspiration risk Nocturnal tube feeds, started on 07/07/2022. 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 Tube feeds augment oral intake as she has had waxing and waning alertness History of unprovoked DVT, chronic and stable Continued on apixaban 2.5 mg twice daily Hypothyroidism: Synthroid DVT prophylaxis: On apixaban Diet: Fluid restrict, low-salt CODE STATUS: DNR/DNI. (2) Iron deficiency anemia: (3) CAD (coronary artery disease), [place] coronary artery: (4) Hypertension: (5) Chronic systolic CHF (congestive heart failure): (6) S/P ICD (internal cardiac defibrillator) procedure: (7) Symptomatic anemia: Admission and Anticipated Discharge Date Admission Date: July 05, 2022 Subjective More awake today. No new complaints. Review of Systems Review of Systems: All systems reviewed & are unremarkable except as noted in HPI & below Physical Exam Physical Exam: Awake and alert oriented x2, Cardiac exam is regular with a systolic murmur lungs are clear Extremities are without edema Results & Data Results & Data ([facility]) Vital Signs (Past 12 Hours) Vital Signs Temp Pulse Resp BP BP Pulse Ox Pulse Ox 07/13/22 20:42 07/13/22 20:23 36.8 C 69 18 150/77 H 99 07/13/22 18:31 154/81 H 07/13/22 14:00 100 07/13/22 15:54 36.6 C 75 18 161/86 H O2 Del Method O2 Del Method O2 Flow Rate O2 Flow Rate 07/13/22 20:42 Nasal Cannula 2 07/13/22 20:23 Nasal Cannula 2 07/13/22 18:31 07/13/22 14:00 Nasal Cannula 2 07/13/22 15:54 PG Care Time/CCT Total # of Minutes Spent Total Time Spent with Patient: Total time spent is greater than 50% in coordination of care (as documented) at patient's floor/unit and/or counseling patient: Coding Level of Care Code 22135 SUB INP/OBS CARE 2/35MIN Diagnoses CHF (congestive heart failure) I50.9 Iron deficiency anemia D50.9 CAD (coronary artery disease), [place] coronary artery I25.10 Hypertension I10 Chronic systolic CHF (congestive heart failure) I50.22 S/P ICD (internal cardiac defibrillator) procedure Z95.810 Symptomatic anemia D64.9
[2022-07-14] MEDS: ACETAMINOPHEN 325 MG TAB PO SCH ×5 (01:27→23:24)
[2022-07-14] MEDS: LEVOTHYROXINE SODIUM 88 MCG TABLET PO SCH (05:44)
[2022-07-14] MEDS: DAPTOmycin 300 MG in SYRINGE 0 ML IV SCH (06:17)
[2022-07-14] MEDS: [UNRECOGNIZED DRUG - REMARK] SCH (07:00)
[2022-07-14 07:36] LABS: Hematocrit (blood only) 25.6 % (37.0-47.0); Hemoglobin 7.9 g/dl (12.0-16.0); Mean Corpuscular Hemoglobin 23.7 pg (25.0-34.0); Mean Corpuscular Hgb Conc 30.9 g/dL (32.0-36.0); Mean Corpuscular Volume 76.9 fL (80.0-100.0); Mean Platelet Volume 9.6 fL (9.4-12.4); Nucleated RBC # (auto) 0.03 K/uL (0-0.12); Nucleated RBC % (auto) 0.5 %; Platelet Count 343 K/uL (130-400); RDW Coefficient of Variation 22.5 % (11.5-14.5); RDW Standard Deviation 52.7 fL (36.4-46.3); Red Blood Count 3.33 M/uL (4.20-5.40); White Blood Count 6.58 K/ul (4.8-10.8)
[2022-07-14 07:56] LABS: Creatinine Clr Calc Pharmacy 66.6 ml/min; Est GFR (African American) 105.2 ml/min; Est GFR (Non-African American) 90.8 ml/min; Potassium 3.2 mmol/L (3.5-5.1)
--- NOTE | 2022-07-14 08:03 | Hospitalist Progress Note ---
Date of Service July 14, 2022 Assessment & Plan (1) Acute hyponatremia: Plan: 81 year old who was admitted to hospital on 07/05/2022 with acute hyponatremia and failure to thrive. Patient has an extensive history of CHF, status post AICD, EF 25-30%, HTN, severe pulmonary HTN, moderate to severe TR, ASCVD s/p stent x2, PAD. h/o subarachnoid hemorrhage 2/2 aneurysm rupture and coil embolization of left vertebral aneurysm completed 03/31/2022. Complicated cour se including hydrocephalus which improved with EVD. Patient completed a course of Keppra, nimodidine x21 days, and was cared for at an LTAC before being transferred to [facility] for strengthening after she clinically improved and was able to have tracheostomy decannulated 06/15/2022. 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 Sodium currently at her baseline at least since 2016 Nephrology signed off patient 07/13/22 (2) CHF (congestive heart failure): Plan: Acute congestive heart failure now stabilized, HFrEF worrisome with hyponatremia and volume overload, initially treated with lasix, now volume overload is resolved Outpatient meds include metoprolol 12.5 mg twice daily, hydralazine for afterload reduction reaching her dry weight Lasix restarted at low-dose (3) Iron deficiency anemia: Plan: Acute on chronic anemia, moderate risk but stable iron deficiency anemia plus anemia or chronic disease We will continue apixaban for DVT prophylaxis following anemia - Blood consent signed previously low iron tibc will give doses of venofer 07/07/22 with low blood count may opt to transfuse but concerns for volume with EF of 20 to 25% Hgb relatively stable and patient having brown BMs with no signs of any active bleeding Continue to monitor labs (patient also on Apixaban 2.5mg BID) (4) CAD (coronary artery disease), [place] coronary artery: (5) Hypertension: Plan: Stable 130-150/70-80s Currently 131/71 Continue on Bumex, Apresoline and Aldactone (6) S/P ICD (internal cardiac defibrillator) procedure: Plan: History of ICD placement chronic Patient with history of long QT syndrome, sudden cardiac arrest, last echo 07/05/22 with EF 25-30% Patient has had an ICD in place which she is followed by [facility] as an outpatient (7) Hypothyroidism: Plan: Hypothyroidism: Synthroid 88mcg daily (8) Acute encephalopathy: Plan: Acute encephalopathy, serious risk , secondary to low sodium and uti poa, inital culture with >100,000 gram positive cocci, starting VRE changed to daptomycin, contact isolation Given her lethargy, likely was due to tramadol. held this medicine on 07/12 and monitor her mental status. more awake. Today patient was awake and alert x 2 (9) Dysphagia: Plan: Dysphagia, required tube feels- chronic moderate risk with aspiration risk Nocturnal tube feeds, started on 07/07/2022. Augment potassium both parenterally orally with additional magnesium and surveillance of phosphorus Minced and moist diet with thickened fluids [employer] on admission to [facility] By 07/01/2022 assessment patient had had significant advancement and swallowing ability, were discussing potential removal of PEG tube but this had not yet been done. Tube feeds augment oral intake as she has had waxing and waning alertness (10) History of DVT (deep vein thrombosis): Plan: History of unprovoked DVT, chronic and stable Continued on apixaban 2.5 mg twice daily Plan DVT prophylaxis: On apixaban Diet: Fluid restrict, low-salt diet plus TFs at night CODE STATUS: DNR/DNI. Admission and Anticipated Discharge Date Admission Date: July 05, 2022 Supervising Physician Co-Signing Physician Notes The patient was not seen by me. Chart reviewed. Case discussed with MARGOT Gray. Agree with assessment and plan Subjective Patient was awake in bed, she is alert and oriented x 2 this AM. Per nursing she had a large brown BM yesterday none today. She has no vomiting. She is getting TFs at night (20 mL/hr for 12 hours) is on a low sodium diet with 1500ml fluid restriction in the day. Review of Systems Review of Systems: Patient's only complaint today is pain at the peg tube site. Surrounding skin normal and Peg tube is freely moveable. Physical Exam Constitutional: WD/WN, vitals as above Neck: trachea midline Respiratory: decreased respiratory effort without any wheezes or rales Cardiovascular: Rate/Rhythm: regular rate and regular rhythm Heart Sounds: + murmur Extremities: no calf tenderness and no edema Gastrointestinal (Abdomen): Abdomen distended but soft with bowel sounds, peg tube in place and freely movable Psychiatric: Alert and orineted x 2 Results & Data Results & Data ([facility]) Vital Signs (Past 12 Hours) Vital Signs Temp Pulse Resp BP Pulse Ox O2 Del Method O2 Flow Rate 07/13/22 20:42 Nasal Cannula 2 07/13/22 20:23 36.8 C 69 18 150/77 H 99 Nasal Cannula 2 Laboratory Results Abnormal lab results 07/14/22 07/14/22 Range/Units 07:06 07:06 RBC 3.33 L (4.20-5.40) M/uL Hgb 7.9 L (12.0-16.0) g/dl Hct 25.6 L (37.0-47.0) % MCV 76.9 L (80.0-100.0) fL MCH 23.7 L (25.0-34.0) pg MCHC 30.9 L (32.0-36.0) g/dL RDW Std Deviation 52.7 H (36.4-46.3) fL RDW Coeff of Carlos 22.5 H (11.5-14.5) % Sodium 130 L (136-145) mmol/L Potassium 3.2 L (3.5-5.1) mmol/L Chloride 91 L (98-107) mmol/L Carbon Dioxide 34 H (21-32) mmol/L Creatinine 0.50 L (0.6-1.2) mg/dl BUN/Creatinine Ratio 36.0 H (10-20) Glucose 122 H (70-99(Fasting)) mg/dl Diagnostic Findings KUB X-Ray 07/13/22 17:52 KUB CLINICAL HISTORY: Abdominal distention. COMPARISON STUDY: CT of the abdomen and pelvis July 05, 2022 and KUB July 07, 2022. FINDINGS: Gastrostomy tube projects over the mid abdomen. Pacer leads are partially imaged. There is a right external iliac artery stent. Moderate amount stool within the colon and rectum is noted. There is no convincing evidence for a bowel obstruction. The cecum is mildly distended. Cardiomegaly and bilateral pleural effusions are partially imaged. IMPRESSION: 1. No convincing evidence for a bowel obstruction. Mild distention of the cecum. 2. Moderate amount of stool within the colon and rectum. ACT 112: Negative or not required by law. Electronically signed by: Sukhwinder Navarrete M.D. 07/13/2022 7:08 PM PG Care Time/CCT Total # of Minutes Spent Total Time Spent with Patient: Total time spent is greater than 50% in coordination of care (as documented) at patient's floor/unit and/or counseling patient: Coding Level of Care Code 40520 SUB INP/OBS CARE 1/25MIN Diagnoses Acute hyponatremia E87.1 CHF (congestive heart failure) I50.9 Iron deficiency anemia D50.9 CAD (coronary artery disease), [place] coronary artery I25.10 Hypertension I10 S/P ICD (internal cardiac defibrillator) procedure Z95.810 Hypothyroidism E03.9 Acute encephalopathy G93.40 Dysphagia R13.10 History of DVT (deep vein thrombosis) Z86.718
[2022-07-14] MEDS: BUMETANIDE 1 MG TAB PO SCH ×2 (09:16→17:02)
[2022-07-14] MEDS: SENNA 8.6 MG TAB PO SCH (09:16)
[2022-07-14] MEDS: SODIUM CHLORIDE 1 GM TABLET PO SCH (09:16)
[2022-07-14] MEDS: hydrALAZINE HCL 25 MG TAB PO SCH ×2 (09:17→20:53)
[2022-07-14] MEDS: APIXABAN 2.5 MG TAB PO SCH ×2 (09:17→20:53)
[2022-07-14] MEDS: SPIRONOLACTONE 25 MG TAB PO SCH ×2 (09:17→20:53)
[2022-07-14] MEDS: POLYETHYLENE (MIRALAX) 17 GM PACK PO SCH ×2 (09:18→20:52)
[2022-07-14] MEDS: LANSOPRAZOLE 30 MG SOLTAB PO SCH (13:04)
[2022-07-14] MEDS: bisacodyL 10 MG SUPP PR PRN (18:27)
[2022-07-14] MEDS: FIBERSOURCE HN 1.2 CAL 1000 ML BAG GT SCH (18:27)
[2022-07-15] MEDS: [UNRECOGNIZED DRUG - REMARK] SCH (06:00)
[2022-07-15] MEDS: LEVOTHYROXINE SODIUM 88 MCG TABLET PO SCH (06:00)
[2022-07-15] MEDS: ACETAMINOPHEN 325 MG TAB PO SCH ×3 (06:00→19:09)
[2022-07-15 10:08] LABS: Hematocrit (blood only) 29.6 % (37.0-47.0); Hemoglobin 9.1 g/dl (12.0-16.0); Mean Corpuscular Hemoglobin 23.7 pg (25.0-34.0); Mean Corpuscular Hgb Conc 30.7 g/dL (32.0-36.0); Mean Corpuscular Volume 77.1 fL (80.0-100.0); Mean Platelet Volume 9.9 fL (9.4-12.4); Nucleated RBC # (auto) 0.03 K/uL (0-0.12); Nucleated RBC % (auto) 0.3 %; Platelet Count 376 K/uL (130-400); RDW Coefficient of Variation 22.9 % (11.5-14.5); RDW Standard Deviation 56.8 fL (36.4-46.3); Red Blood Count 3.84 M/uL (4.20-5.40); White Blood Count 9.29 K/ul (4.8-10.8)
[2022-07-15 10:35] LABS: BUN Creatinine Ratio 36.4 (10-20); Calcium 9.4 mg/dl (8.5-10.1); Creatinine Clr Calc Pharmacy 60.5 ml/min; Potassium 3.4 mmol/L (3.5-5.1)
[2022-07-15] MEDS: APIXABAN 2.5 MG TAB PO SCH ×2 (10:51→20:29)
[2022-07-15] MEDS: hydrALAZINE HCL 25 MG TAB PO SCH ×2 (10:52→20:29)
[2022-07-15] MEDS: POLYETHYLENE (MIRALAX) 17 GM PACK PO SCH ×2 (10:52→20:29)
[2022-07-15] MEDS: SODIUM CHLORIDE 1 GM TABLET PO SCH (10:53)
[2022-07-15] MEDS: SENNA 8.6 MG TAB PO SCH (10:53)
[2022-07-15] MEDS: SPIRONOLACTONE 25 MG TAB PO SCH ×2 (10:54→20:29)
[2022-07-15] MEDS: LANSOPRAZOLE 30 MG SOLTAB PO SCH (10:54)
[2022-07-15] MEDS: BUMETANIDE 1 MG TAB PO SCH ×2 (13:37→17:51)
[2022-07-15] MEDS ORDERED: bisacodyL 5 MG TABEC PO ONE (14:52)
--- NOTE | 2022-07-15 15:56 | XRay Report ---
SINGLE VIEW CHEST CLINICAL HISTORY: Hypoxia FINDINGS: An AP, portable, upright chest radiograph is compared to study dated 07/12/2022. A 2-lead ca rdiac AICD is unchanged in position. The heart is enlarged noting atherosclerotic calcification of th e thoracic aorta. There is pulmonary vascular congestion with evidence of interstitial edema. There a re layering pleural effusions with dependent consolidation. The skeletal structures are osteopenic. T here is chronic posttraumatic deformity of the right clavicle. IMPRESSION: 1. Cardiomegaly and AICD with evidence of congestive failure and pulmonary edema. 2. Layering pleural effusions with bibasilar consolidation. ACT 112: Negative or not required by law. Electronically signed by: Anthony Bolanos M.D. 07/15/2022 3:55 PM
--- NOTE | 2022-07-15 16:23 | XRay Report ---
KUB CLINICAL HISTORY: Abdominal distention. COMPARISON STUDY: KUB July 13, [address] of the abdomen and pelvis July 05, 2022. FINDINGS: Gastrostomy tube projects over the left abdomen. The bowel gas pattern is normal. Right ext ernal iliac artery stent and extensive vascular calcification are incidentally noted. There are bilat eral hip osteoarthritis. Moderate amount of stool is noted. IMPRESSION: No evidence for a bowel obstruction. ACT 112: Negative or not required by law. Electronically signed by: Sukhwinder Navarrete M.D. 07/15/2022 4:22 PM
[2022-07-15] MEDS: LOSARTAN POTASSIUM 25 MG TAB PO SCH (16:41)
--- NOTE | 2022-07-15 17:56 | Hospitalist Progress Note ---
Date of Service July 15, 2022 Assessment & Plan (1) Acute hyponatremia: Plan: 81 year old who was admitted to hospital on 07/05/2022 with acute hyponatremia and failure to thrive. Patient has an extensive history of CHF, status post AICD, EF 25-30%, HTN, severe pulmonary HTN, moderate to severe TR, ASCVD s/p stent x2, PAD. h/o subarachnoid hemorrhage 2/2 aneurysm rupture and coil embolization of left vertebral aneurysm completed 03/31/2022. Complicated cour se including hydrocephalus which improved with EVD. Patient completed a course of Keppra, nimodidine x21 days, and was cared for at an LTAC before being transferred to [facility] for strengthening after she clinically improved and was able to have tracheostomy decannulated 06/15/2022. 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 Sodium currently at her baseline at least since 2016 Nephrology signed off patient 07/13/22 Sodium remains stable on 07/15 (2) CHF (congestive heart failure): Plan: Acute congestive heart failure now stabilized, HFrEF worrisome with hyponatremia and volume overload, initially treated with lasix, now volume overload is resolved Outpatient meds include metoprolol 12.5 mg twice daily, hydralazine for afterload reduction reaching her dry weight Now on Bumex BID (3) Iron deficiency anemia: Plan: Acute on chronic anemia, moderate risk but stable iron deficiency anemia plus anemia or chronic disease We will continue apixaban for DVT prophylaxis following anemia - Blood consent signed previously low iron tibc will give doses of venofer 07/07/22 with low blood count may opt to transfuse but concerns for volume with EF of 20 to 25% Hgb relatively stable and patient having brown BMs with no signs of any active bleeding Continue to monitor labs (patient also on Apixaban 2.5mg BID) (4) CAD (coronary artery disease), [place] coronary artery: (5) Hypertension: Plan: Stable 130-150/70-80s Currently 131/71 Continue on Bumex, Apresoline and Aldactone (6) S/P ICD (internal cardiac defibrillator) procedure: Plan: History of ICD placement chronic Patient with history of long QT syndrome, sudden cardiac arrest, last echo 07/05/22 with EF 25-30% Patient has had an ICD in place which she is followed by [facility] as an outpatient (7) Hypothyroidism: Plan: Hypothyroidism: Synthroid 88mcg daily (8) Acute encephalopathy: Plan: Acute encephalopathy, serious risk , secondary to low sodium and uti poa, inital culture with >100,000 gram positive cocci, starting VRE changed to daptomycin, contact isolation Given her lethargy, likely was due to tramadol. held this medicine on 07/12 and monitor her mental status. more awake. On 07/15. patient was awake and alert x 2; however with confusion. Given her lack of improvement, after extensive stay with LTAC, and rehab, she may benefit from a palliative care consult. will discuss with her family. (9) Dysphagia: Plan: Dysphagia, required tube feels- chronic moderate risk with aspiration risk Nocturnal tube feeds, started on 07/07/2022. Augment potassium both parenterally orally with additional magnesium and surveillance of phosphorus Minced and moist diet with thickened fluids [employer] on admission to [facility] By 07/01/2022 assessment patient had had significant advancement and swallowing ability, were discussing potential removal of PEG tube but this had not yet been done. Tube feeds augment oral intake as she has had waxing and waning alertness (10) History of DVT (deep vein thrombosis): Plan: History of unprovoked DVT, chronic and stable Continued on apixaban 2.5 mg twice daily Plan DVT prophylaxis: On apixaban Diet: Fluid restrict, low-salt diet plus TFs at night CODE STATUS: DNR/DNI. Admission and Anticipated Discharge Date Admission Date: July 05, 2022 Subjective Patient is confused today. She is calling out for someone who isn't in the room. She is able to be reoriented that she is in the hospital. Review of Systems Review of Systems: All systems reviewed & are unremarkable except as noted in HPI & below Physical Exam Physical Exam: Constitutional: WD/WN, vitals as above Neck: trachea midline Respiratory: decreased respiratory effort without any wheezes or rales Cardiovascular: Rate/Rhythm: regular rate and regular rhythm Heart Sounds: + murmur Extremities: no calf tenderness and no edema Gastrointestinal (Abdomen): Abdomen distended but soft with bowel sounds, peg tube in place and freely movable Psychiatric: Alert and orineted x 2 Results & Data Results & Data ([facility]) Vital Signs (Past 12 Hours) Vital Signs Temp Pulse Resp BP Pulse Ox O2 Del Method O2 Flow Rate 07/15/22 15:31 36.6 C 64 20 168/80 H 95 Nasal Cannula 2 07/15/22 15:02 93 07/15/22 11:00 Nasal Cannula 2 07/15/22 08:21 36.3 C L 79 18 181/62 H 95 Nasal Cannula 6 PG Care Time/CCT Total # of Minutes Spent Total Time Spent with Patient: Total time spent is greater than 50% in coordination of care (as documented) at patient's floor/unit and/or counseling patient: Coding Level of Care Code 59017 SUB INP/OBS CARE 2/35MIN Diagnoses Acute hyponatremia E87.1 CHF (congestive heart failure) I50.9 Iron deficiency anemia D50.9 CAD (coronary artery disease), [place] coronary artery I25.10 Hypertension I10 S/P ICD (internal cardiac defibrillator) procedure Z95.810 Hypothyroidism E03.9 Acute encephalopathy G93.40 Dysphagia R13.10 History of DVT (deep vein thrombosis) Z86.718
[2022-07-15] MEDS: FIBERSOURCE HN 1.2 CAL 1000 ML BAG GT SCH (20:00)
[2022-07-15] MEDS: MELATONIN 3 MG TAB PO PRN (20:29)
[2022-07-16] MEDS: ACETAMINOPHEN 325 MG TAB PO SCH ×5 (01:06→23:18)
[2022-07-16] MEDS: LEVOTHYROXINE SODIUM 88 MCG TABLET PO SCH (06:00)
[2022-07-16] MEDS: SODIUM CHLORIDE 1 GM TABLET PO SCH (08:07)
[2022-07-16] MEDS: SENNA 8.6 MG TAB PO SCH (08:07)
[2022-07-16] MEDS: hydrALAZINE HCL 25 MG TAB PO SCH ×2 (08:07→20:29)
[2022-07-16] MEDS: SPIRONOLACTONE 25 MG TAB PO SCH ×2 (08:07→20:29)
[2022-07-16] MEDS: LOSARTAN POTASSIUM 25 MG TAB PO SCH (08:07)
[2022-07-16] MEDS: BUMETANIDE 1 MG TAB PO SCH ×2 (08:07→17:52)
[2022-07-16] MEDS: APIXABAN 2.5 MG TAB PO SCH ×2 (08:07→20:31)
[2022-07-16] MEDS: [UNRECOGNIZED DRUG - REMARK] SCH (08:07)
[2022-07-16] MEDS: POLYETHYLENE (MIRALAX) 17 GM PACK PO SCH ×2 (08:08→20:31)
[2022-07-16 08:51] LABS: Hematocrit (blood only) 27.3 % (37.0-47.0); Hemoglobin 8.5 g/dl (12.0-16.0); Mean Corpuscular Hemoglobin 23.7 pg (25.0-34.0); Mean Corpuscular Hgb Conc 31.1 g/dL (32.0-36.0); Mean Platelet Volume 9.7 fL (9.4-12.4); Platelet Count 349 K/uL (130-400); RDW Standard Deviation 58.5 fL (36.4-46.3); Red Blood Count 3.59 M/uL (4.20-5.40)
[2022-07-16 09:03] LABS: BUN Creatinine Ratio 33.3 (10-20); Creatinine Clr Calc Pharmacy 61.7 ml/min; Est GFR (African American) 102.6 ml/min; Est GFR (Non-African American) 88.5 ml/min; Phosphorus 3.3 mg/dl (2.5-4.9); Potassium 3.2 mmol/L (3.5-5.1)
[2022-07-16] MEDS: LANSOPRAZOLE 30 MG SOLTAB PO SCH (12:00)
[2022-07-16] MEDS: FIBERSOURCE HN 1.2 CAL 1000 ML BAG GT SCH ×2 (19:56→20:29)
--- NOTE | 2022-07-16 23:03 | Hospitalist Progress Note ---
Date of Service July 16, 2022 Assessment & Plan (1) Acute hyponatremia: Plan: 81 year old who was admitted to hospital on 07/05/2022 with acute hyponatremia and failure to thrive. Patient has an extensive history of CHF, status post AICD, EF 25-30%, HTN, severe pulmonary HTN, moderate to severe TR, ASCVD s/p stent x2, PAD. h/o subarachnoid hemorrhage 2/2 aneurysm rupture and coil embolization of left vertebral aneurysm completed 03/31/2022. Complicated cour se including hydrocephalus which improved with EVD. Patient completed a course of Keppra, nimodidine x21 days, and was cared for at an LTAC before being transferred to [facility] for strengthening after she clinically improved and was able to have tracheostomy decannulated 06/15/2022. 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 Sodium currently at her baseline at least since 2016 Nephrology signed off patient 07/13/22 Sodium remains stable on 07/16 (2) CHF (congestive heart failure): Plan: Acute congestive heart failure now stabilized, HFrEF worrisome with hyponatremia and volume overload, initially treated with lasix, now volume overload is resolved Outpatient meds include metoprolol 12.5 mg twice daily, hydralazine for afterload reduction reaching her dry weight Now on Bumex BID (3) Iron deficiency anemia: Plan: Acute on chronic anemia, moderate risk but stable iron deficiency anemia plus anemia or chronic disease We will continue apixaban for DVT prophylaxis following anemia - Blood consent signed previously low iron tibc will give doses of venofer 07/07/22 with low blood count may opt to transfuse but concerns for volume with EF of 20 to 25% Hgb relatively stable and patient having brown BMs with no signs of any active bleeding Continue to monitor labs (patient also on Apixaban 2.5mg BID) (4) CAD (coronary artery disease), [place] coronary artery: (5) Hypertension: Plan: Stable 130-150/70-80s Currently 131/71 Continue on Bumex, Apresoline and Aldactone (6) S/P ICD (internal cardiac defibrillator) procedure: Plan: History of ICD placement chronic Patient with history of long QT syndrome, sudden cardiac arrest, last echo 07/05/22 with EF 25-30% Patient has had an ICD in place which she is followed by [facility] as an outpatient (7) Hypothyroidism: Plan: Hypothyroidism: Synthroid 88mcg daily (8) Acute encephalopathy: Plan: Acute encephalopathy, serious risk , secondary to low sodium and uti poa, inital culture with >100,000 gram positive cocci, starting VRE changed to daptomycin, contact isolation Given her lethargy, likely was due to tramadol. held this medicine on 07/12 and monitor her mental status. more awake. On 07/15. patient was awake and alert x 2; however with confusion. Given her lack of improvement, after extensive stay with LTAC, and rehab, she may benefit from a palliative care consult. will discuss with her family. (9) Dysphagia: Plan: Dysphagia, required tube feels- chronic moderate risk with aspiration risk Nocturnal tube feeds, started on 07/07/2022. Augment potassium both parenterally orally with additional magnesium and surveillance of phosphorus Minced and moist diet with thickened fluids [employer] on admission to [facility] By 07/01/2022 assessment patient had had significant advancement and swallowing ability, were discussing potential removal of PEG tube but this had not yet been done. Tube feeds augment oral intake as she has had waxing and waning alertness (10) History of DVT (deep vein thrombosis): Plan: History of unprovoked DVT, chronic and stable Continued on apixaban 2.5 mg twice daily Plan DVT prophylaxis: On apixaban Diet: Fluid restrict, low-salt diet plus TFs at night CODE STATUS: DNR/DNI. Admission and Anticipated Discharge Date Admission Date: July 05, 2022 Subjective Patient is more awake at time of visit. Reports having dinner. She has no new complaints. Discussed with nurse, patient has been watching and waning during the day. She has been confused at times. Review of Systems Review of Systems: Unobtainable due to cognitive status Physical Exam Physical Exam: Constitutional: WD/WN, vitals as above Neck: trachea midline Respiratory: decreased respiratory effort without any wheezes or rales Cardiovascular: Rate/Rhythm: regular rate and regular rhythm Heart Sounds: + murmur Extremities: no calf tenderness and no edema Gastrointestinal (Abdomen): Abdomen distended but soft with bowel sounds, peg tube in place and freely movable Psychiatric: Alert and orineted x 2 Results & Data Results & Data ([facility]) Vital Signs (Past 12 Hours) Vital Signs Temp Pulse Resp BP Pulse Ox O2 Del Method O2 Flow Rate 07/16/22 20:04 74 18 93/51 L 95 Nasal Cannula 2 07/16/22 15:32 36.8 C 68 16 109/67 96 Nasal Cannula 2 PG Care Time/CCT Total # of Minutes Spent Total Time Spent with Patient: Total time spent is greater than 50% in coordination of care (as documented) at patient's floor/unit and/or counseling patient: Coding Level of Care Code 14594 SUB INP/OBS CARE 2/35MIN Diagnoses Acute hyponatremia E87.1 CHF (congestive heart failure) I50.9 Iron deficiency anemia D50.9 CAD (coronary artery disease), [place] coronary artery I25.10 Hypertension I10 S/P ICD (internal cardiac defibrillator) procedure Z95.810 Hypothyroidism E03.9 Acute encephalopathy G93.40 Dysphagia R13.10 History of DVT (deep vein thrombosis) Z86.718
[2022-07-16] MEDS: MELATONIN 3 MG TAB PO PRN (23:18)
[2022-07-17] MEDS: ACETAMINOPHEN 325 MG TAB PO SCH ×3 (05:28→17:13)
[2022-07-17] MEDS: LEVOTHYROXINE SODIUM 88 MCG TABLET PO SCH (05:28)
[2022-07-17] MEDS: LOSARTAN POTASSIUM 25 MG TAB PO SCH (08:03)
[2022-07-17] MEDS: hydrALAZINE HCL 25 MG TAB PO SCH ×2 (08:03→20:32)
[2022-07-17] MEDS: BUMETANIDE 1 MG TAB PO SCH ×2 (08:03→16:36)
[2022-07-17] MEDS: SODIUM CHLORIDE 1 GM TABLET PO SCH (08:03)
[2022-07-17] MEDS: POLYETHYLENE (MIRALAX) 17 GM PACK PO SCH ×2 (08:03→20:32)
[2022-07-17] MEDS: APIXABAN 2.5 MG TAB PO SCH ×2 (08:03→20:32)
[2022-07-17] MEDS: [UNRECOGNIZED DRUG - REMARK] SCH (08:03)
[2022-07-17] MEDS: SPIRONOLACTONE 25 MG TAB PO SCH ×2 (08:03→21:20)
[2022-07-17] MEDS: SENNA 8.6 MG TAB PO SCH (08:03)
[2022-07-17 09:33] LABS: Hematocrit (blood only) 31.3 % (37.0-47.0); Hemoglobin 9.5 g/dl (12.0-16.0); Mean Corpuscular Hemoglobin 24.1 pg (25.0-34.0); Mean Corpuscular Hgb Conc 30.4 g/dL (32.0-36.0); Mean Corpuscular Volume 79.4 fL (80.0-100.0); Mean Platelet Volume 9.6 fL (9.4-12.4); Platelet Count 363 K/uL (130-400); RDW Coefficient of Variation 23.2 % (11.5-14.5); RDW Standard Deviation 63.1 fL (36.4-46.3); Red Blood Count 3.94 M/uL (4.20-5.40); White Blood Count 6.06 K/ul (4.8-10.8)
[2022-07-17 10:49] LABS: BUN Creatinine Ratio 33.9 (10-20); Calcium 9.3 mg/dl (8.5-10.1); Creatinine Clr Calc Pharmacy 59.5 ml/min; Est GFR (African American) 101.3 ml/min; Est GFR (Non-African American) 87.4 ml/min; Phosphorus 3.5 mg/dl (2.5-4.9); Potassium 3.2 mmol/L (3.5-5.1)
[2022-07-17] MEDS: LANSOPRAZOLE 30 MG SOLTAB PO SCH (12:33)
[2022-07-17] MEDS: POTASSIUM CHLORIDE / WTR 10 MEQ/100 ML PLCT IV SCH (16:36)
[2022-07-17] MEDS: POTASSIUM CHLORIDE 10 MEQ TABCR PO SCH ×2 (17:13→20:32)
[2022-07-17] MEDS: FIBERSOURCE HN 1.2 CAL 1000 ML BAG GT SCH (19:51)
[2022-07-17] MEDS: MELATONIN 3 MG TAB PO PRN (20:33)
--- NOTE | 2022-07-17 22:46 | Hospitalist Progress Note ---
Date of Service July 17, 2022 Assessment & Plan (1) Acute hyponatremia: Plan: 81 year old who was admitted to hospital on 07/05/2022 with acute hyponatremia and failure to thrive. Patient has an extensive history of CHF, status post AICD, EF 25-30%, HTN, severe pulmonary HTN, moderate to severe TR, ASCVD s/p stent x2, PAD. h/o subarachnoid hemorrhage 2/2 aneurysm rupture and coil embolization of left vertebral aneurysm completed 03/31/2022. Complicated cour se including hydrocephalus which improved with EVD. Patient completed a course of Keppra, nimodidine x21 days, and was cared for at an LTAC before being transferred to [facility] for strengthening after she clinically improved and was able to have tracheostomy decannulated 06/15/2022. 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 Sodium currently at her baseline at least since 2016 Nephrology signed off patient 07/13/22 Sodium remains stable on 07/16 (2) CHF (congestive heart failure): Plan: Acute congestive heart failure now stabilized, HFrEF worrisome with hyponatremia and volume overload, initially treated with lasix, now volume overload is resolved Outpatient meds include metoprolol 12.5 mg twice daily, hydralazine for afterload reduction reaching her dry weight Now on Bumex BID (3) Iron deficiency anemia: Plan: Acute on chronic anemia, moderate risk but stable iron deficiency anemia plus anemia or chronic disease We will continue apixaban for DVT prophylaxis following anemia - Blood consent signed previously low iron tibc will give doses of venofer 07/07/22 with low blood count may opt to transfuse but concerns for volume with EF of 20 to 25% Hgb relatively stable and patient having brown BMs with no signs of any active bleeding Continue to monitor labs (patient also on Apixaban 2.5mg BID) (4) CAD (coronary artery disease), [place] coronary artery: (5) Hypertension: Plan: Stable 130-150/70-80s Currently 131/71 Continue on Bumex, Apresoline and Aldactone (6) S/P ICD (internal cardiac defibrillator) procedure: Plan: History of ICD placement chronic Patient with history of long QT syndrome, sudden cardiac arrest, last echo 07/05/22 with EF 25-30% Patient has had an ICD in place which she is followed by [facility] as an outpatient (7) Hypothyroidism: Plan: Hypothyroidism: Synthroid 88mcg daily (8) Acute encephalopathy: Plan: Acute encephalopathy, serious risk , secondary to low sodium and uti poa, inital culture with >100,000 gram positive cocci, starting VRE changed to daptomycin, contact isolation Given her lethargy, likely was due to tramadol. held this medicine on 07/12 and monitor her mental status. more awake. On 07/15. patient was awake and alert x 2; however with confusion. Given her lack of improvement, after extensive stay with LTAC, and rehab, she may benefit from a palliative care consult. will discuss with her family, agreeable to palliative care. (9) Dysphagia: Plan: Dysphagia, required tube feels- chronic moderate risk with aspiration risk Nocturnal tube feeds, started on 07/07/2022. Augment potassium both parenterally orally with additional magnesium and surveillance of phosphorus Minced and moist diet with thickened fluids [employer] on admission to [facility] By 07/01/2022 assessment patient had had significant advancement and swallowing ability, were discussing potential removal of PEG tube but this had not yet been done. Tube feeds augment oral intake as she has had waxing and waning alertness (10) History of DVT (deep vein thrombosis): Plan: History of unprovoked DVT, chronic and stable Continued on apixaban 2.5 mg twice daily Plan DVT prophylaxis: On apixaban Diet: Fluid restrict, low-salt diet plus TFs at night CODE STATUS: DNR/DNI. Admission and Anticipated Discharge Date Admission Date: July 05, 2022 Subjective 81 yo female is more awake and communicative. Review of Systems Review of Systems: All systems reviewed & are unremarkable except as noted in HPI & below Physical Exam Physical Exam: Constitutional: WD/WN, vitals as above Neck: trachea midline Respiratory: decreased respiratory effort without any wheezes or rales Cardiovascular: Rate/Rhythm: regular rate and regular rhythm Heart Sounds: + murmur Extremities: no calf tenderness and no edema Gastrointestinal (Abdomen): Abdomen distended but soft with bowel sounds, peg tube in place and freely movable Psychiatric: Alert and orineted x 2 Results & Data Results & Data ([facility]) Vital Signs (Past 12 Hours) Vital Signs Temp Pulse Pulse Resp BP Pulse Ox O2 Del Method 07/17/22 20:00 Nasal Cannula 07/17/22 20:06 36.6 C 71 16 101/64 95 Nasal Cannula 07/17/22 15:16 36.7 C 68 18 117/70 95 Nasal Cannula 07/17/22 11:39 Nasal Cannula O2 Flow Rate 07/17/22 20:00 2 07/17/22 20:06 07/17/22 15:16 2 07/17/22 11:39 2 PG Care Time/CCT Total # of Minutes Spent Total Time Spent with Patient: Total time spent is greater than 50% in coordination of care (as documented) at patient's floor/unit and/or counseling patient: Coding Level of Care Code 59842 SUB INP/OBS CARE 2/35MIN Diagnoses Acute hyponatremia E87.1 CHF (congestive heart failure) I50.9 Iron deficiency anemia D50.9 CAD (coronary artery disease), [place] coronary artery I25.10 Hypertension I10 S/P ICD (internal cardiac defibrillator) procedure Z95.810 Hypothyroidism E03.9 Acute encephalopathy G93.40 Dysphagia R13.10 History of DVT (deep vein thrombosis) Z86.718
[2022-07-18] MEDS: ACETAMINOPHEN 325 MG TAB PO SCH ×5 (01:25→23:22)
[2022-07-18] MEDS: LEVOTHYROXINE SODIUM 88 MCG TABLET PO SCH (05:33)
[2022-07-18] MEDS: [UNRECOGNIZED DRUG - REMARK] SCH (08:05)
[2022-07-18] MEDS: POTASSIUM CHLORIDE 10 MEQ TABCR PO SCH ×4 (08:05→20:32)
[2022-07-18] MEDS: POLYETHYLENE (MIRALAX) 17 GM PACK PO SCH ×2 (08:05→20:33)
[2022-07-18] MEDS: hydrALAZINE HCL 25 MG TAB PO SCH ×2 (08:06→20:35)
[2022-07-18] MEDS: APIXABAN 2.5 MG TAB PO SCH ×2 (08:06→20:32)
[2022-07-18] MEDS: SPIRONOLACTONE 25 MG TAB PO SCH ×2 (08:06→20:32)
[2022-07-18] MEDS: SENNA 8.6 MG TAB PO SCH (08:06)
[2022-07-18] MEDS: LOSARTAN POTASSIUM 25 MG TAB PO SCH (08:07)
[2022-07-18] MEDS: BUMETANIDE 1 MG TAB PO SCH ×2 (08:07→16:26)
[2022-07-18] MEDS: SODIUM CHLORIDE 1 GM TABLET PO SCH (08:07)
[2022-07-18] MEDS: LANSOPRAZOLE 30 MG SOLTAB PO SCH (11:52)
[2022-07-18] MEDS: FIBERSOURCE HN 1.2 CAL 1000 ML BAG GT SCH (18:32)
[2022-07-18] MEDS: POTASSIUM CHLORIDE / WTR 10 MEQ/100 ML PLCT IV SCH (19:09)
--- NOTE | 2022-07-18 21:33 | Hospitalist Progress Note ---
Date of Service July 18, 2022 Assessment & Plan (1) Acute hyponatremia: Plan: 81 year old who was admitted to hospital on 07/05/2022 with acute hyponatremia and failure to thrive. Patient has an extensive history of CHF, status post AICD, EF 25-30%, HTN, severe pulmonary HTN, moderate to severe TR, ASCVD s/p stent x2, PAD. h/o subarachnoid hemorrhage 2/2 aneurysm rupture and coil embolization of left vertebral aneurysm completed 03/31/2022. Complicated cour se including hydrocephalus which improved with EVD. Patient completed a course of Keppra, nimodidine x21 days, and was cared for at an LTAC before being transferred to [facility] for strengthening after she clinically improved and was able to have tracheostomy decannulated 06/15/2022. 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 Sodium currently at her baseline at least since 2016 Nephrology signed off patient 07/13/22 Sodium remains stable on 07/17 (2) CHF (congestive heart failure): Plan: Acute congestive heart failure now stabilized, HFrEF worrisome with hyponatremia and volume overload, initially treated with lasix, now volume overload is resolved Outpatient meds include metoprolol 12.5 mg twice daily, hydralazine for afterload reduction reaching her dry weight Now on Bumex BID (3) Iron deficiency anemia: Plan: Acute on chronic anemia, moderate risk but stable iron deficiency anemia plus anemia or chronic disease We will continue apixaban for DVT prophylaxis following anemia - Blood consent signed previously low iron tibc will give doses of venofer 07/07/22 with low blood count may opt to transfuse but concerns for volume with EF of 20 to 25% Hgb relatively stable and patient having brown BMs with no signs of any active bleeding Continue to monitor labs (patient also on Apixaban 2.5mg BID) (4) CAD (coronary artery disease), [place] coronary artery: (5) Hypertension: Plan: Stable 130-150/70-80s Currently 131/71 Continue on Bumex, Apresoline and Aldactone (6) S/P ICD (internal cardiac defibrillator) procedure: Plan: History of ICD placement chronic Patient with history of long QT syndrome, sudden cardiac arrest, last echo 07/05/22 with EF 25-30% Patient has had an ICD in place which she is followed by [facility] as an outpatient (7) Hypothyroidism: Plan: Hypothyroidism: Synthroid 88mcg daily (8) Acute encephalopathy: Plan: Acute encephalopathy, serious risk , secondary to low sodium and uti poa, inital culture with >100,000 gram positive cocci, starting VRE changed to daptomycin, contact isolation Given her lethargy, likely was due to tramadol. held this medicine on 07/12 and monitor her mental status. more awake. On 07/15. patient was awake and alert x 2; however with confusion. Given her lack of improvement, after extensive stay with LTAC, and rehab, she may benefit from a palliative care consult. will discuss with her family, agreeable to palliative care consult. Meeting scheduled for 07/19/22 at 11 am. (9) Dysphagia: Plan: Dysphagia, required tube feels- chronic moderate risk with aspiration risk Nocturnal tube feeds, started on 07/07/2022. Augment potassium both parenterally orally with additional magnesium and surveillance of phosphorus Minced and moist diet with thickened fluids [facility] BACK on admission to [facility] By 07/01/2022 assessment patient had had significant advancement and swallowing ability, were discussing potential removal of PEG tube but this had not yet been done. Tube feeds augment oral intake as she has had waxing and waning alertness (10) History of DVT (deep vein thrombosis): Plan: History of unprovoked DVT, chronic and stable Continued on apixaban 2.5 mg twice daily Plan DVT prophylaxis: On apixaban Diet: Fluid restrict, low-salt diet plus TFs at night CODE STATUS: DNR/DNI. Admission and Anticipated Discharge Date Admission Date: July 05, 2022 Subjective Patient remains intermittently confused. Family at bedside, goals of care meeeting scheduled for 11 07/19 Review of Systems Review of Systems: All systems reviewed & are unremarkable except as noted in HPI & below Physical Exam Physical Exam: Constitutional: WD/WN, vitals as above Neck: trachea midline Respiratory: decreased respiratory effort without any wheezes or rales Cardiovascular: Rate/Rhythm: regular rate and regular rhythm Heart Sounds: + murmur Extremities: no calf tenderness and no edema Gastrointestinal (Abdomen): Abdomen distended but soft with bowel sounds, peg tube in place and freely movable Psychiatric: Alert and orineted x 2 Results & Data Results & Data ([facility]) Vital Signs (Past 12 Hours) Vital Signs Temp Pulse Resp BP Pulse Ox O2 Del Method O2 Del Method 07/18/22 20:42 36.9 C 64 17 103/66 97 Nasal Cannula 07/18/22 17:00 Room Air 07/18/22 15:49 36.8 C 65 16 117/71 95 Nasal Cannula O2 Flow Rate 07/18/22 20:42 2 07/18/22 17:00 07/18/22 15:49 2 PG Care Time/CCT Total # of Minutes Spent Total Time Spent with Patient: Total time spent is greater than 50% in coordination of care (as documented) at patient's floor/unit and/or counseling patient: Coding Level of Care Code 68545 SUB INP/OBS CARE 2/35MIN Diagnoses Acute hyponatremia E87.1 CHF (congestive heart failure) I50.9 Iron deficiency anemia D50.9 CAD (coronary artery disease), [place] coronary artery I25.10 Hypertension I10 S/P ICD (internal cardiac defibrillator) procedure Z95.810 Hypothyroidism E03.9 Acute encephalopathy G93.40 Dysphagia R13.10 History of DVT (deep vein thrombosis) Z86.718
[2022-07-18] MEDS: MELATONIN 3 MG TAB PO PRN (23:22)
[2022-07-19] MEDS: ACETAMINOPHEN 325 MG TAB PO SCH ×3 (06:17→17:57)
[2022-07-19] MEDS: LEVOTHYROXINE SODIUM 88 MCG TABLET PO SCH (06:18)
[2022-07-19] MEDS: [UNRECOGNIZED DRUG - REMARK] SCH (06:44)
[2022-07-19] MEDS: POLYETHYLENE (MIRALAX) 17 GM PACK PO SCH ×2 (08:11→21:22)
[2022-07-19] MEDS: LOSARTAN POTASSIUM 25 MG TAB PO SCH (08:12)
[2022-07-19] MEDS: POTASSIUM CHLORIDE 10 MEQ TABCR PO SCH ×4 (08:12→21:22)
[2022-07-19] MEDS: APIXABAN 2.5 MG TAB PO SCH ×2 (08:13→21:31)
[2022-07-19] MEDS: SPIRONOLACTONE 25 MG TAB PO SCH ×2 (08:13→21:22)
[2022-07-19] MEDS: SODIUM CHLORIDE 1 GM TABLET PO SCH (08:13)
[2022-07-19] MEDS: SENNA 8.6 MG TAB PO SCH (08:13)
[2022-07-19] MEDS: BUMETANIDE 1 MG TAB PO SCH ×2 (08:13→17:57)
[2022-07-19] MEDS: hydrALAZINE HCL 25 MG TAB PO SCH ×2 (08:13→21:22)
--- NOTE | 2022-07-19 09:18 | Hospitalist Progress Note ---
Date of Service July 19, 2022 Assessment & Plan (1) Acute hyponatremia: Plan: 81 year old who was admitted to hospital on 07/05/2022 with acute hyponatremia and failure to thrive. Patient has an extensive history of CHF, status post AICD, EF 25-30%, HTN, severe pulmonary HTN, moderate to severe TR, ASCVD s/p stent x2, PAD. h/o subarachnoid hemorrhage 2/2 aneurysm rupture and coil embolization of left vertebral aneurysm completed 03/31/2022. Complicated cour se including hydrocephalus which improved with EVD. Patient completed a course of Keppra, nimodidine x21 days, and was cared for at an LTAC before being transferred to [facility] for strengthening after she clinically improved and was able to have tracheostomy decannulated 06/15/2022. 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 Sodium currently at her baseline at least since 2016 Nephrology signed off patient 07/13/22 Sodium remains stable on 07/17 (2) CHF (congestive heart failure): Plan: Acute congestive heart failure now stabilized, HFrEF worrisome with hyponatremia and volume overload, initially treated with lasix, now volume overload is resolved Outpatient meds include metoprolol 12.5 mg twice daily, hydralazine for afterload reduction reaching her dry weight Now on Bumex BID (3) Iron deficiency anemia: Plan: Acute on chronic anemia, moderate risk but stable iron deficiency anemia plus anemia or chronic disease We will continue apixaban for DVT prophylaxis following anemia - Blood consent signed previously low iron tibc will give doses of venofer 07/07/22 with low blood count may opt to transfuse but concerns for volume with EF of 20 to 25% Hgb relatively stable and patient having brown BMs with no signs of any active bleeding Continue to monitor labs (patient also on Apixaban 2.5mg BID) (4) CAD (coronary artery disease), [place] coronary artery: (5) Hypertension: Plan: Stable 130-150/70-80s Currently 131/71 Continue on Bumex, Apresoline and Aldactone (6) S/P ICD (internal cardiac defibrillator) procedure: Plan: History of ICD placement chronic Patient with history of long QT syndrome, sudden cardiac arrest, last echo 07/05/22 with EF 25-30% Patient has had an ICD in place which she is followed by [facility] as an outpatient (7) Hypothyroidism: Plan: Hypothyroidism: Synthroid 88mcg daily (8) Acute encephalopathy: Plan: Acute encephalopathy, serious risk , secondary to low sodium and uti poa, inital culture with >100,000 gram positive cocci, starting VRE changed to daptomycin, contact isolation Given her lethargy, likely was due to tramadol. held this medicine on 07/12 and monitor her mental status. more awake. On 07/15. patient was awake and alert x 2; however with confusion. Given her lack of improvement, after extensive stay with LTAC, and rehab, she may benefit from a palliative care consult. will discuss with her family, agreeable to palliative care consult. Meeting scheduled for 07/19/22 at 11 am. (9) Dysphagia: Plan: Dysphagia, required tube feels- chronic moderate risk with aspiration risk Nocturnal tube feeds, started on 07/07/2022. Augment potassium both parenterally orally with additional magnesium and surveillance of phosphorus Minced and moist diet with thickened fluids [employer] on admission to [facility] By 07/01/2022 assessment patient had had significant advancement and swallowing ability, were discussing potential removal of PEG tube but this had not yet been done. Tube feeds augment oral intake as she has had waxing and waning alertness (10) History of DVT (deep vein thrombosis): Plan: History of unprovoked DVT, chronic and stable Continued on apixaban 2.5 mg twice daily Plan DVT prophylaxis: On apixaban Diet: Fluid restrict, low-salt diet plus TFs at night CODE STATUS: DNR/DNI. Admission and Anticipated Discharge Date Admission Date: July 05, 2022 Subjective Patient sitting up in her chair she is pleasantly confused she is eating peaches being fed by her daughters. Daughters are at the bedside and updated. Recent family meeting from earlier this morning continues to endorse supportive care with antibiotics and feeding. At this time they may consider limiting aggressive care in the future but currently they wish to continue on the plan of care this been initiated Physical Exam Physical Exam: Patient is awake and alert Patient has clear lungs she is tolerating her tube feeds abdomen soft nontender she has trace lower extremity edema Results & Data Results & Data ([facility]) Vital Signs (Past 12 Hours) Vital Signs Temp Pulse Resp BP Pulse Ox O2 Del Method O2 Flow Rate 07/19/22 07:47 97.9 F 65 18 160/75 H 98 Nasal Cannula 2 07/18/22 23:15 Nasal Cannula 2 07/18/22 21:52 Nasal Cannula 2 PG Care Time/CCT Total # of Minutes Spent Total Time Spent with Patient: Total time spent is greater than 50% in coordination of care (as documented) at patient's floor/unit and/or counseling patient: Coding Level of Care Code 18699 SUB INP/OBS CARE 2/35MIN Diagnoses Acute hyponatremia E87.1 CHF (congestive heart failure) I50.9 Iron deficiency anemia D50.9 CAD (coronary artery disease), [place] coronary artery I25.10 Hypertension I10 S/P ICD (internal cardiac defibrillator) procedure Z95.810 Hypothyroidism E03.9 Acute encephalopathy G93.40 Dysphagia R13.10 History of DVT (deep vein thrombosis) Z86.718
--- NOTE | 2022-07-19 09:25 | Palliative Care Consultation ---
Date of Consultation July 19, 2022 Assessment & Plan (1) Weakness: Her daughters tell met that at [facility] prior to admission, she had been ambulating 10 steps. She is now max assist for care. They realize that she is not likely to rebound to where she was prior to admission but are interested in trying rehab at [facility] to maximize her function to the extent possible. (2) Palliative care encounter: I met with her daughters Alejandra and Yadira, as well as granddaughter, Jessica, at bedside. They described the journey that "Charleen" has been on in the last several months. They feel that in hindsight, she may not have wanted all the interventions that were done. They tell me that she never really talked about what she would want for her healthcare but feel that she is tired and would not want further aggressive intervention. They would want to discuss this with their other siblings before final decision, but they confirm that she is DNR/DNI. We discussed ICD. One of her daughters also has an ICD and tells me that Charleen did have a shock from ICD at [place]. They would not want her to have further shocks and would like to have the ICD deactivated pending family approval. We discussed their thoughts on the focus of her care moving forward. It is very important to them that she be comfortable. They do not feel that she would benefit from return to the hospital. They would like to continue PEG feedings and use trials of antibiotics or fluids if needed but overall focus would remain comfort. When all family agrees, we can complete POLST form and have ICD deactivated. Discussed with Dr. Newell. History of Present Illness Reason for Consultation: goals of care Requesting Physician: Dr. Frank Attending Physician: Xu Newell MD History of Present Illness 81 yo lady with history of CAD s/p ID at age 55. She has ischemic cardiomyopathy with a reduced EF of 25-30%m, prolonged QT syndrome, and does have an ICD. She was hospitalized in March 2022 for subarachnoid hemorrhage and transferred to [place], then subsequently to LTAC. She had tracheostomy and PEG tube. She was admitted to [facility] on 2 with heart failure and hyponatremia. Her mental status has been variable. She is awake and alert. She is oriented to person only. She tells me that she lives in [place]. She denies pain when asked but a few minutes later during conversation, she spontaneously tells me that her right shoulder hurts. RN reports that she had been complaining of abdominal pain earlier. She had a large BM. Allergies Allergy/AdvReac Type Severity Reaction Status Date / Time simvastatin Allergy Severe Rash Verified 07/05/22 14:57 Zofgrac-KTK-PcD Reductase Allergy Severe Rash Verified 07/05/22 14:57 Inhibitor Home Medications Medication Instructions Recorded Confirmed Type apixaban 2.5 mg tablet (Eliquis) 2.5 mg PO BID #180 tabs 01/23/21 07/05/22 Rx acetaminophen 325 mg tablet 650 mg PO Q4H PRN FEVER/PAIN 07/05/22 07/05/22 History (Tylenol) bisacodyl 10 mg rectal suppository 10 mg SD DAILY PRN Constipation 07/05/22 07/05/22 History ceftriaxone 2 gram intravenous 2 g IV Q24H 07/05/22 07/05/22 History solution docusate sodium 100 mg capsule 100 mg PO DAILY 07/05/22 07/05/22 History levothyroxine 88 mcg tablet 88 mcg PO DAILYBB 07/05/22 07/05/22 History lidocaine 5 % topical patch 1 patch topical DAILY 07/05/22 07/05/22 History loratadine 10 mg tablet (Claritin) 10 mg PO DAILY 07/05/22 07/05/22 History magnesium hydroxide 400 mg/5 mL 30 ml PO DAILY PRN Constipation 07/05/22 07/05/22 History oral suspension (Milk of Magnesia) omeprazole 20 mg capsule,delayed 20 mg PO DAILY 07/05/22 07/05/22 History release polyethylene glycol 3350 17 17 g PO DAILY 07/05/22 07/05/22 History gram/dose oral powder (Miralax) polyethylene glycol 3350 17 17 g PO QDL PRN Constipation 07/05/22 07/05/22 History gram/dose oral powder (Miralax) sennosides 8.6 mg tablet (senna) 8.6 mg PO DAILY 07/05/22 07/05/22 History sennosides 8.6 mg-docusate sodium 1 tab-cap PO QDL PRN Constipation 07/05/22 07/05/22 History 50 mg tablet (Senokot-S) sodium chloride 0.9 % (flush) 5 ml IV Q8H 07/05/22 07/05/22 History trospium 20 mg tablet 20 mg PO Q48H 07/05/22 07/05/22 History Patient History Medical History CAD (coronary artery disease), [place] coronary artery Non-obstructive Chronic systolic CHF (congestive heart failure) DVT (deep venous thrombosis) Several years ago (groin region) > then needed stents History of myocardial infarction Several years ago Hyperlipidemia LDL goal <70 Hypertension Hypothyroidism (acquired) ICD (implantable cardioverter-defibrillator) battery depletion Implanted 2012 (ICD generator change 03/2020), [employer], last check 10/27/20 (per [facility] cardiology note) Ischemic cardiomyopathy Peripheral arterial occlusive disease Prolonged QT syndrome Pulmonary hypertension Severe pulmonary hypertension. Estimated RVSP 64 mmHg. Tricuspid regurgitation Moderate to severe TR Surgical History History of tonsillectomy and adenoidectomy Hx of bilateral oophorectomy Hx of left inguinal hernia repair S/P ICD (internal cardiac defibrillator) procedure 2012, ICD generator change 03/2020 Social History Smoking Status: Unknown if ever smoked Tobacco Type: Cigarettes Second Hand Exposure: Yes; Hx Alcohol Use: No Hx Substance Use: No Preferred Language: Sinhala Communication Ability: Effective Authorization Manager Required: No Beliefs That Will Affect Care: None marital status: / Current Living Situation: Rehab Current Living Situation Comment: Apartment How many Children do You have: 6 Feels Safe at Home: Yes Safety Concerns: Feels Safe At This Time Assistive Devices: Walker and Wheelchair Review of Systems Review of Systems: Unobtainable due to cognitive status Physical Exam Constitutional: no acute distress ENMT: dry lips Respiratory: normal respiratory effort; no labored breathing Gastrointestinal (Abdomen): PEG Musculoskeletal: Extremities: + muscle atrophy Skin: warm and dry Neurologic: Speech / Cognition: + abnormal cognition Results & Data ([facility]) Vital Signs (Past 12 Hours) Vital Signs Temp Pulse Resp BP Pulse Ox O2 Del Method O2 Flow Rate 07/19/22 07:47 97.9 F 65 18 160/75 H 98 Nasal Cannula 2 07/18/22 23:15 Nasal Cannula 2 07/18/22 21:52 Nasal Cannula 2 PG Care Time/CCT Total # of Minutes Spent Total Time Spent: 62 Total Time Spent with Patient: Total time spent is greater than 50% in coordination of care (as documented) at patient's floor/unit and/or counseling patient: [id number] goals of care, code status, POLST, family education and support, coordination of care Coding Level of Care Code 08486 INT INP/OBS CARE 2/55MIN Diagnoses Weakness R53.1 Palliative care encounter Z51.5
[2022-07-19] MEDS: LANSOPRAZOLE 30 MG SOLTAB PO SCH (11:03)
[2022-07-19] MEDS: FIBERSOURCE HN 1.2 CAL 1000 ML BAG GT SCH (18:43)
[2022-07-20] MEDS: ACETAMINOPHEN 325 MG TAB PO SCH ×4 (00:14→18:48)
[2022-07-20] MEDS ORDERED: KETOROLAC TROMETHAMINE 15 MG/ML VIAL IV ONE (02:18)
[2022-07-20] MEDS: MELATONIN 3 MG TAB PO PRN (02:27)
[2022-07-20] MEDS: LEVOTHYROXINE SODIUM 88 MCG TABLET PO SCH (05:54)
[2022-07-20] MEDS: [UNRECOGNIZED DRUG - REMARK] SCH (07:00)
[2022-07-20 07:06] LABS: Hematocrit (blood only) 31.9 % (37.0-47.0); Hemoglobin 9.7 g/dl (12.0-16.0); Mean Corpuscular Hemoglobin 24.1 pg (25.0-34.0); Mean Corpuscular Hgb Conc 30.4 g/dL (32.0-36.0); Mean Corpuscular Volume 79.4 fL (80.0-100.0); Mean Platelet Volume 9.7 fL (9.4-12.4); Platelet Count 336 K/uL (130-400); RDW Coefficient of Variation 23.2 % (11.5-14.5); Red Blood Count 4.02 M/uL (4.20-5.40); White Blood Count 6.13 K/ul (4.8-10.8)
[2022-07-20 07:15] LABS: BUN Creatinine Ratio 41.1 (10-20); Calcium 9.9 mg/dl (8.5-10.1); Creatinine Clr Calc Pharmacy 59.5 ml/min; Est GFR (African American) 101.3 ml/min; Est GFR (Non-African American) 87.4 ml/min; Phosphorus 3.5 mg/dl (2.5-4.9); Potassium 4.9 mmol/L (3.5-5.1)
[2022-07-20] MEDS: POTASSIUM CHLORIDE 10 MEQ TABCR PO SCH ×2 (08:50→13:23)
[2022-07-20] MEDS: BUMETANIDE 1 MG TAB PO SCH ×2 (08:51→18:48)
[2022-07-20] MEDS: POLYETHYLENE (MIRALAX) 17 GM PACK PO SCH ×2 (08:51→21:02)
[2022-07-20] MEDS: hydrALAZINE HCL 25 MG TAB PO SCH ×2 (08:52→21:02)
[2022-07-20] MEDS: SPIRONOLACTONE 25 MG TAB PO SCH ×2 (08:52→21:02)
[2022-07-20] MEDS: APIXABAN 2.5 MG TAB PO SCH ×2 (08:53→21:02)
[2022-07-20] MEDS: LOSARTAN POTASSIUM 25 MG TAB PO SCH (08:53)
[2022-07-20] MEDS: SODIUM CHLORIDE 1 GM TABLET PO SCH (08:53)
[2022-07-20] MEDS: SENNA 8.6 MG TAB PO SCH (08:55)
[2022-07-20] MEDS ORDERED: FUROSEMIDE 40 MG/4 ML VIAL IV ONE ×2 (10:00→20:57)
[2022-07-20] MEDS ORDERED: MoRPHine SULFATE 2 MG/ML CARP IV ONE (10:00)
[2022-07-20] MEDS: LANSOPRAZOLE 30 MG SOLTAB PO SCH (13:23)
--- NOTE | 2022-07-20 14:31 | Hospitalist Progress Note ---
Date of Service July 20, 2022 Assessment & Plan (1) CHF (congestive heart failure): Plan: Acute congestive systolic heart failure, HFrEF worrisome with hyponatremia Now on Bumex BID plus spironolactone. Patient did require additional doses with 40 mg of Lasix x1 given Patient offered clinical improvement after that This is the first patient first time the patient had exacerbation during her hospital stay of 15 days. Patient may be candidate for outpatient Entresto therapy if her systolic heart failure continues to be an issue however nephrology does not wish to limit ARB exposure (2) Acute hyponatremia: Plan: 81 year old who was admitted to hospital on 07/05/2022 with acute hyponatremia and failure to thrive. Patient has an extensive history of CHF, status post AICD, EF 25-30%, HTN, severe pulmonary HTN, moderate to severe TR, ASCVD s/p stent x2, PAD. h/o subarachnoid hemorrhage 2/2 aneurysm rupture and coil embolization of left vertebral aneurysm completed 03/31/2022. Complicated course including hydrocephalus which improved with EVD. Patient completed a course of Keppra, nimodidine x21 days, and was cared for at an LTAC before being transferred to [facility] for strengthening after she clinically improved and was able to have tracheostomy decannulated 06/15/2022. 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 Sodium currently at her baseline at least since 2017 Nephrology signed off patient 07/13/22 Sodium remains stable (3) Iron deficiency anemia: Plan: Acute on chronic anemia, moderate risk but stable iron deficiency anemia plus anemia or chronic disease We will continue apixaban for DVT prophylaxis following anemia - Blood consent signed previously low iron tibc will give doses of venofer 07/07/22 with low blood count may opt to transfuse but concerns for volume with EF of 20 to 25% Hgb relatively stable and patient having brown BMs with no signs of any active bleeding Continue to monitor labs (patient also on Apixaban 2.5mg BID) (4) CAD (coronary artery disease), [place] coronary artery: (5) Hypertension: Plan: Stable 130-150/70-80s Currently 131/71 Continue on Bumex, Apresoline and Aldactone (6) S/P ICD (internal cardiac defibrillator) procedure: Plan: History of ICD placement chronic Patient with history of long QT syndrome, sudden cardiac arrest, last echo 07/05/22 with EF 25-30% Patient has had an ICD in place which she is followed by [facility] as an outpatient (7) Hypothyroidism: Plan: Hypothyroidism: Synthroid 88mcg daily (8) Acute encephalopathy: Plan: Acute encephalopathy now resolved initially was secondary to low sodium and uti poa, inital culture with >100,000 gram positive cocci, starting VRE changed to daptomycin, contact isolation palliative care consult on 07/19 results since the family wishes to continue current plan of care however if she decompensates or if she declines will consider transitioning to comfort care measures but at this point time aggressive care will be continued (9) Dysphagia: Plan: Dysphagia, required tube feels- chronic moderate risk with aspiration risk Nocturnal tube feeds, started on 07/07/2022. 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 After patient had some confusion and decline we did reinitiate tube feeds o augment oral intake as she has had waxing and waning alertness (10) History of DVT (deep vein thrombosis): Plan: History of unprovoked DVT, chronic and stable Continued on apixaban 2.5 mg twice daily Plan DVT prophylaxis: On apixaban Diet: Fluid restrict, low-salt diet plus TFs at night CODE STATUS: DNR/DNI. Admission and Anticipated Discharge Date Admission Date: July 05, 2022 Subjective Was texted urgently by the nurse this morning for chest pain and dyspnea. Patient had a stat EKG which did not reveal any acute EKG changes consistent with ischemia or infarction. Patient did have increased work of breathing with accessory muscle use and JVD to her jaw. It was noted that the patient did eat a ham sandwich 1 day prior does have a history of systolic heart failure. Subsequently the patient denied chest pain when I evaluated her. She was given an additional dose of diuretic therapy and 1 mg of morphine that reduce her air hunger. She is maintained on a persistent Bumex and spironolactone. Later in the morning the patient's respiratory distress is resolved she was slightly sleepy from the morphine but otherwise was stable Physical Exam Physical Exam: Upon evaluation of the patient she was tachypneic she was using accessory muscles of respirations she had JVD to her jaw her cardiac exam was regular systolic murmur was present lungs had crackles at the bases Results & Data Results & Data ([facility]) Vital Signs (Past 12 Hours) Vital Signs Temp Pulse Resp BP Pulse Ox O2 Del Method O2 Flow Rate 07/20/22 07:30 Nasal Cannula 2 07/20/22 08:47 72 186/79 H 07/20/22 07:01 97.7 F 69 16 154/89 H 95 Room Air Laboratory Results Reviewed CBC Reviewed PRP Reviewed magnesium Interpreted EKG at the bedside to be sure the patient was not having ischemia or infarction PG Care Time/CCT Total # of Minutes Spent Total Time Spent with Patient: Total time spent is greater than 50% in coordination of care (as documented) at patient's floor/unit and/or counseling patient: Coding Level of Care Code 83779 SUB INP/OBS CARE 3/50MIN Diagnoses CHF (congestive heart failure) I50.9 Acute hyponatremia E87.1 Iron deficiency anemia D50.9 CAD (coronary artery disease), [place] coronary artery I25.10 Hypertension I10 S/P ICD (internal cardiac defibrillator) procedure Z95.810 Hypothyroidism E03.9 Acute encephalopathy G93.40 Dysphagia R13.10 History of DVT (deep vein thrombosis) Z86.718
[2022-07-20] MEDS: FIBERSOURCE HN 1.2 CAL 1000 ML BAG GT SCH (18:51)
--- NOTE | 2022-07-20 20:41 | XRay Report ---
XR chest 1V portable HISTORY: 81 years-old Female SOB acute shortness of breath COMPARISON: 07/15/2022 TECHNIQUE: AP view of the chest FINDINGS: Cardiac silhouette is enlarged. Left subclavian pacer/AICD. Atherosclerosis of the aorta. No pneumoth orax. Progressively worsened pulmonary edema. Layering pleural effusions are redemonstrated, increase d in size on the right. Persistent bibasilar consolidation. Degenerative changes of the shoulders and spine. IMPRESSION: 1. Cardiomegaly with worsening pulmonary edema. 2. Layering pleural effusions, increased in size on the right. 3. Persistent bibasilar predominant consolidation. ACT 112: Negative or not required by law. The above report was generated using voice recognition software. It may contain grammatical, syntax o r spelling errors. Electronically signed by: Caio Rosenbaum M.D. 07/20/2022 8:40 PM
[2022-07-21] MEDS: ACETAMINOPHEN 325 MG TAB PO SCH ×4 (01:35→17:43)
[2022-07-21] MEDS: LEVOTHYROXINE SODIUM 88 MCG TABLET PO SCH (06:13)
[2022-07-21] MEDS: [UNRECOGNIZED DRUG - REMARK] SCH (07:08)
--- NOTE | 2022-07-21 07:23 | Hospitalist Progress Note ---
Date of Service July 21, 2022 Assessment & Plan (1) CHF (congestive heart failure): Plan: Acute congestive systolic heart failure, HFrEF moderate risk, resolving did have additional lasix on 07/20, remains on Bumex BID plus spironolactone. Patient clinically improved will continue medical management and watch for her diet as she did have a lunch meat sandwich the day prior and her family states she is sensitive to diet (2) Acute hyponatremia: Plan: 81 year old who was admitted to hospital on 07/05/2022 with acute hyponatremia and failure to thrive. Patient has an extensive history of CHF, status post AICD, EF 25-30%, HTN, severe pulmonary HTN, moderate to severe TR, ASCVD s/p stent x2, PAD. h/o subarachnoid hemorrhage 2/ aneurysm rupture and coil embolization of left vertebral aneurysm completed 03/31/2022. Complicated course including hydrocephalus which improved with EVD. Patient completed a course of Keppra, nimodidine x21 days, and was cared for at an LTAC before being transferred to [facility] for strengthening after she clinically improved and was able to have tracheostomy decannulated 06/15/2022. 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 Sodium currently at her baseline at least since 2017 Nephrology signed off patient 07/13/22 Sodium remains stable (3) Iron deficiency anemia: Plan: Acute on chronic anemia, now stable iron deficiency anemia plus anemia or chronic disease We will continue apixaban for DVT prophylaxis following anemia - Blood consent signed previously low iron tibc will give doses of venofer 07/07/22 with low blood count may opt to transfuse but concerns for volume with EF of 20 to 25% Hgb relatively stable and patient having brown BMs with no signs of any active bleeding Continue to monitor labs (patient also on Apixaban 2.5mg BID) (4) CAD (coronary artery disease), [place] coronary artery: (5) Hypertension: Plan: Stable 130-150/70-80s Currently 131/71 Continue on Bumex, Apresoline and Aldactone (6) S/P ICD (internal cardiac defibrillator) procedure: Plan: History of ICD placement chronic Patient with history of long QT syndrome, sudden cardiac arrest, last echo 07/05/22 with EF 25-30% Patient has had an ICD in place which she is followed by [facility] as an outpatient (7) Hypothyroidism: Plan: Hypothyroidism: Synthroid 88mcg daily (8) Acute encephalopathy: Plan: Acute encephalopathy now resolved initially was secondary to low sodium and uti poa, inital culture with >100,000 gram positive cocci, completed daptomycin, contact isolation palliative care consult on 07/19 results since the family wishes to continue current plan of care however if she decompensates or if she declines will consider transitioning to comfort care measures but at this point time aggressive care will be continued (9) Dysphagia: Plan: Dysphagia, required tube feels- chronic moderate risk with aspiration risk Nocturnal tube feeds, started on 07/07/2022. 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 After patient had some confusion and decline we did reinitiate tube feeds to augment oral intake as she has had waxing and waning alertness (10) History of DVT (deep vein thrombosis): Plan: History of unprovoked DVT, chronic and stable Continued on apixaban 2.5 mg twice daily Plan DVT prophylaxis: On apixaban Diet: Fluid restrict, low-salt diet plus TFs at night CODE STATUS: DNR/DNI. Admission and Anticipated Discharge Date Admission Date: July 05, 2022 Subjective Patient was seen in company of her family. She is improved from yesterday her acute systolic heart failure has resolved. She overlooks a little more tired and washed out that she had 2 days prior. She says she subjectively feels better less short of breath she has no other complaints or problems and no residual chest pain Physical Exam Physical Exam: The patient is awake and alert. She is no longer short of breath. She is not using accessory muscles. She has a systolic ejection murmur and basilar crackles which are present, she also has JVD to 2 cm. Explore extremities are without edema Results & Data Results & Data ([facility]) Vital Signs (Past 12 Hours) Vital Signs Temp Pulse Pulse Resp BP Pulse Ox O2 Del Method 07/21/22 06:55 98.1 F 73 16 136/72 94 Nasal Cannula 07/20/22 20:56 98.2 F 68 20 119/69 93 Nasal Cannula O2 Flow Rate 07/21/22 06:55 3 07/20/22 20:56 3 Laboratory Results Reviewed CBC reviewed PRP magnesium reviewed PG Care Time/CCT Total # of Minutes Spent Total Time Spent with Patient: Total time spent is greater than 50% in coordination of care (as documented) at patient's floor/unit and/or counseling patient: Coding Level of Care Code 09268 SUB INP/OBS CARE 2/35MIN Diagnoses CHF (congestive heart failure) I50.9 Acute hyponatremia E87.1 Iron deficiency anemia D50.9 CAD (coronary artery disease), [place] coronary artery I25.10 Hypertension I10 S/P ICD (internal cardiac defibrillator) procedure Z95.810 Hypothyroidism E03.9 Acute encephalopathy G93.40 Dysphagia R13.10 History of DVT (deep vein thrombosis) Z86.718
[2022-07-21] MEDS: SENNA 8.6 MG TAB PO SCH (08:53)
[2022-07-21] MEDS: APIXABAN 2.5 MG TAB PO SCH ×2 (08:54→19:35)
[2022-07-21] MEDS: hydrALAZINE HCL 25 MG TAB PO SCH ×2 (08:54→19:35)
[2022-07-21] MEDS: POLYETHYLENE (MIRALAX) 17 GM PACK PO SCH ×2 (08:54→19:35)
[2022-07-21] MEDS: LOSARTAN POTASSIUM 25 MG TAB PO SCH (08:54)
[2022-07-21] MEDS: SODIUM CHLORIDE 1 GM TABLET PO SCH (08:54)
[2022-07-21] MEDS: BUMETANIDE 1 MG TAB PO SCH ×2 (08:54→17:44)
[2022-07-21] MEDS: SPIRONOLACTONE 25 MG TAB PO SCH ×2 (08:55→19:35)
--- NOTE | 2022-07-21 11:04 | Electrocardiogram Report ---
Test Reason : Blood Pressure : / mmHG Vent. Rate : 074 BPM Atrial Rate : 074 BPM P-R Int : 118 ms QRS Dur : 098 ms QT Int : 464 ms P-R-T Axes : 052 -42 167 degrees QTc Int : 515 ms Sinus rhythm with occasional Premature ventricular complexes Left axis deviation Left ventricular hypertrophy with repolarization abnormality Cannot rule out Septal infarct , age undetermined Prolonged QT Abnormal ECG When compared with ECG of 05-JUL-2022 13:04, Sinus rhythm has replaced Electronic atrial pacemaker T wave inversion less evident in Inferior leads Confirmed by Scout Thornton ([id number]) on 07/21/2022 11:04:19 AM Referred By: [facility] Confirmed By:Scout Thornton
[2022-07-21] MEDS: LANSOPRAZOLE 30 MG SOLTAB PO SCH (11:16)
[2022-07-21 12:26] LABS: Hematocrit (blood only) 31.8 % (37.0-47.0); Hemoglobin 9.7 g/dl (12.0-16.0); Mean Corpuscular Hemoglobin 24.1 pg (25.0-34.0); Mean Corpuscular Hgb Conc 30.5 g/dL (32.0-36.0); Mean Corpuscular Volume 79.1 fL (80.0-100.0); Mean Platelet Volume 9.4 fL (9.4-12.4); Platelet Count 353 K/uL (130-400); RDW Coefficient of Variation 23.4 % (11.5-14.5); RDW Standard Deviation 65.3 fL (36.4-46.3); Red Blood Count 4.02 M/uL (4.20-5.40); White Blood Count 6.55 K/ul (4.8-10.8)
[2022-07-21 12:41] LABS: BUN Creatinine Ratio 43.9 (10-20); Calcium 9.9 mg/dl (8.5-10.1); Creatinine Clr Calc Pharmacy 58.4 ml/min; Est GFR (African American) 100.8 ml/min; Est GFR (Non-African American) 86.9 ml/min; Potassium 4.1 mmol/L (3.5-5.1)
[2022-07-21] MEDS: ONDANSETRON INJ 2 MG/ML 2 ML VIAL IV PRN (17:54)
[2022-07-22] MEDS: ACETAMINOPHEN 325 MG TAB PO SCH ×4 (00:29→17:04)
[2022-07-22] MEDS: ONDANSETRON INJ 2 MG/ML 2 ML VIAL IV PRN (03:46)
[2022-07-22] MEDS: LEVOTHYROXINE SODIUM 88 MCG TABLET PO SCH (05:49)
[2022-07-22] MEDS: [UNRECOGNIZED DRUG - REMARK] SCH (06:29)
[2022-07-22] MEDS: SENNA 8.6 MG TAB PO SCH (07:55)
[2022-07-22] MEDS: SODIUM CHLORIDE 1 GM TABLET PO SCH (07:55)
[2022-07-22] MEDS: APIXABAN 2.5 MG TAB PO SCH (07:55)
[2022-07-22] MEDS: POLYETHYLENE (MIRALAX) 17 GM PACK PO SCH ×2 (07:56→20:42)
[2022-07-22] MEDS: LOSARTAN POTASSIUM 25 MG TAB PO SCH (07:56)
[2022-07-22] MEDS: BUMETANIDE 1 MG TAB PO SCH ×2 (07:57→17:03)
[2022-07-22] MEDS: SPIRONOLACTONE 25 MG TAB PO SCH (07:58)
[2022-07-22] MEDS: hydrALAZINE HCL 25 MG TAB PO SCH (07:59)
[2022-07-22 09:03] LABS: BUN Creatinine Ratio 32.8 (10-20); Calcium 9.9 mg/dl (8.5-10.1); Creatinine Clr Calc Pharmacy 54.6 ml/min; Est GFR (African American) 98.5 ml/min; Magnesium 2.2 mg/dl (1.7-2.4); Potassium 4.3 mmol/L (3.5-5.1)
--- NOTE | 2022-07-22 10:16 | Palliative Care Progress Note ---
Date of Service July 22, 2022 Assessment & Plan (1) Abdominal pain: Plan: with constipation Family does not want further studies or interventions other than comfort focused. Morphine ordered. (2) Constipation: Plan: On daily miralax BID and senna in am. May need to use prn dulcolax. Monitor. (3) Palliative care encounter: Plan: Family discussed goals of care together after our meeting with daughters and granddaughter last week. I met with her daughters Alejandra and Yadira at bedside again today. They are all in agreement that comfort should be the focus of her care. We discussed whether to proceed with current interventions or to focus only on comfort and symptom management. They feel that she would want focus to be comfort only. After reviewing with them, labs and noncomfort medications have been discontinued. We discussed tube feedings and the effect of stopping them on her comfort level. They feel that she has been having discomfort with feeds and recognize risk of additional discomfort from volume overload. They would like her to have po foods if she requests and is able to tolerate but do not want to continue tube feedings. They would like to have her ICD deactivated to avoid potential shock. Alejandra tells me that her mother has talked to her in the past about her wishes and all are in agreement that this is what she would want. Discussed with Dr. Newell. Admission and Anticipated Discharge Date Admission Date: July 05, 2022 Subjective Awake. Oriented to person only. She has consistently been complaining of abdominal pain this morning. She points to her mid abdomen. RN reports that she ate a full cup of applesauce with her meds this morning. Tube feeds were held last night due to complaint of abdominal pain. Review of Systems Review of Systems: ESAS Pain 1/3 Dyspnea 0/3 Nausea 0/3 Anxiety 0/3 Drowsiness 0/3 Physical Exam Constitutional: no acute distress ENMT: Mouth: oral mucous membranes not dry Respiratory: normal respiratory effort; no labored breathing Cardiovascular: Rate/Rhythm: regular rate and regular rhythm Gastrointestinal (Abdomen): distended, no grimace or guarding with palpation, normal BS Musculoskeletal: Extremities: + muscle atrophy Skin: warm and dry Results & Data ([facility]) Vital Signs (Past 12 Hours) Vital Signs Temp Pulse Resp BP Pulse Ox O2 Del Method O2 Flow Rate 07/22/22 07:45 Nasal Cannula 3 07/22/22 07:24 97.7 F 71 16 157/80 H 100 Nasal Cannula 3 PG Care Time/CCT Total # of Minutes Spent Total Time Spent: 85 Total Time Spent with Patient: Total time spent is greater than 50% in coordination of care (as documented) at patient's floor/unit and/or counseling patient:[id number], [id number] Goals of care, symptom management, artificial feeding, code status, patient and family education and support, coordination of care Coding Level of Care Code 03538 SUB INP/OBS CARE 2/35MIN Diagnoses Abdominal pain R10.9 Constipation K59.00 Palliative care encounter Z51.5
[2022-07-22] MEDS: LANSOPRAZOLE 30 MG SOLTAB PO SCH (11:48)
[2022-07-22] MEDS ORDERED: MoRPHine SULFATE 2 MG/ML CARP IV PRN (13:56)
[2022-07-22] MEDS ORDERED: ONDANSETRON INJ 2 MG/ML 2 ML VIAL IV PRN (13:56)
--- NOTE | 2022-07-22 14:43 | Hospitalist Progress Note ---
Date of Service July 22, 2022 Assessment & Plan (1) Comfort measures only status: Plan: After decompensation over the weekend the family is made the patient comfort care measures we will discontinue any laboratories tube feedings or extraneous testing. Family requested continue current level of medical care with medications and will eventually transition to alf facility to pursue comfort measures there (2) CHF (congestive heart failure): Plan: Acute congestive systolic heart failure, HFrEF moderate risk, resolving did have additional lasix on 07/20, remains on Bumex BID plus spironolactone. Patient clinically improved Family has not made comfort care we will continue diuretics at this point time (3) Acute hyponatremia: Plan: 81 year old who was admitted to hospital on 07/05/2022 with acute hyponatremia and failure to thrive. Patient has an extensive history of CHF, status post AICD, EF 25-30%, HTN, severe pulmonary HTN, moderate to severe TR, ASCVD s/p stent x2, PAD. h/o subarachnoid hemorrhage 2/2 aneurysm rupture and coil embolization of left vertebral aneurysm completed 03/31/2022. Complicated course including hydrocephalus which improved with EVD. Patient completed a course of Keppra, nimodidine x21 days, and was cared for at an LTAC before being transferred to [facility] for strengthening after she clinically improved and was able to have tracheostomy decannulated 06/15/2022. 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 Sodium currently at her baseline at least since 2017 Nephrology signed off patient 07/13/22 (4) Iron deficiency anemia: Plan: Acute on chronic anemia, now stable iron deficiency anemia plus anemia or chronic disease We will continue apixaban for DVT prophylaxis following anemia - Blood consent signed previously low iron tibc will give doses of venofer 07/07/22 with low blood count may opt to transfuse but concerns for volume with EF of 20 to 25% Hgb relatively stable and patient having brown BMs with no signs of any active bleeding Continue to monitor labs (patient also on Apixaban 2.5mg BID) (5) CAD (coronary artery disease), [place] coronary artery: (6) Hypertension: Plan: Stable 130-150/70-80s Currently 131/71 Continue on Bumex, Apresoline and Aldactone (7) S/P ICD (internal cardiac defibrillator) procedure: Plan: History of ICD placement chronic Patient with history of long QT syndrome, sudden cardiac arrest, last echo 07/05/22 with EF 25-30% Patient has had an ICD in place which she is [facility] by [facility] as an outpatient, family request ICD to be turned off for the defibrillation phase Dr. Taylor was notified and will discontinue ICD on 07/22/2022 (8) Hypothyroidism: Plan: Hypothyroidism: Synthroid 88mcg daily (9) Acute encephalopathy: Plan: Acute encephalopathy now resolved initially was secondary to low sodium and uti poa, inital culture with >100,000 gram positive cocci, completed daptomycin, contact isolation palliative care consult on 07/22 family wishes to transition to comfort care measures but at this point time aggressive care will be continued (10) Dysphagia: Plan: Dysphagia, pt family wishes to stop tube feeding (11) History of DVT (deep vein thrombosis): Plan: History of unprovoked DVT, chronic and stable Continued on apixaban 2.5 mg twice daily Plan comfort measures CODE STATUS: DNR/DNI. Admission and Anticipated Discharge Date Admission Date: July 05, 2022 Subjective Family was fatigued upon my entering the room she did awaken and speak to me. She is oriented to person and place. Family is present at bedside after family meeting transition to comfort care measures will be undertaken I personally called Dr. taylor to turn off her AICD device Physical Exam Physical Exam: The patient is awake and oriented x2. She is no longer short of breath. She is very fatigued . She has a systolic ejection murmur and basilar crackles which are present, she also has persistetn JVD to 2 cm. Explore extremities are without edema Results & Data Results & Data ([facility]) Vital Signs (Past 12 Hours) Vital Signs Temp Pulse Resp BP Pulse Ox O2 Del Method O2 Flow Rate 07/22/22 07:45 Nasal Cannula 3 07/22/22 07:24 97.7 F 71 16 157/80 H 100 Nasal Cannula 3 PG Care Time/CCT Total # of Minutes Spent Total Time Spent with Patient: Total time spent is greater than 50% in coordination of care (as documented) at patient's floor/unit and/or counseling patient: Coding Level of Care Code 07100 SUB INP/OBS CARE 3/50MIN Diagnoses Comfort measures only status Z51.5 CHF (congestive heart failure) I50.9 Acute hyponatremia E87.1 Iron deficiency anemia D50.9 CAD (coronary artery disease), [place] coronary artery I25.10 Hypertension I10 S/P ICD (internal cardiac defibrillator) procedure Z95.810 Hypothyroidism E03.9 Acute encephalopathy G93.40 Dysphagia R13.10 History of DVT (deep vein thrombosis) Z86.718
--- NOTE | 2022-07-22 16:09 | Communication Note ---
Date of Service: July 22, 2022 I was asked to deactivate the ICD therapies for this patient. I confirmed the patient device information. The family members were in the room in aware of the process. The device therapies were deactivated and will no longer provide life- saving therapy in the event the patient suffers sustained ventricular tachycardia or ventricular fibrillation. I made this clear to the family members as well.
[2022-07-23] MEDS: ACETAMINOPHEN 325 MG TAB PO SCH ×2 (00:38→06:04)
[2022-07-23] MEDS: [UNRECOGNIZED DRUG - REMARK] SCH (06:04)
[2022-07-23] MEDS: BUMETANIDE 1 MG TAB PO SCH ×2 (09:10→17:04)
[2022-07-23] MEDS: SENNA 8.6 MG TAB PO SCH (09:11)
[2022-07-23] MEDS: POLYETHYLENE (MIRALAX) 17 GM PACK PO SCH ×2 (09:13→20:03)
--- NOTE | 2022-07-23 10:06 | Palliative Care Progress Note ---
Date of Service July 23, 2022 Assessment & Plan (1) Abdominal pain: Plan: Family declines further workup and requests focus of care on comfort and symptom management. May be related to constipation. She is on miralax BID. Discussed using prn dulcolax with RN Continue prn morphine (2) Constipation: Plan: As above (3) Dysphagia: Plan: history of CVA with PEG tube Family requests discontinuation of enteral feeds. Continue oral feeds as tolerated. She has been able to tolerate medications and small amounts of food with no signs of aspiration. (4) Palliative care encounter: Plan: Multiple meetings with her daughters to discuss goals of care. They, and their siblings, are all in agreement that she would not want further aggressive care and would prefer focus on comfort and symptom management. Admission and Anticipated Discharge Date Admission Date: July 05, 2022 Subjective Drowsy but responds to questions. Rubbing her abdomen. Complains of abdominal pain. Review of Systems Review of Systems: ESAS Pain 2/3 Nausea 0/3 Dyspnea 0/3 Drowsiness 1/3 Physical Exam Constitutional: + ill appearing ENMT: facial grimace Respiratory: normal respiratory effort; no labored breathing Cardiovascular: Extremities: no edema Gastrointestinal (Abdomen): distended, tender to palpation, positive BS Musculoskeletal: Extremities: + muscle atrophy Neurologic: Speech / Cognition: + abnormal cognition Results & Data ([facility]) Vital Signs (Past 12 Hours) Vital Signs O2 Del Method O2 Flow Rate 07/23/22 07:20 Nasal Cannula 3 PG Care Time/CCT Total # of Minutes Spent Total Time Spent with Patient: Total time spent is greater than 50% in coordination of care (as documented) at patient's floor/unit and/or counseling patient: Coding Level of Care Code 46510 SUB INP/OBS CARE 1/25MIN Diagnoses Abdominal pain R10.9 Constipation K59.00 Dysphagia R13.10 Palliative care encounter Z51.5
[2022-07-23] MEDS: LANSOPRAZOLE 30 MG SOLTAB PO SCH (11:25)
[2022-07-23] MEDS: bisacodyL 10 MG SUPP PR PRN (11:54)
--- NOTE | 2022-07-23 16:30 | Hospitalist Progress Note ---
Date of Service July 23, 2022 Assessment & Plan (1) Comfort measures only status: Plan: After decompensation over the weekend the family is made the patient comfort care measures we will discontinue any laboratories tube feedings or extraneous testing. Family requested continue current level of medical care with medications and will eventually transition to care home facility to pursue comfort measures there (2) CHF (congestive heart failure): Plan: Acute congestive systolic heart failure, HFrEF moderate risk, resolving did have additional lasix on 07/20, remains on Bumex BID plus spironolactone. Patient clinically improved Family has not made comfort care we will continue diuretics at this point time (3) Acute hyponatremia: Plan: 81 year old who was admitted to hospital on 07/05/2022 with acute hyponatremia and failure to thrive. Patient has an extensive history of CHF, status post AICD, EF 25-30%, HTN, severe pulmonary HTN, moderate to severe TR, ASCVD s/p stent x2, PAD. h/o subarachnoid hemorrhage 2/2 aneurysm rupture and coil embolization of left vertebral aneurysm completed 03/31/2022. Complicated course including hydrocephalus which improved with EVD. Patient completed a course of Keppra, nimodidine x21 days, and was cared for at an LTAC before being transferred to [facility] for strengthening after she clinically improved and was able to have tracheostomy decannulated 06/15/2022. 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 Sodium currently at her baseline at least since 2017 Nephrology signed off patient 07/13/22 (4) Iron deficiency anemia: Plan: Acute on chronic anemia, now stable iron deficiency anemia plus anemia or chronic disease We will continue apixaban for DVT prophylaxis following anemia - Blood consent signed previously low iron tibc will give doses of venofer 07/07/22 with low blood count may opt to transfuse but concerns for volume with EF of 20 to 25% Hgb relatively stable and patient having brown BMs with no signs of any active bleeding Continue to monitor labs (patient also on Apixaban 2.5mg BID) (5) CAD (coronary artery disease), [place] coronary artery: (6) Hypertension: Plan: Stable 130-150/70-80s Currently 131/71 Continue on Bumex, Apresoline and Aldactone (7) S/P ICD (internal cardiac defibrillator) procedure: Plan: History of ICD placement chronic Patient with history of long QT syndrome, sudden cardiac arrest, last echo 07/05/22 with EF 25-30% Patient has had an ICD in place which she is [facility] as an [facility], family request ICD to be turned off for the defibrillation phase Dr. Gross was notified and will discontinue ICD on 07/22/2022 (8) Hypothyroidism: Plan: Hypothyroidism: Synthroid 88mcg daily (9) Acute encephalopathy: Plan: Acute encephalopathy now resolved initially was secondary to low sodium and uti poa, inital culture with >100,000 gram positive cocci, completed daptomycin, contact isolation palliative care consult on 07/22 family wishes to transition to comfort care measures but at this point time aggressive care will be continued (10) Dysphagia: Plan: Dysphagia, pt family wishes to stop tube feeding (11) History of DVT (deep vein thrombosis): Plan: History of unprovoked DVT, chronic and stable Continued on apixaban 2.5 mg twice daily Plan comfort measures CODE STATUS: DNR/DNI. Admission and Anticipated Discharge Date Admission Date: July 05, 2022 Subjective Drowsy but responds to questions. Complains of abdominal pain. pt is on comfort care will look to go to snf Physical Exam Physical Exam: The patient is awake and oriented x2. She is very fatigued . She has a systolic ejection murmur and basilar crackles which are present, she also has persistent JVD to 2 cm. Explore extremities are without edema Results & Data Results & Data ([facility]) Vital Signs (Past 12 Hours) Vital Signs O2 Del Method O2 Flow Rate 07/23/22 07:20 Nasal Cannula 3 PG Care Time/CCT Total # of Minutes Spent Total Time Spent with Patient: Total time spent is greater than 50% in coordination of care (as documented) at patient's floor/unit and/or counseling patient: Coding Level of Care Code 52774 SUB INP/OBS CARE 06/26MIN Diagnoses Comfort measures only status Z51.5 CHF (congestive heart failure) I50.9 Acute hyponatremia E87.1 Iron deficiency anemia D50.9 CAD (coronary artery disease), [place] coronary artery I25.10 Hypertension I10 S/P ICD (internal cardiac defibrillator) procedure Z95.810 Hypothyroidism E03.9 Acute encephalopathy G93.40 Dysphagia R13.10 History of DVT (deep vein thrombosis) Z86.718
[2022-07-23] MEDS: MoRPHine SULFATE 2 MG/ML CARP IV PRN ×2 (17:12→23:21)
[2022-07-24] MEDS: MoRPHine SULFATE 2 MG/ML CARP IV PRN ×5 (01:55→19:37)
[2022-07-24] MEDS: LORazepam 2 MG/1 ML VIAL IV PRN ×3 (02:37→19:37)
[2022-07-24] MEDS: POLYETHYLENE (MIRALAX) 17 GM PACK PO SCH ×2 (09:55→21:19)
[2022-07-24] MEDS: BUMETANIDE 1 MG TAB PO SCH ×2 (09:55→16:54)
[2022-07-24] MEDS: SENNA 8.6 MG TAB PO SCH (09:55)
[2022-07-24] MEDS: LANSOPRAZOLE 30 MG SOLTAB PO SCH (12:10)
--- NOTE | 2022-07-24 17:24 | Hospitalist Progress Note ---
Date of Service July 24, 2022 Assessment & Plan (1) Comfort measures only status: Plan: After decompensation over the weekend the family is made the patient comfort care measures we will discontinue any laboratories tube feedings or extraneous testing. Family requested continue current level of medical care with medications and will eventually transition to longterm facility to pursue comfort measures there (2) CHF (congestive heart failure): Plan: Acute congestive systolic heart failure, HFrEF moderate risk, resolving stopping lasix Family has now made comfort care, (3) Acute hyponatremia: Plan: 81 year old who was admitted to hospital on 07/05/2022 with acute hyponatremia and failure to thrive. Patient has an extensive history of CHF, status post AICD, EF 25-30%, HTN, severe pulmonary HTN, moderate to severe TR, ASCVD s/p stent x2, PAD. h/o subarachnoid hemorrhage 2/2 aneurysm rupture and coil embol ization of left vertebral aneurysm completed 03/31/2022. Complicated course including hydrocephalus which improved with EVD. Patient completed a course of Keppra, nimodidine x21 days, and was cared for at an LTAC before being transferred to [facility] for strengthening after she clinically improved and was able to have tracheostomy decannulated 06/15/2022. 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, with reduced osmolalities nephrology recommends against restarting ACEs or ARB's of this patient (4) Iron deficiency anemia: Plan: Acute on chronic anemia, now stable iron deficiency anemia plus anemia or chronic disease We will continue apixaban for DVT prophylaxis following anemia - Blood consent signed previously low iron tibc will give doses of venofer 07/07/22 with low blood count may opt to transfuse but concerns for volume with EF of 20 to 25% Hgb relatively stable (5) CAD (coronary artery disease), [place] coronary artery: (6) Hypertension: (7) S/P ICD (internal cardiac defibrillator) procedure: Plan: History of ICD placement chronic Patient with history of long QT syndrome, sudden cardiac arrest, last echo 07/05/22 with EF 25-30% Patient has had an ICD in place which she is followed by [facility] as an outpatient, family request ICD to be turned off for the defibrillation phase Dr. Gross was notified and will discontinue ICD on 07/22/2022 (8) Hypothyroidism: Plan: Hypothyroidism: Synthroid 88mcg daily (9) Acute encephalopathy: Plan: inital culture with >100,000 gram positive cocci, completed daptomycin, contact isolation palliative care consult on 07/22 family wishes to transition to comfort care measures but at this point time aggressive care will be continued (10) Dysphagia: Plan: Dysphagia, pt family wishes to stop tube feeding (11) History of DVT (deep vein thrombosis): Plan: History of unprovoked DVT, chronic and stable Plan comfort measures CODE STATUS: DNR/DNI. Admission and Anticipated Discharge Date Admission Date: July 05, 2022 Subjective Drowsy but responds to questions. Family is at the bedside and updated pt is on comfort care , may decline and not be able to transfer to snf due to decline Physical Exam Physical Exam: The patient isdrowsy but awakens. She is very fatigued . She has a systolic ejection murmur and basilar crackles which are present, she also has persistent JVD to 2 cm. Explore extremities are without edema Results & Data Results & Data ([place]) Vital Signs (Past 12 Hours) Vital Signs O2 Del Method 07/24/22 11:41 Nasal Cannula PG Care Time/CCT Total # of Minutes Spent Total Time Spent with Patient: Total time spent is greater than 50% in coordination of care (as documented) at patient's floor/unit and/or counseling patient: Coding Level of Care Code 13551 SUB INP/OBS CARE 2/35MIN Diagnoses Comfort measures only status Z51.5 CHF (congestive heart failure) I50.9 Acute hyponatremia E87.1 Iron deficiency anemia D50.9 CAD (coronary artery disease), [place] coronary artery I25.10 Hypertension I10 S/P ICD (internal cardiac defibrillator) procedure Z95.810 Hypothyroidism E03.9 Acute encephalopathy G93.40 Dysphagia R13.10 History of DVT (deep vein thrombosis) Z86.718
[2022-07-25] MEDS: MoRPHine SULFATE 2 MG/ML CARP IV PRN ×2 (04:24→23:56)
[2022-07-25] MEDS: LORazepam 2 MG/1 ML VIAL IV PRN ×2 (04:31→09:23)
[2022-07-25] MEDS: POLYETHYLENE (MIRALAX) 17 GM PACK PO SCH (09:04)
[2022-07-25] MEDS: SENNA 8.6 MG TAB PO SCH (09:04)
--- NOTE | 2022-07-25 09:37 | Palliative Care Progress Note ---
Date of Service July 25, 2022 Assessment & Plan (1) Abdominal pain: Plan: Continue prn morphine and monitor. Would have low threshold for infusion if she remains uncomfortable. (2) Constipation: Plan: LBM 2. She is no longer able to safely take po meds and po intake in negligible. Will stop laxatives. (3) Dysphagia: Plan: With previous peg feedings. Family decided not to continue peg feedings with full focus on comfort and symptom management. (4) Palliative care encounter: Plan: Talked with daughterNishi, at bedside. Given facial grimace, moaning and restlessness, Charleen does not appear comfortable. She has responded to lorazepam in the past, will do routine lorazepam dosing and continue prn morphine for now. Plan has been to transfer to [facility] with hospice but she does not have adequate symptom control and likely will not be stable for transfer. She is more comfortable after ativan with less facial grimace and restlessness. Continue to monitor. Discussed with Nishi. Picks at clothing at times but overall less restless, no moaning or facial grimace. DaughterYadira, and other family members at bedside. She has not had any prn morphine this morning. Continue current medications and monitor. Discussed with interlocking pavement installer and Anticipated Discharge Date Admission Date: July 05, 2022 Subjective Moaning, facial grimace, minimally verbal "oh man". DaughterNishi at bedside. She has had 24 mg OME and four doses of lorazepam in last 24 hours. Review of Systems Review of Systems: Unobtainable due to cognitive status and Unobtainable due to reduced consciousness Physical Exam Constitutional: + uncomfortable ENMT: Mouth: + dry oral mucous membranes Respiratory: normal respiratory effort; no labored breathing Cardiovascular: irregular Gastrointestinal (Abdomen): tender to palpation LBM 2 Musculoskeletal: Extremities: + muscle atrophy Neurologic: Speech / Cognition: normal cognition Genitourinary: incontinent, UOP 425cc PG Care Time/CCT Total # of Minutes Spent Total Time Spent: 57 Total Time Spent with Patient: Total time spent is greater than 50% in coordination of care (as documented) at patient's floor/unit and/or counseling patient: [id number] symptom management, family education and support, coordination of care Coding Level of Care Code 75306 SUB INP/OBS CARE 350MIN Diagnoses Abdominal pain R10.9 Constipation K59.00 Dysphagia R13.10 Palliative care encounter Z51.5
[2022-07-25] MEDS: LORazepam 2 MG/1 ML VIAL IV SCH ×4 (13:20→23:29)
--- NOTE | 2022-07-25 16:23 | Hospitalist Progress Note ---
Date of Service July 25, 2022 Assessment & Plan (1) Comfort measures only status: Plan: After decompensation over the weekend the family is made the patient comfort care measures we will discontinue any laboratories tube feedings or extraneous testing. Family requested continue current level of medical care with medications and will eventually transition to [facility] facility to pursue comfort measures there. Patient will remain on comfort measures. (2) CHF (congestive heart failure): Plan: Acute congestive systolic heart failure, HFrEF moderate risk, resolving stopping lasix Family has now made comfort care, (3) Acute hyponatremia: Plan: 81 year old who was admitted to hospital on 07/05/2022 with acute hyponatremia and failure to thrive. Patient has an extensive history of CHF, status post AICD, EF 25-30%, HTN, severe pulmonary HTN, moderate to severe TR, ASCVD s/p stent x2, PAD. h/o subarachnoid hemorrhage 2/ aneurysm rupture and coil embolization of left vertebral aneurysm completed 03/31/2022. Complicated course including hydrocephalus which improved with EVD. Patient completed a course of Keppra, nimodidine x21 days, and was cared for at an LTAC before being transferred to [facility] for strengthening after she clinically improved and was able to have tracheostomy decannulated 06/15/2022. 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, with reduced osmolalities nephrology recommends against restarting ACEs or ARB's of this patient (4) Iron deficiency anemia: Plan: Acute on chronic anemia, now stable iron deficiency anemia plus anemia or chronic disease We will continue apixaban for DVT prophylaxis following anemia - Blood consent signed previously low iron tibc will give doses of venofer 07/07/22 with low blood count may opt to transfuse but concerns for volume with EF of 20 to 25% Hgb relatively stable (5) CAD (coronary artery disease), [place] coronary artery: (6) Hypertension: (7) S/P ICD (internal cardiac defibrillator) procedure: Plan: History of ICD placement chronic Patient with history of long QT syndrome, sudden cardiac arrest, last echo 07/05/22 with EF 25-30% Patient has had an ICD in place which she is followed by [facility] as an outpatient, family request ICD to be turned off for the defibrillation phase Dr. Gross was notified and will discontinue ICD on 07/22/2022 (8) Hypothyroidism: Plan: Hypothyroidism: Synthroid 88mcg daily (9) Acute encephalopathy: Plan: inital culture with >100,000 gram positive cocci, completed daptomycin, contact isolation palliative care consult on 07/22 family wishes to transition to comfort care measures but at this point time aggressive care will be continued (10) Dysphagia: Plan: Dysphagia, pt family wishes to stop tube feeding (11) History of DVT (deep vein thrombosis): Plan: History of unprovoked DVT, chronic and stable Plan comfort measures CODE STATUS: DNR/DNI. Admission and Anticipated Discharge Date Admission Date: July 05, 2022 Subjective Patient is lying in bed comfortably. Family is at bedside. Review of Systems Review of Systems: Unobtainable due to cognitive status Physical Exam Physical Exam: Patient is lying bed. Pat[place] does not appear to be in acute distress. Patient is not using accessory muscles to breath. PG Care Time/CCT Total # of Minutes Spent Total Time Spent with Patient: Total time spent is greater than 50% in coordination of care (as documented) at patient's floor/unit and/or counseling patient: Coding Level of Care Code 48602 SUB INP/OBS CARE 2/35MIN Diagnoses Comfort measures only status Z51.5 CHF (congestive heart failure) I50.9 Acute hyponatremia E87.1 Iron deficiency anemia D50.9 CAD (coronary artery disease), [place] coronary artery I25.10 Hypertension I10 S/P ICD (internal cardiac defibrillator) procedure Z95.810 Hypothyroidism E03.9 Acute encephalopathy G93.40 Dysphagia R13.10 History of DVT (deep vein thrombosis) Z86.718
[2022-07-26] MEDS: LORazepam 2 MG/1 ML VIAL IV SCH ×6 (04:06→23:58)
--- NOTE | 2022-07-26 11:48 | Palliative Care Progress Note ---
Date of Service July 26, 2022 Assessment & Plan (1) Abdominal pain: Plan: Does not appear to have abdominal pain with palpation. So signs or pain behaviors. Continue prn morphine and monitor. (2) Restlessness and agitation: Plan: Had been restless and pulling at sheets. Appears to be resting comfortably with routine lorazepam. Continue routine dosing (3) Palliative care encounter: Plan: Focus of care is comfort and symptom management. Family has been taking turns visiting. She is likely to within the next few days and would not benefit from transfer to SNF at this time. Admission and Anticipated Discharge Date Admission Date: July 05, 2022 Subjective No response to voice or touch. One dose of prn morphine in last 24 hours. Review of Systems Review of Systems: Unobtainable due to reduced consciousness Physical Exam Constitutional: + acute distress and + cachectic ENMT: Mouth: + dry oral mucous membranes Respiratory: normal respiratory effort; no labored breathing no rhonchi or audible tracheal secretions Cardiovascular: irregular Gastrointestinal (Abdomen): no facial grimace with palpation Musculoskeletal: Extremities: + muscle atrophy Skin: warm and dry, no mottling Neurologic: obtunded Genitourinary: UOP 150cc Results & Data ([facility]) Vital Signs (Past 12 Hours) Vital Signs Temp Pulse Resp BP Pulse Ox O2 Del Method O2 Flow Rate 07/26/22 07:50 Nasal Cannula 3 07/26/22 07:19 98.1 F 81 16 188/89 H 97 Nasal Cannula 3 PG Care Time/CCT Total # of Minutes Spent Total Time Spent with Patient: Total time spent is greater than 50% in coordination of care (as documented) at patient's floor/unit and/or counseling patient: Coding Level of Care Code 16723 SUB INP/OBS CARE 1/25MIN Diagnoses Abdominal pain R10.9 Restlessness and agitation R45.1 Palliative care encounter Z51.5
[2022-07-26] MEDS: MoRPHine SULFATE 2 MG/ML CARP IV PRN (18:02)
--- NOTE | 2022-07-26 22:22 | Hospitalist Progress Note ---
Date of Service July 26, 2022 Assessment & Plan (1) Comfort measures only status: Plan: After decompensation over the weekend the family is made the patient comfort care measures we will discontinue any laboratories tube feedings or extraneous testing. Family requested continue current level of medical care with medications and will eventually transition to snf facility to pursue comfort measures there. Patient will remain on comfort measures. Appears ativan is making patient more confused, will focus more on morphine and will monitor. (2) CHF (congestive heart failure): Plan: Acute congestive systolic heart failure, HFrEF moderate risk, resolving stopping lasix Family has now made comfort care, Plan below is prior to comfort measures order (3) Acute hyponatremia: Plan: 81 year old who was admitted to hospital on 07/05/2022 with acute hyponatremia and failure to thrive. Patient has an extensive history of CHF, status post AICD, EF 25-30%, HTN, severe pulmonary HTN, moderate to severe TR, ASCVD s/p stent x2, PAD. h/o subarachnoid hemorrhage 2/2 aneurysm rupture and coil embolization of left vertebral aneurysm completed 03/31/2022. Complicated course including hydrocephalus which improved with EVD. Patient completed a course of Keppra, nimodidine x21 days, and was cared for at an LTAC before being transferred to [facility] for strengthening after she clinically improved and was able to have tracheostomy decannulated 06/15/2022. 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, with reduced osmolalities nephrology recommends against restarting ACEs or ARB's of this patient (4) Iron deficiency anemia: Plan: Acute on chronic anemia, now stable iron deficiency anemia plus anemia or chronic disease We will continue apixaban for DVT prophylaxis following anemia - Blood consent signed previously low iron tibc will give doses of venofer 07/07/22 with low blood count may opt to transfuse but concerns for volume with EF of 20 to 25% Hgb relatively stable (5) CAD (coronary artery disease), [place] coronary artery: (6) Hypertension: (7) S/P ICD (internal cardiac defibrillator) procedure: Plan: History of ICD placement chronic Patient with history of long QT syndrome, sudden cardiac arrest, last echo 07/05/22 with EF 25-30% Patient has had an ICD in place which she is followed by [facility] as an outpatient, family request ICD to be turned off for the defibrillation phase Dr. Gross was notified and will discontinue ICD on 07/22/2022 (8) Hypothyroidism: Plan: Hypothyroidism: Synthroid 88mcg daily (9) Acute encephalopathy: Plan: inital culture with >100,000 gram positive cocci, completed daptomycin, contact isolation palliative care consult on 07/22 family wishes to transition to comfort care measures but at this point time aggressive care will be continued (10) Dysphagia: Plan: Dysphagia, pt family wishes to stop tube feeding (11) History of DVT (deep vein thrombosis): Plan: History of unprovoked DVT, chronic and stable Plan comfort measures CODE STATUS: DNR/DNI. Admission and Anticipated Discharge Date Admission Date: July 05, 2022 Subjective Patient lying bed in no acute distress/ Review of Systems Review of Systems: All systems reviewed & are unremarkable except as noted in HPI & below Physical Exam Physical Exam: Patient is lying bed. Patient does not appear to be in acute distress. Patient is not using accessory muscles to breath. Results & Data Results & Data ([facility]) Vital Signs (Past 12 Hours) Vital Signs O2 Del Method O2 Flow Rate 07/26/22 19:50 Nasal Cannula 3 PG Care Time/CCT Total # of Minutes Spent Total Time Spent with Patient: Total time spent is greater than 50% in coordination of care (as documented) at patient's floor/unit and/or counseling patient: Coding Level of Care Code 39783 SUB INP/OBS CARE 2/35MIN Diagnoses Comfort measures only status Z51.5 CHF (congestive heart failure) I50.9 Acute hyponatremia E87.1 Iron deficiency anemia D50.9 CAD (coronary artery disease), [place] coronary artery I25.10 Hypertension I10 S/P ICD (internal cardiac defibrillator) procedure Z95.810 Hypothyroidism E03.9 Acute encephalopathy G93.40 Dysphagia R13.10 History of DVT (deep vein thrombosis) Z86.718
[2022-07-27] MEDS: MoRPHine SULFATE 2 MG/ML CARP IV PRN ×2 (01:41→03:17)
[2022-07-27] MEDS: GLYCOPYRROLATE 0.2 MG/ML VIAL IV PRN ×2 (03:17→21:44)
[2022-07-27] MEDS: LORazepam 2 MG/1 ML VIAL IV SCH ×6 (04:53→23:58)
--- NOTE | 2022-07-27 10:25 | Hospitalist Progress Note ---
Date of Service July 27, 2022 Assessment & Plan (1) Comfort measures only status: Plan: After decompensation over the weekend the family is made the patient comfort care measures we will discontinue any laboratories tube feedings or extraneous testing. Family requested continue current level of medical care with medications and will eventually transition to snf facility to pursue comfort measures there. Patient will remain on comfort measures. Patient appears comfortable with morphine. continue comfort measures. Anticipate patient will pass within next 24-48 hours. (2) CHF (congestive heart failure): Plan: Acute congestive systolic heart failure, HFrEF moderate risk, resolving stopping lasix Family has now made comfort care, Plan below is prior to comfort measures order (3) Acute hyponatremia: Plan: 81 year old who was admitted to hospital on 07/05/2022 with acute hyponatremia and failure to thrive. Patient has an extensive history of CHF, status post AICD, EF 25-30%, HTN, severe pulmonary HTN, moderate to severe TR, ASCVD s/p stent x2, PAD. h/o subarachnoid hemorrhage 2/2 aneurysm rupture and coil embolization of left vertebral aneurysm completed 03/31/2022. Complicated course including hydrocephalus which improved with EVD. Patient completed a course of Keppra, nimodidine x21 days, and was cared for at an LTAC before being transferred to [facility] for strengthening after she clinically improved and was able to have tracheostomy decannulated 06/15/2022. 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, with reduced osmolalities nephrology recommends against restarting ACEs or ARB's of this patient (4) Iron deficiency anemia: Plan: Acute on chronic anemia, now stable iron deficiency anemia plus anemia or chronic disease We will continue apixaban for DVT prophylaxis following anemia - Blood consent signed previously low iron tibc will give doses of venofer 07/07/22 with low blood count may opt to transfuse but concerns for volume with EF of 20 to 25% Hgb relatively stable (5) CAD (coronary artery disease), [place] coronary artery: (6) Hypertension: (7) S/P ICD (internal cardiac defibrillator) procedure: Plan: History of ICD placement chronic Patient with history of long QT syndrome, sudden cardiac arrest, last echo 07/05/22 with EF 25-30% Patient has had an ICD in place which she is followed by [facility] as an [facility], family request ICD to be turned off for the defibrillation phase Dr. Gross was notified and will discontinue ICD on 07/22/2022 (8) Hypothyroidism: Plan: Hypothyroidism: Synthroid 88mcg daily (9) Acute encephalopathy: Plan: inital culture with >100,000 gram positive cocci, completed daptomycin, contact isolation palliative care consult on 07/22 family wishes to transition to comfort care measures but at this point time aggressive care will be continued (10) Dysphagia: Plan: Dysphagia, pt family wishes to stop tube feeding (11) History of DVT (deep vein thrombosis): Plan: History of unprovoked DVT, chronic and stable Plan comfort measures CODE STATUS: DNR/DNI. Admission and Anticipated Discharge Date Admission Date: July 05, 2022 Subjective Patient lying in bed. Resting. Review of Systems Review of Systems: Unobtainable due to cognitive status Physical Exam Physical Exam: Patient is lying bed. Patient does not appear to be in acute distress. Patient is not using accessory muscles to breath. Results & Data Results & Data ([facility]) Vital Signs (Past 12 Hours) Vital Signs O2 Del Method O2 Flow Rate 07/27/22 07:00 Nasal Cannula 3 PG Care Time/CCT Total # of Minutes Spent Total Time Spent with Patient: Total time spent is greater than 50% in coordination of care (as documented) at patient's floor/unit and/or counseling patient: Coding Level of Care Code 56981 SUB INP/OBS CARE 2/35MIN Diagnoses Comfort measures only status Z51.5 CHF (congestive heart failure) I50.9 Acute hyponatremia E87.1 Iron deficiency anemia D50.9 CAD (coronary artery disease), [place] coronary artery I25.10 Hypertension I10 S/P ICD (internal cardiac defibrillator) procedure Z95.810 Hypothyroidism E03.9 Acute encephalopathy G93.40 Dysphagia R13.10 History of DVT (deep vein thrombosis) Z86.718
[2022-07-28] MEDS: LORazepam 2 MG/1 ML VIAL IV SCH ×5 (04:18→19:42)
[2022-07-28] MEDS: GLYCOPYRROLATE 0.2 MG/ML VIAL IV PRN ×3 (10:00→21:08)
[2022-07-28] MEDS: MoRPHine SULFATE 2 MG/ML CARP IV PRN ×3 (10:52→22:08)
[2022-07-28] MEDS ORDERED: ATROPINE SULFATE 1% OP SOLN 5 ML BTL PO PRN (11:26)
[2022-07-28] MEDS ORDERED: GLYCOPYRROLATE 0.2 MG/ML VIAL IV PRN (11:31)
--- NOTE | 2022-07-28 11:55 | Hospitalist Progress Note ---
Date of Service July 28, 2022 Assessment & Plan (1) Comfort measures only status: Plan: After decompensation over the weekend the family is made the patient comfort care measures we will discontinue any laboratories tube feedings or extraneous testing. Family requested continue current level of medical care with medications and will eventually transition to shelter facility to pursue comfort measures there. Patient will remain on comfort measures. Patient appears comfortable with morphine. continue comfort measures. Anticipate patient will pass within next 24-48 hours. increased anticholinergic (2) CHF (congestive heart failure): Plan: Acute congestive systolic heart failure, HFrEF moderate risk, resolving stopping lasix Family has now made comfort care, Plan below is prior to comfort measures order (3) Acute hyponatremia: Plan: 81 year old who was admitted to hospital on 07/05/2022 with acute hyponatremia and failure to thrive. Patient has an extensive history of CHF, status post AICD, EF 25-30%, HTN, severe pulmonary HTN, moderate to severe TR, ASCVD s/p stent x2, PAD. h/o subarachnoid hemorrhage 2/2 aneurysm rupture and coil embolization of left vertebral aneurysm completed 03/31/2022. Complicated course including hydrocephalus which improved with EVD. Patient completed a course of Keppra, nimodidine x21 days, and was cared for at an LTAC before being transferred to [facility] for strengthening after she clinically improved and was able to have tracheostomy decannulated 06/15/2022. 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, with reduced osmolalities nephrology recommends against restarting ACEs or ARB's of this patient (4) Iron deficiency anemia: Plan: Acute on chronic anemia, now stable iron deficiency anemia plus anemia or chronic disease We will continue apixaban for DVT prophylaxis following anemia - Blood consent signed previously low iron tibc will give doses of venofer 07/07/22 with low blood count may opt to transfuse but concerns for volume with EF of 20 to 25% Hgb relatively stable (5) CAD (coronary artery disease), [place] coronary artery: (6) Hypertension: (7) S/P ICD (internal cardiac defibrillator) procedure: Plan: History of ICD placement chronic Patient with history of long QT syndrome, sudden cardiac arrest, last echo 07/05/22 with EF 25-30% Patient has had an ICD in place which she is followed by [facility] as an outpatient, family request ICD to be turned off for the defibrillation phase Dr. Gross was notified and will discontinue ICD on 07/22/2022 (8) Hypothyroidism: Plan: Hypothyroidism: Synthroid 88mcg daily (9) Acute encephalopathy: Plan: inital culture with >100,000 gram positive cocci, completed daptomycin, contact isolation palliative care consult on 07/22 family wishes to transition to comfort care measures but at this point time aggressive care will be continued (10) Dysphagia: Plan: Dysphagia, pt family wishes to stop tube feeding (11) History of DVT (deep vein thrombosis): Plan: History of unprovoked DVT, chronic and stable Plan comfort measures CODE STATUS: DNR/DNI. Admission and Anticipated Discharge Date Admission Date: July 05, 2022 Subjective 81 yo female is having more secretions today. Review of Systems Review of Systems: All systems reviewed & are unremarkable except as noted in HPI & below Physical Exam Physical Exam: Patient is lying bed, gurgling. Patient does not appear to be in acute distress. Patient is not using accessory muscles to breath. Results & Data Results & Data ([facility]) Vital Signs (Past 12 Hours) Vital Signs Temp Pulse Resp BP Pulse Ox O2 Del Method O2 Flow Rate 07/28/22 10:57 28 H 07/28/22 07:17 Nasal Cannula 3 07/28/22 07:08 37.1 C 85 18 143/85 H 71 L Nasal Cannula 3 PG Care Time/CCT Total # of Minutes Spent Total Time Spent with Patient: Total time spent is greater than 50% in coordination of care (as documented) at patient's floor/unit and/or counseling patient: Coding Level of Care Code 17039 SUB INP/OBS CARE 2/35MIN Diagnoses Comfort measures only status Z51.5 CHF (congestive heart failure) I50.9 Acute hyponatremia E87.1 Iron deficiency anemia D50.9 CAD (coronary artery disease), [place] coronary artery I25.10 Hypertension I10 S/P ICD (internal cardiac defibrillator) procedure Z95.810 Hypothyroidism E03.9 Acute encephalopathy G93.40 Dysphagia R13.10 History of DVT (deep vein thrombosis) Z86.718
[2022-07-29] MEDS: LORazepam 2 MG/1 ML VIAL IV SCH ×4 (00:33→13:37)
[2022-07-29] MEDS: GLYCOPYRROLATE 0.2 MG/ML VIAL IV PRN ×2 (03:55→08:00)
--- NOTE | 2022-07-29 09:57 | Palliative Care Progress Note ---
Date of Service July 29, 2022 Assessment & Plan (1) Abdominal pain: Plan: Had complained of abdominal pain with constipation. No po intake. No signs of pain at this time. She has received morphine prn for tachypnea and labored breathing (2) Restlessness and agitation: Plan: Controlled with routine lorazepam (3) Terminal respiratory secretions: Plan: On glycopyrrolate. Discussed repositioning with RN. Limited evidence to support efficacy of anticholinergics for terminal secretions. Would continue prn dosing but limit frequency to Q 4hours at most. (4) Palliative care encounter: Plan: Focus of care is comfort and symptom management. She has had progressive decline and is likely to within the next day or two. Discussed O2 with RN. Morphine can be used for labored respirations but benefit for shortness of breath at this point is likely minimal. Per RN, family asked about continuing O2. OK to stop O2 if family comfortable with that. Admission and Anticipated Discharge Date Admission Date: July 05, 2022 Subjective No response to voice or touch. No facial grimace. Appears comfortable Review of Systems Review of Systems: Unobtainable due to reduced consciousness Physical Exam Constitutional: no acute distress ENMT: Mouth: + dry oral mucous membranes Respiratory: tachypnea, audible tracheal secretions 66% on 3L Cardiovascular: irregular Musculoskeletal: Extremities: + muscle atrophy Neurologic: obtunded Genitourinary: Srinivasan catheter, UOP 100cc Results & Data ([facility]) Vital Signs (Past 12 Hours) Vital Signs Temp Pulse Resp BP Pulse Ox O2 Del Method O2 Flow Rate 07/29/22 07:15 99.0 F 78 24 151/77 H 66 L Nasal Cannula 3 07/29/22 07:06 Nasal Cannula 3 PG Care Time/CCT Total # of Minutes Spent Total Time Spent with Patient: Total time spent is greater than 50% in coordination of care (as documented) at patient's floor/unit and/or counseling patient: Coding Level of Care Code 77730 SUB INP/OBS CARE 1/25MIN Diagnoses Abdominal pain R10.9 Restlessness and agitation R45.1 Terminal respiratory secretions R09.89 Palliative care encounter Z51.5
--- NOTE | 2022-07-29 11:04 | Hospitalist Progress Note ---
Date of Service July 29, 2022 Assessment & Plan (1) Comfort measures only status: Plan: After decompensation over the weekend the family is made the patient comfort care measures we will discontinue any laboratories tube feedings or extraneous testing. Family requested continue current level of medical care with medications and will eventually transition to [facility] facility to pursue comfort measures there. Patient will remain on comfort measures. Patient appears comfortable with morphine. continue comfort measures. Anticipate patient will pass within next 24-48 hours. increased anticholinergic medication on 07/28 will taper off oxygen on 07/29. Family appears to be requesting to remove oxygen, if so, may do this this afternoon. Will continue to monitor, if patient remains stable on Friday, may consider discharge to SNF. (2) CHF (congestive heart failure): Plan: Acute congestive systolic heart failure, HFrEF moderate risk, resolving stopping lasix Family has now made comfort care, Plan below is prior to comfort measures order (3) Acute hyponatremia: Plan: 81 year old who was admitted to hospital on 07/05/2022 with acute hyponatremia and failure to thrive. Patient has an extensive history of CHF, status post AICD, EF 25-30%, HTN, severe pulmonary HTN, moderate to severe TR, ASCVD s/p stent x2, PAD. h/o subarachnoid hemorrhage 2/2 aneurysm rupture and coil embolization of left vertebral aneurysm completed 03/31/2022. Complicated course including hydrocephalus which improved with EVD. Patient completed a course of Keppra, nimodidine x21 days, and was cared for at an LTAC before being transferred to [facility] for strengthening after she clinically improved and was able to have tracheostomy decannulated 06/15/2022. 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, with reduced osmolalities nephrology recommends against restarting ACEs or ARB's of this patient (4) Iron deficiency anemia: Plan: Acute on chronic anemia, now stable iron deficiency anemia plus anemia or chronic disease We will continue apixaban for DVT prophylaxis following anemia - Blood consent signed previously low iron tibc will give doses of venofer 07/07/22 with low blood count may opt to transfuse but concerns for volume with EF of 20 to 25% Hgb relatively stable (5) CAD (coronary artery disease), [place] coronary artery: (6) Hypertension: (7) S/P ICD (internal cardiac defibrillator) procedure: Plan: History of ICD placement chronic Patient with history of long QT syndrome, sudden cardiac arrest, last echo 07/05/22 with EF 25-30% Patient has had an ICD in place which she is [facility] by [facility] as an [facility], family request ICD to be turned off for the defibrillation phase Dr. Gross was notified and will discontinue ICD on 07/22/2022 (8) Hypothyroidism: Plan: Hypothyroidism: Synthroid 88mcg daily (9) Acute encephalopathy: Plan: inital culture with >100,000 gram positive cocci, completed daptomycin, contact isolation palliative care consult on 07/22 family wishes to transition to comfort care measures but at this point time aggressive care will be continued (10) Dysphagia: Plan: Dysphagia, pt family wishes to stop tube feeding (11) History of DVT (deep vein thrombosis): Plan: History of unprovoked DVT, chronic and stable Plan comfort measures CODE STATUS: DNR/DNI. Admission and Anticipated Discharge Date Admission Date: July 05, 2022 Subjective Patient does not verbalize any complaints. Appears comofortable. Review of Systems Review of Systems: Unobtainable due to cognitive status Physical Exam Physical Exam: Patient is lying bed, no audible gurgling noted today. Patient does not appear to be in acute distress. Results & Data Results & Data ([facility]) Vital Signs (Past 12 Hours) Vital Signs Temp Pulse Resp BP Pulse Ox O2 Del Method O2 Flow Rate 07/29/22 07:15 37.2 C 78 24 151/77 H 66 L Nasal Cannula 3 07/29/22 07:06 Nasal Cannula 3 PG Care Time/CCT Total # of Minutes Spent Total Time Spent with Patient: Total time spent is greater than 50% in coordination of care (as documented) at patient's floor/unit and/or counseling patient: Coding Level of Care Code 42151 SUB INP/OBS CARE 2/35MIN Diagnoses Comfort measures only status Z51.5 CHF (congestive heart failure) I50.9 Acute hyponatremia E87.1 Iron deficiency anemia D50.9 CAD (coronary artery disease), [place] coronary artery I25.10 Hypertension I10 S/P ICD (internal cardiac defibrillator) procedure Z95.810 Hypothyroidism E03.9 Acute encephalopathy G93.40 Dysphagia R13.10 History of DVT (deep vein thrombosis) Z86.718
--- NOTE | 2022-07-29 15:31 | Discharge Summary ---
Date of Service July 29, 2022 Admission HPI Per Admitting Provider Per Family: IMproving up until ~ week ago Tx 3 days UTI last week Sleeping, tired, nausea, poor PO intake. No nausea No bleeding No chest pain, no chest pressure, no SoB Had not had oxygen until yesterday Was treated for high K with 1.5L NSS fluid +cough, no production. Reports was very thirsty and was drinking water last week. ~5 months ago was with iron deficiency. Hx anemia, no active bleeding during hospitalization from GI, did have bleeding from aneurysm as noted. No melena. Has not had GI followup/scope. No leg swelling NC at age 55. ICD placed at [facility]. Per family was placed due to low qt. Not sure about EF, was low during 03/2022-05/2022 events. "heart has never been normal". Massive NC at age 55, 2x stents. Taken off aspirin, switched to apixaban. Medical History: Reviewed Medications: Reviewed Surgical History: Reviewed Allergies: Reviewed Social History: Past hx tobacco use, quit age 55. Code Status: DNR/DNi, confirmed w pt and family Per Independent Records Review: Recently seen at [facility] after being transferred from [facility] [place] 03/30/22 for subarachnoid hemorrhage. Initially presented with nausea/vomiting/seizure. At [facility] was treated 03/31/2022 with coil embolization of 14 x 10 x 11 mm aneurysm which had ruptured at the basilar junction During her [facility] admission she clinically declined lethargy and right-sided weakness with left-sided involuntary flexion, CT showed increased hydrocephalus which was subsequently drained. Patient was treated with nimodipine for vasospasm. Waxing waning delirium subsequently. Patient underwent tracheostomy 04/15/2022, she was transferred to [facility] on 04/18/2022. EF 04/02/2022 35% with large LAD infarct grade 2 diastolic dysfunction. She remained at [place] for 54 days and had a PEG tube placed 05/03/2022. She was gradually weaned from oxygen, tracheostomy was decannulated 06/05/2022. Repeat CThead 05/13/2022 stable. Keppra was discontinued. Demoted pain was continued for 21 days then discontinued. Patient had blood cultures which were positive for Pseudomonas, completed a course of cefepime on 04/24/2022. On [facility] evaluation patient is diet was level 5 minced and moist, mildly thick liquids, and able to take pills. Receiving tube feeds at night On [facility] intake creatinine 0.7, sodium 131, potassium 4.3, WBC stable, hemoglobin 10.2. Oriented to person and year only on intake assessment. Presented to [facility] with a sodium of 122, increasing lethargy, diffuse pain, and concerns of confusion. Per EMS report patient has had 12 pounds of weight gain in the preceding few weeks. Was recently treated for UTI with Rocephin. WBC: normal Hgb: 7.8 on admit, last 11.4 03/30/22 CT-H: No significant change compared to the prior study. No acute intracranial abnormality. The paranasal sinuses are clear. Trace mastoid effusions remain unchanged. Metallic artifact from the embolization coils anterior to the medulla. The calvarium and skull base are intact. There is motion artifact. Atrophy and microvascular ischemic changes are again noted. There is no mass, hematoma, midline shift, acute infarct. CT-A/P: 1. Increase in size in the moderate right and small left pleural effusions with associated lower lobe consolidation. This favors compressive atelectasis from the pleural effusions. A pneumonia could also have a similar appearance. 2. Interval progression of the moderate body wall edema. 3. Small amount of ascites, unchanged. 4. No definite bowel wall thickening or obstruction. 5. Moderate fecal retention.6. The gastrostomy tube appears in good position.7. Bladder wall thickening which may be chronic. Recommend correlation with urinalysis.8. Interval improvement/resolution of the gallbladder wall thickening. CXR: 1. Cardiomegaly with improvement in the mild asymmetric pulmonary edema. 2. Bilateral pleural effusions and bibasilar densities persist. Principal Diagnosis Ischemic cardiomyopathy Discharge Exam Please refer to note. Discharge Data Allergies Allergy/AdvReac Type Severity Reaction Status Date / Time simvastatin Allergy Severe Rash Verified 07/05/22 14:57 [id number] Reductase Allergy Severe Rash Verified 07/05/22 14:57 Inhibitor Consultations 07/05/22 14:57 ED Decision to Admit Stat 07/08/22 09:18 Consult Nephrology Routine 07/18/22 16:32 Consult Palliative Care Routine 07/22/22 13:56 Consult Palliative Care Routine Ordered Studies 07/05/22 13:35 CT abd pelvis wo con Stat CT head/brain wo con Stat Hospital Course (1) Comfort measures only status: After decompensation over the weekend the family is made the patient comfort care measures we will discontinue any laboratories tube feedings or extraneous testing. Family requested continue current level of medical care with medications and will eventually transition to assisted facility to pursue comfort measures there. Patient will remain on comfort measures. Patient appears comfortable with morphine. continue comfort measures. Anticipate patient will pass within next 24-48 hours. increased anticholinergic medication on 07/28 Oxygen was removed at request of family on 07/29 Patient at 15:10. (2) CHF (congestive heart failure): Acute congestive systolic heart failure, HFrEF moderate risk, resolving stopping lasix Family has now made comfort care, Plan below is prior to comfort measures order (3) Acute hyponatremia: 81 year old who was admitted to hospital on 07/05/2022 with acute hyponatremia and failure to thrive. Patient has an extensive history of CHF, status post AICD, EF 25-30%, HTN, severe pulmonary HTN, moderate to severe TR, ASCVD s/p stent x2, PAD. h/o subarachnoid hemorrhage 2/2 aneurysm rupture and coil embolization of left vertebral aneurysm completed 03/31/2022. Complicated course including hydrocephalus which improved with EVD. Patient completed a course of Keppra, nimodidine x21 days, and was cared for at an LTAC before being transferred to [facility] for strengthening after she clinically improved and was able to have tracheostomy decannulated 06/15/2022. 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, with reduced osmolalities nephrology recommends against restarting ACEs or ARB's of this patient (4) Iron deficiency anemia: Acute on chronic anemia, now stable iron deficiency anemia plus anemia or chronic disease We will continue apixaban for DVT prophylaxis following anemia - Blood consent signed previously low iron tibc will give doses of venofer 07/07/22 with low blood count may opt to transfuse but concerns for volume with EF of 20 to 25% Hgb relatively stable (5) CAD (coronary artery disease), tejon coronary artery: (6) Hypertension: (7) S/P ICD (internal cardiac defibrillator) procedure: History of ICD placement chronic Patient with history of long QT syndrome, sudden cardiac arrest, last echo 07/05/22 with EF 25-30% Patient has had an ICD in place which she is followed by [facility] as an outpatient, family request ICD to be turned off for the defibrillation phase Dr. Gross was notified and will discontinue ICD on 07/22/2022 (8) Hypothyroidism: Hypothyroidism: Synthroid 88mcg daily (9) Acute encephalopathy: inital culture with >100,000 gram positive cocci, completed daptomycin, contact isolation palliative care consult on 07/22 family wishes to transition to comfort care measures but at this point time aggressive care will be continued (10) Dysphagia: Dysphagia, pt family wishes to stop tube feeding (11) History of DVT (deep vein thrombosis): History of unprovoked DVT, chronic and stable Plan comfort measures CODE STATUS: DNR/DNI. Total Time Total Time Spent Total Time Spent (In Minutes): 31 Discharge Plan Discharge Items Reason For Visit: HYPONATREMIA, CHF Follow-up/Referrals: Isaias Jolly MD [Primary Care Provider] - Medications and DC Order Prescriptions: No Action Eliquis 2.5 mg tablet 2.5 mg PO BID Qty: 180 3RF sennosides [senna] 8.6 mg Tablet 8.6 mg PO DAILY acetaminophen [Tylenol] 325 mg Tablet 650 mg PO Q4H PRN (Reason: FEVER/PAIN) ceftriaxone 2 gram Recon Soln 2 g IV Q24H Rx Instructions: STARTED 07/02/22, INFUSE OVER 1/2 HR, MIX WITH NORMAL SALINE 0.9% sennosides-docusate sodium [Senokot-S] 8.6-50 mg Tablet 1 tab-cap PO QDL PRN (Reason: Constipation) levothyroxine 88 mcg tablet 88 mcg PO DAILYBB magnesium hydroxide [Milk of Magnesia] 400 mg/5 mL Suspension 30 ml PO DAILY PRN (Reason: Constipation) bisacodyl 10 mg Suppository 10 mg AL DAILY PRN (Reason: Constipation) lidocaine 5 % Adhesive Patch,Medicated 1 patch TOPICAL DAILY Rx Instructions: APPLY IN AM, REMOVE QPM. leave on most painful area for up to 12 hrs docusate sodium 100 mg Capsule 100 mg PO DAILY omeprazole 20 mg Capsule,Delayed Release(Dr/Ec) 20 mg PO DAILY polyethylene glycol 3350 [Miralax] 17 gram/dose Powder 17 g PO QDL PRN (Reason: Constipation) polyethylene glycol 3350 [Miralax] 17 gram/dose Powder 17 g PO DAILY loratadine [Claritin] 10 mg Tablet 10 mg PO DAILY sodium chloride 0.9 % (flush) [Saline Flush] Syringe 5 ml IV Q8H trospium 20 mg Tablet 20 mg PO Q48H Rx Instructions: administer on an empty stomach Admission Data Admit Date/Time: 07/05/22 15:50 Attending Provider: Rush Frank Admit Provider: Raymond Washburn Primary Care Provider: Isaias Jolly Other Providers: Pam Hoover ; Raymond Washburn ; Eugenio Rojas ; Jaclyn Das Coding Level of Care Code HOSP INP/OBS DISCH >30 MIN Diagnoses Comfort measures only status Z51.5 CHF (congestive heart failure) I50.9 Acute hyponatremia E87.1 Iron deficiency anemia D50.9 CAD (coronary artery disease), tejon coronary artery I25.10 Hypertension I10 S/P ICD (internal cardiac defibrillator) procedure Z95.810 Hypothyroidism E03.9 Acute encephalopathy G93.40 Dysphagia R13.10 History of DVT (deep vein thrombosis) Z86.718
--- NOTE | 2022-07-29 16:05 | Death Pronouncement Note ---
Date of Service July 29, 2022 Pronouncement Note Admission Date July 05, 2022 Date and Time of Date of : 07/29/22 Time of : 15:10 Preliminary Cause of (1) CHF (congestive heart failure): Contributing Factors failure to thrive delirium dysphagia Summary please refer to discharge summary. Additional Data Confirmation of : no pulse, no respirations, no heart sounds and pupils fixed and dilated Pronouncement Performed By: Attending Physician Family: at bedside Attending/PCP notified?: Yes Attending physician: Rush Frank Was code activated?: No Autopsy requested?: No crime scene examiner notified?: No Organ bank notified?: Yes Coding Level of Care Code None Diagnoses CHF (congestive heart failure) I50.9
== END 2022-07-29 16:26 | disposition expired | DRG 291 ==
LOC: ED 12:51 → 2S 15:50 → SUATTDRO 15:50 → 2S 16:41 → 3W 07-10 23:34